=== PATIENT | male | born 1950 | race Caucasian/White ===

== ENCOUNTER → 2020-08-07 08:59 | Outpatient (CLI) | payer OTHER, SELFPAY ==
--- NOTE | ~2020-08-07 | XR_ITS ---
EXAMINATION: XR chest 2V DATE: 08/07/2020 09:18 INDICATION: Shortness of breath. TECHNIQUE: Frontal and lateral views of the chest were obtained. COMPARISON: CT abdomen 02/26/2019 FINDINGS: The chest demonstrates clear lungs without pneumonia, pleural effusion, or pneumothorax. Th e heart size is normal. Median sternotomy wires and mediastinal surgical clips are seen, likely from prior coronary artery bypass grafting. IMPRESSION: 1. No acute cardiopulmonary disease. Reviewed, dictated and finalized at location B. [employer]
== END ==
PROVIDERS: PCP Family Medicine; Visit Provider Family Medicine
DX: R06.02 Shortness of breath (principal)
CPT/HCPCS: 71046

== ENCOUNTER 2020-12-17 09:12 | Outpatient (CLI) | payer OTHER, SELFPAY ==
[2020-12-17 09:57] LABS: Anion Gap 6 mmol/L (8-16); Blood Urea Nitrogen 28 mg/dL (9-20); Carbon Dioxide 30 mmol/L (22-30); Chloride 103 mmol/L (98-107); Estimated Glomerular Filt Rate 33; Glucose 125 mg/dL (75-110); Potassium 3.8 mmol/L (3.4-5.0); Sodium 139 mmol/L (137-145)
== END 2020-12-17 09:13 | disposition home or self-care (01) ==
PROVIDERS: PCP Internal Medicine; Visit Provider Internal Medicine Cardiovascular Disease
DX: N18.32 Chronic kidney disease, stage 3b (principal)
CPT/HCPCS: 36415; 80048

== ENCOUNTER 2024-01-05 07:08 | Outpatient (CLI) | payer OTHER, SELFPAY ==
[2024-01-05 07:49] LABS: Basophils Percent Auto 0.3 % (0.2-1.2); Eosinophils Absolute Auto 0.3 K/mm3 (0-0.3); Eosinophils Percent Auto 2.1 % (0-4.4); Hematocrit 36.7 % (42.0-52.0); Hemoglobin 12.1 g/dL (14.0-18.0); Immature Granulocyte Absolute 0.06 K/mm3 (0.00-0.031); Immature Granulocyte Percent A 0.5 % (0-0.5); Lymphocytes Percent Auto 10.2 % (18.3-44.2); Mean Corpuscular Hemoglobin 27.5 pg (26-34); Mean Corpuscular Volume 83.4 fl (80-100); Mean Platelet Volume 10.2 fl (7.4-10.4); Monocytes Absolute Auto 0.7 K/mm3 (0.1-0.6); Monocytes Percent Auto 6.2 % (2.6-8.5); Neutrophils Absolute Auto 9.5 K/mm3 (1.3-6.7); Neutrophils Percent Auto 80.7 % (45.5-73.1); Platelet Count Result 272 k/mm3 (150-375); Red Cell Distribution Width 14.9 % (11.5-14.5); White Blood Count 11.8 K/mm3 (4.5-10.0)
[2024-01-05 08:02] LABS: Alanine Aminotransferase 21 U/L (6-50); Albumin Level 4.2 g/dL (3.5-5.1); Alkaline Phosphatase 55 U/L (38-126); Anion Gap 7 mmol/L (4-12); Aspartate Amino Transferase 25 U/L (17-59); Bilirubin,Total 0.5 mg/dL (0.2-1.3); Blood Urea Nitrogen 33 mg/dL (9-20); Carbon Dioxide 23 mmol/L (22-30); Chloride 108 mmol/L (98-107); Cholesterol 142 mg/dL (0-200); Estimated Glomerular Filt Rate 23; Glucose 114 mg/dL (65-110); HDL Direct 39 mg/dL; Potassium 3.7 mmol/L (3.4-5.0); Sodium 138 mmol/L (137-145); Triglycerides 145 mg/dL (<150)
[2024-01-05 08:02] LABS: Uric Acid 6.7 mg/dL (3.5-8.5)
[2024-01-05 08:12] LABS: LDL Cholesterol Direct 78 mg/dL
[2024-01-05 09:46] LABS: Hemoglobin A1C 4.9 % (<5.7)
[2024-01-05 13:03] LABS: Creatinine Urine 92.3 mg/dL
[2024-01-05 13:46] LABS: Microalbumin Urine Random > 1140.0 mg/L (0-16.7)
== END 2024-01-05 07:09 | disposition home or self-care (01) ==
PROVIDERS: PCP Nurse Practitioner Family; Referring Provider Internal Medicine Cardiovascular Disease; Visit Provider Nurse Practitioner Family
DX: M10.9 Gout, unspecified (principal); I11.9 Hypertensive heart disease without heart failure; E78.5 Hyperlipidemia, unspecified; R73.01 Impaired fasting glucose; E55.9 Vitamin D deficiency, unspecified
CPT/HCPCS: 36415; 80053; 80061; 82043; 83036; 84550; 85025

== ENCOUNTER 2024-01-24 06:58 | Outpatient (CLI) | payer OTHER, SELFPAY ==
[2024-01-24 07:34] LABS: Basophils Percent Auto 0.3 % (0.2-1.2); Eosinophils Absolute Auto 0.3 K/mm3 (0-0.3); Eosinophils Percent Auto 2.7 % (0-4.4); Hematocrit 34.9 % (42.0-52.0); Hemoglobin 11.3 g/dL (14.0-18.0); Immature Granulocyte Absolute 0.04 K/mm3 (0.00-0.031); Immature Granulocyte Percent A 0.4 % (0-0.5); Lymphocytes Absolute Auto 1.03 K/mm3 (0.9-3.2); Mean Corpuscular HGB Conc 32.4 g/dl (32-36); Mean Corpuscular Volume 83.5 fl (80-100); Mean Platelet Volume 10.3 fl (7.4-10.4); Monocytes Absolute Auto 0.7 K/mm3 (0.1-0.6); Monocytes Percent Auto 7.2 % (2.6-8.5); Neutrophils Absolute Auto 8.2 K/mm3 (1.3-6.7); Neutrophils Percent Auto 79.4 % (45.5-73.1); Platelet Count Result 256 k/mm3 (150-375); Red Blood Count 4.18 M/mm3 (4.6-6.20); Red Cell Distribution Width 14.8 % (11.5-14.5); White Blood Count 10.3 K/mm3 (4.5-10.0)
== END 2024-01-24 06:59 | disposition home or self-care (01) ==
LOC: ANHLAB 06:59
PROVIDERS: PCP Nurse Practitioner Family; Visit Provider Nurse Practitioner Family
DX: D72.829 Elevated white blood cell count, unspecified (principal); I10 Essential (primary) hypertension
CPT/HCPCS: 36415; 85025

== ENCOUNTER 2024-06-07 08:52 | Emergency (ER) | payer OTHER, SELFPAY ==
--- NOTE | ~2024-06-07 | XR_ITS ---
Right Shoulder Technique: AP and scapular Y views were obtained. Clinical History: Pain Findings: There is an acute, oblique, nondisplaced fracture through the surgical neck of the humerus extending probably into the greater tuberosity. There is severe glenohumeral joint degenerative gandhi e. There is diffuse joint space narrowing and sclerosis with large humeral head osteophytes. There is mild AC joint degenerative change.. Soft tissues are unremarkable. Impression: Acute, oblique, nondisplaced fracture through the surgical neck and probably greater tuberosity of th e proximal humerus. Severe glenohumeral joint osteoarthritis, as detailed above. Mild AC joint degenerative change. Reviewed, dictated and finalized at location . Impression: Acute, oblique, nondisplaced fracture through the surgical neck and probably gr eater tuberosity of the proximal humerus. Severe glenohumeral joint osteoarthritis, as detailed above. Mild AC joint degenerative change.
[2024-06-07 08:56] VITALS: BP 229/76; PULSE 84; RESP 16; TEMP 36.2; O2SAT 96
--- NOTE | 2024-06-07 09:31 | ED.FALL ---
HPI - Fall General Chief Complaint: Fall Stated Complaint: fall, right shoulder injury Time Seen by Provider: 06/07/24 09:03 Source: patient Mode of arrival: ambulatory Limitations: no limitations History of Present Illness HPI Narrative: This is a 74 year old male that presents to the ER for right shoulder pain. Reports he was walking to the mailbox last night and turned and lost his balance. Has had right shoulder pain since. Reports decreased ROM due to pain. Denies numbness. Related Data Home Medications Medication Instructions Recorded Confirmed aspirin 81 mg tablet,delayed 81 mg PO DAILY 09/05/20 01/02/24 release (Adult Aspirin Regimen) dorzolamide 2 % eye drops 1 drp EACH EYE ONCE 03/05/21 01/02/24 latanoprost 0.005 % eye drops 1 drp EACH EYE QPM 03/05/21 01/02/24 losartan 50 mg-hydrochlorothiazide 1 tablet PO DAILY 03/05/21 01/02/24 12.5 mg tablet amlodipine 5 mg tablet 10 mg PO DAILY 10/07/22 01/02/24 brimonidine 0.2 % eye drops 1 drp EACH EYE Q8H 10/07/22 01/02/24 calcitriol 0.5 mcg capsule 0.5 mcg PO DAILY 10/07/22 01/02/24 cholecalciferol (vitamin D3) 125 125 mcg PO BID 10/07/22 01/02/24 mcg (5,000 unit) capsule clonidine HCl 0.1 mg tablet 0.1 mg PO DAILY 10/07/22 01/02/24 hydralazine 100 mg tablet 100 mg PO TID 10/07/22 01/02/24 rosuvastatin 10 mg tablet 20 mg PO DAILY 10/07/22 01/02/24 furosemide 40 mg tablet 40 mg PO DAILY 01/02/24 01/02/24 Allergies Allergy/AdvReac Type Severity Reaction Status Date / Time No Known Allergies Allergy Verified 01/02/24 07:15 Review of Systems Review of Systems: CONSTITUTIONAL: Denies fever MUSCULOSKELETAL: Reports joint pain, and myalgia. NEUROLOGIC: Denies numbness, or weakness. All systems reviewed & are unremarkable except as noted in HPI and below PMFSH Past Medical History Medical History Blindness of right eye CAD (coronary artery disease) Essential (primary) hypertension Glaucoma Hyperlipidemia Pancreatic cyst Surgical History Surgical History History of coronary artery bypass surgery History of detached retina repair History of hernia repair Social History Social History Smoking packs per day: 1 Smoking cigarettes per day: 20.0 Years smoked: 15 Smoking pack-years: 15.00 Smoking status: Former smoker Tobacco type: cigarettes Smoking end date: 04/07/19 Alcohol intake: current Alcohol use details: Rare use Substance use: never Substance use type: does not use Lack of Transportation: No Lack of Food: Never True Current Housing: I Have Housing Concerned About Future Housing: No Difficulty Paying Gas/Electric Bills: No Difficulty Paying for Meds: No Currently Unemployed: YES Education: High School Diploma/GED Difficulty w/ Childcare or Family Care: No Living arrangements: with family Occupation/Education: retired 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 HEAD: Normocephalic, atraumatic. EYES: EOMI. NECK: Supple. No midline spinal tenderness CHEST: Clear to auscultation. No respiratory distress. No wheezes rales or rhonchi HEART: Regular rate and rhythm. No murmur heard. Normal peripheral pulses. EXTREMITIES: Normal range of motion, except decreased active ROM in the right shoulder. No edema or obvious deformity. Normal radial pulse. Normal sensation SKIN: Warm, dry, no rash. NEURO: No focal deficits. Alert and oriented x3. Normal gait PSYCH: Normal mood and affect Course Course Emergency Course: Patient updated on workup and agrees with plan of care Consultations Consultation #1:
[2024-06-07] MEDS: ACETAMINOPHEN 500 MG TABLET 1000 MG PO (09:40)
[2024-06-07] MEDS: amLODIPine BESYLATE 10 MG TABLET PO (09:42)
[2024-06-07] MEDS: hydrALAZINE HCL 50 MG TABLET 100 MG PO (09:42)
[2024-06-07 10:02] VITALS: BP 196/72; PULSE 76; RESP 14; O2SAT 100
== END 2024-06-07 10:27 | disposition home or self-care (01) ==
PROVIDERS: Emergency Provider Physician Assistant; PCP Nurse Practitioner Family
DX: S42.214A Unspecified nondisplaced fracture of surgical neck of right humerus, initial encounter for closed fracture (principal); I10 Essential (primary) hypertension; I25.10 Atherosclerotic heart disease of native coronary artery without angina pectoris; E78.5 Hyperlipidemia, unspecified; H40.9 Unspecified glaucoma; H54.61 Unqualified visual loss, right eye, normal vision left eye; Z95.1 Presence of aortocoronary bypass graft; Z87.891 Personal history of nicotine dependence; Z79.82 Long term (current) use of aspirin; Z79.899 Other long term (current) drug therapy; M19.011 Primary osteoarthritis, right shoulder; W18.39XA Other fall on same level, initial encounter
CPT/HCPCS: 73030; 99284; A4565; A9270

== ENCOUNTER 2024-08-15 06:56 | Outpatient (CLI) | payer OTHER, SELFPAY ==
[2024-08-15 07:38] LABS: Alanine Aminotransferase 17 U/L (6-50); Albumin Level 3.8 g/dL (3.5-5.1); Alkaline Phosphatase 50 U/L (38-126); Anion Gap 7 mmol/L (4-12); Aspartate Amino Transferase 21 U/L (17-59); Bilirubin,Total 0.5 mg/dL (0.2-1.3); Blood Urea Nitrogen 34 mg/dL (9-20); Calcium 9.7 mg/dL (8.4-10.2); Carbon Dioxide 25 mmol/L (22-30); Chloride 108 mmol/L (98-107); Cholesterol 123 mg/dL (0-200); Estimated Glomerular Filt Rate 21; Glucose 114 mg/dL (65-110); HDL Direct 42 mg/dL; Sodium 140 mmol/L (137-145); Triglycerides 96 mg/dL (<150)
[2024-08-15 07:49] LABS: LDL Cholesterol Direct 48 mg/dL
[2024-08-15 10:08] LABS: Creatinine Urine 180.6 mg/dL
[2024-08-15 10:20] LABS: Vitamin D 25 Hydroxy 32.6 ng/mL
[2024-08-15 12:36] LABS: MALB Creatinine Ratio > 631.2 mg/g (0-30); Microalbumin Urine Random > 1140.0 mg/L (0-16.7)
== END 2024-08-15 06:57 | disposition home or self-care (01) ==
PROVIDERS: PCP Nurse Practitioner Family; Visit Provider Nurse Practitioner Family
DX: E78.5 Hyperlipidemia, unspecified (principal); I10 Essential (primary) hypertension; I51.9 Heart disease, unspecified; R73.01 Impaired fasting glucose; E55.9 Vitamin D deficiency, unspecified
CPT/HCPCS: 36415; 80053; 80061; 82043; 82306

== ENCOUNTER 2024-11-09 12:49 | Outpatient (CLI) | payer OTHER, SELFPAY ==
--- OUTSIDE RECORDS SUMMARY | 2024-11-09 12:53 | XMS_ITS | Clinical Summary ---
Author Organization [facility] Address [address] [place] [address] Care Team Providers Care Public Health Staff Nurse Name Role Phone Lea Gaspar RN Unavailable Unavailable Sen Ruiz MD Unavailable [phone] Jorge Alberto Perez MD Primary Care Provider [phone] Allergies Active Allergy Reactions Criticality Noted Date Comments Zolpidem Unknown 05/24/2019 Medications aspirin 81 mg enteric coated tablet Take 1 tablet (81 mg total) by mouth daily Active dorzolamide (TRUSOPT) 2 % ophthalmic solution 2 (two) times a day 0 Active latanoprost (XALATAN) 0.005 % ophthalmic solution INSTILL 1 DROP INTO BOTH EYES AT BEDTIME 1 Active brimonidine (ALPHAGAN) 0.2 % ophthalmic solution 1 drop 2 (two) times a day 1 Active cholecalciferol (VITAMIN D-3) 2000 unit capsule Take 1 capsule (2,000 Units total) by mouth daily 30 capsule 11 1 Active calcitRIOL (ROCALTROL) 0.5 mcg capsule TAKE 1 CAPSULE BY MOUTH EVERY DAY 90 capsule 4 Active losartan (COZAAR) 50 mg tablet Take 1 tablet (50 mg total) by mouth daily 90 tablet 3 4 08/20/20 25 Active furosemide (LASIX) 40 mg tabletIndication s:Essential hypertension Take 1 tablet (40 mg total) by mouth daily 90 tablet 3 4 Active Additional Information Patient taking differently:40 mg oral2 times daily, Reported on 11/09/2024 hydrALAZINE (APRESOLINE) 100 mg tabletIndication s:Uncontrolled hypertension Take 1 tablet (100 mg total) by mouth 2 (two) times a day 180 tablet 3 4 Active Additional Information Patient taking differently:100 mg oral3 times daily, Reported on 11/09/2024 amLODIPine (NORVASC) 10 mg tabletIndication s:Uncontrolled hypertension Take 1 tablet (10 mg total) by mouth daily 90 tablet 3 4 Active rosuvastatin (CRESTOR) 20 mg tablet Take 1 tablet (20 mg total) by mouth daily 90 tablet 3 4 Active cloNIDine (CATAPRES) 0.1 mg tabletIndication s:Essential hypertension Take 1 tablet (0.1 mg total) by mouth 2 (two) times a day 180 tablet 3 4 Active cholecalciferol, vitamin D3, 1,000 unit tablet,chewable Take 2 tablet/chew tab by mouth Active multivitamin tabletIndication s:Vitamin Deficiency Prevention Take 1 tablet by mouth Active Active Problems Problem Noted Date Diagnosed Date Morbid (severe) obesity due to excess calories 0 03/26/2024 Body mass index (BMI) 45.0-49.9, adult 4 CKD stage 4 secondary to hypertension 07/04/2023 Mixed hyperlipidemia 03/17/2021 DRAPER (dyspnea on exertion) 12/02/2020 Bradycardia 12/02/2020 Former tobacco use 12/02/2020 Stage 3b chronic kidney disease 12/02/2020 Prediabetes 12/02/2020 Coronary artery disease invo lving [place] coronary artery of [place] heart without angina pectoris 11/12/2019 Body mass index (BMI) of 45.0-49.9 in adult 07/29 Fasting hyperglycemia 08/07/2019 Class 3 obesity 08/07/2019 Hx of CABG 08/07/2019 Abnormal plasma protein test 08/07/2019 Essential hypertension 08/07/2019 CHF (congestive heart failure) 05/07/2019 Atrial fibrillation with RVR 05/01/2019 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 Overview (03/28/2019): Added automatically from request for surgery [id number] MEI (obstructive sleep apnea) 01/13/2018 Resolved Problems Problem Noted Date Diagnosed Date Resolved Date Abdominal pain of multiple sites 08/07/2019 12/02/2020 Acute non-ST segment elevati on myocardial infarction 08/07/2019 12/02/2020 Acute respiratory failure with hypoxia 08/07/2019 12/02/2020 Constipation in pediatric patient 08/07/2019 12/02/2020 Hyperleukocytosis 08/07/2019 12/02/2020 Pulmonary infiltrate 08/07/2019 021 HCAP (healthcare-associated pneumonia) 08/07/2019 12/02/2020 Acute kidney injury 08/07/2019 12/03/19 21 Acute renal failure superimp osed on chronic kidney disease 08/07/2019 12/02/2020 Chronic kidney disease with active medical management without dialysis 08/07/2019 12/02/2020 Chronic renal impairment 08/07/201901/2021 Well child examination 08/07/201912/02 NSTEMI, initial episode of care 08/07/2019 12/02/2020 Pancreatitis due to biliary obstruction 08/07/2019 12/02/2020 Need for prophylactic measure 05/07/2019 12/02/2020 CRF (chronic renal failure) 05/07/2019 12/02/2020 Dyslipidemia 05/01/2019 12/02/2020 Elevated troponin 05/01/2019 12/02/2020 Non-ST elevation myocardial infarction (NSTEMI) 05/01/2019 12/02/2020 Hypercholesteremia 07/27/2016 Assessment & Plan (01/23/2019 4:12 PM CDT): Following diet HTN (hypertension) 03/23/2016 Assessment & Plan (01/23/2019 4:12 PM CDT): Hypertension under not best control readings are 150/80 standing. Patient has been consuming more salt lately Coronary artery disease 03/23/2016 0401/2021 Assessment & Plan (01/23/2019 4:13 PM CDT): Stable coronary disease denies any chest pain. Encounters Date Type Department Care Team Description 11/09/2024 9:15 AM CDT Office Visit [facility] Nephrology at [address] [place] [id number] Connor Wilkes MD Stage 3b chronic kidney disease (HCC) (Primary Dx); Benign hypertensive kidney disease with chronic kidney disease stage I through stage IV, or unspecified(403.10); Persistent proteinuria; Secondary hyperparathyroidism; Morbid (severe) obesity due to excess calories (HCC) 10/23/2024 Results Follow-Up [facility] Cardiology [address] [place] [address] [address] [place] [address] Darrius Martin MD 10/22/2024 8:15 AM WIRE COATER Ancillary Procedure [address] [place] [phone] DRAPER (dyspnea on exertion) 10/01/2024 Telephone [place] [address] [place] [phone] Darrius Martin MD 08/20/2024 12:00 PM WIRE COATER Office Visit [facility] Cardiology [address] [place] [address] [address] [place] [phone] Darrius Martin MD Hx of CABG (Primary Dx); Essential hypertension; Coronary artery disease involving [place] coronary artery of [place] heart without angina pectoris; Mixed hyperlipidemia; Uncontrolled hypertension; Atherosclerosis of [place] coronary artery without angina pectoris, unspecified whether [place] or transplanted heart from Last 3 Months Surgical History Surgery Date Site/Laterality Comments HERNIA REPAIR 08/29/1969 - 08/28/1970 EYE SURGERY 08/29/2013 - 08/28/2014 UPPER GASTROINTESTINAL ENDOSCOPY CORONARY ARTERY BYPASS GRAFT 04/29/2020 - 05/28/[address] 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 Heart attack (HCC) Cardiac rhythm disturbance Obesity Wears dentures Pre-diabetes Right arm fracture 05/2024 Family History Medical History Relation Name Comments Covid-19 Brother 1 Cause of Heart attack Father Heart disease Father Old age Mother Relation Name Status Comments Brother 1 (Age 73) Brother 2 Alive Brother 3 Alive Father (Age 60) Mother (Age 86) Social History Tobacco Use Types Packs/Day Years Used Date Smoking Tobacco: Former Cigarettes Q uit: 03/03/2019 Smokeless Tobacco: Never Tobacco Cessation:Counseling Given: Not Answered Alcohol Use Standard Drinks/Week Comments Yes 0 (1 standard drink = 0.6 oz pur e alcohol) rarely AUDIT-C Answer Date Recorded Q1: How often do you have a drink containing alc ohol? Monthly or less 03/26/2024 Average Number of Drinks Not on file 024 Frequency of Binge Drinking Not on file 02/27 Sex and Gender Information Value Date Recorded Sex Assigned at Not on file Legal Sex Male 6:22 PM WIRE COATER Gender Identity Not on file Sexual Orientation Not on file Obstetrics History Last Filed Vital Signs Vital Sign Reading Time Taken Comments Blood Pressure 166/68 11/09/2024 9:26 AM CDT Pulse 64 11/09/2024 9:26 AM CDT Temperature 36.7 C (98 F) 11/09/2024 9:26 AM CDT Respiratory Rate 20 06/13/2019 10:3 7 AM CDT Oxygen Saturation 95% 08/20/2024 12: 03 PM WIRE COATER Inhaled Oxygen Concentration - - Weight 125.7 kg (277 lb 3.2 oz) 11/09/2024 9:26 AM CDT Height 165.1 cm (5' 5 ) 11/09/2024 9:26 AM CDT Body Mass Index 46.13 11/09/2024 9:26 AM CDT Plan of Treatment Health Maintenance Due Date Last Done Comments Colon Cancer Screening-Colonoscopy 1950 Depression Screening 1950 Fall Risk Assessment 1950 Hepatitis C Screening 1950 DTaP/Tdap/Td Vaccine (1 - Tdap) 1961 Hepatitis B Screening 01/07/1968 Pneumococcal vaccine 65+ (1 of 1 - PCV) 01/07/2000 Zoster Vaccine (1 of 2) 01/07/2000 Well Visit 65+ 2015 Influenza Vaccine (#1) 2024 09/08/2012 Colon Cancer Screening-FIT Discontinued 04/15/2019 Abdominal Aortic Aneurysm (AAA) Screen Completed , 04/07/2019 Procedures Procedure Name Priority Date/Time Associated Diagnosis Comments TRANSTHORACIC ECHO (TTE) COMPLETE W DOPPLER/CF WO CONTRAST Routine 10/22/2024 8:29 AM WIRE COATER DRAPER (dyspnea on exertion) POCT LIPID PANEL Routine 08/20/2024 2:24 PM WIRE COATER Coronary artery disease involving [place] coronary artery of [place] heart without angina pectoris Mixed hyperlipidemia CT ABDOMEN W WO CONTRAST 05/04/2019 12:00 AM CDT OCCULT BLOOD, FECAL (FIT) Routine 04/15/2019 6:00 AM CDT from Last 3 Months or Most Recently Relevant to Health Maintenance Results * TRANSTHORACIC ECHO (TTE) COMPLETE W DOPPLER/CF WO CONTRAST (10/22/2024 8:29 AM WIRE COATER) Anatomical Region Laterality Modality Ultrasound 10/22/2024 7:58 AM WIRE COATER Narrative 10/22/2024 11:58 AM WIRE COATER [facility] Cardiology [address] [facility] [address], [place] [address] [address] [facility] [address], [place] [address] P:[phone] P:[phone] Echocardiographic Report Patient Name: NIKOLAY SILVER Z : 1950 Study Date: 10/22/2024 7:58:55 AM Gender: M Tech: Location: [facility] Provider: DARRIUS MARTIN Height(Cm): 165 BSA: 2.37 Weight(Kg): 122.5 Heart Rate: 71 BP: 138 / 84 Quality: Good Order Provider: DARRIUS MARTIN PROCEDURES: Echocardiographic Report: Transthoracic echocardiogram with complete 2D, M-Mode, and color Doppler examination. INDICATIONS: Dyspnea on Exertion. MEASUREMENTS: 2D/MM Value Range Doppler Value Range EF Mod BP 60 % [ 52 - 72 ] ANUJ Vmax 1.38 cm2 [ 2.00 - 4.00 ] EF Teich MM 60 % [ 52 - 72 ] AV Mean PG 16 mmHg LVIDd 2D 5.74 cm [ 4.20 - 5.80 ] AV Peak Rodger 2.66 m/s [ 1.00 - 1.70 ] LVIDd MM 5.79 cm [ 4.20 - 5.80 ] AV Peak PG 28 mmHg LVIDs 2D 3.88 cm [ 2.50 - 4.00 ] AV VTI 60.78 cm LVIDs MM 3.92 cm [ 2.50 - 4.00 ] LVOT Diam 1.97 cm [ 1.70 - 2.10 ] LVPWd 2D 1.28 cm [ 0.60 - 1.00 ] LVOT Peak Rodger 1.21 m/s [ 0.70 - 1.10 ] LVPWd MM 1.43 cm [ 0.60 - 1.00 ] LVOT VTI 28.23 cm IVSd 2D 1.25 cm [ 0.60 - 1.00 ] MV E Peak Rodger 0.84 m/s [ 0.60 - 1.30 ] IVSd MM 1.43 cm [ 0.60 - 1.00 ] MV A Peak Rodger 0.84 m/s [ 1.00 - 1.20 ] LA Dimension MM 5.35 cm [ 3.00 - 4.00 ] MV Decel Time 198 msec [ 104 - 258 ] AoR Diam MM 3.69 cm [ 3.10 - 3.70 ] PV Peak Rodger 1.32 m/s [ 0.40 - 0.80 ] LA Volume Index 45 cc/m2 [ 16 - 34 ] TR Peak Rodger 2.84 m/s [ 1.00 - 2.80 ] TR Peak PG 32 mmHg Lateral E` 0.09 m/s [ 0.10 - 0.15 ] E` 0.06 m/s E/E` 10 2D/MM Value Range Doppler Value Range - FINDINGS: Interpretation Site: Exam was interpreted at [facility]. Left Ventricle: Normal left ventricular systolic function. No focal wall motion abnormalities. Normal left ventricular size. Mild concentric left ventricular hypertrophy. There is pseudonormal diastolic dysfunction Grade II. Ejection fraction is measured at 60 %. Right Ventricle: Normal right ventricular size. Normal right ventricular systolic function. Left Atrium: There is mild enlargement of left atrium. Right Atrium: The right atrium is normal in size. Atrial Septum: Normal atrial septum. Mitral Valve: Normal appearance of the mitral valve. Mild mitral valve regurgitation. There is no hemodynamically significant mitral stenosis by Doppler. Aortic Valve: Mild to moderate aortic stenosis. Peak Velocity of 2.66 m/s. Peak gradient of 28.0 mmHg. Mean gradient of 16.0 mmHg. Valve area of 1.38 cm2. Aortic cusps appear mildly calcified. Probable trileaflet aortic valve, although not all leaflets are visualized. Mild aortic valve regurgitation. Tricuspid Valve: Normal appearance of the tricuspid valve. Estimated peak RVSP is 40 mmHg. Mild tricuspid regurgitation. Pulmonic Valve: Normal appearance of the pulmonic valve. Mild pulmonic regurgitation. Pericardium: Normal pericardium with no significant pericardial effusion. Aorta: Sinus of Valsalva is normal. IVC: Normal size and normal respiratory collapse consistent with normal right atrial pressure (<5 mmHg). Pulmonary Artery: Normal pulmonary artery size. CONCLUSIONS: Normal left ventricular systolic function. No focal wall motion abnormalities. Normal left ventricular size. Mild concentric left ventricular hypertrophy. There is pseudonormal diastolic dysfunction Grade II. Ejection fraction is measured at 60 %. There is mild enlargement of left atrium. Mild mitral valve regurgitation. Mild to moderate aortic stenosis. Peak Velocity of 2.66 m/s. Peak gradient of 28.0 mmHg. Mean gradient of 16.0 mmHg. Valve area of 1.38 cm2. Aortic cusps appear mildly calcified. Probable trileaflet aortic valve, although not all leaflets are visualized. Mild aortic valve regurgitation. Estimated peak RVSP is 40 mmHg. Mild tricuspid regurgitation. Mild pulmonic regurgitation. Electronically Signed By: Dr. Darrius Martin [facility] 10/22/2024 11:58:14 AM WIRE COATER Procedure Note Darrius Martin MD - 10/22/2024 [facility] Cardiology [address] [facility] [address], [place] [address] [address] [facility] [address], [place] [address] P:[phone] P:[phone] Echocardiographic Report Patient Name: NIKOLAY SILVER Z : 1950 Study Date: 10/22/2024 7:58:55 AM Gender: M Tech: Location: [facility] Provider: DARRIUS MARTIN Height(Cm): 165 BSA: 2.37 Weight(Kg): 122.5 Heart Rate: 71 BP: 138 / 84 Quality: Good Order Provider: DARRIUS MARTIN PROCEDURES: Echocardiographic Report: Transthoracic echocardiogram with complete 2D, M-Mode, and color Dopplerexamination. INDICATIONS: Dyspnea on Exertion. MEASUREMENTS: 2D/MM Value Range Doppler ValueRange EF Mod BP 60 % [ 52 - 72 ] ANUJ Vmax 1.38cm2 [ 2.00 - 4.00 ] EF Teich MM 60 % [ 52 - 72 ] AV Mean PG 16mmHg LVIDd 2D 5.74 cm [ 4.20 - 5.80 ] AV Peak Rodger 2.66m/s [ 1.00 - 1.70 ] LVIDd MM 5.79 cm [ 4.20 - 5.80 ] AV Peak PG 28mmHg LVIDs 2D 3.88 cm [ 2.50 - 4.00 ] AV VTI 60.78cm LVIDs MM 3.92 cm [ 2.50 - 4.00 ] LVOT Diam 1.97 cm[ 1.70 - 2.10 ] LVPWd 2D 1.28 cm [ 0.60 - 1.00 ] LVOT Peak Rodger 1.21m/s [ 0.70 - 1.10 ] LVPWd MM 1.43 cm [ 0.60 - 1.00 ] LVOT VTI 28.23cm IVSd 2D 1.25 cm [ 0.60 - 1.00 ] MV E Peak Rodger 0.84m/s [ 0.60 - 1.30 ] IVSd MM 1.43 cm [ 0.60 - 1.00 ] MV A Peak Rodger 0.84m/s [ 1.00 - 1.20 ] LA Dimension MM 5.35 cm [ 3.00 - 4.00 ] MV Decel Time 198msec [ 104 - 258 ] AoR Diam MM 3.69 cm [ 3.10 - 3.70 ] PV Peak Rodger 1.32m/s [ 0.40 - 0.80 ] LA Volume Index 45 cc/m2 [ 16 - 34 ] TR Peak Rodger 2.84m/s [ 1.00 - 2.80 ] TR Peak PG 32 mmHg Lateral E` 0.09 m/s [ 0.10 - 0.15 ] E` 0.06 m/s E/E` 10 2D/MM Value Range Doppler ValueRange - FINDINGS: Interpretation Site: Exam was interpreted at [facility]. Left Ventricle: Normal left ventricular systolic function. No focal wall motionabnormalities. Normal left ventricular size. Mild concentric left ventricular hypertrophy. Thereis pseudonormal diastolic dysfunction Grade II. Ejection fraction is measuredat 60 %. Right Ventricle: Normal right ventricular size. Normal right ventricular systolicfunction. Left Atrium: There is mild enlargement of left atrium. Right Atrium: The right atrium is normal in size. Atrial Septum: Normal atrial septum. Mitral Valve: Normal appearance of the mitral valve. Mild mitral valve regurgitation.There is no hemodynamically significant mitral stenosis by Doppler. Aortic Valve: Mild to moderate aortic stenosis. Peak Velocity of 2.66 m/s. Peak gradientof 28.0 mmHg. Mean gradient of 16.0 mmHg. Valve area of 1.38 cm2. Aortic cusps appearmildly calcified. Probable trileaflet aortic valve, although not all leaflets arevisualized. Mild aortic valve regurgitation. Tricuspid Valve: Normal appearance of the tricuspid valve. Estimated peak RVSP is 40 mmHg.Mild tricuspid regurgitation. Pulmonic Valve: Normal appearance of the pulmonic valve. Mild pulmonic regurgitation. Pericardium: Normal pericardium with no significant pericardial effusion. Aorta: Sinus of Valsalva is normal. IVC: Normal size and normal respiratory collapse consistent with normal rightatrial pressure (<5 mmHg). Pulmonary Artery: Normal pulmonary artery size. CONCLUSIONS: Normal left ventricular systolic function. No focal wall motionabnormalities. Normal left ventricular size. Mild concentric left ventricular hypertrophy. Thereis pseudonormal diastolic dysfunction Grade II. Ejection fraction is measuredat 60 %. There is mild enlargement of left atrium. Mild mitral valve regurgitation. Mild to moderate aortic stenosis. Peak Velocity of 2.66 m/s. Peak gradientof 28.0 mmHg. Mean gradient of 16.0 mmHg. Valve area of 1.38 cm2. Aortic cusps appearmildly calcified. Probable trileaflet aortic valve, although not all leaflets arevisualized. Mild aortic valve regurgitation. Estimated peak RVSP is 40 mmHg. Mild tricuspid regurgitation. Mild pulmonic regurgitation. Electronically Signed By: Dr. Darrius Martin [facility] 10/22/2024 11:58:14 AM WIRE COATER Darrius Martin MD CV ECHO PROCEDURES F inal Result * POCT lipid panel (08/20/2024 2:24 PM WIRE COATER) [facility] Cholesterol, POC 127 mg/dL Comment:GLU = 140 HDL, POC 44 mg/dL Triglycerides, POC 105 mg/dL LDL Cholesterol POC 62 mg/dL Chol/HDL Ratio, POC 1.4 Non-HDL Cholesterol, POC 83 mg/dL Cholesterol Total, POC 127 mg/dL Capillary blood 08/20/2024 2 :24 PM WIRE COATER Darrius Martin MD POINT OF CARE TEST O RDERABLES Final Result * CT Abdomen W WO Contrast (05/04/2019 12:00 AM CDT) Anatomical Region Laterality Modality Body N/A Computed Tomogra phy 05/04/2019 4:48 PM CDT Narrative 05/04/2019 5:25 PM CDT Patient Name: NIKOLAY SILVER Ehsan Ordering Dr: Angel Luis Epstein MD D.O.B: 1950 Exam Date: 05/04/19 0000 Age: 69 Sex: Male MR#: [id number] Loc: RADIOLOGY REPORT Order #[id number] CT Scan CT Abd W WO IV Contrast Signed EXAM DESCRIPTION: CT Abd W WO IV Contrast REASON FOR STUDY: Follow-up of acute pancreatitis 1 month ago TECHNIQUE: CT scan of the abdomen performed without and with intravenous and without oral contrast using helical scanning technique with dynamic intravenous contrast injection. Reconstructed coronal and sagittal MPR images reviewed. All images stored on PACS. Automated exposure control was used as a dose optimization technique for this examination. CONTRAST TYPE/DOSE: 80 cc Optiray 350 injected via right antecubital COMPARISON: 04/07/2019 FINDINGS: LOWER CHEST: Trace left pleural effusion. LIVER: Diffuse steatosis and hepatomegaly. GALLBLADDER: Unremarkable BILE DUCTS: No intrahepatic or extrahepatic ductal dilatation. SPLEEN: Normal size. No focal lesions. PANCREAS: Pancreatic body and tail are diffusely atrophic. The proximal pancreatic body contains a cluster of stones measuring 1.6 cm x 0.9 cm that is unchanged from 04/07/2019. The main pancreatic duct distal to the stones is diffusely dilated up to 8 mm, similar to the prior examination. There is a complex intra pancreatic and peripancreatic fluid collection. The intrapancreatic portion of the collection measures 3.9 cm x 2.6 cm and appears to have a few thin septations with lobulated margins (previously 3.9 cm by 2.6 cm). The largest peripancreatic component is superior to the pancreas and measures 6.1 cm x 5.0 cm, new from the prior examination. In addition, there is a component that extends into the left pleural space measuring 4.9 cm by 3.9 cm that is new. No focal pancreatic hypoattenuation to suggest necrosis. ADRENALS: Right adrenal is unremarkable. Left adrenal adenomatous hypertrophy. KIDNEYS/URINARY TRACT: Right kidney is unremarkable. Left renal interpolar 9 mm lesion is too small to characterize but likely represents a benign cyst. GI: Bowel caliber is normal. Appendix is normal. PERITONEUM: No ascites or free air. RETROPERITONEUM: No adenopathy. VASCULATURE:No venous thrombosis or arterial aneurysm. MUSCULOSKELETAL: No aggressive lesions. OTHER: No other significant abnormality. IMPRESSION: 1. Intrapancreatic/peripancreatic pseudocyst with a component extending into the left pleural space is increased in size. No evidence of underlying solid mass. 2. A large main pancreatic duct cluster of stones with dilation of the distal pancreatic duct is unchanged. Peripancreatic inflammatory changes are decreased. THIS IS AN ELECTRONICALLY VERIFIED FINAL REPORT 05/04/2019 5:25 PM - Electronically signed by Tobias Ramos M.D. RS T: Report ID: [id number] Reading Location: [id number] REPORT ELECTRONICALLY SIGNED IN OTHER VENDOR SYSTEM Resulting Agency Comment O Procedure Note Tobias Ramos MD - 05/04/2019 Patient Name: NIKOLAY SILVER Dr: Angel Luis Epstein MD D.O.B: 1950 Exam Date: 05/04/19 0000 Age: 69 Sex: Male MR#: [id number] Loc: RADIOLOGY REPORT Order #[id number] CT Scan CT Abd W WO IV Contrast Signed EXAM DESCRIPTION: CT Abd W WO IV Contrast REASON FOR STUDY: Follow-up of acute pancreatitis 1 month ago TECHNIQUE: CT scan of the abdomen performed without and with intravenousand without oral contrast using helical scanning technique with dynamic intravenous contrast injection. Reconstructed coronal and sagittal MPRimages reviewed. All images stored on PACS. Automated exposure control was usedas a dose optimization technique for this examination. CONTRAST TYPE/DOSE: 80 cc Optiray 350 injected via right antecubital COMPARISON: 04/07/2019 FINDINGS: LOWER CHEST: Trace left pleural effusion. LIVER: Diffuse steatosis and hepatomegaly. GALLBLADDER: Unremarkable BILE DUCTS: No intrahepatic or extrahepatic ductal dilatation. SPLEEN: Normal size. No focal lesions. PANCREAS: Pancreatic body and tail are diffusely atrophic. The proximal pancreatic body contains a cluster of stones measuring 1.6 cm x 0.9 cmthat is unchanged from 04/07/2019. The main pancreatic duct distal to the stonesis diffusely dilated up to 8 mm, similar to the prior examination. There gretta complex intra pancreatic and peripancreatic fluid collection. The intrapancreatic portion of the collection measures 3.9 cm x 2.6 cm andappears to have a few thin septations with lobulated margins (previously 3.9 cmby 2.6 cm). The largest peripancreatic component is superior to the pancreasand measures 6.1 cm x 5.0 cm, new from the prior examination. In addition,there is a component that extends into the left pleural space measuring 4.9 cmby 3.9 cm that is new. No focal pancreatic hypoattenuation to suggestnecrosis. ADRENALS: Right adrenal is unremarkable. Left adrenal adenomatoushypertrophy. KIDNEYS/URINARY TRACT: Right kidney is unremarkable. Left renalinterpolar 9 mm lesion is too small to characterize but likely represents a benigncyst. GI: Bowel caliber is normal. Appendix is normal. PERITONEUM: No ascites or free air. RETROPERITONEUM: No adenopathy. VASCULATURE:No venous thrombosis or arterial aneurysm. MUSCULOSKELETAL: No aggressive lesions. OTHER: No other significant abnormality. IMPRESSION: 1. Intrapancreatic/peripancreatic pseudocyst with a component extendinginto the left pleural space is increased in size. No evidence of underlyingsolid mass. 2. A large main pancreatic duct cluster of stones with dilation of thedistal pancreatic duct is unchanged. Peripancreatic inflammatory changes are decreased. THIS IS AN ELECTRONICALLY VERIFIED FINAL REPORT 05/04/2019 5:25 PM - Electronically signed by Tobias Ramos M.D. RS T: Report ID: [id number] Reading Location: [place] [id number] REPORT ELECTRONICALLY SIGNED IN OTHER VENDOR SYSTEM Angel Luis Epstein MD IMG CT PROCEDURES Final Re sult * Occult Blood, Fecal (04/15/2019 6:00 AM CDT) Stool Occult Blood NEGATIVE NEGATIVE [facility] 04/15/2019 6:00 AM CDT 04/15/2019 6:27 AM CDT Narrative [facility] - 04/15/2019 6:44 AM CDT Collected By [place] Resulting Agency Comment IN Tomi Michele MD LAB BODY FLUIDS AND STOOLS O RDERABLES Final Result [facility] [address] [place] [address], [facility] [phone] from Last 3 Months or Most Recently Relevant to Health Maintenance Insurance HEALTHCARE HEALTHCARE [facility] Advance Directives For more information, please contact: [phone] * Full Code (Latest Code Status on File) Date Activated Date Inactivated Comments 04/04/2019 8:10 AM 04/04/2019 2:59 PM Care Teams Public Health Staff Nurse Relationship Specialty Start Date End Date Jorge Alberto Perez MD [address] [place] [address] PCP - General Family Practice 08/16/24 Lea Gaspar, RN Registered Nurse Gastroenterology 03/28/19 Sen Ruiz MD [address] [facility] [place] [address] Open Hearth Door Liner Cardiology 04/25/19
--- OUTSIDE RECORDS SUMMARY | 2024-11-09 12:53 | XMS_ITS | Encounter Summary ---
Author Organization [facility] Facility Care Team Providers Care Privacy Director Name Role Phone Robe Kinney MD Primary Care Provider [phone] Lea Gaspar RN Unavailable Unavailable Sen Ruiz MD Unavailable [phone] Connor Wilkes MD Primary Care Provider [phone] Robe Kinney MD Primary Care Provider [phone] No, Physician Primary Care Provider [phone] Rory Martinez DO Primary Care Provider [phone] Jorge Alberto Perez MD Primary Care Provider [phone] Jorge Alberto Perez MD Primary Care Provider [phone] Encounter Details Date Type Department Care Team (Latest Contact Info) Description 01/05/2011 Orders Only [facility] CLINCONV Provider, MD Obinna [address] [place] [address] Social History Tobacco Use Types Packs/Day Years Used Date Smoking Tobacco: Never Assessed Sex and Gender Information Value Date Recorded Sex Assigned at Not on file Legal 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 us Historical Provider [facility] Final Result documented in this encounter Visit Diagnoses Not on filedocumented in this encounter Care Teams Privacy Director Relationship Specialty Start Date End Date Robe Kinney MD [address] [place] [address] PCP - General Family Medicine 01/16/19 05/29/19 Connor Wilkes MD [address] [facility] [address] [address] PCP - General 05/30/19 07/30/19 Robe Kinney MD [address] [place] [address] PCP - General 07/31/19 08/31/20 No, Physician PCP - General 09/01/20 10/23/20 Rory Martinez DO PCP - General 10/24/20 10/05/22 Jorge Alberto Perez MD PCP - General Family Practice 07/01/23 08/15/24 Jorge Alberto Perez MD [address] [place] [address] PCP - General Family Practice 08/16/24 Lea Gaspar, RN Registered Nurse Gastroenterology 03/28/19 Sen Ruiz MD [address] [facility] [address] Mathematical Engineering Technician Cardiology 04/25/19 documented as of this encounter
--- OUTSIDE RECORDS SUMMARY | 2024-11-09 12:53 | XMS_ITS | Encounter Summary ---
Author Organization [facility] Facility Care Team Providers Care Briquetter Operator Name Role Phone Robe Kinney MD Primary Care Provider [phone] Lea Gaspar RN Unavailable Unavailable Sen Ruiz MD Unavailable [phone] Connor Wilkes MD Primary Care Provider [phone] Robe Kinney MD Primary Care Provider [phone] No, Physician Primary Care Provider Rory Martinez DO Primary Care Provider [phone] Jorge Alberto Perez MD Primary Care Provider [phone] Jorge Alberto Perez MD Primary Care Provider [phone] Encounter Details Date Type Department Care Team (Latest Contact Info) Description 11/19/2015 Orders Only [facility] CLINCONV Provider, MD Obinna [address] [place] [address] Social History Tobacco Use Types Packs/Day Years Used Date Smoking Tobacco: Never Assessed Sex and Gender Information Value Date Recorded Sex Assigned at Not on file 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 us Historical Provider Final Res ult documented in this encounter Visit Diagnoses Not on filedocumented in this encounter Care Teams Briquetter Operator Relationship Specialty Start Date End Date Robe Kinney MD [address] [place] [address] PCP - General Family Medicine 01/16/19 05/29/19 Connor Wilkes MD [address] [facility] [place] [address] PCP - General 05/30/19 07/30/19 Robe Kinney MD [address] [place] [address] PCP - General 07/31/19 08/31/20 No, Physician PCP - General 09/01/20 10/23/20 Rory Martinez DO PCP - General 10/24/20 10/05/22 Jorge Alberto Perez MD PCP - General Family Practice 07/01/23 08/15/24 Jorge Alberto Perez MD [address] [place] [address] PCP - General Family Practice 08/16/24 Lea Gaspar, RN Registered Nurse Gastroenterology 03/28/19 Sen Ruiz MD [address] [facility] [place] [place] [address] Checkerer Hand Cardiology 04/25/19 documented as of this encounter
--- OUTSIDE RECORDS SUMMARY | 2024-11-09 12:53 | XMS_ITS | Encounter Summary ---
Author Organization [facility] Facility Care Team Providers Care Technical Support Director Name Role Phone Robe Kinney MD Primary Care Provider [phone] Lea Gaspar RN Unavailable Unavailable Sen Ruiz MD Unavailable [phone] Connor Wilkes MD Primary Care Provider [phone] Robe Kinney MD Primary Care Provider [phone] No, Physician Primary Care Provider [phone] Rory Martinez DO Primary Care Provider [phone] Jorge Alberto Perez MD Primary Care Provider [phone] Jorge Alberto Perez MD Primary Care Provider [phone] Encounter Details Date Type Department Care Team (Latest Contact Info) Description 12/03/2016 Orders Only [facility] CLINCONV Provider, MD Obinan [address] [place] [address] Social History Tobacco Use Types Packs/Day Years Used Date Smoking Tobacco: Never Assessed Sex and Gender Information Value Date Recorded Sex Assigned at Not on file 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 Gender Identity Not on file Sexual Orientation [...] on filedocumented in this encounter Care Teams Technical Support Director Relationship Specialty Start Date End Date Robe Kinney MD [address] [place] [address] PCP - General Family Medicine 01/16/19 05/29/19 Connor Wilkes MD [address] [facility] [address] [address] PCP - General 05/30/19 07/30/19 Robe Kinney MD [address] [place] [address] PCP - General 07/31/19 08/31/20 No, Physician PCP - General 09/01/20 10/23/20 Rory Martinez DO PCP - General 10/24/20 10/05/22 Jorge Alberto Perez MD PCP - General Family Practice 07/01/23 08/15/24 Jorge Alberto Perez MD [address] [place] [address] PCP - General Family Practice 08/16/24 Lea Gaspar, RN Registered Nurse Gastroenterology 03/28/19 Sen Ruiz MD [address] [facility] [place] [address] Digital Marketing Executive Cardiology 04/25/19 documented as of this encounter
--- OUTSIDE RECORDS SUMMARY | 2024-11-09 12:53 | XMS_ITS | Referral Summary ---
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 IV, or unspecified(403.10); Persistent proteinuria; Secondary hyperparathyroidism; Morbid (severe) obesity due to excess calories (HCC) 10/23/2024 Results Follow-Up [facility] Cardiology [address] [place] [address] [place] [phone] Darrius Martin MD 10/22/2024 8:15 AM EVENTS DIRECTOR Ancillary Procedure [facility] Cardiology [address] [place] [address] [place] [phone] DRAPER (dyspnea on exertion) 10/01/2024 Telephone [facility] Cardiology [address] [place] [address] [place] [phone] Darrius Martin MD 08/20/2024 12:00 PM EVENTS DIRECTOR Office Visit [facility] Cardiology [address] [place] [address] [place] [phone] Darrius Martin MD Hx of CABG (Primary Dx); Essential hypertension; Coronary artery disease involving [place] coronary artery of [place] heart without angina pectoris; Mixed hyperlipidemia; Uncontrolled hypertension; Atherosclerosis of [place] coronary artery without angina pectoris, unspecified whether [place] or transplanted heart from Last 3 Months Allergies Active Allergy Reactions Criticality Noted Date [...] Prediabetes 12/02/2020 Coronary artery disease invo lving [place] coronary artery of [place] heart without angina pectoris 11/12/2019 Body mass index (BMI) of 45.0-49.9 in adult 07/29 Fasting hyperglycemia 08/07/2019 Class 3 obesity 08/07/2019 Hx of CABG 08/07/2019 Abnormal plasma protein test 08/07/2019 Essential hypertension 08/07/2019 CHF (congestive heart failure) 05/07/2019 Atrial fibrillation with RVR 05/01/2019 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 Overview (03/28/2019): Added automatically from request for surgery [id number] MEI (obstructive sleep apnea) 01/13/2018 Resolved Problems [...] consuming more salt lately Coronary artery disease 03/23/201601/2021 Assessment & Plan (01/23/2019 4:13 PM CDT): Stable coronary disease denies any chest pain. Social History Tobacco Use Types Packs/Day Years [...] on file Legal Sex Male 6:22 PM EVENTS DIRECTOR Gender Identity Not on file Sexual Orientation Not on file Last Filed Vital Signs Vital Sign Reading Time Taken Comments Blood Pressure 166/68 11/09/2024 9:26 AM CDT Pulse 64 11/09/2024 9:26 AM CDT Temperature 36.7 C (98 F) 11/09/2024 9:26 AM CDT Respiratory Rate 20 06/13/2019 10:3 7 AM CDT Oxygen Saturation 95% 08/20/2024 12: 03 PM EVENTS DIRECTOR Inhaled Oxygen Concentration - - Weight 125.7 kg (277 lb 3.2 oz) 11/09/2024 9:26 AM CDT Height 165.1 cm (5' 5 ) 11/09/2024 9:26 AM CDT Body Mass Index 46.13 11/09/2024 9:26 AM CDT Plan of Treatment Not on file Procedures Procedure Name Priority Date/Time Associated Diagnosis Comments TRANSTHORACIC ECHO (TTE) COMPLETE W DOPPLER/CF WO CONTRAST Routine 10/22/2024 8:29 AM EVENTS DIRECTOR DRAPER (dyspnea on exertion) POCT LIPID PANEL Routine 08/20/2024 2:24 PM EVENTS DIRECTOR Coronary artery disease involving [place] coronary artery of [place] heart without angina pectoris Mixed hyperlipidemia CT ABDOMEN W WO CONTRAST 05/04/2019 12:00 AM CDT OCCULT BLOOD, FECAL (FIT) Routine 04/15/2019 6:00 AM CDT from Last 3 Months or Most Recently Relevant to Health Maintenance Results * TRANSTHORACIC ECHO (TTE) COMPLETE W DOPPLER/CF WO CONTRAST (10/22/2024 8:29 AM EVENTS DIRECTOR) Anatomical Region Laterality Modality Ultrasound 10/22/2024 7:58 AM EVENTS DIRECTOR Narrative 10/22/2024 11:58 AM EVENTS DIRECTOR [facility] Cardiology [address], [place] [address] [address], [place] [address] [phone] P:[phone] Echocardiographic Report Patient Name: NIKOLAY SILVER Ehsan : 1950 Study Date: 10/22/2024 7:58:55 AM Gender: M Tech: Location: [facility] Provider: DARRIUS MARTIN Height(Cm): 165 BSA: 2.37 [...] FINDINGS: Interpretation Site: Exam was interpreted at [facility]. Left Ventricle: Normal left ventricular systolic function. [...] regurgitation. Electronically Signed By: Dr. Darrius Martin [facility] 10/22/2024 11:58:14 AM EVENTS DIRECTOR Procedure Note Darrius Martin MD - 10/22/2024 [facility] Cardiology [address] [facility] [address], [place] [address] [address] [facility] [address] [address] P:[phone] P:[phone] Echocardiographic Report Patient Name: NIKOLAY SILVER Z : 1950 Study Date: 10/22/2024 7:58:55 AM Gender: M Tech: Location: [facility] Provider: DARRIUS MARTIN Height(Cm): 165 BSA: 2.37 [...] FINDINGS: Interpretation Site: Exam was interpreted at [facility]. Left Ventricle: Normal left ventricular systolic function. [...] regurgitation. Electronically Signed By: Dr. Darrius Martin [facility] 10/22/2024 11:58:14 AM EVENTS DIRECTOR Darrius Martin MD CV ECHO PROCEDURES F inal Result * POCT lipid panel (08/20/2024 2:24 PM EVENTS DIRECTOR) Cholesterol, POC 127 mg/dL Comment:GLU = 140 HDL, POC 44 mg/dL Triglycerides, POC 105 mg/dL LDL Cholesterol POC 62 mg/dL Chol/HDL Ratio, POC 1.4 Non-HDL Cholesterol, POC 83 mg/dL Cholesterol Total, POC 127 mg/dL Capillary blood 08/20/2024 2 :24 PM EVENTS DIRECTOR us Darrius Martin MD POINT OF CARE TEST O RDERABLES Final Result * CT Abdomen W WO Contrast (05/04/2019 12:00 AM CDT) Anatomical Region Laterality Modality Body N/A Computed Tomogra phy 05/04/2019 4:48 PM CDT Narrative 05/04/2019 5:25 PM CDT Patient Name: NIKOLAY SILVER JR Ordering Dr: Angel Luis Epstein MD D.O.B: 1950 Exam Date: 05/04/19 0000 Age: 69 Sex: Male MR#: [id number] Loc: Acc#: [id number] RADIOLOGY REPORT Order #[id number] CT Scan CT Abd W WO IV [...] 5:25 PM - Electronically signed by Tobias JOSEPH T: Report ID: [id number] Reading Location: [place] [address] REPORT ELECTRONICALLY SIGNED IN OTHER VENDOR SYSTEM Resulting Agency Comment O Procedure Note Tobias Ramos MD - 05/04/2019 Patient Name: NIKOLAY SILVER Ehsan JROrdering Dr: Angel Luis Epstein MD D.O.B: 1950 Exam Date: 05/04/19 0000 Age: 69 Sex: Male MR#: [id number] Loc: [facility] [id number] RADIOLOGY REPORT Order #[id number] CT Scan CT Abd W WO IV [...] 5:25 PM - Electronically signed by Tobias JOSEPH T: Report ID: [id number] Reading Location: [place] [address] REPORT ELECTRONICALLY SIGNED IN OTHER VENDOR SYSTEM Angel Luis Epstein MD IM CT PROCEDURES Final Re sult * Occult Blood, Fecal (04/15/2019 6:00 AM CDT) Stool Occult Blood NEGATIVE NEGATIVE [facility] 04/15/2019 6:00 AM CDT 04/15/2019 6:27 AM CDT Narrative [facility] - 04/15/2019 6:44 AM CDT Collected By [place] Resulting Agency Comment IN Tomi Michele MD LAB BODY FLUIDS AND STOOLS O RDERABLES Final Result [facility] [address] [place], [place] [phone] [place] [address] from Last 3 Months or Most Recently Relevant to Health Maintenance Insurance [facility]ALTHCARE HEALTHCARE [facility] HEALTHCARE [facility] Advance Directives For more information, please contact: [phone] * Full Code (Latest Code Status on File) Date Activated Date Inactivated Comments 04/04/2019 8:10 AM 04/04/2019 2:59 PM Care Teams Garment Presser Relationship Specialty Start Date End Date Jorge Alberto Perez MD [address] [address] PCP - General Family Practice 08/16/24 Lea Gaspar, RN Registered Nurse Gastroenterology 03/28/19 Sen Ruiz MD [address] [facility] [place] [address] Community Relations Representative Cardiology 04/25/19
--- OUTSIDE RECORDS SUMMARY | 2024-11-09 12:53 | XMS_ITS | Encounter Summary ---
Author Organization [facility] Care Team Providers Care Under Presser Name Role Phone Robe Kinney MD Primary Care Provider [phone] Lea Gaspar RN Unavailable Unavailable Sen Ruiz MD Unavailable [phone] Connor Wilkes MD Primary Care Provider [phone] Robe Kinney MD Primary Care Provider [phone] No, Physician Primary Care Provider [phone] Rory Martinez DO Primary Care Provider [phone] Jorge Alberto Perez MD Primary Care Provider [phone] Jorge Alberto Perez MD Primary Care Provider [phone] Encounter Details Date Type Department Care Team (Latest Contact Info) Description 01/30/2013 Orders Only [facility] CLINCONV Provider, MD Ob[place]na [address] [place] [address] Social History Tobacco Use Types Packs/Day Years Used Date Smoking Tobacco: Never Assessed Sex and Gender Information Value Date Recorded Sex Assigned at Not on file Legal 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 Gender Identity Not on file Sexual Orientation [...] on filedocumented in this encounter Care Teams Under Presser Relationship Specialty Start Date End Date Robe Kinney MD [address] [place] [address] PCP - General Family Medicine 01/16/19 05/29/19 Connor Wilkes MD [address] [facility] [address] [address] PCP - General 05/30/19 07/30/19 Robe Kinney MD [address] [place] [address] PCP - General 07/31/19 08/31/20 No, Physician PCP - General 09/01/20 10/23/20 Rory Martinez DO PCP - General 10/24/20 10/05/22 Jorge Alberto Perez MD PCP - General Family Practice 07/01/23 08/15/24 Jorge Alberto Perez MD [address] [place] [address] PCP - General Family Practice 08/16/24 Lea Gaspar, RN Registered Nurse Gastroenterology 03/28/19 Sen Ruiz MD [address] [facility] [place] [address] Typing Element Machine Operator Cardiology 04/25/19 documented as of this encounter
--- OUTSIDE RECORDS SUMMARY | 2024-11-09 12:54 | XMS_ITS | Encounter Summary ---
Author Organization [facility] Healthcare Address [address] [place] [address] Care Team Providers Care Ice Cream Van Vendor Name Role Phone Lea Gaspar RN Unavailable Unavailable Sen Ruiz MD Unavailable [phone] Jorge Alberto Perez MD Primary Care Provider [phone] Encounter Details Date Type Department Care Team (Late st Contact Info) Description 10/23/2024 Results Follow-Up [facility] Medical Group Cardiology [address] [place] [address] Lydia Martin MD [facility] [address] Social History Tobacco Use Types Packs/Day Years Used Date Smoking Tobacco: Former Cigarettes Q uit: 03/03/2019 Smokeless Tobacco: Never Alcohol Use Standard Drinks/Week Comments Yes 0 [...] on file Legal Sex Male 6:22 PM SHOE STITCHER Gender Identity Not on file Sexual Orientation Not on file documented as of this encounter Plan of Treatment Not on file documented as of this encounter Visit Diagnoses Not on filedocumented in this encounter Care Teams Ice Cream Van Vendor Relationship Specialty Start Date End Date Jorge Alberto Perez MD [address] [place] [address] PCP - General Family Practice 08/16/24 Lea Gaspar, RN Registered Nurse Gastroenterology 03/28/19 Sen Ruiz MD [address] [facility] [place] [address] Field Sales Specialist Cardiology 04/25/19 documented as of this encounter
--- OUTSIDE RECORDS SUMMARY | 2024-11-09 12:54 | XMS_ITS | Continuity of Care Document ---
Author Organization [facility] Address [address] [place] [address] Phone Care Team Providers Care Sea Kayaking Guide Name Role Phone Brennen Pascal Unavailable Unavailable Procedures Procedure Date Eye Exam & Treatment Refraction Office/outpatient Visit, Est Refraction Eye Exam Established Pt Advance Directives Directive Yes / No Effective Date File Name No Information Encounters Encounter Description Practice Location Reason(s) For Visit Diagnoses Date Provider Providers Copied on Encounter [facility], [address] [place] [address] [address], [place], [place], [id number], [place] tel:[phone] [facility] No Information 3-200 9 Krishnasamy Brennen. [address], [address], [place]. tel:[phone] Office/outpat ient Visit, Est [facility], [address], [place], [place], [id number], [place] tel:[phone] [facility] No Information 6-200 8 Krishnasamy Brennen. [address] [facility] [address], [place], [address], [place]. tel:[phone] [facility], [address] [place] [address] [address], [place], [place], [id number], [place] tel:[phone] [facility] No Information [address]. [address], [place], [address], [place]. tel:[phone] Family History Family Member Type Diagnosis Age [...]
--- OUTSIDE RECORDS SUMMARY | 2024-11-09 12:54 | XMS_ITS | Encounter Summary ---
Author Organization [facility] Healthcare Address [address] [place] [address] Care Team Providers Care Agriculture Department Chair Name Role Phone Lea Gaspar RN Unavailable Unavailable Sen Ruiz MD Unavailable [phone] Jorge Alberto Perez MD Primary Care Provider [phone] Reason for Visit * Reason Comments Chronic Kidney Disease - Follow Up Visit Stage 3B * Consultation (Routine) - Authorized Specialty Diagnoses / Procedures Referred By Contkita t Referred To Contact Nephrology Diagnoses Chronic kidney disease, unspecified CKD stage Jorge Alberto Perez MD Phone: tel: fax: [facility] Nephrology at [address] [address] Phone: tel: fax: Referral ID Status Reason Start Date Expiration Date Visits Requested Visits Authorized [id number] Authorized Specialty Services Required 12/28/2023 12/27/2024 30 30 Encounter Details Date Type Department Care Team (Late st Contact Info) Description 11/09/2024 9:15 AM CDT Office Visit [facility] Nephrology at [address] [address] Connor Wilkes MD [address] [place] [id number] Stage 3b chronic kidney disease (HCC) (Primary Dx); Benign hypertensive kidney disease with chronic kidney disease stage I through stage IV, or unspecified(403.10); Persistent proteinuria; Secondary hyperparathyroidism; Morbid (severe) obesity due to excess calories (HCC) Social History Tobacco Use Types Packs/Day Years [...] on file 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 Gender Identity Not on file Sexual Orientation Not on file documented as of this encounter Last Filed Vital Signs Vital Sign Reading Time Taken Comments Blood Pressure 166/68 11/09/2024 9:26 AM CDT Pulse 64 11/09/2024 9:26 AM CDT Temperature 36.7 C (98 F) 11/09/2024 9:26 AM CDT Respiratory Rate - - Oxygen Saturation - - Inhaled Oxygen Concentration - - Weight 125.7 kg (277 lb 3.2 oz) 11/09/2024 9:26 AM CDT Height 165.1 cm (5' 5 ) 11/09/2024 9:26 AM CDT Body Mass Index 46.13 11/09/2024 9:26 AM CDT documented in this encounter Progress Notes * Connor Wilkes MD - 11/09/2024 9:15 AM CDT Images from the original note were not included. Subjective/Objective Patient ID: Sampson Silver Jr. is a 74 y.o. male. Chief Complaint Chronic Kidney Disease - Follow Up Visit (Stage 3B) HPI This is a patient with multifactorial CKD. He has an underlying history of hypertension with a prior significant smoking history. He underwent a five vessel bypass in April of 2019. He previouslyhad presented with abdominal pain and pancreatitis following endoscopic ultrasound-guided pancreatic biopsy to further evaluate pancreatic mass which was benign. He was noted to have an elevated troponin at that time and multivessel disease on cardiac catheterization but procedure delayed until he recovered from his pancreatitis. He did have acute on chronic kidney failure following his CABG and creatinine had trended down to 1.9 at the time of discharge. Has not been good about follow up but has come to the office unfortunately apparently did not obtain requested labs again Last known serum creatinine was 2.7 with an estimated 1235 mg of albuminuria per day by spot ratio He has not been monitoring his blood pressure at home reports dyspnea on exertion primarily Review of Systems Constitutional: Negative for appetite change and positive for fatigue. HENT: Negative. Eyes: Negative. Respiratory: Positive for dyspnea on exertion Cardiovascular: Negative for chest pain, palpitations and positive for leg swelling. Gastrointestinal: Negative for abdominal pain and nausea. Endocrine: Negative for polydipsia and polyuria. Genitourinary: Negative for decreased urine volume, difficulty urinating, dysuria, flank pain, frequency, hematuria and urgency. Musculoskeletal: Positive for arthralgias Skin: Negative for color change and rash. Allergic/Immunologic: Negative. Neurological: Negative for dizziness, weakness and light-headedness. Hematological: Negative. Psychiatric/Behavioral: Negative. Current Outpatient Medications Medication Sig Dispense Refill amLODIPine (NORVASC) 10 mg tablet Take 1 tablet (10 mg total) by mouth daily 90 tablet 3 aspirin 81 mg enteric coated tablet Take 1 tablet (81 mg total) by mouth daily brimonidine (ALPHAGAN) 0.2 % ophthalmic solution 1 drop 2 (two) times a day calcitRIOL (ROCALTROL) 0.5 mcg capsule TAKE 1 CAPSULE BY MOUTH EVERY DAY 90 capsule PRN cholecalciferol, vitamin D3, 1,000 unit tablet,chewable Take 2 tablet/chew tab by mouth cloNIDine (CATAPRES) 0.1 mg tablet Take 1 tablet (0.1 mg total) by mouth 2 (two) times a day 180 tablet 3 dorzolamide (TRUSOPT) 2 % ophthalmic solution 2 (two) times a day furosemide (LASIX) 40 mg tablet Take 1 tablet (40 mg total) by mouth daily (Patient taking differently: Take 1 tablet (40 mg total) by mouth 2 (two) times a day) 90 tablet 3 hydrALAZINE (APRESOLINE) 100 mg tablet Take 1 tablet (100 mg total) by mouth 2 (two) times a day (Patient taking differently: Take 1 tablet (100 mg total) by mouth 3 (three) times a day) 180 tablet 3 latanoprost (XALATAN) 0.005 % ophthalmic solution INSTILL 1 DROP INTO BOTH EYES AT BEDTIME losartan (COZAAR) 50 mg tablet Take 1 tablet (50 mg total) by mouth daily 90 tablet 3 multivitamin tablet Take 1 tablet by mouth rosuvastatin (CRESTOR) 20 mg tablet Take 1 tablet (20 mg total) by mouth daily 90 tablet 3 cholecalciferol (VITAMIN D-3) 2000 unit capsule Take 1 capsule (2,000 Units total) by mouth daily 30 capsule 11 No current facility-administered medications for this visit. Allergies Allergen Reactions Zolpidem Unknown Vitals BP 166/68 (BP Location: Left arm, Patient Position: Sitting) Pulse 64 Temp 36.7 ??C (98 ??F) (Temporal) Ht 165.1 cm (5' 5 ) Wt 125.7 kg (277 lb 3.2 oz) BMI 46.13 kg/m?? Physical Exam Constitutional: Appears well-developed and well-nourished. Head: Normocephalic and atraumatic. Eyes: EOM are normal. Neck: Normal range of motion. Cardiovascular: Normal rate and regular rhythm. Pulmonary/Chest: diminished breath sounds bilaterally but clear to auscultation Abdominal: Soft. Bowel sounds are normal. Musculoskeletal: limited range of motion with 2+ bilateral lower extremity edema Neurological: Alert and oriented to person, place, and time. Skin: Skin is warm and dry. Psychiatric: Normal mood and affect. Assessment/Plan Diagnoses and all orders for this visit: Stage 3b chronic kidney disease (HCC) (N18.32) (Primary) - CBC with auto differential; Standing - Comprehensive metabolic panel; Future - PTH; Future - Albumin Creatinine Ratio, Urine; Future Benign hypertensive kidney disease with chronic kidney disease stage I through stage IV, or unspecified(403.10) (I12.9) Persistent proteinuria (R80.1) Secondary hyperparathyroidism (N25.81) Morbid (severe) obesity due to excess calories (HCC) (E66.01) CKD most likely secondary to hypertension and atherosclerotic vascular disease with a prior significant smoking history. Also potentially a component of secondary FSGS given his morbid obesity. Unfortunately did not obtain requested labs again. I am reordering today. Blood pressure elevated. He has not been monitoring at home I asked him to begin to do so and notify the office if remains elevated in that setting. I will not make any adjustments until I see his repeat labs. On calcitriol repeating an intact PTH. Will repeat a spot urine albumin creatinine ratio. He had declined starting an SGLT2 inhibitor previously. Also previously had discussed starting a GLP 1 agent given his morbidobesity. He had been resistant to doing so but now is somewhat more open to the possibility given that his son is using 1 of these and has lost weight. Continued dyspnea on exertion which is likely primarily secondary to his morbid obesity but with his CKD may have anemia and checking a CBC as well. Will await results which he hopefully will do and follow up accordingly documented in this encounter Plan of Treatment Scheduled Orders Name Type Priority Associated Diagnoses Orde r Schedule CBC with auto differential Lab Routine Stage 3b chronic kidney disease (HCC) 2 Occurrences starting 11/09/2024 until 11/09/2025 Comprehensive metabolic panel Lab Routine Stage 3b chronic kidney disease (HCC) Expected: 11/09/2024, Expires: 11/09/2025 PTH Lab Routine Stage 3b chronic kidney disease (HCC) Expected: 11/09/2024, Expires: 11/09/2025 Albumin Creatinine Ratio, Urine Lab Routine Stage 3b chronic kidney disease (HCC) Expected: 11/09/2024, Expires: 11/09/2025 documented as of this encounter Visit Diagnoses Diagnosis Stage 3b chronic kidney disease (HCC)- Primary 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 multivitamin tabletIndications :Vitamin Deficiency Prevention Take 1 tablet by mouth cholecalciferol, vitamin D3, 1,000 unit tablet,chewable Take 2 tablet/chew tab by mouth added in this encounter Care Teams Agriculture Department Chair Relationship Specialty Start Date End Date Jorge Alberto Perez MD [address] [place], [place] [id number] PCP - General Family Practice 08/16/24 Lea Gaspar, RN Registered Nurse Gastroenterology 03/28/19 Sen Ruiz MD [address] [place] [address] Mail Carrier Cardiology 04/25/19 documented as of this encounter
[2024-11-09 13:37] LABS: Basophils Percent Auto 0.3 % (0.2-1.2); Eosinophils Absolute Auto 0.3 K/mm3 (0-0.3); Eosinophils Percent Auto 2.3 % (0-4.4); Hematocrit 31.4 % (42.0-52.0); Hemoglobin 10.2 g/dL (14.0-18.0); Immature Granulocyte Absolute 0.06 K/mm3 (0.00-0.031); Immature Granulocyte Percent A 0.5 % (0-0.5); Lymphocytes Absolute Auto 1.19 K/mm3 (0.9-3.2); Lymphocytes Percent Auto 10.3 % (18.3-44.2); Mean Corpuscular HGB Conc 32.5 g/dl (32-36); Mean Corpuscular Hemoglobin 27.2 pg (26-34); Mean Corpuscular Volume 83.7 fl (80-100); Mean Platelet Volume 10.5 fl (7.4-10.4); Monocytes Absolute Auto 0.8 K/mm3 (0.1-0.6); Monocytes Percent Auto 6.9 % (2.6-8.5); Neutrophils Absolute Auto 9.2 K/mm3 (1.3-6.7); Neutrophils Percent Auto 79.7 % (45.5-73.1); Platelet Count Result 254 k/mm3 (150-375); Red Blood Count 3.75 M/mm3 (4.6-6.20); Red Cell Distribution Width 15.3 % (11.5-14.5); White Blood Count 11.5 K/mm3 (4.5-10.0)
[2024-11-09 13:50] LABS: Alanine Aminotransferase 16 U/L (6-50); Alkaline Phosphatase 45 U/L (38-126); Anion Gap 13 mmol/L (4-12); Aspartate Amino Transferase 24 U/L (17-59); Bilirubin,Total 0.3 mg/dL (0.2-1.3); Blood Urea Nitrogen 41 mg/dL (9-20); Calcium 9.7 mg/dL (8.4-10.2); Carbon Dioxide 21 mmol/L (22-30); Chloride 107 mmol/L (98-107); Estimated Glomerular Filt Rate 17; Glucose 117 mg/dL (65-110); Potassium 3.5 mmol/L (3.4-5.0); Sodium 141 mmol/L (137-145)
[2024-11-09 13:53] LABS: Creatinine Urine 60.1 mg/dL
[2024-11-09 14:00] LABS: Parathyroid Intact 43.8 pg/mL (14.5-75.2)
[2024-11-09 17:09] LABS: MALB Creatinine Ratio > 1896.8 mg/g (0-30); Microalbumin Urine Random > 1140.0 mg/L (0-16.7)
== END 2024-11-09 12:50 | disposition home or self-care (01) ==
PROVIDERS: PCP Nurse Practitioner Family; Visit Provider Internal Medicine Nephrology
DX: N18.32 Chronic kidney disease, stage 3b (principal)
CPT/HCPCS: 36415; 80053; 82043; 83970; 85025

== ENCOUNTER 2024-12-10 06:56 | Outpatient (CLI) | payer OTHER, SELFPAY ==
--- OUTSIDE RECORDS SUMMARY | 2024-12-10 07:01 | XMS_ITS | Encounter Summary ---
Author Organization [facility] Facility Care Team Providers Care Decorating Instructor Name Role Phone Robe Kinney MD Primary Care Provider [phone] Lea Gaspar RN Unavailable Unavailable Sen Ruiz MD Unavailable [phone] Connor Wilkes MD Primary Care Provider [phone] Robe Kinney MD Primary Care Provider [phone] No, Physician Primary Care Provider [phone] Rory Martinez DO Primary Care Provider [phone] Jorge Alberto Perez MD Primary Care Provider [phone] Jorge Alberto Perez MD Primary Care Provider [phone] Encounter Details Date Type Department Care Team (Latest Contact Info) Description 12/03/2016 Orders Only [facility] CLINCONV Provider, MD [place] [address] [place] [address] Social History Tobacco Use Types Packs/Day Years Used Date Smoking Tobacco: Never Assessed Sex and Gender Information Value Date Recorded Sex Assigned at Not on file 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 Gender Identity Not on file Sexual Orientation [...] on filedocumented in this encounter Care Teams Decorating Instructor Relationship Specialty Start Date End Date Robe Kinney MD [address] [place] [address] PCP - General Family Medicine 01/16/19 05/29/19 Connor Wilkes MD [address] [facility] [address] [place] [address] [address] PCP - General 05/30/19 07/30/19 Robe Kinney MD [address] [place] [address] PCP - General 07/31/19 08/31/20 No, Physician PCP - General 09/01/20 10/23/20 Rory Martinez DO PCP - General 10/24/20 10/05/22 Jorge Alberto Perez MD PCP - General Family Practice 07/01/23 08/15/24 Jorge Alberto Perez MD [address] [place] [address] PCP - General Family Practice 08/16/24 Lea Gaspar, RN Registered Nurse Gastroenterology 03/28/19 Sen Ruiz MD [address] [facility] [place] [address] Project Manager Retail Cardiology 04/25/19 documented as of this encounter
--- OUTSIDE RECORDS SUMMARY | 2024-12-10 07:01 | XMS_ITS | Encounter Summary ---
Author Organization [facility] Facility Care Team Providers Care Merchandising Lead Name Role Phone Robe Kinney MD Primary Care Provider [phone] Lea Gaspar RN Unavailable Unavailable Sen Ruiz MD Unavailable [phone] Connor Wilkes MD Primary Care Provider [phone] Robe Kinney MD Primary Care Provider [phone] No, Physician Primary Care Provider [phone] Rory Martinez DO Primary Care Provider [phone] Jorge Alberto Perez MD Primary Care Provider [phone] Jorge Alberto Perez MD Primary Care Provider [phone] Encounter Details Date Type Department Care Team (Latest Contact Info) Description 01/30/2013 Orders Only [facility] CLINCONV Provider, MD [place] [address] [place] [address] Social History Tobacco Use Types Packs/Day Years Used Date Smoking Tobacco: Never Assessed Sex and Gender Information Value Date Recorded Sex Assigned at Not on file 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 Gender Identity Not on file Sexual Orientation [...] on filedocumented in this encounter Care Teams Merchandising Lead Relationship Specialty Start Date End Date Robe Kinney MD [address] [place] [address] PCP - General Family Medicine 01/16/19 05/29/19 Connor Wilkes MD [address] [facility] [address] [place] [address] [address] PCP - General 05/30/19 07/30/19 Robe Kinney MD [address] [place] [address] PCP - General 07/31/19 08/31/20 No, Physician PCP - General 09/01/20 10/23/20 Rory Martinez DO PCP - General 10/24/20 10/05/22 Jorge Alberto Perez MD PCP - General Family Practice 07/01/23 08/15/24 Jorge Alberto Perez MD [address] [place] [address] PCP - General Family Practice 08/16/24 Lea Gaspar, RN Registered Nurse Gastroenterology 03/28/19 Sen Ruiz MD [address] [facility] [place] [address] Automotive Lot Attendant Cardiology 04/25/19 documented as of this encounter
--- OUTSIDE RECORDS SUMMARY | 2024-12-10 07:01 | XMS_ITS | Encounter Summary ---
Author Organization [facility] Healthcare Address [address] [place] [address] Care Team Providers Care Billing And Insurance Coordinator Name Role Phone Lea Gaspar RN Unavailable Unavailable Sen Ruiz MD Unavailable [phone] Jorge Alberto Perez MD Primary Care Provider [phone] Encounter Details Date Type Department Care Team (Late st Contact Info) Description 11/12/2024 Results Follow-Up [facility] Nephrology at [address] [address] Connor Wilkes MD [address] [place] [address] [address] [place] [address] Stage 3b chronic kidney disease (HCC) (Primary Dx); Anemia in stage 3b chronic kidney disease (HCC) Social History Tobacco Use Types Packs/Day [...] on file 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 Gender Identity Not on file Sexual Orientation Not on file documented as of this encounter Ordered Prescriptions Prescription Sig Dispense Quantity Refills Last Filled Start Date End Date losartan (COZAAR) 25 mg tabletIndications: Stage 3b chronic kidney disease (HCC),Anemia in stage 3b chronic kidney disease (HCC) Take 1 tablet (25 mg total) by mouth daily 11/13/2024 calcitRIOL (ROCALTROL) 0.5 mcg capsuleIndications :Stage 3b chronic kidney disease (HCC),Anemia in stage 3b chronic kidney disease (HCC) Take 1 capsule (0.5 mcg total) by mouth daily Take one capsule by mouth every Tuesday, Tuesday and Tuesday. 11/13/2024 documented in this encounter Plan of Treatment Scheduled Orders Name Type Priority Associated Diagnoses Orde r Schedule Basic metabolic panel Lab Routine Stage 3b chronic kidney disease (HCC) Anemia in stage 3b chronic kidney disease (HCC) Expected: 12/10/2024, Expires: 11/13/2025 Iron profile w/ IBC Lab Routine Stage 3b chronic kidney disease (HCC) Anemia in stage 3b chronic kidney disease (HCC) Expected: 12/10/2024, Expires: 11/13/2025 Vitamin B12 Lab Routine Stage 3b chronic kidney disease (HCC) Anemia in stage 3b chronic kidney disease (HCC) Expected: 12/10/2024, Expires: 11/13/2025 Hemoglobin and hematocrit Lab Routine Stage 3b chronic kidney disease (HCC) Anemia in stage 3b chronic kidney disease (HCC) Expected: 12/10/2024, Expires: 11/13/2025 documented as of this encounter Visit Diagnoses Diagnosis Stage 3b chronic kidney disease (HCC)- Primary Anemia in stage 3b chronic kidney disease (HCC) documented in this encounter Discontinued Medications Medication Sig Discontinue Reason Start Date End Da te calcitRIOL (ROCALTROL) 0.5 mcg capsule TAKE 1 CAPSULE BY MOUTH EVERY DAY 07/30/2024 11/13/2024 losartan (COZAAR) 50 mg tablet Take 1 tablet (50 mg total) by mouth daily 08/20/2024 11/13/2024 documented as of this encounter Care Teams Billing And Insurance Coordinator Relationship Specialty Start Date End Date Jorge Alberto Perez MD [address] [place] [address] PCP - General Family Practice 08/16/24 Lea Gaspar RN Registered Nurse Gastroenterology 03/28/19 Sen Ruiz MD [address] [facility] [place] [address] Edger Liner Cardiology 04/25/19 documented as of this encounter
--- OUTSIDE RECORDS SUMMARY | 2024-12-10 07:01 | XMS_ITS | Encounter Summary ---
Author Organization [facility] Facility Care Team Providers Care Sales Order Administrator Name Role Phone Robe Kinney MD Primary Care Provider [phone] Lea Gaspar RN Unavailable Unavailable Sen Ruiz MD Unavailable [phone] Connor Wilkes MD Primary Care Provider [phone] Robe Kinney MD Primary Care Provider [phone] No, Physician Primary Care Provider [phone] Rory Martinez DO Primary Care Provider [phone] Jorge Alberto Perez MD Primary Care Provider [phone] Jorge Alberto Perez MD Primary Care Provider [phone] Encounter Details Date Type Department Care Team (Latest Contact Info) Description 11/19/2015 Orders Only [facility] CLINCONV Provider, MD [place] [address] [place] [address] Social History Tobacco Use Types Packs/Day Years Used Date Smoking Tobacco: Never Assessed Sex and Gender Information Value Date Recorded Sex Assigned at Not on file 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 Gender Identity Not on file Sexual Orientation [...] on filedocumented in this encounter Care Teams Sales Order Administrator Relationship Specialty Start Date End Date Robe Kinney MD [address] [place] [address] PCP - General Family Medicine 01/16/19 05/29/19 Connor Wilkes MD [address] [facility] [place] [address] PCP - General 05/30/19 07/30/19 Robe Kinney MD [address] [place] [address] PCP - General 07/31/19 08/31/20 No, Physician PCP - General 09/01/20 10/23/20 Rory Martinez DO PCP - General 10/24/20 10/05/22 Jorge Alberto Perez MD PCP - General Family Practice 07/01/23 08/15/24 Jorge Alberto Perez MD [address] [place] [address] PCP - General Family Practice 08/16/24 Lea Gaspar, RN Registered Nurse Gastroenterology 03/28/19 Sen Ruiz MD [address] [facility] [place] [address] Financial Services Manager Cardiology 04/25/19 documented as of this encounter
--- OUTSIDE RECORDS SUMMARY | 2024-12-10 07:02 | XMS_ITS | Referral Summary ---
Author Organization [facility] Address [address] [place] [address] Care Team Providers Care Staff Development Coordinator Rn Name Role Phone Lea Gaspar RN Unavailable Unavailable Sen Ruiz MD Unavailable [phone] Jorge Alberto Perez MD Primary Care Provider [phone] Encounters Date Type Department Care Team Description 12/07/2024 Telephone [facility] Nephrology at [address] [address] Connor Wilkes MD 11/12/2024 Results Follow-Up [facility] Nephrology at [address] [address] Connor Wilkes MD Stage 3b chronic kidney disease (HCC) (Primary Dx); Anemia in stage 3b chronic kidney disease (HCC) 11/12/2024 Orders Only [facility] Nephrology at [address] [address] Obinna Moya MD 11/09/2024 Orders Only [facility] Nephrology at [address] [address] Obinna Moya MD 11/09/2024 9:15 AM CDT Office Visit [facility] Nephrology at [address] [address] Connor Wilkes MD Stage 3b chronic kidney disease (HCC) (Primary Dx); Benign hypertensive kidney disease with chronic kidney disease stage I through stage IV, or unspecified(403.10); Persistent proteinuria; Secondary hyperparathyroidism; Morbid (severe) obesity due to excess calories (HCC) 10/23/2024 Results Follow-Up [facility] Cardiology [address] [facility] [address] [place] [address] Darrius Martin MD 10/22/2024 8:15 AM RISK CONTROL SPECIALIST Ancillary Procedure [facility] Cardiology [address] [place] [address] [address] [place] [address] DRAPER (dyspnea on exertion) 10/01/2024 Telephone [facility] Cardiology [address] [place] [address] [address] [place] [address] Darrius Martin MD from Last 3 Months Allergies Active Allergy Reactions Criticality Noted Date Comments Zolpidem Unknown 05/24/2019 Medications aspirin 81 mg enteric coated tablet Take 1 tablet (81 mg total) by mouth daily Active dorzolamide (TRUSOPT) 2 % ophthalmic solution 2 (two) times a day 06/06/20 20 Active latanoprost (XALATAN) 0.005 % ophthalmic solution INSTILL 1 DROP INTO BOTH EYES AT BEDTIME 09/19/19 21 Active brimonidine (ALPHAGAN) 0.2 % ophthalmic solution 1 drop 2 (two) times a day 01/13/20 21 Active cholecalciferol (VITAMIN D-3) 2000 unit capsule Take 1 capsule (2,000 Units total) by mouth daily 30 capsule 11 02/13/20 21 Active furosemide (LASIX) 40 mg tabletIndicatio ns:Essential hypertension Take 1 tablet (40 mg total) by mouth daily 90 tablet 3 08/20/20 24 Active Additional Information Patient taking differently:40 mg oral2 times daily, Reported on 11/09/2024 hydrALAZINE (APRESOLINE) 100 mg tabletIndicatio ns:Uncontrolled hypertension Take 1 tablet (100 mg total) by mouth 2 (two) times a day 180 tablet 3 08/20/20 24 Active Additional Information Patient taking differently:100 mg oral3 times daily, Reported on 11/09/2024 amLODIPine (NORVASC) 10 mg tabletIndicatio ns:Uncontrolled hypertension Take 1 tablet (10 mg total) by mouth daily 90 tablet 3 08/20/20 24 Active rosuvastatin (CRESTOR) 20 mg tablet Take 1 tablet (20 mg total) by mouth daily 90 tablet 3 08/20/20 24 Active cloNIDine (CATAPRES) 0.1 mg tabletIndicatio ns:Essential hypertension Take 1 tablet (0.1 mg total) by mouth 2 (two) times a day 180 tablet 3 08/20/20 24 Active cholecalciferol , vitamin D3, 1,000 unit tablet,chewable Take 2 tablet/chew tab by mouth Active multivitamin tabletIndicatio ns:Vitamin Deficiency Prevention Take 1 tablet by mouth Active calcitRIOL (ROCALTROL) 0.5 mcg capsuleIndicati ons:Stage 3b chronic kidney disease (HCC),Anemia in stage 3b chronic kidney disease (HCC) Take 1 capsule (0.5 mcg total) by mouth daily Take one capsule by mouth every Tuesday, Tuesday and Tuesday. 11/14/19 25 Active losartan (COZAAR) 25 mg tabletIndicatio ns:Stage 3b chronic kidney disease (HCC),Anemia in stage 3b chronic kidney disease (HCC) Take 1 tablet (25 mg total) by mouth daily 11/14/19 25 026 Active calcitRIOL (ROCALTROL) 0.5 mcg capsule TAKE 1 CAPSULE BY MOUTH EVERY DAY 90 capsule 07/30/20 24 025 Discontinued losartan (COZAAR) 50 mg tablet Take 1 tablet (50 mg total) by mouth daily 90 tablet 3 08/20/20 24 025 Discontinued Active Problems Problem Noted Date Diagnosed Date Morbid (severe) obesity due to excess calories 0 03/26/2024 Body mass index (BMI) 45.0-49.9, adult CKD stage 4 secondary to hypertension 07/04/2023 Mixed hyperlipidemia 03/17/2021 DRAPER (dyspnea on exertion) 12/02/2020 Bradycardia 12/02/2020 Former tobacco use 12/02/2020 Stage 3b chronic kidney disease 12/02/2020 Prediabetes 12/02/2020 Coronary artery disease invo lving [place] coronary artery of [place] heart without angina pectoris 11/12/2019 Body mass index (BMI) of 45.0-49.9 in adult 07/29 Fasting hyperglycemia 08/07/2019 Class 3 obesity 08/07/2019 Hx of CABG 08/07/2019 Abnormal plasma protein test 08/07/2019 Essential hypertension 08/07/2019 CHF (congestive heart failure) 05/07/2019 Atrial fibrillation with RVR 05/01/2019 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 Overview (03/28/2019): Added automatically from request for surgery [id number] MEI (obstructive sleep apnea) 01/13/2018 Resolved Problems [...] more salt lately Coronary artery disease 03/23/2016 04/0 01/2021 Assessment & Plan (01/23/2019 4:13 PM CDT): [...] on file Legal Sex Male 6:22 PM RISK CONTROL SPECIALIST Gender Identity Not on file Sexual Orientation Not on file Last Filed Vital Signs Vital Sign Reading Time Taken Comments Blood Pressure 166/68 11/09/2024 9:26 AM CDT Pulse 64 11/09/2024 9:26 AM CDT Temperature 36.7 C (98 F) 11/09/2024 9:26 AM CDT Respiratory Rate 20 06/13/2019 10:3 7 AM CDT Oxygen Saturation 95% 08/20/2024 12: 03 PM RISK CONTROL SPECIALIST Inhaled Oxygen Concentration - - Weight 125.7 kg (277 lb 3.2 oz) 11/09/2024 9:26 AM CDT Height 165.1 cm (5' 5 ) 11/09/2024 9:26 AM CDT Body Mass Index 46.13 11/09/2024 9:26 AM CDT Plan of Treatment Not on file Procedures Procedure Name Priority Date/Time Associated Diagnosis Comments ALBUMIN CREATININE RATIO, URINE Routine 11/12/2024 11:38 AM CDT Stage 3b chronic kidney disease (HCC) PTH Routine 11/12/2024 11:38 AM CDT Stage 3b chronic kidney disease (HCC) COMPREHENSIVE METABOLIC PANEL Routine 11/12/2024 11:38 AM CDT Stage 3b chronic kidney disease (HCC) CBC WITH AUTO DIFFERENTIAL Routine 11/12/2024 11:38 AM CDT Stage 3b chronic kidney disease (HCC) ALBUMIN CREATININE RATIO, URINE Routine 11/12/2024 8:49 AM CDT COMPREHENSIVE METABOLIC PANEL Routine 11/09/2024 4:15 PM CDT TRANSTHORACIC ECHO (TTE) COMPLETE W DOPPLER/CF WO CONTRAST Routine 10/22/2024 8:29 AM RISK CONTROL SPECIALIST DRAPER (dyspnea on exertion) CT ABDOMEN W WO CONTRAST 05/04/2019 12:00 AM CDT OCCULT BLOOD, FECAL (FIT) Routine 04/15/2019 6:00 AM CDT from Last 3 Months or Most Recently Relevant to Health Maintenance Results * (ABNORMAL) Albumin Creatinine Ratio, Urine (11/12/2024 11:38 AM CDT) Urine Connor Wilkes MD LAB URINE ORDERABLES Final Re sult Performing Organization Address [facility] Co de Phone Number EXTERNAL LAB * PTH (11/12/2024 11:38 AM CDT) Blood Connor Wilkes MD LAB BLOOD ORDERABLES Final Re sult Performing Organization Address [facility]/ZIP Co de Phone Number EXTERNAL LAB * (ABNORMAL) Comprehensive metabolic panel (11/12/2024 11:38 AM CDT) Blood Connor Wilkes MD LAB BLOOD ORDERABLES Final Re sult Performing Organization Address [facility] Co de Phone Number EXTERNAL LAB * (ABNORMAL) CBC with auto differential (11/12/2024 11:38 AM CDT) Blood Connor Wilkes MD LAB BLOOD ORDERABLES Final Re sult Performing Organization Address [facility] Co de Phone Number EXTERNAL LAB * Albumin Creatinine Ratio, Urine (11/12/2024 8:49 AM CDT) Urine Historical Provider MD LAB URINE ORDERABLES Humera l Result Performing Organization Address [facility] Co de Phone Number EXTERNAL LAB * Comprehensive metabolic panel (11/09/2024 4:15 PM CDT) Blood [facility] Provider LAB BLOOD ORDERABLES Humera l Result Performing Organization Address [facility] de Phone Number EXTERNAL LAB * TRANSTHORACIC ECHO (TTE) COMPLETE W DOPPLER/CF WO CONTRAST (10/22/2024 8:29 AM RISK CONTROL SPECIALIST) Anatomical Region Laterality Modality Ultrasound 10/22/2024 7:58 AM RISK CONTROL SPECIALIST Narrative 10/22/2024 11:58 AM RISK CONTROL SPECIALIST [facility] Cardiology [address] [facility] [address], [place] [address] [address] [facility] [address], [place] [address] P:[phone] P:[phone] Echocardiographic Report Patient Name: NIKOLAY SILVER Z : 1950 Study Date: 10/22/2024 7:58:55 AM Gender: M Tech: Location: [facility] Provider: DARRIUS MARTIN Height(Cm): 165 BSA: 2.37 [...] FINDINGS: Interpretation Site: Exam was interpreted at [facility]. Left Ventricle: Normal left ventricular systolic function. [...] regurgitation. Electronically Signed By: Dr. Darrius Martin [facility] 10/22/2024 11:58:14 AM RISK CONTROL SPECIALIST Procedure Note Darrius Martin MD - 10/22/2024 [facility] Cardiology [address] [facility] [address], [place] [id number] [address] [facility] [address], [place] [address] P:[phone] P:[phone] Echocardiographic Report Patient Name: NIKOLAY SILVER Z : 1950 Study Date: 10/22/2024 7:58:55 AM Gender: M Tech: Location: [facility] Provider: DARRIUS MARTIN Height(Cm): 165 BSA: 2.37 [...] FINDINGS: Interpretation Site: Exam was interpreted at [facility]. Left Ventricle: Normal left ventricular systolic function. [...] regurgitation. Electronically Signed By: Dr. Darrius Martin [facility] 10/22/2024 11:58:14 AM RISK CONTROL SPECIALIST us Darrius Martin MD CV ECHO PROCEDURES F inal Result * CT Abdomen W WO Contrast (05/04/2019 12:00 AM CDT) Anatomical Region Laterality Modality Body N/A Computed Tomogra phy 05/04/2019 4:48 PM CDT Narrative 05/04/2019 5:25 PM CDT Patient Name: NIKOLAY SILVER [facility] Dr: Angel Luis Epstein MD D.O.B: 1950 Exam Date: 05/04/19 0000 Age: 69 Sex: Male MR#: [id number] Loc: RADIOLOGY REPORT Order #[id number] CT Scan CT Abd W WO IV [...] signed by Tobias JOSEPH T: Report ID: [id number] Reading Location: [place] [address] REPORT ELECTRONICALLY SIGNED IN OTHER VENDOR SYSTEM Resulting Agency Comment O Procedure Note Tobias Ramos MD - 05/04/2019 Patient Name: NIKOLAY SILVER Ehsan JROrdering Dr: Angel Luis Epstein MD D.O.B: 1950 Exam Date: 05/04/19 0000 Age: 69 Sex: Male MR#: [id number] Loc: RADIOLOGY REPORT Order #[id number] CT Scan CT Abd W WO IV [...] Tobias Ramos M.D. RS T: Report ID: [id number] Reading Location: [place] [address] REPORT ELECTRONICALLY SIGNED IN OTHER VENDOR SYSTEM Angel Luis Epstein MD IMG CT PROCEDURES Final Re sult * Occult Blood, Fecal (04/15/2019 6:00 AM CDT) Stool Occult Blood NEGATIVE NEGATIVE [facility] 04/15/2019 6:00 AM CDT 04/15/2019 6:27 AM CDT Narrative [facility] - 04/15/2019 6:44 AM CDT Collected By [place] Resulting Agency Comment IN Tomi Michele MD LAB BODY FLUIDS AND STOOLS O RDERABLES Final Result [facility] [address] [phone] from Last 3 Months or Most Recently Relevant to Health Maintenance Insurance [facility] [place] [address] Advance Directives For more information, please contact: [phone] * Full Code (Latest Code Status on File) Date Activated Date Inactivated Comments 04/04/2019 8:10 AM 04/04/2019 2:59 PM Care Teams Staff Development Coordinator Rn Relationship Specialty Start Date End Date Jorge Alberto Perez MD [address] [place] [address] PCP - General Family Practice 08/16/24 Lea Gaspar, RN Registered Nurse Gastroenterology 03/28/19 Sen Ruiz MD [address] [place] [address] Waterproof Bag Cutting Machine Operator Cardiology 04/25/19
--- OUTSIDE RECORDS SUMMARY | 2024-12-10 07:02 | XMS_ITS | Clinical Summary ---
Author Organization [facility] Address [address] [place] [address] Care Team Providers Care Train Control Technician Name Role Phone Lea Gaspar RN Unavailable Unavailable Sen Ruiz MD Unavailable [phone] Jorge Alberto Perez MD Primary Care Provider [phone] Allergies Active Allergy Reactions Criticality Noted Date [...] Prediabetes 12/02/2020 Coronary artery disease invo lving [place] coronary artery of [place] heart without angina pectoris 11/12/2019 Body mass index (BMI) of 45.0-49.9 in adult 07/29 Fasting hyperglycemia 08/07/2019 Class 3 obesity 08/07/2019 Hx of CABG 08/07/2019 Abnormal plasma protein test 08/07/2019 Essential hypertension 08/07/2019 CHF (congestive heart failure) 05/07/2019 Atrial fibrillation with RVR 05/01/2019 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 Overview (03/28/2019): Added automatically from request for surgery [id number] MEI (obstructive sleep apnea) 01/13/2018 Resolved Problems [...] Type Department Care Team Description 12/07/2024 Telephone [facility] Nephrology at [address] [place] [address] Connor Wilkes MD 11/12/2024 Results Follow-Up [facility] Nephrology at [address] [address] Connor Wilkes MD Stage 3b chronic kidney disease (HCC) (Primary Dx); Anemia in stage 3b chronic kidney disease (HCC) 11/12/2024 Orders Only [facility] Medical [facility] Nephrology at [address] [place] [address] Obinna Moya MD 11/09/2024 9:15 AM CDT Office Visit [facility] Nephrology at [address] [address] Connor Wilkes MD Stage 3b chronic kidney disease (HCC) (Primary Dx); Benign hypertensive kidney disease with chronic kidney disease stage I through stage IV, or unspecified(403.10); Persistent proteinuria; Secondary hyperparathyroidism; Morbid (severe) obesity due to excess calories (HCC) 11/09/2024 Orders Only [facility] Nephrology at [address] [place] [address] Obinna Moya MD 10/23/2024 Results Follow-Up [facility] Cardiology [address] [facility] [address] [place] [address] Darrius Martin MD 10/22/2024 8:15 AM MEAL PACKER Ancillary Procedure [facility] Cardiology [address] [place] [address] DRAPER (dyspnea on exertion) 10/01/2024 Telephone [facility] Cardiology [address] [place] [address] Darrius Martin MD from Last 3 Months Surgical History Surgery [...] on file Legal Sex Male 6:22 PM MEAL PACKER Gender Identity Not on file Sexual Orientation Not on file Obstetrics History Last Filed Vital Signs Vital Sign Reading Time Taken Comments Blood Pressure 166/68 11/09/2024 9:26 AM CDT Pulse 64 11/09/2024 9:26 AM CDT Temperature 36.7 C (98 F) 11/09/2024 9:26 AM CDT Respiratory Rate 20 06/13/2019 10:3 7 AM CDT Oxygen Saturation 95% 08/20/2024 12: 03 PM MEAL PACKER Inhaled Oxygen Concentration - - Weight 125.7 kg (277 lb 3.2 oz) 025 9:26 AM CDT Height 165.1 cm (5' [...] 01/07/2000 Well Visit 65+ 2015 Influenza Vaccine (Season Ended) 2025 09/08/19 13 Colon Cancer Screening-FIT Discontinued 04/15/2019 Abdominal Aortic [...] DOPPLER/CF WO CONTRAST Routine 10/22/2024 8:29 AM MEAL PACKER DRAPER (dyspnea on exertion) CT ABDOMEN W WO CONTRAST 05/04/2019 12:00 AM CDT OCCULT BLOOD, FECAL (FIT) Routine 04/15/2019 6:00 AM CDT from Last 3 Months or Most Recently Relevant to Health Maintenance Results * (ABNORMAL) Albumin Creatinine Ratio, Urine (11/12/2024 11:38 AM CDT) Urine Connor Wilkes MD LAB URINE ORDERABLES Final Re sult Performing Organization Address [facility] de Phone Number EXTERNAL LAB * PTH (11/12/2024 11:38 AM CDT) Blood Connor Wilkes MD LAB BLOOD ORDERABLES Final Re sult Performing Organization Address [facility] de Phone Number EXTERNAL LAB * (ABNORMAL) Comprehensive metabolic panel (11/12/2024 11:38 AM CDT) Blood Connor Wilkes MD LAB BLOOD ORDERABLES Final Re sult Performing Organization Address [facility] de Phone Number EXTERNAL LAB * (ABNORMAL) CBC with auto differential (11/12/2024 11:38 AM CDT) Blood Connor Wilkes MD LAB BLOOD ORDERABLES Final Re sult Performing Organization Address [facility] de Phone Number EXTERNAL LAB * Albumin Creatinine Ratio, Urine (11/12/2024 8:49 AM CDT) Urine Obinna Moya MD LAB URINE ORDERABLES Humera l Result Performing Organization Address [facility] Co de Phone Number EXTERNAL LAB * Comprehensive metabolic panel (11/09/2024 4:15 PM CDT) Blood us Historical Provider LAB BLOOD ORDERABLES Humera ellison Result EXTERNAL LAB * TRANSTHORACIC ECHO (TTE) COMPLETE W DOPPLER/CF WO CONTRAST (10/22/2024 8:29 AM MEAL PACKER) Anatomical Region Laterality Modality Ultrasound 10/22/2024 7:58 AM MEAL PACKER Narrative 10/22/2024 11:58 AM MEAL PACKER [facility] Cardiology [address] [facility] [address], [place] [address] [address] [facility] [address], [place] [address] P:[phone] P:[phone] Echocardiographic Report Patient Name: NIKOLAY SILVER Z : 1950 Study Date: 10/22/2024 7:58:55 AM Gender: M Tech: Location: [facility] Provider: DARRIUS MARTIN Height(Cm): 165 BSA: [...] FINDINGS: Interpretation Site: Exam was interpreted at [facility]. Left Ventricle: Normal left ventricular systolic function. [...] By: Dr. Darrius Martin [facility] 10/22/2024 11:58:14 AM MEAL PACKER Procedure Note Darrius Martin MD - 10/22/2024 [facility] Cardiology [address] [facility] [address], [place] [address] [address] [facility] [address], [place] [address] P:[phone] P:[phone] Echocardiographic Report Patient Name: NIKOLAY SILVER Z : 1950 Study Date: 10/22/2024 7:58:55 AM Gender: M Tech: Location: [place] Ref Provider: DARRIUS MARTIN Height(Cm): 165 BSA: 2.37 [...] FINDINGS: Interpretation Site: Exam was interpreted at [facility]. Left Ventricle: Normal left ventricular systolic function. [...] By: Dr. Darrius Martin [facility] 10/22/2024 11:58:14 AM MEAL PACKER Darrius Martin MD CV ECHO PROCEDURES F inal Result * CT Abdomen W WO Contrast (05/04/2019 12:00 AM CDT) Anatomical Region Laterality Modality Body N/A Computed Tomogra phy 05/04/2019 4:48 PM CDT Narrative 05/04/2019 5:25 PM CDT Patient Name: NIKOLAY SILVER Ordering Dr: Angel Luis Epstein MD D.O.B: 1950 Exam Date: 05/04/19 0000 Age: 69 Sex: Male MR#: [id number] Loc: RADIOLOGY REPORT Order #[id number] CT Scan CT Abd W WO IV [...] signed by Tobias JOSEPH T: Report ID: [id number] Reading Location: [id number] REPORT ELECTRONICALLY SIGNED IN OTHER VENDOR SYSTEM Resulting Agency Comment O Procedure Note Tobias Ramos MD - 05/04/2019 [facility]: [facility] Angel Luis Epstein MD D.O.B: 1950 Exam Date: 05/04/19 0000 Age: 69 Sex: Male MR#: [id number] Loc: RADIOLOGY REPORT Order #[id number] CT Scan CT Abd W WO IV [...] signed by Tobias JOSEPH T: Report ID: [id number] Reading Location: [place] [address] REPORT ELECTRONICALLY SIGNED IN OTHER VENDOR SYSTEM Angel Luis Epstein MD IMG CT PROCEDURES Final Re sult * Occult Blood, Fecal (04/15/2019 6:00 AM CDT) Stool Occult Blood NEGATIVE NEGATIVE [facility] 04/15/2019 6:00 AM CDT 04/15/2019 6:27 AM CDT Narrative [facility] - 04/15/2019 6:44 AM CDT Collected By [facility] Agency Comment IN Tomi Michele MD LAB BODY FLUIDS AND STOOLS O RDERABLES Final Result [facility] [address] [place] [address], [facility] [phone] from Last 3 Months or Most Recently Relevant to Health Maintenance Insurance [facility] HEALTHCARE HEALTHCARE Advance Directives For more information, please contact: [phone] * Full Code (Latest Code Status on File) Date Activated Date Inactivated Comments 04/04/2019 8:10 AM 04/04/2019 2:59 PM Care Teams Train Control Technician Relationship Specialty Start Date End Date Jorge Alberto Perez MD [address] [place] [address] PCP - General Family Practice 08/16/24 Lea Gaspar, RN Registered Nurse Gastroenterology 03/28/19 Sen Ruiz MD [address] [facility] [place] [address] Revenue Cycle Manager Cardiology 04/25/19
--- OUTSIDE RECORDS SUMMARY | 2024-12-10 07:02 | XMS_ITS | Encounter Summary ---
Author Organization [facility] Care Team Providers Care Crack Off Person Name Role Phone Robe Kinney MD Primary Care Provider [phone] Lea Gaspar RN Unavailable Unavailable Sen Ruiz MD Unavailable [phone] Connor Wilkes MD Primary Care Provider [phone] Robe Kinney MD Primary Care Provider [phone] No, Physician Primary Care Provider [phone] Rory Martinez DO Primary Care Provider [phone] Jorge Alberto Perez MD Primary Care Provider [phone] Jorge Alberto Perez MD Primary Care Provider [phone] Encounter Details Date Type Department Care Team (Latest Contact Info) Description 01/05/2011 Orders Only [facility] Provider, MD [place] [address] [place] [address] Social History Tobacco Use Types Packs/Day Years Used Date Smoking Tobacco: Never Assessed Sex and Gender Information Value Date Recorded Sex Assigned at Not on file Legal Sex Male 6:22 PM WORKSHOP MANAGER Gender Identity Not on file Sexual [...] on filedocumented in this encounter Care Teams Crack Off Person Relationship Specialty Start Date End Date Robe Kinney MD [address] [place] [address] PCP - General Family Medicine 01/16/19 05/29/19 Connor Wilkes MD [address] [facility] [address] [place] [address] [address] PCP - General 05/30/19 07/30/19 Robe Kinney MD [address] [place] [address] PCP - General 07/31/19 08/31/20 No, Physician PCP - General 09/01/20 10/23/20 Rory Martinez DO PCP - General 10/24/20 10/05/22 Jorge Alberto Perez MD PCP - General Family Practice 07/01/23 08/15/24 Jorge Alberto Perez MD [address] [place] [address] PCP - General Family Practice 08/16/24 Lea Gaspar, RN Registered Nurse Gastroenterology 03/28/19 Sen Ruiz MD [address] [facility] [place] [address] Instructor Product Inspection Cardiology 04/25/19 documented as of this encounter
--- OUTSIDE RECORDS SUMMARY | 2024-12-10 07:02 | XMS_ITS | Encounter Summary ---
Author Organization [facility] Healthcare Address [address] [place] [address] Care Team Providers Care Mobile Pet Groomer Name Role Phone Lea Gaspar RN Unavailable Unavailable Sen Ruiz MD Unavailable [phone] Jorge Alberto Perez MD Primary Care Provider [phone] Encounter Details Date Type Department Care Team (Late st Contact Info) Description 10/23/2024 Results Follow-Up [facility] Cardiology [address] [place] [address] Lydia Martin MD [facility] [address] Social History Tobacco Use Types [...] on file Legal Sex Male 6:22 PM CARRIER BLOWER Gender Identity Not on file Sexual Orientation Not on file documented as of this encounter Plan of Treatment Not on file documented as of this encounter Visit Diagnoses Not on filedocumented in this encounter Care Teams Mobile Pet Groomer Relationship Specialty Start Date End Date Jorge Alberto Perez MD [address] [place] [address] PCP - General Family Practice 08/16/24 Lea Gaspar, RN Registered Nurse Gastroenterology 03/28/19 Sen Ruiz MD [address] [place] [address] Supervisor Contact Lens Cardiology 04/25/19 documented as of this encounter
--- OUTSIDE RECORDS SUMMARY | 2024-12-10 07:02 | XMS_ITS | Continuity of Care Document ---
Author Organization [facility] Address [address] [place] [address] Phone Care Team Providers Care Segment Block Layer Name Role Phone Brennen Pascal Unavailable Unavailable Procedures Procedure Date Eye Exam & Treatment Refraction Office/outpatient Visit, Est Refraction Eye Exam Established Pt Advance Directives Directive Yes / No Effective Date File Name No Information Encounters Encounter Description Practice Location Reason(s) For Visit Diagnoses Date Provider Providers Copied on Encounter [facility], [address] [place] [address] [address], [place], [place], [id number], [place] tel:[phone] [facility] No Information 3-200 9 Krishnasamy Brennen. [address], [address], [place]. tel:[phone] Office/outpat ient Visit, Est [facility], [address], [place], [place], [id number], [place] tel:[phone] [facility] No Information 6-200 8 Krishnasamy Brennen. [address] [facility] [address], [place], [address], [place]. tel:[phone] [facility], [address] [place] [address] [address], [place], [place], [id number], [place] tel:[phone] [facility] No Information [address] Lebron. [address], [place], [address], [place]. tel:[phone] Family History Family Member Type Diagnosis Age [...]
[2024-12-10 07:33] LABS: Basophils Percent Auto 0.3 % (0.2-1.2); Eosinophils Absolute Auto 0.3 K/mm3 (0-0.3); Eosinophils Percent Auto 2.9 % (0-4.4); Hematocrit 30.8 % (42.0-52.0); Immature Granulocyte Absolute 0.07 K/mm3 (0.00-0.031); Immature Granulocyte Percent A 0.6 % (0-0.5); Lymphocytes Absolute Auto 1.02 K/mm3 (0.9-3.2); Lymphocytes Percent Auto 8.9 % (18.3-44.2); Mean Corpuscular HGB Conc 32.5 g/dl (32-36); Mean Corpuscular Volume 86.3 fl (80-100); Mean Platelet Volume 10.8 fl (7.4-10.4); Monocytes Absolute Auto 0.7 K/mm3 (0.1-0.6); Monocytes Percent Auto 6.3 % (2.6-8.5); Neutrophils Absolute Auto 9.3 K/mm3 (1.3-6.7); Platelet Count Result 230 k/mm3 (150-375); Red Blood Count 3.57 M/mm3 (4.6-6.20); Red Cell Distribution Width 15.2 % (11.5-14.5); White Blood Count 11.5 K/mm3 (4.5-10.0)
[2024-12-10 07:47] LABS: Alanine Aminotransferase 17 U/L (6-50); Albumin Level 3.7 g/dL (3.5-5.1); Alkaline Phosphatase 49 U/L (38-126); Anion Gap 10 mmol/L (4-12); Aspartate Amino Transferase 21 U/L (17-59); Bilirubin,Total 0.4 mg/dL (0.2-1.3); Blood Urea Nitrogen 36 mg/dL (9-20); Calcium 9.4 mg/dL (8.4-10.2); Carbon Dioxide 22 mmol/L (22-30); Chloride 107 mmol/L (98-107); Estimated Glomerular Filt Rate 16; Glucose 154 mg/dL (65-110); Potassium 3.5 mmol/L (3.4-5.0); Sodium 139 mmol/L (137-145)
[2024-12-10 08:43] LABS: Creatinine Urine 128.8 mg/dL
[2024-12-10 08:50] LABS: Parathyroid Intact 49.5 pg/mL (14.5-75.2)
[2024-12-10 09:49] LABS: MALB Creatinine Ratio > 885.1 mg/g (0-30); Microalbumin Urine Random > 1140.0 mg/L (0-16.7)
== END 2024-12-10 06:57 | disposition home or self-care (01) ==
PROVIDERS: PCP Nurse Practitioner Family; Visit Provider Internal Medicine Nephrology
DX: N18.32 Chronic kidney disease, stage 3b (principal)
CPT/HCPCS: 36415; 80053; 82043; 83970; 85025

== ENCOUNTER 2025-01-15 12:49 | Outpatient (CLI) | payer OTHER, SELFPAY ==
--- NOTE | ~2025-01-15 | XR_ITS ---
XR chest 2V 01/15/2025 13:18 Indication: Shortness of breath. History of bypass surgery. Hypertension. Procedure: 2 view chest Comparison: 08/07/2020 Findings: Status post median sternotomy for CABG. Cardiomegaly. Right basilar infiltrates may represe nt atelectasis or developing pneumonia. Possible small left pleural effusion. No pneumothorax. No mitch ma. Impression: 1: Right basilar infiltrate may represent atelectasis or pneumonia. 2: Possible small left pleural effusion. Reviewed, dictated and finalized at location B. Impression: 1: Right basilar infiltrate may represent atelectasis or pneumonia. 2: Possible small left pleural effusion.
--- OUTSIDE RECORDS SUMMARY | 2025-01-15 12:54 | XMS_ITS | Encounter Summary ---
Author Organization [facility] Care Team Providers Care Electronic Prepress Operator Name Role Phone Robe Kinney MD Primary Care Provider [phone] Lea Gaspar RN Unavailable Unavailable Sen Ruiz MD Unavailable [phone] Connor Wilkes MD Primary Care Provider [phone] Robe Kinney MD Primary Care Provider [phone] No, Physician Primary Care Provider [phone] Rory Martinez DO Primary Care Provider [phone] Jorge Alberto Perez MD Primary Care Provider [phone] Jorge Alberto Perez MD Primary Care Provider [phone] Encounter Details Date Type Department Care Team (Latest Contact Info) Description 12/03/2016 Orders Only [facility] Provider, MD Obinna [address] [place] [address] Social History Tobacco Use Types Packs/Day Years Used Date Smoking Tobacco: Never Assessed Sex and Gender Information Value Date Recorded Sex Assigned at Not on file Legal Sex 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 [address] PCP - General 05/30/19 07/30/19 Robe Kinney MD [address] [place] [address] PCP - General 07/31/19 08/31/20 No, Physician PCP - General 09/01/20 10/23/20 Rory Martinez DO PCP - General 10/24/20 10/05/22 Jorge Alberto Perez MD PCP - General Family Practice 07/01/23 08/15/24 Jorge Alberto Perez MD [address] [place] [address] PCP - General Family Practice 08/16/24 Lea Gaspar, RN Registered Nurse Gastroenterology 03/28/19 Sen Ruiz MD [address] [facility] [address] Liquor Grinding Mill Operator Cardiology 04/25/19 documented as of this encounter
--- OUTSIDE RECORDS SUMMARY | 2025-01-15 12:55 | XMS_ITS | Referral Summary ---
Author Organization [facility] Address [address] [place] [address] Care Team Providers Care Cost Control Supervisor Name Role Phone Lea Gaspar RN Unavailable Unavailable Sen Ruiz MD Unavailable [phone] Jorge Alberto Perez MD Primary Care Provider [phone] Encounters Date Type Department Care Team Description 12/11/2024 Telephone [facility] Nephrology at [address] [address] Connor Wilkes MD 12/11/2024 Orders Only [facility] Nephrology at [address] [address] Obinna Moya MD 12/07/2024 Telephone [facility] Nephrology at [address] [address] Connor Wilkes MD 11/12/2024 Results Follow-Up [facility] Nephrology at [address] [address] Connor Wilkes MD CBC with auto differential, Comprehensive metabolic panel, PTH, Albumin Creatinine Ratio, Urine 11/12/2024 Orders Only [facility] Nephrology at [address] [address] Obinna Moya MD 11/09/2024 Orders Only [facility] Nephrology at [address] [phone] ProviderObinna MD 11/09/2024 9:15 AM CDT Office Visit [facility] Nephrology at [address] [place] [address] Connor Wilkes MD Stage 3b chronic kidney disease (HCC) (Primary Dx); Benign hypertensive kidney disease with chronic kidney disease stage I through stage IV, or unspecified(403.10); Persistent proteinuria; Secondary hyperparathyroidism; Morbid (severe) obesity due to excess calories (HCC) 10/23/2024 Results Follow-Up [facility] Cardiology [address] [place] [phone] Darrius Martin MD Transthoracic Echo (TTE) Complete W Doppler/CF 10/22/2024 8:15 AM FABRIC NORMALIZER Ancillary Procedure [facility] Cardiology [address] [place] [address] DRAPER (dyspnea on exertion) from Last 3 Months Allergies Active Allergy [...] mouth daily 30 capsule 11 1 Active furosemide (LASIX) 40 mg tabletIndication s:Essential [...] by mouth Active calcitRIOL (ROCALTROL) 0.5 mcg capsuleIndicatio ns:Stage 3b chronic kidney disease (HCC),Anemia in stage 3b chronic kidney disease (HCC) Take 1 capsule (0.5 mcg total) by mouth daily Take one capsule by mouth every Tuesday, Tuesday and Tuesday. 5 Active losartan (COZAAR) 25 mg tabletIndication s:Stage 3b chronic kidney disease (HCC),Anemia in stage 3b chronic kidney disease (HCC) Take 1 tablet (25 mg total) by mouth daily 5 11/14/19 26 Active Active Problems Problem Noted Date Diagnosed Date Morbid (severe) obesity due to excess calories 0 03/26/2024 Body mass index (BMI) 45.0-49.9, adult 4 CKD stage 4 secondary to hypertension 07/04/2023 Mixed hyperlipidemia 03/17/2021 DRAPER (dyspnea on exertion) 12/02/2020 Bradycardia 12/02/2020 Former tobacco use 12/02/2020 Stage 3b chronic kidney disease 12/02/2020 Prediabetes 12/02/2020 Coronary artery disease invo lving [place] coronary artery of [place] heart without angina pectoris 11/12/2019 Body mass index (BMI) of 45.0-49.9 in adult 07/29 Fasting hyperglycemia 08/07/2019 Class 3 obesity 08/07/2019 Hx of CABG 08/07/2019 Abnormal plasma protein test 08/07/2019 Essential hypertension 08/07/2019 CHF (congestive heart failure) 05/07/2019 Atrial fibrillation with RVR 05/01/2019 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 Overview (03/28/2019): Added automatically from request for surgery [id number] MEI (obstructive sleep apnea) 01/13/2018 Resolved Problems [...] PM CDT): Following diet HTN (hypertension) 03/23/2016 1 Assessment & Plan (01/23/2019 4:12 PM CDT): [...] on file Legal Sex Male 6:22 PM FABRIC NORMALIZER Gender Identity Not on file Sexual Orientation Not on file Last Filed Vital Signs Vital Sign Reading Time Taken Comments Blood Pressure 166/68 11/09/2024 9:26 AM CDT Pulse 64 11/09/2024 9:26 AM CDT Temperature 36.7 C (98 F) 11/09/2024 9:26 AM CDT Respiratory Rate 20 06/13/2019 10:3 7 AM CDT Oxygen Saturation 95% 08/20/2024 12: 03 PM FABRIC NORMALIZER Inhaled Oxygen Concentration - - Weight 125.7 kg (277 lb 3.2 oz) 11/09/2024 9:26 AM CDT Height 165.1 cm (5' 5 ) 11/09/2024 9:26 AM CDT Body Mass Index 46.13 11/09/2024 9:26 AM CDT Plan of Treatment Not on file Procedures Procedure Name Priority Date/Time Associated Diagnosis Comments MICROALBUMIN / CREATININE RATIO, RANDOM URINE Routine 12/10/2024 12:52 PM CDT ALBUMIN CREATININE RATIO, URINE Routine 11/12/2024 11:38 [...] DOPPLER/CF WO CONTRAST Routine 10/22/2024 8:29 AM FABRIC NORMALIZER DRAPER (dyspnea on exertion) CT ABDOMEN W WO CONTRAST 05/04/2019 12:00 AM CDT OCCULT BLOOD, FECAL (FIT) Routine 04/15/2019 6:00 AM CDT from Last 3 Months or Most Recently Relevant to Health Maintenance Results * Microalbumin / Creatinine Ratio, Random Urine (12/10/2024 12:52 PM CDT) [facility] Provider LAB BLOOD ORDERABLES Humera l Result Performing Organization Address [facility] Co de Phone Number EXTERNAL LAB * (ABNORMAL) Albumin Creatinine Ratio, Urine (11/12/2024 11:38 AM CDT) Urine Connor Wilkes MD LAB URINE ORDERABLES Final Re sult Performing Organization Address [facility]/ZIP Co de Phone Number EXTERNAL LAB * PTH (11/12/2024 11:38 AM CDT) Blood us Connor Wilkes MD LAB BLOOD ORDERABLES Final Re sult Performing Organization Address [facility] Co de Phone Number EXTERNAL LAB * (ABNORMAL) Comprehensive metabolic panel (11/12/2024 11:38 AM CDT) Blood us Connor Wilkes MD LAB BLOOD ORDERABLES Final Re sult Performing Organization Address [facility] de Phone Number EXTERNAL LAB * (ABNORMAL) CBC with auto differential (11/12/2024 11:38 AM CDT) Blood Connor Wilkes MD LAB BLOOD ORDERABLES Final Re sult Performing Organization Address [facility] de Phone Number EXTERNAL LAB * Albumin Creatinine Ratio, Urine (11/12/2024 8:49 AM CDT) Urine Historical Provider LAB URINE ORDERABLES Humera l Result Performing Organization Address [facility] de Phone Number EXTERNAL LAB * Comprehensive metabolic panel (11/09/2024 4:15 PM CDT) Blood Historical Provider LAB BLOOD ORDERABLES Humera l Result Performing Organization Address [facility] de Phone Number EXTERNAL LAB * TRANSTHORACIC ECHO (TTE) COMPLETE W DOPPLER/CF WO CONTRAST (10/22/2024 8:29 AM FABRIC NORMALIZER) Anatomical Region Laterality Modality Ultrasound 10/22/2024 7:58 AM FABRIC NORMALIZER Narrative 10/22/2024 11:58 AM FABRIC NORMALIZER [facility] Cardiology [address] [facility] [address], [place] [address] [address] [facility] [address], [place] [address] P:[phone] P:[phone] Echocardiographic Report Patient Name: NIKOLAY SILVER Z : 1950 Study Date: 10/22/2024 7:58:55 AM Gender: M Tech: Location: [facility] Provider: DARRIUS MARTIN Height(Cm): 165 BSA: [...] FINDINGS: Interpretation Site: Exam was interpreted at [facility]. Left Ventricle: Normal left ventricular systolic function. [...] regurgitation. Electronically Signed By: Dr. Darrius Martin [facility] 10/22/2024 11:58:14 AM FABRIC NORMALIZER Procedure Note Darrius Martin MD - 10/22/2024 [facility] Cardiology [address] [facility] [address], [place] [address] [address] [facility] [address], [place] [address] P:[phone] P:[phone] Echocardiographic Report Patient Name: NIKOLAY SILVER Z : 1950 Study Date: 10/22/2024 7:58:55 AM Gender: M Tech: Location: [facility] Provider: DARRIUS MARTIN Height(Cm): 165 BSA: [...] FINDINGS: Interpretation Site: Exam was interpreted at [facility]. Left Ventricle: Normal left ventricular systolic function. [...] regurgitation. Electronically Signed By: Dr. Darrius Martin [facility] 10/22/2024 11:58:14 AM FABRIC NORMALIZER us Darrius Martin MD CV ECHO PROCEDURES F inal Result * CT Abdomen W WO Contrast (05/04/2019 12:00 AM CDT) Anatomical Region Laterality Modality Body N/A Computed Tomogra phy 05/04/2019 4:48 PM CDT Narrative 05/04/2019 5:25 PM CDT Patient Name: NIKOLAY SILVER [facility]: Angel Luis Epstein MD D.O.B: 1950 Exam Date: 05/04/19 0000 Age: 69 Sex: Male MR#: [id number] Loc: RADIOLOGY REPORT Order #[id number] CT Scan CT Abd W WO IV [...] signed by Tobias JOSEPH T: Report ID: [id number] Reading Location: [id number] REPORT ELECTRONICALLY SIGNED IN OTHER VENDOR SYSTEM Resulting Agency Comment O Procedure Note Tobias Ramos MD - 05/04/2019 Patient Name: NIKOLAY SILVER Rene Dr: Angel Luis Epstein MD D.O.B: 1950 Exam Date: 05/04/19 0000 Age: 69 Sex: Male MR#: [id number] Loc: RADIOLOGY REPORT Order #[id number] CT Scan CT Abd W WO IV [...] Tobias Ramos M.D. RS T: Report ID: [id number] Reading Location: [place] [address] REPORT ELECTRONICALLY SIGNED IN OTHER VENDOR SYSTEM Angel Luis Epstein MD IMG CT PROCEDURES Final Re sult * Occult Blood, Fecal (04/15/2019 6:00 AM CDT) Stool Occult Blood NEGATIVE NEGATIVE [facility] 04/15/2019 6:00 AM CDT 04/15/2019 6:27 AM CDT Narrative [facility] - 04/15/2019 6:44 AM CDT Collected By MA Resulting Agency Comment IN Tomi Michele MD LAB BODY FLUIDS AND STOOLS O RDERABLES Final Result [facility] [address] [place] [address], [facility] [phone] from Last 3 Months or Most Recently Relevant to Health Maintenance Insurance [facility] HE[facility]CARE HEALTHCARE Advance Directives For more information, please contact: [phone] * Full Code (Latest Code Status on File) Date Activated Date Inactivated Comments 04/04/2019 8:10 AM 04/04/2019 2:59 PM Care Teams Cost Control Supervisor Relationship Specialty Start Date End Date Jorge Alberto Perez MD [address] [place] [address] PCP - General Family Practice 08/16/24 Lea Gasapr, RN Registered Nurse Gastroenterology 03/28/19 Sen Ruiz MD [address] [facility] [place] [address] Scientist Engineer Cardiology 04/25/19
--- OUTSIDE RECORDS SUMMARY | 2025-01-15 12:55 | XMS_ITS | Encounter Summary ---
Author Organization [facility] Care Team Providers Care Tie Tape Machine Operator Name Role Phone Robe Kinney MD Primary Care Provider [phone] Lea Gaspar RN Unavailable Unavailable Sen Ruiz MD Unavailable [phone] Connor Wilkes MD Primary Care Provider [phone] Robe Kinney MD Primary Care Provider [phone] No, Physician Primary Care Provider [phone] Rory Martinez DO Primary Care Provider [phone] Jorge Alberto Perez MD Primary Care Provider [phone] Jorge Alberto Perez MD Primary Care Provider [phone] Encounter Details Date Type Department Care Team (Latest Contact Info) Description 01/30/2013 Orders Only [facility] Provider, MD Obinna [address] [place] [address] Social History Tobacco Use Types Packs/Day Years Used Date Smoking Tobacco: Never Assessed Sex and Gender Information Value Date Recorded Sex Assigned at Not on file 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 Gender Identity Not on file Sexual Orientation [...] on filedocumented in this encounter Care Teams Tie Tape Machine Operator Relationship Specialty Start Date End Date Robe Kinney MD [address] [place] [address] PCP - General Family Medicine 01/16/19 05/29/19 Connor Wilkes MD [address] [facility] [address] [address] PCP - General 05/30/19 07/30/19 Robe Kinney MD [address] [place] [address] PCP - General 07/31/19 08/31/20 No, Physician PCP - General 09/01/20 10/23/20 Rory Martinez DO PCP - General 10/24/20 10/05/22 Jorge Alberto Perez MD PCP - General Family Practice 07/01/23 08/15/24 Jorge Alberto Perez MD [address] [place] [address] PCP - General Family Practice 08/16/24 Lea Gaspar, RN Registered Nurse Gastroenterology 03/28/19 Sen Ruiz MD [address] [facility] [place] [address] Rack Cleaner Cardiology 04/25/19 documented as of this encounter
--- OUTSIDE RECORDS SUMMARY | 2025-01-15 12:55 | XMS_ITS | Continuity of Care Document ---
Author Organization [facility] Address [address] [place] [address] Phone Care Team Providers Care Housekeeping Coordinator Name Role Phone Brennen Pascal Unavailable Unavailable Procedures Procedure Date Eye Exam & Treatment Refraction Office/outpatient Visit, Est Refraction Eye Exam Established Pt Advance Directives Directive Yes / No Effective Date File Name No Information Encounters Encounter Description Practice Location Reason(s) For Visit Diagnoses Date Provider Providers Copied on Encounter [facility], [address] [place] [address] [address], [place], [place], [id number], [place] tel:[phone] [facility] No Information 3-200 9 Krishnasamy Brennen. [address], [address], [place]. tel:[phone] Office/outpat ient Visit, Est [facility], [address], [place], [place], [address], [place] tel:[phone] [facility] No Information 6-200 8 Krishnasamy Brennen. [address] [facility] [address], [place], [address], [place]. tel:[phone] [facility], [address] [place] [address] [address], [place], [place], [id number], [place] tel:[phone] [facility] No Information [address] Le[address]. [address], [place], [address], [place]. tel:[phone] Family History Family Member Type Diagnosis Age [...]
--- OUTSIDE RECORDS SUMMARY | 2025-01-15 12:55 | XMS_ITS | Clinical Summary ---
Author Organization [facility] (formerly [facility] Address [address] [place] [address] Care Team Providers Care Machine Guide Base Winder Name Role Phone Lea Gaspar RN Unavailable Unavailable Sen Ruiz MD Unavailable [phone] Jorge Alberto Perez MD Primary Care Provider [phone] Allergies Active Allergy Reactions Criticality Noted Date [...] Prediabetes 12/02/2020 Coronary artery disease invo lving citizen [place] coronary artery of citizen [place] heart without angina pectoris 11/12/2019 Body mass index (BMI) of 45.0-49.9 in adult 07/29 Fasting hyperglycemia 08/07/2019 Class 3 obesity 08/07/2019 Hx of CABG 08/07/2019 Abnormal plasma protein test 08/07/2019 Essential hypertension 08/07/2019 CHF (congestive heart failure) 05/07/2019 Atrial fibrillation with RVR 05/01/2019 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 Overview (03/28/2019): Added automatically from request for surgery [id number] MEI (obstructive sleep apnea) 01/13/2018 Resolved Problems [...] myocardial infarction (NSTEMI) 05/01/2019 12/02/2020 Hypercholesteremia 07/27/2016 1 Assessment & Plan (01/23/2019 4:12 PM CDT): Following diet HTN (hypertension) 03/23/2016 1 Assessment & Plan (01/23/2019 4:12 PM CDT): Hypertension under not best control readings are 150/80 standing. Patient has been consuming more salt lately Coronary artery disease 03/23/2016 04/01/2021 Assessment & Plan (01/23/2019 4:13 PM CDT): Stable coronary disease denies any chest pain. Encounters Date Type Department Care Team Description 12/11/2024 Telephone [facility] Nephrology at [address] [place] [address] Connor Wilkes MD 12/11/2024 Orders Only [facility] Nephrology at [address] [place] [address] Obinna Moya MD 12/07/2024 Telephone [facility] Nephrology at [address] [place] [phone] Connor Wilkes MD 11/12/2024 Results Follow-Up [facility] Nephrology at [address] [place] [phone] Connor Wilkes MD CBC with auto differential, Comprehensive metabolic panel, PTH, Albumin Creatinine Ratio, Urine 11/12/2024 Orders Only [facility] Nephrology at [address] [place] [phone] Obinna Moya MD 11/09/2024 9:15 AM CDT Office Visit [facility] Nephrology at [address] [address] Connor Wilkes MD Stage 3b chronic kidney disease (HCC) (Primary Dx); Benign hypertensive kidney disease with chronic kidney disease stage I through stage IV, or unspecified(403.10); Persistent proteinuria; Secondary hyperparathyroidism; Morbid (severe) obesity due to excess calories (HCC) 11/09/2024 Orders Only [facility] Nephrology at [address] [place] [phone] Obinna Moya MD 10/23/2024 Results Follow-Up [facility] Cardiology [address] [place] [phone] Darrius Martin MD Transthoracic Echo (TTE) Complete W Doppler/CF 10/22/2024 8:15 AM SAUSAGE MACHINE OPERATOR Ancillary Procedure [facility] Cardiology [address] [place] [address] DRAPER (dyspnea on exertion) from Last 3 Months Surgical History Surgery [...] on file Legal Sex Male 6:22 PM SAUSAGE MACHINE OPERATOR Gender Identity Not on file Sexual Orientation Not on file Obstetrics History Last Filed Vital Signs Vital Sign Reading Time Taken Comments Blood Pressure 166/68 11/09/2024 9:26 AM CDT Pulse 64 11/09/2024 9:26 AM CDT Temperature 36.7 C (98 F) 11/09/2024 9:26 AM CDT Respiratory Rate 20 06/13/2019 10:3 7 AM CDT Oxygen Saturation 95% 08/20/2024 12: 03 PM SAUSAGE MACHINE OPERATOR Inhaled Oxygen Concentration - - Weight 125.7 [...] DOPPLER/CF WO CONTRAST Routine 10/22/2024 8:29 AM SAUSAGE MACHINE OPERATOR DRAPER (dyspnea on exertion) CT ABDOMEN W WO CONTRAST 05/04/2019 12:00 AM CDT OCCULT BLOOD, FECAL (FIT) Routine 04/15/2019 6:00 AM CDT from Last 3 Months or Most Recently Relevant to Health Maintenance Results * Microalbumin / Creatinine Ratio, Random Urine (12/10/2024 12:52 PM CDT) Obinna Provider LAB BLOOD ORDERABLES Humera l Result Performing Organization Address [facility] de Phone Number EXTERNAL LAB * (ABNORMAL) Albumin Creatinine Ratio, Urine (11/12/2024 11:38 AM CDT) Urine Connor Wilkes MD LAB URINE ORDERABLES Final Re sult Performing Organization Address [facility] de Phone Number EXTERNAL LAB * PTH (11/12/2024 11:38 AM CDT) Blood Connor Wilkes MD LAB BLOOD ORDERABLES Final Re sult Performing Organization Address [facility] de Phone Number EXTERNAL LAB * (ABNORMAL) Comprehensive metabolic panel (11/12/2024 11:38 AM CDT) Blood Connor Wilkes MD LAB BLOOD ORDERABLES Final Re sult Performing Organization Address [facility] de Phone Number EXTERNAL LAB * (ABNORMAL) CBC with auto differential (11/12/2024 11:38 AM CDT) Blood Connor Wilkes MD LAB BLOOD ORDERABLES Final Re sult Performing Organization Address [facility] de Phone Number EXTERNAL LAB * Albumin Creatinine Ratio, Urine (11/12/2024 8:49 AM CDT) Urine Historical Provider MD LAB URINE ORDERABLES Humera l Result Performing Organization Address City/[facility]/ZIP Co de Phone Number EXTERNAL LAB * Comprehensive metabolic panel (11/09/2024 4:15 PM CDT) Blood Historical Provider MD LAB BLOOD ORDERABLES Humera l Result Performing Organization Address [facility] Co de Phone Number EXTERNAL LAB * TRANSTHORACIC ECHO (TTE) COMPLETE W DOPPLER/CF WO CONTRAST (10/22/2024 8:29 AM SAUSAGE MACHINE OPERATOR) Anatomical Region Laterality Modality Ultrasound 10/22/2024 7:58 AM SAUSAGE MACHINE OPERATOR Narrative 10/22/2024 11:58 AM SAUSAGE MACHINE OPERATOR [facility] Cardiology [address] [facility] [address] [address] [address] [facility] [address], [place] [address] P:[phone] P:[phone] Echocardiographic Report Patient Name: NIKOLAY SILVER Z : 1950 Study Date: 10/22/2024 7:58:55 AM Gender: M Tech: Location: [facility] Provider: DARRIUS MARTIN Height(Cm): 165 BSA: [...] Site: Exam was interpreted at [facility]. Left Ventricle: Normal left ventricular systolic [...] regurgitation. Electronically Signed By: Dr. Darrius Martin [facility] 10/22/2024 11:58:14 AM SAUSAGE MACHINE OPERATOR Procedure Note Darrius Martin MD - 10/22/2024 [facility] Cardiology [address], [place] [address] [address] [facility] [address], [place] [address] P:[phone] P:[phone] Echocardiographic Report Patient Name: NIKOLAY SILVER Z : 1950 Study Date: 10/22/2024 7:58:55 AM Gender: M Tech: Location: [facility] Provider: DARRIUS MARTIN Height(Cm): 165 BSA: [...] Site: Exam was interpreted at [facility]. Left Ventricle: Normal left ventricular systolic [...] regurgitation. Electronically Signed By: Dr. Darrius Martin [facility] 10/22/2024 11:58:14 AM SAUSAGE MACHINE OPERATOR us Darrius Martin MD CV ECHO PROCEDURES F inal Result * CT Abdomen W WO Contrast (05/04/2019 12:00 AM CDT) Anatomical Region Laterality Modality Body N/A Computed Tomogra phy 05/04/2019 4:48 PM CDT Narrative 05/04/2019 5:25 PM CDT Patient Name: NIKOLAY SILVER JR Ordering Dr: Angel Luis Epstein MD D.O.B: 1950 Exam Date: 05/04/19 0000 Age: 69 Sex: Male MR#: [id number] Loc: RADIOLOGY REPORT Order #[id number] CT Scan CT Abd W WO IV [...] signed by Tobias JOSEPH T: Report ID: [id number] Reading Location: [id number] REPORT ELECTRONICALLY SIGNED IN OTHER VENDOR SYSTEM Resulting Agency Comment O Procedure Note Tobias Ramos MD - 05/04/2019 Patient Name: NIKOLAY SILVER Dr: Angel Luis Epstein MD D.O.B: 1950 Exam Date: 05/04/19 0000 Age: 69 Sex: Male MR#: [id number] Loc: RADIOLOGY REPORT Order #[id number] CT Scan CT Abd W WO IV [...] Tobias Ramos M.D. RS T: Report ID: [id number] Reading Location: [id number] REPORT ELECTRONICALLY SIGNED IN OTHER VENDOR SYSTEM us Angel Luis Epstein MD IMG CT PROCEDURES Final Re sult * Occult Blood, Fecal (04/15/2019 6:00 AM CDT) Stool Occult Blood NEGATIVE NEGATIVE [facility] 04/15/2019 6:00 AM CDT 04/15/2019 6:27 AM CDT Narrative [facility] - 04/15/2019 6:44 AM CDT Collected By [facility] Agency Comment IN us Tomi Michele MD LAB BODY FLUIDS AND STOOLS O RDERABLES Final Result [facility] [address] [phone] from Last 3 Months or Most Recently Relevant to Health Maintenance Insurance [facility] HEALTHCARE HEALTHCARE HEALTHCARE Advance Directives For more information, please contact: [phone] * Full Code (Latest Code Status on File) Date Activated Date Inactivated Comments 04/04/2019 8:10 AM 04/04/2019 2:59 PM Care Teams Machine Guide Base Winder Relationship Specialty Start Date End Date Jorge Alberto Perez MD [address] [place] [address] PCP - General Family Practice 08/16/24 Lea Gaspar, RN Registered Nurse Gastroenterology 03/28/19 Sen Ruiz MD [address] [facility] [place] [address] Lens Mounter Cardiology 04/25/19
--- OUTSIDE RECORDS SUMMARY | 2025-01-15 12:55 | XMS_ITS | Encounter Summary ---
Author Organization [facility] Facility Care Team Providers Care Press Offbearer Name Role Phone Robe Kinney MD Primary Care Provider [phone] Lea Gaspar RN Unavailable Unavailable Sen Ruiz MD Unavailable [phone] Connor Wilkes MD Primary Care Provider [phone] Robe Kinney MD Primary Care Provider [phone] No, Physician Primary Care Provider [phone] Rory Martinez DO Primary Care Provider [phone] Jorge Alberto Perez MD Primary Care Provider [phone] Jorge Alberto Perez MD Primary Care Provider [phone] Encounter Details Date Type Department Care Team (Latest Contact Info) Description 01/05/2011 Orders Only [facility] Provider, MD Obinna [address] [place] [address] Social History Tobacco Use Types Packs/Day Years Used Date Smoking Tobacco: Never Assessed Sex and Gender Information Value Date Recorded Sex Assigned at Not on file 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 Gender Identity Not on file Sexual Orientation [...] on filedocumented in this encounter Care Teams Press Offbearer Relationship Specialty Start Date End Date Robe Kinney MD [address] [place] [address] PCP - General Family Medicine 01/16/19 05/29/19 Connor Wilkes MD [address] [facility] [address] [address] PCP - General 05/30/19 07/30/19 Robe Kinney MD [address] [place] [address] PCP - General 07/31/19 08/31/20 No, Physician PCP - General 09/01/20 10/23/20 Rory Martinez DO PCP - General 10/24/20 10/05/22 Jorge Alberto Perez MD PCP - General Family Practice 07/01/23 08/15/24 Jorge Alberto Perez MD [address] [place] [address] PCP - General Family Practice 08/16/24 Lea Gaspar, RN Registered Nurse Gastroenterology 03/28/19 Sen Ruiz MD [address] [facility] [place] [address] Portfolio Management Marketing Cardiology 04/25/19 documented as of this encounter
--- OUTSIDE RECORDS SUMMARY | 2025-01-15 12:55 | XMS_ITS | Encounter Summary ---
Author Organization [facility] Facility Care Team Providers Care Bookkeeping Clerk Name Role Phone Robe Kinney MD Primary Care Provider [phone] Lea Gaspar RN Unavailable Unavailable Sen Ruiz MD Unavailable [phone] Connor Wilkes MD Primary Care Provider [phone] Robe Kinney MD Primary Care Provider [phone] No, Physician Primary Care Provider [phone] Rory Martinez DO Primary Care Provider [phone] Jorge Alberto Perez MD Primary Care Provider [phone] Jorge Alberto Perez MD Primary Care Provider [phone] Encounter Details Date Type Department Care Team (Latest Contact Info) Description 11/19/2015 Orders Only [facility] Provider, MD Obinna [address] [place] [address] Social History Tobacco Use Types Packs/Day Years Used Date Smoking Tobacco: Never Assessed Sex and Gender Information Value Date Recorded Sex Assigned at Not on file 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 Gender Identity Not on file Sexual Orientation [...] on filedocumented in this encounter Care Teams Bookkeeping Clerk Relationship Specialty Start Date End Date Robe Kinney MD [address] [place] [address] PCP - General Family Medicine 01/16/19 05/29/19 Connor Wilkes MD [address] [facility] [place] [address] PCP - General 05/30/19 07/30/19 Robe Kinney MD [address] [place] [address] PCP - General 07/31/19 08/31/20 No, Physician PCP - General 09/01/20 10/23/20 Rory Martinez DO PCP - General 10/24/20 10/05/22 Jorge Alberto Perez MD PCP - General Family Practice 07/01/23 08/15/24 Jorge Alberto Perez MD [address] [place] [address] PCP - General Family Practice 08/16/24 Lea Gaspar, RN Registered Nurse Gastroenterology 03/28/19 Sen Ruiz MD [address] [facility] [place] [address] Turkey Farmer Cardiology 04/25/19 documented as of this encounter
[2025-01-15 13:28] LABS: Alanine Aminotransferase 23 U/L (6-50); Albumin Level 4.1 g/dL (3.5-5.1); Alkaline Phosphatase 52 U/L (38-126); Anion Gap 10 mmol/L (4-12); Aspartate Amino Transferase 26 U/L (17-59); Bilirubin,Total 0.3 mg/dL (0.2-1.3); Blood Urea Nitrogen 43 mg/dL (9-20); Calcium 9.3 mg/dL (8.4-10.2); Carbon Dioxide 22 mmol/L (22-30); Chloride 108 mmol/L (98-107); Estimated Glomerular Filt Rate 16; Glucose 97 mg/dL (65-110); Potassium 4.2 mmol/L (3.4-5.0); Sodium 140 mmol/L (137-145)
[2025-01-15 13:34] LABS: NT Pro B Type Natriuretic Pept 7490 pg/mL (19.9-100)
[2025-01-15 14:33] LABS: Hemoglobin A1C 4.8 % (<5.7)
== END 2025-01-15 12:50 | disposition home or self-care (01) ==
PROVIDERS: PCP Family Medicine; Visit Provider Nurse Practitioner Family
DX: I12.9 Hypertensive chronic kidney disease with stage 1 through stage 4 chronic kidney disease, or unspecified chronic kidney disease (principal); N18.4 Chronic kidney disease, stage 4 (severe); R06.02 Shortness of breath; R73.01 Impaired fasting glucose
CPT/HCPCS: 36415; 71046; 80053; 83036; 83880

== ENCOUNTER 2025-04-03 07:03 | Outpatient (CLI) | payer OTHER, SELFPAY ==
--- OUTSIDE RECORDS SUMMARY | 2025-04-03 07:10 | XMS_ITS | Encounter Summary ---
Author Organization [facility] Facility Care Team Providers Care Bladder Trimmer Name Role Phone Robe Kinney MD Primary Care Provider [phone] Lea Gaspar RN Unavailable Unavailable Sen Ruiz MD Unavailable [phone] Connor Wilkes MD Primary Care Provider [phone] Robe Kinney MD Primary Care Provider [phone] No, Physician Primary Care Provider [phone] Rory Martinez DO Primary Care Provider [phone] Jorge Alberto Perez MD Primary Care Provider [phone] Jorge Alberto Perez MD Primary Care Provider [phone] Encounter Details Date Type Department Care Team (Latest Contact Info) Description 12/03/2016 Orders Only [facility] Provider, MD Obinna [address] [place] [address] Social History Tobacco Use Types Packs/Day Years Used Date Smoking Tobacco: Never Assessed Sex and Gender Information Value Date Recorded Sex Assigned at Not on file 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 Gender Identity Not on file Sexual Orientation [...] on filedocumented in this encounter Care Teams Bladder Trimmer Relationship Specialty Start Date End Date Robe Kinney MD [address] [place] [address] PCP - General Family Medicine 01/16/19 05/29/19 Connor Wilkes MD [address] [facility] [address] [address] PCP - General 05/30/19 07/30/19 Robe Kinney MD [address] [place] [address] PCP - General 07/31/19 08/31/20 No, Physician PCP - General 09/01/20 10/23/20 Rory Martinez DO PCP - General 10/24/20 10/05/22 Jorge Alberto Perez MD PCP - General Family Practice 07/01/23 08/15/24 Jorge Alberto Perez MD [address] [place] [address] PCP - General Family Practice 08/16/24 Lea Gaspar, RN Registered Nurse Gastroenterology 03/28/19 Sen Ruiz MD [address] [facility] [place] [address] Office Mover Cardiology 04/25/19 documented as of this encounter
--- OUTSIDE RECORDS SUMMARY | 2025-04-03 07:10 | XMS_ITS | Encounter Summary ---
Author Organization [facility] Facility Care Team Providers Care Charting Clerk Name Role Phone Robe Kinney MD Primary Care Provider [phone] Lea Gaspar RN Unavailable Unavailable Sen Ruiz MD Unavailable [phone] Connor Wilkes MD Primary Care Provider [phone] Robe Kinney MD Primary Care Provider [phone] No, Physician Primary Care Provider [phone] Rory Martinez DO Primary Care Provider [phone] Jorge Alberto Perez MD Primary Care Provider [phone] Jorge Alberto Perez MD Primary Care Provider [phone] Encounter Details Date Type Department Care Team (Latest Contact Info) Description 11/19/2015 Orders Only [facility]INCONV Provider, MD Obinna [address] [place] [address] Social History Tobacco Use Types Packs/Day Years Used Date Smoking Tobacco: Never Assessed Sex and Gender Information Value Date Recorded Sex Assigned at Not on file Legal Sex Male 6:22 PM [facility] Gender Identity Not on file Sexual Orientation [...] on filedocumented in this encounter Care Teams Charting Clerk Relationship Specialty Start Date End Date Robe Kinney MD [address] [place] [address] PCP - General Family Medicine 01/16/19 05/29/19 Connor Wilkes MD [address] [facility] [place] [address] PCP - General 05/30/19 07/30/19 Robe Kinney MD [address] [place] [address] PCP - General 07/31/19 08/31/20 No, Physician PCP - General 09/01/20 10/23/20 Rory Martinez DO PCP - General 10/24/20 10/05/22 Jorge Alberto Perez MD PCP - General Family Practice 07/01/23 08/15/24 Jorge Alberto Perez MD [address] [place] [address] PCP - General Family Practice 08/16/24 Lea Gaspar, RN Registered Nurse Gastroenterology 03/28/19 Sen Ruiz MD [address] [facility] [place] [address] Aquatic Scientist Cardiology 04/25/19 documented as of this encounter
--- OUTSIDE RECORDS SUMMARY | 2025-04-03 07:11 | XMS_ITS | Clinical Summary ---
Author Organization [facility] Address [address] [place] [address] Care Team Providers Care Car Repairer Name Role Phone Lea Gaspar RN Unavailable Unavailable Sen Ruiz MD Unavailable [phone] Jorge Alberto Perez MD Primary Care Provider [phone] Allergies Active Allergy Reactions Criticality Noted Date [...] 02/13/20 21 Active furosemide (LASIX) 40 mg tabletIndication s:Essential hypertension Take 1 tablet (40 mg total) by mouth daily 90 tablet 3 08/20/20 24 Active hydrALAZINE (APRESOLINE) 100 mg tabletIndication s:Uncontrolled hypertension Take 1 tablet (100 mg total) by mouth 2 (two) times a day 180 tablet 3 08/20/20 24 Active amLODIPine (NORVASC) 10 mg tabletIndication s:Uncontrolled hypertension Take 1 tablet (10 mg total) by mouth daily 90 tablet 3 08/20/20 24 Active rosuvastatin (CRESTOR) 20 mg tablet Take 1 tablet (20 mg total) by mouth daily 90 tablet 3 08/20/20 24 Active cholecalciferol, vitamin D3, 1,000 unit tablet,chewable [...] 11/14/19 25 Active losartan (COZAAR) 25 mg tabletIndication s:Stage 3b chronic kidney disease (HCC),Anemia in stage 3b chronic kidney disease (HCC) Take 1 tablet (25 mg total) by mouth daily 11/14/19 25 026 Active Additional Information Patient taking differently: 50 mgoral Daily, Reported on 03/26/2025 empagliflozin (JARDIANCE) 10 mg tablet Take 1 tablet (10 mg total) by mouth daily 30 tablet 11 02/26/20 25 Active Additional Information Patient not taking.Reported on 03/26/2025 turmeric root extract 500 mg capsule Take by mouth daily Active cloNIDine (CATAPRES) 0.2 mg tabletIndication s:Essential hypertension Take 1 tablet (0.2 mg total) by mouth 2 (two) times a day 03/26/20 25 Active cloNIDine (CATAPRES) 0.1 mg tabletIndication s:Essential hypertension Take 1 tablet (0.1 mg total) by mouth 2 (two) times a day 180 tablet 3 08/20/20 24 025 Discontin ued(Reord er) Active Problems Problem Noted Date Diagnosed Date Nonrheumatic aortic valve stenosis 02/25/2025 Morbid (severe) obesity due to excess calories 0 03/26/2024 Body mass index (BMI) 45.0-49.9, adult 4 CKD stage 4 secondary to hypertension 07/04/2023 Mixed hyperlipidemia 03/17/2021 DRAPER (dyspnea on exertion) 12/02/2020 Bradycardia 12/02/2020 Former tobacco use 12/02/2020 Stage 3b chronic kidney disease 12/02/2020 Prediabetes 12/02/2020 Coronary artery disease invo lving [place] coronary artery of [place] heart without angina pectoris 11/12/2019 Body mass index (BMI) of 45.0-49.9 in adult 07/29 Fasting hyperglycemia 08/07/2019 Class 3 obesity 08/07/2019 Hx of CABG 08/07/2019 Abnormal plasma protein test 08/07/2019 Essential hypertension 08/07/2019 CHF (congestive heart failure) 05/07/2019 Atrial fibrillation with RVR 05/01/2019 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 Overview (03/28/2019): Added automatically from request for surgery [id number] MEI (obstructive sleep apnea) 01/13/2018 Resolved Problems [...] Encounters Date Type Department Care Team Description 03/26/2025 1:15 PM CDT Office Visit [facility] Nephrology at [address] [place] [address] Connor Wilkes MD Stage 4 chronic kidney disease (HCC) (Primary Dx); 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); Benign hypertensive kidney disease with chronic kidney disease stage I through stage IV, or unspecified(403.10); Persistent proteinuria; Body mass index (BMI) 45.0-49.9, adult (HCC) 03/26/2025 Telephone [facility] Medical [facility] Cardiology [address] [facility] [address] [place] [address] Nancy Dover NP Hypertension 02/25/2025 8:15 AM CDT Office Visit [facility] Cardiology [address] [place] [address] [address] [place] [address] Lydia Martin MD Hx of CABG (Primary Dx); Coronary artery disease involving [place] coronary artery of [place] heart without angina pectoris; Mixed hyperlipidemia; Essential hypertension; Nonrheumatic aortic valve stenosis 01/16/2025 Telephone [facility] Nephrology at [address] [place] [address] Connor Wilkes MD 01/16/2025 Orders Only [facility] Nephrology at [address] [place] [address] Obinna Moya MD from Last 3 Months Surgical History [...] you have a drink containing alc ohol? 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 Gender Identity Not on file Sexual Orientation Not on file Obstetrics History Last Filed Vital Signs Vital Sign Reading Time Taken Comments Blood Pressure 155/68 03/26/2025 1:07 PM CDT Pulse 61 03/26/2025 1:07 PM CDT Temperature 36.5 C (97.7 F) 03/26/2025 1:07 PM CDT Respiratory Rate 20 06/13/2019 10:37 AM CDT Oxygen Saturation 97% 02/25/2025 8:07 AM CDT Inhaled Oxygen Concentration - - Weight 124.3 kg (274 lb) 03/26/2025 1:07 PM CDT Height 165.1 cm (5' 5) 03/26/2025 1:07 PM CDT Body Mass Index 45.6 03/26/2025 1:07 PM CDT Plan of Treatment Health Maintenance Due Date Last Done Comments Colon Cancer Screening-Colonoscopy 1950 Depression Screening 1950 Fall Risk Assessment 1950 Hepatitis C Screening 1950 DTaP/Tdap/Td Vaccine (1 - Tdap) 1961 Hepatitis B Screening 01/07/1968 Pneumococcal vaccine 65+ (1 of 1 - PCV) 01/07/2000 Zoster Vaccine (1 of 2) 01/07/2000 Well Visit 65+ 2015 Influenza Vaccine (#1) 2025 09/08/2012 Colon Cancer Screening-FIT Discontinued 04/15/2019 Abdominal Aortic Aneurysm (AAA) Screen Completed , 04/07/2019 Procedures Procedure Name Priority Date/Time Associated Diagnosis Comments POCT LIPID PANEL Routine 02/25/2025 10:4 0 AM CDT Mixed hyperlipidemia CHG HEMOGLOBIN GLYCOSYLATED A1C Routine 01/16/2025 2:[address] ABDOMEN W WO CONTRAST 05/04/2019 12:00 AM CDT OCCULT BLOOD, FECAL (FIT) Routine 04/15/2019 6:00 AM CDT from Last 3 Months or Most Recently Relevant to Health Maintenance Results * POCT lipid panel (02/25/2025 10:40 AM CDT) Cholesterol, POC 124 <200 MG/DL HDL, POC 43 >=40 mg/dL Triglycerides, POC 109 <=149 mg/dL LDL Cholesterol POC 60 <=129 mg/dL Chol/HDL Ratio, POC 1.4 NONE Non-HDL Cholesterol, POC 81 NONE mg/dL Cholesterol Total, POC 124 30 - 199 mg/dL Capillary blood 02/25/2025 1 0:40 AM CDT Lydia Martin MD POINT OF CARE TEST O RDERABLES Final Result * CHG HEMOGLOBIN GLYCOSYLATED A1C (01/16/2025 2:26 PM CDT) Historical Provider MD [facility] Final Res ult EXTERNAL LAB * CT Abdomen W WO Contrast (05/04/2019 12:00 AM CDT) Anatomical Region Laterality Modality Body N/A Computed Tomogra phy 05/04/2019 4:48 PM CDT Narrative 05/04/2019 5:25 PM CDT Patient Name: NIKOLAY SILVER JR Ordering Dr: Angel Luis Epstein MD D.O.B: 1950 Exam Date: 05/04/19 0000 Age: 69 Sex: Male MR#: [id number] Loc: Acc#: [id number] RADIOLOGY REPORT Order #[id number] CT Scan CT Abd W WO IV [...] signed by Tobias JOSEPH T: Report ID: [id number] Reading Location: [place] [address] REPORT ELECTRONICALLY SIGNED IN OTHER VENDOR SYSTEM Resulting Agency Comment O Procedure Note Tobias Ramos MD - 05/04/2019 Patient Name: NIKOLAY SILVER Ehsan JROrdering Dr: Angel Luis Epstein MD D.O.B: 1950 Exam Date: 05/04/19 0000 Age: 69 Sex: Male MR#: [id number] Loc: [facility]#: [id number] RADIOLOGY REPORT Order #[id number] CT Scan CT Abd W WO IV [...] signed by Tobias JOSEPH T: Report ID: [id number] Reading Location: [place] [address] REPORT ELECTRONICALLY SIGNED IN OTHER VENDOR SYSTEM Angel Luis Epstein MD IM CT PROCEDURES Final Re sult * Occult Blood, Fecal (04/15/2019 6:00 AM CDT) Stool Occult Blood NEGATIVE NEGATIVE [facility] 04/15/2019 6:00 AM CDT 04/15/2019 6:27 AM CDT Narrative [facility] - 04/15/2019 6:44 AM CDT Collected By [place] Resulting Agency Comment IN Tomi Michele MD LAB BODY FLUIDS AND STOOLS O RDERABLES Final Result [facility] [address] [place], [place] [address] [place] [address] from Last 3 Months or Most Recently Relevant to Health Maintenance Insurance [employer] [facility] Advance Directives For more information, please contact: [phone] * Full Code (Latest Code Status on File) Date Activated Date Inactivated Comments 04/04/2019 8:10 AM 04/04/2019 2:59 PM Care Teams Car Repairer Relationship Specialty Start Date End Date Jorge Alberto Perez MD [address] [place] [address] PCP - General Family Practice 08/16/24 Lea Gaspar, RN Registered Nurse Gastroenterology 03/28/19 Sen Ruiz MD [address] [facility] [address] [place] [address] Supervisor Advertising Dispatch Clerks Cardiology 04/25/19
--- OUTSIDE RECORDS SUMMARY | 2025-04-03 07:11 | XMS_ITS | Encounter Summary ---
Author Organization [facility] Facility Care Team Providers Care Occupational Health Nursing Director Name Role Phone Robe Kinney MD Primary Care Provider [phone] Lea Gaspar RN Unavailable Unavailable Sen Ruiz MD Unavailable [phone] Connor Wilkes MD Primary Care Provider [phone] Robe Kinney MD Primary Care Provider [phone] No, Physician Primary Care Provider [phone] Rory Martinez DO Primary Care Provider [phone] Jorge Alberto Perez MD Primary Care Provider [phone] Jorge Alberto Perez MD Primary Care Provider [phone] Encounter Details Date Type Department Care Team (Latest Contact Info) Description 01/30/2013 Orders Only [facility] Provider, MD Obinna [address] [place] [address] Social History Tobacco Use Types Packs/Day Years Used Date Smoking Tobacco: Never Assessed Sex and Gender Information Value Date Recorded Sex Assigned at Not on file 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 Gender Identity Not on file Sexual Orientation [...] on filedocumented in this encounter Care Teams Occupational Health Nursing Director Relationship Specialty Start Date End Date Robe Kinney MD [address] [place] [address] PCP - General Family Medicine 01/16/19 05/29/19 Connor Wilkes MD [address] [address] PCP - General 05/30/19 07/30/19 Robe Kinney MD [address] [place] [address] PCP - General 07/31/19 08/31/20 No, Physician PCP - General 09/01/20 10/23/20 Rory Martinez DO PCP - General 10/24/20 10/05/22 Jorge Alberto Perez MD PCP - General Family Practice 07/01/23 08/15/24 Jorge Alberto Perez MD [address] [place] [address] PCP - General Family Practice 08/16/24 Lea Gaspar, RN Registered Nurse Gastroenterology 03/28/19 Sen Ruiz MD [address] [place] [address] Anode Worker Cardiology 04/25/19 documented as of this encounter
--- OUTSIDE RECORDS SUMMARY | 2025-04-03 07:11 | XMS_ITS | Referral Summary ---
Author Organization [facility] Address [address] [place] [address] Care Team Providers Care Devil Tender Name Role Phone Lea Gaspar RN Unavailable Unavailable Sen Ruiz MD Unavailable [phone] Jorge Alberto Perez MD Primary Care Provider [phone] Encounters Date Type Department Care Team Description 03/26/2025 Telephone [facility] Medical [facility] Cardiology [address] [facility] [address] [place] [address] Nancy Dover NP Hypertension 03/26/2025 1:15 PM CDT Office Visit [facility] Nephrology at [address] [place] [address] Connor Wilkes MD Stage 4 chronic kidney disease (HCC) (Primary Dx); 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); Benign hypertensive kidney disease with chronic kidney disease stage I through stage IV, or unspecified(403.10); Persistent proteinuria; Body mass index (BMI) 45.0-49.9, adult (HCC) 02/25/2025 8:15 AM CDT Office Visit [facility] Cardiology [address] [facility] [address] [place] [address] Lydia Martin MD Hx of CABG (Primary Dx); Coronary artery disease involving [place] coronary artery of [place] heart without angina pectoris; Mixed hyperlipidemia; Essential hypertension; Nonrheumatic aortic valve stenosis 01/16/2025 Telephone [facility] Nephrology at [address] [place] [address] Connor Wilkes MD 01/16/2025 Orders Only [facility] Nephrology at [address] [place] [address] Provider, MD Obinna from Last 3 Months Allergies Active Allergy [...] Prediabetes 12/02/2020 Coronary artery disease invo lving [place] coronary artery of [place] heart without angina pectoris 11/12/2019 Body mass index (BMI) of 45.0-49.9 in adult 07/29 Fasting hyperglycemia 08/07/2019 Class 3 obesity 08/07/2019 Hx of CABG 08/07/2019 Abnormal plasma protein test 08/07/2019 Essential hypertension 08/07/2019 CHF (congestive heart failure) 05/07/2019 Atrial fibrillation with RVR 05/01/2019 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 Overview (03/28/2019): Added automatically from request for surgery [id number] MEI (obstructive sleep apnea) 01/13/2018 Resolved Problems [...] on file 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 Gender Identity Not on file Sexual Orientation [...] 03/26/2025 1:07 PM CDT Plan of Treatment Not on file [...] Capillary blood 02/25/2025 1 0:40 AM CDT us Lydia Martin MD POINT OF CARE TEST O RDERABLES Final Result * CHG HEMOGLOBIN GLYCOSYLATED A1C (01/16/2025 2:26 PM CDT) us Historical Provider MD [facility] Final Res ult EXTERNAL LAB * CT Abdomen W WO Contrast (05/04/2019 12:00 AM CDT) Anatomical Region Laterality Modality Body N/A Computed Tomogra phy 05/04/2019 4:48 PM CDT Narrative 05/04/2019 5:25 PM CDT Patient Name: NIKOLAY SILVER Ordering Dr: Angel Luis Epstein MD D.O.B: 1950 Exam Date: 05/04/19 0000 Age: 69 Sex: Male MR#: [id number] Loc: RADIOLOGY REPORT Order #[id number] CT Scan CT Abd W WO IV [...] signed by Tobias JOSEPH T: Report ID: [id number] Reading Location: [id number] REPORT ELECTRONICALLY SIGNED IN OTHER VENDOR SYSTEM Resulting Agency Comment O Procedure Note Tobias Ramos MD - 05/04/2019 Patient Name: NIKOLAY SILVER Ehsan [facility] Dr: Angel Luis Epstein MD D.O.B: 1950 Exam Date: 05/04/19 0000 Age: 69 Sex: Male MR#: [id number] Loc: RADIOLOGY REPORT Order #[id number] CT Scan CT Abd W WO IV [...] Tobias Ramos M.D. RS T: Report ID: [id number] Reading Location: [id number] REPORT ELECTRONICALLY SIGNED IN OTHER VENDOR SYSTEM us Angel Luis Epstein MD IMG CT PROCEDURES Final Re sult * Occult Blood, Fecal (04/15/2019 6:00 AM CDT) Stool Occult Blood NEGATIVE NEGATIVE [facility] 04/15/2019 6:00 AM CDT 04/15/2019 6:27 AM CDT Narrative [facility] - 04/15/2019 6:44 AM CDT Collected By [place] Resulting Agency Comment IN us Tomi Michele MD LAB BODY FLUIDS AND STOOLS O RDERABLES Final Result [facility] [address] [phone] from Last 3 Months or Most Recently Relevant to Health Maintenance Insurance [facility] [facility] [facility] Advance Directives For more information, please contact: [phone] * Full Code (Latest Code Status on File) Date Activated Date Inactivated Comments 04/04/2019 8:10 AM 04/04/2019 2:59 PM Care Teams Devil Tender Relationship Specialty Start Date End Date Jorge Alberto Perez MD [address] [place] [address] PCP - General Family Practice 08/16/24 Lea Gaspar, RN Registered Nurse Gastroenterology 03/28/19 Sen Ruiz MD [address] [facility] [place] [address] Orchard Worker Cardiology 04/25/19
--- OUTSIDE RECORDS SUMMARY | 2025-04-03 07:12 | XMS_ITS | Continuity of Care Document ---
Author Organization [facility] Address [address] [place] [address] Phone Care Team Providers Care Doormaker Name Role Phone Brennen Pascal Unavailable Unavailable Procedures Procedure Date Eye Exam & Treatment Refraction Office/outpatient Visit, Est Refraction Eye Exam Established Pt Advance Directives Directive Yes / No Effective Date File Name No Information Encounters Encounter Description Practice Location Reason(s) For Visit Diagnoses Date Provider Providers Copied on Encounter [facility], [address] [place] [address] [address], [place], [place], [id number], [place] tel:[phone] [facility] No Information 3-200 9 Krishnasamy Brennen. [address], [address], [place]. tel:[phone] Office/outpat ient Visit, Est [facility], [address], [place], [place], [id number], [place] tel:[phone] [facility] No Information 6-200 8 Krishnasamy Brennen. [address] [facility] [address], [place], [address], [place]. tel:[phone] [facility], [address] [place] [address] [address], [place], [place], [id number], [place] tel:[phone] [facility] No Information [address]. [address], [place], [address], [place]. tel:[phone] Family History Family Member Type Diagnosis Age [...]
--- OUTSIDE RECORDS SUMMARY | 2025-04-03 07:12 | XMS_ITS | Encounter Summary ---
Author Organization [facility] Facility Care Team Providers Care Automobile Service Station Manager Name Role Phone Robe Kinney MD Primary Care Provider [phone] Lea Gaspar RN Unavailable Unavailable Sen Ruiz MD Unavailable [phone] Connor Wilkes MD Primary Care Provider [phone] Robe Kinney MD Primary Care Provider [phone] No, Physician Primary Care Provider [phone] Rory Martinez DO Primary Care Provider [phone] Jorge Alberto Perez MD Primary Care Provider [phone] Jorge Alberto Perez MD Primary Care Provider [phone] Encounter Details Date Type Department Care Team (Latest Contact Info) Description 01/05/2011 Orders Only [facility] Provider, MD Obinna [address] [place] [address] Social History Tobacco Use Types Packs/Day Years Used Date Smoking Tobacco: Never Assessed Sex and Gender Information Value Date Recorded Sex Assigned at Not on file 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 Gender Identity Not on file Sexual Orientation [...] on filedocumented in this encounter Care Teams Automobile Service Station Manager Relationship Specialty Start Date End Date Robe Kinney MD [address] [place] [address] PCP - General Family Medicine 01/16/19 05/29/19 Connor Wilkes MD [address] [facility] [address] [address] PCP - General 05/30/19 07/30/19 Robe Kinney MD [address] [place] [address] PCP - General 07/31/19 08/31/20 No, Physician PCP - General 09/01/20 10/23/20 Rory Martinez DO PCP - General 10/24/20 10/05/22 Jorge Alberto Perez MD PCP - General Family Practice 07/01/23 08/15/24 Jorge Alberto Perez MD [address] [place] [address] PCP - General Family Practice 08/16/24 Lea Gaspar, RN Registered Nurse Gastroenterology 03/28/19 Sen Ruiz MD [address] [facility] [place] [address] Financial Data Analyst Cardiology 04/25/19 documented as of this encounter
[2025-04-03 07:49] LABS: Hematocrit 28.2 % (42.0-52.0); Hemoglobin 9.0 g/dL (14.0-18.0); Immature Granulocyte Percent A 0.5 % (0-0.5); Lymphocytes Absolute Auto 0.93 K/mm3 (0.9-3.2); Mean Corpuscular HGB Conc 31.9 g/dl (32-36); Mean Corpuscular Hemoglobin 27.2 pg (26-34); Mean Corpuscular Volume 85.2 fl (80-100); Nucleated Red Blood Cells Absolute Auto 0.000 K/mm3 (0.0-0.012); Nucleated Red Blood Cells Perc 0.0 % (0.0-0.2); Platelet Count Result 231 k/mm3 (150-375); Red Blood Count 3.31 M/mm3 (4.6-6.20); White Blood Count 12.0 K/mm3 (4.5-10.0)
[2025-04-03 08:21] LABS: Alanine Aminotransferase 18 U/L (6-50); Albumin Level 3.8 g/dL (3.5-5.1); Alkaline Phosphatase 50 U/L (38-126); Anion Gap 10 mmol/L (4-12); Aspartate Amino Transferase 21 U/L (17-59); Bilirubin,Total 0.3 mg/dL (0.2-1.3); Blood Urea Nitrogen 59 mg/dL (9-20); Calcium 10.5 mg/dL (8.4-10.2); Carbon Dioxide 21 mmol/L (22-30); Chloride 108 mmol/L (98-107); Estimated Glomerular Filt Rate 12; Glucose 124 mg/dL (65-110); Potassium 4.2 mmol/L (3.4-5.0); Sodium 139 mmol/L (137-145); Total Protein 7.1 g/dL (6.3-8.2)
[2025-04-03 08:48] LABS: Iron 54 ug/dL (49-181)
[2025-04-03 08:57] LABS: Percent Iron Saturation 18 % (20-50)
== END 2025-04-03 07:04 | disposition home or self-care (01) ==
LOC: ANHLAB 07:08
PROVIDERS: PCP Family Medicine; Visit Provider Internal Medicine Nephrology
DX: N18.4 Chronic kidney disease, stage 4 (severe) (principal); D63.1 Anemia in chronic kidney disease
CPT/HCPCS: 36415; 80053; 83540; 83550; 85025

== ENCOUNTER 2025-04-25 12:31 | Outpatient (CLI) | payer OTHER, SELFPAY ==
--- OUTSIDE RECORDS SUMMARY | 2009-05-21 10:30 | XMS_ITS | Continuity of Care Document ---
Author Organization [facility] Address [address] [place] [address] Phone Care Team Providers Care Right Of Way Supervisor Name Role Phone Brennen Pascal Unavailable Unavailable Procedures Procedure Date Eye Exam & Treatment Refraction Office/outpatient Visit, Est Refraction Eye Exam Established Pt Advance Directives Directive Yes / No Effective Date File Name No Information Encounters Encounter Description Practice Location Reason(s) For Visit Diagnoses Date Provider Providers Copied on Encounter [facility], [address] [place] [address] [address], [place], [place], [id number], [place] tel:[phone] [facility] No Information 3-200 9 Krishnasamy Brennen. [address], [address], [place]. tel:[phone] Office/outpat ient Visit, Est [facility], [address], [place], [place], [address], [place] tel:[phone] [facility] No Information 6-200 8 Krishnasamy Brennen. [address] [facility] [address], [place], [address], [place]. tel:[phone] [facility], [address] [place] [address] [address], [place], [place], [address], [place] tel:[phone] [facility] No Information 0200 7 Alcides Lebron. [address], [place], [address], [place]. tel:[phone] Family History Family Member Type Diagnosis Age [...]
--- NOTE | ~2025-04-25 | XR_ITS ---
EXAMINATION: XR chest 2V, 04/25/2025 13:00 CDT HISTORY: R06.02 - Shortness of breath COMPARISON: No comparisons available. Technique: 2 views obtained. Findings: Mild pulmonary venous congestion. Small bibasilar infiltrates with trace effusions. COPD changes are noted. No pneumothorax. Mild cardiomegaly. Mediastinal and hilar contours are within normal limits. Post sternotomy. Impression: Mild CHF Reviewed, dictated and finalized at location A. Impression: Mild CHF
--- OUTSIDE RECORDS SUMMARY | 2025-04-25 12:34 | XMS_ITS | Encounter Summary ---
Author Organization [facility] Facility Care Team Providers Care Electrical Inspector Name Role Phone Robe Kinney MD Primary Care Provider [phone] Lea Gaspar RN Unavailable Unavailable Sen Ruiz MD Unavailable [phone] Connor Wilkes MD Primary Care Provider [phone] Robe Kinney MD Primary Care Provider [phone] No, Physician Primary Care Provider [phone] Rory Martinez DO Primary Care Provider [phone] Jorge Alberto Perez MD Primary Care Provider [phone] Jorge Alberto Perez MD Primary Care Provider [phone] Encounter Details Date Type Department Care Team (Latest Contact Info) Description 11/19/2015 Orders Only [facility] Provider, MD Obinna [address] [place] [address] Social History Tobacco Use Types Packs/Day Years Used Date Smoking Tobacco: Never Assessed Sex and Gender Information Value Date Recorded Sex Assigned at Not on file 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 Gender Identity Not on file Sexual Orientation [...] on filedocumented in this encounter Care Teams Electrical Inspector Relationship Specialty Start Date End Date Robe Kinney MD [address] [place] [address] PCP - General Family Medicine 01/16/19 05/29/19 Connor Wilkes MD [address] [facility] [place] [address] PCP - General 05/30/19 07/30/19 Robe Kinney MD [address] [place] [address] PCP - General 07/31/19 08/31/20 No, Physician PCP - General 09/01/20 10/23/20 Rory Martinez DO PCP - General 10/24/20 10/05/22 Jorge Alberto Perez MD PCP - General Family Practice 07/01/23 08/15/24 Jorge Alberto Perez MD [address] [place] [address] PCP - General Family Practice 08/16/24 Lea Gaspar, RN Registered Nurse Gastroenterology 03/28/19 Sen Ruiz MD [address] [facility] [place] [address] Development Director Cardiology 04/25/19 documented as of this encounter
--- OUTSIDE RECORDS SUMMARY | 2025-04-25 12:34 | XMS_ITS | Encounter Summary ---
Author Organization [facility] Facility Care Team Providers Care Sweatband Perforator Name Role Phone Robe Kinney MD Primary Care Provider [phone] Lea Gaspar RN Unavailable Unavailable Sen Ruiz MD Unavailable [phone] Connor Wilkes MD Primary Care Provider [phone] Robe Kinney MD Primary Care Provider [phone] No, Physician Primary Care Provider [phone] Rory Martinez DO Primary Care Provider Jorge Alberto Perez MD Primary Care Provider [phone] Jorge Alberto Perez MD Primary Care Provider [phone] Encounter Details Date Type Department Care Team (Latest Contact Info) Description 01/05/2011 Orders Only [facility]V Provider, MD Obinna [address] [place] [address] Social History Tobacco Use Types Packs/Day Years Used Date Smoking Tobacco: Never Assessed Sex and Gender Information Value Date Recorded Sex Assigned at Not on file 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 Gender Identity Not on file Sexual Orientation [...] on filedocumented in this encounter Care Teams Sweatband Perforator Relationship Specialty Start Date End Date Robe Kinney MD [address] [place] [address] PCP - General Family Medicine 01/16/19 05/29/19 Connor Wilkes MD [address] [facility] [address] [address] PCP - General 05/30/19 07/30/19 Robe Kinney MD [address] [place] [address] PCP - General 07/31/19 08/31/20 No, Physician PCP - General 09/01/20 10/23/20 Rory Martinez DO PCP - General 10/24/20 10/05/22 Jorge Alberto Perez MD PCP - General Family Practice 07/01/23 08/15/24 Jorge Alberto Perez MD [address] [place] [address] PCP - General Family Practice 08/16/24 Lea Gaspar, RN Registered Nurse Gastroenterology 03/28/19 Sen Ruiz MD [address] [facility] [place] [address] Cut Out Worker Cardiology 04/25/19 documented as of this encounter
--- OUTSIDE RECORDS SUMMARY | 2025-04-25 12:34 | XMS_ITS | Encounter Summary ---
Author Organization [facility] Facility Care Team Providers Care Weight Loss Physician Name Role Phone Robe Kinney MD Primary Care Provider [phone] Lea Gaspar RN Unavailable Unavailable Sen Ruiz MD Unavailable [phone] Connor Wilkes MD Primary Care Provider [phone] Robe Kinney MD Primary Care Provider [phone] No, Physician Primary Care Provider [phone] Rory Martinez DO Primary Care Provider [phone] Jorge Alberto Perez MD Primary Care Provider [phone] Jorge Alberto Perez MD Primary Care Provider [phone] Encounter Details Date Type Department Care Team (Latest Contact Info) Description 01/30/2013 Orders Only [facility] CLINCONV Provider, MD Obinna [address] [place] [address] Social History Tobacco Use Types Packs/Day Years Used Date Smoking Tobacco: Never Assessed Sex and Gender Information Value Date Recorded Sex Assigned at Not on file 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 Gender Identity Not on file Sexual Orientation [...] on filedocumented in this encounter Care Teams Weight Loss Physician Relationship Specialty Start Date End Date Robe Kinney MD [address] [place] [address] PCP - General Family Medicine 01/16/19 05/29/19 Connor Wilkes MD [address] [place] [address] [address] PCP - General 05/30/19 07/30/19 Robe Kinney MD [address] [place] [address] PCP - General 07/31/19 08/31/20 No, Physician PCP - General 09/01/20 10/23/20 Rory Martinez DO PCP - General 10/24/20 10/05/22 Jorge Alberto Perez MD PCP - General Family Practice 07/01/23 08/15/24 Jorge Alberto Perez MD [address] [place] [address] PCP - General Family Practice 08/16/24 Lea Gaspar, RN Registered Nurse Gastroenterology 03/28/19 Sen Ruiz MD [address] [place] [address] Administrative Support Clerk Cardiology 04/25/19 documented as of this encounter
--- OUTSIDE RECORDS SUMMARY | 2025-04-25 12:34 | XMS_ITS | Clinical Summary ---
Author Organization [facility] Address [address] [place] [address] Care Team Providers Care Trolley Car Overhauler Name Role Phone Lea Gaspar RN Unavailable Unavailable Sen Ruiz MD Unavailable [phone] Jorge Alberto Perez MD Primary Care Provider [phone] Allergies Active Allergy Reactions Criticality Noted Date [...] mg capsule Take by mouth daily Active ferrous sulfate 325 mg (65 mg of elemental iron) tabletIndication s:Iron Deficiency Anemia Take 1 tablet (325 mg total) by mouth daily with breakfast 30 tablet 11 04/08/20 25 026 Active cloNIDine (CATAPRES) 0.2 mg tabletIndication s:Essential hypertension Take 1 tablet (0.2 mg total) by mouth 2 (two) times a day 180 tablet 2 04/16/20 25 Active cloNIDine (CATAPRES) 0.2 mg tabletIndication s:Essential hypertension Take 1 tablet (0.2 mg total) by mouth 2 (two) times a day 03/26/20 25 025 Discontin ued(Reord er) Active Problems Problem [...] Prediabetes 12/02/2020 Coronary artery disease invo lving king salmon coronary artery of king salmon heart without angina pectoris 11/12/2019 Body mass index (BMI) of 45.0-49.9 in adult 07/29 Fasting hyperglycemia 08/07/2019 Class 3 obesity 08/07/2019 Hx of CABG 08/07/2019 Abnormal plasma protein test 08/07/2019 Essential hypertension 08/07/2019 CHF (congestive heart failure) 05/07/2019 Atrial fibrillation with RVR 05/01/2019 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 Overview (03/28/2019): Added automatically from request for surgery [id number] MEI (obstructive sleep apnea) 01/13/2018 Resolved Problems [...] Encounters Date Type Department Care Team Description 04/16/2025 Telephone [facility] Medical [facility] Cardiology [address] [place] [phone] Nancy Dover NP 04/03/2025 Telephone [facility] Nephrology at [address] [place] [address] Connor Wilkes MD 04/03/2025 Orders Only [facility] Nephrology at [address] [place] [phone] ProviderObinna MD 03/26/2025 1:15 PM CDT Office Visit [facility] Nephrology at [address] [place] [address] Connor Wilkes MD Stage 4 chronic kidney disease (HCC) (Primary Dx); 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); Benign hypertensive kidney disease with chronic kidney disease stage I through stage IV, or unspecified(403.10); Persistent proteinuria; Body mass index (BMI) 45.0-49.9, adult (HCC) 03/26/2025 Telephone [facility] Cardiology [address] [place] [phone] Nancy Dover NP Hypertension 02/25/2025 8:15 AM CDT Office Visit [facility] Cardiology [address] [place] [address] Lydia Martin MD Hx of CABG (Primary Dx); Coronary artery disease involving king salmon coronary artery of king salmon heart without angina pectoris; Mixed hyperlipidemia; Essential hypertension; Nonrheumatic aortic valve stenosis from Last 3 Months Surgical History Surgery [...] on file Legal 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 Gender Identity Not on file Sexual Orientation [...] Procedure Name Priority Date/Time Associated Diagnosis Comments IRON PROFILE W/ IBC Routine 04/03/2025 4:09 PM CDT CMP Routine 04/03/2025 3:29 PM CDT POCT LIPID PANEL Routine 02/25/2025 10:4 0 AM CDT Mixed hyperlipidemia CT ABDOMEN W WO CONTRAST 05/04/2019 12:00 AM CDT OCCULT BLOOD, FECAL (FIT) Routine 04/15/2019 6:00 AM CDT from Last 3 Months or Most Recently Relevant to Health Maintenance Results * Iron profile w/ IBC (04/03/2025 4:09 PM CDT) Blood us Historical Provider LAB BLOOD ORDERABLES [facility] Result EXTERNAL LAB * CMP (04/03/2025 3:29 PM CDT) us Historical Provider LAB BLOOD ORDERABLES [facility]ison Result EXTERNAL LAB * POCT lipid panel (02/25/2025 10:40 AM [...] 05/04/19 0000 Age: 69 Sex: Male MR#: [id number] Loc: RADIOLOGY REPORT Order #[id number] CT Scan CT Abd W WO IV [...] signed by Tobias JOSEPH T: Report ID: [id number] Reading Location: [id number] REPORT ELECTRONICALLY SIGNED IN OTHER VENDOR SYSTEM Resulting Agency Comment O Procedure Note Tobias Ramos MD - 05/04/2019 Patient Name: NIKOLAY SILVER [facility] [address]: Angel Luis Epstein MD D.O.B: 1950 Exam Date: 05/04/19 0000 Age: 69 Sex: Male MR#: [id number] Loc: RADIOLOGY REPORT Order #[id number] CT Scan CT Abd W WO IV [...] Tobias Ramos M.D. RS T: Report ID: [id number] Reading Location: [place] [address] REPORT ELECTRONICALLY SIGNED IN OTHER VENDOR SYSTEM us Angel Luis Epstein MD IMG CT PROCEDURES Final Re sult * Occult Blood, Fecal (04/15/2019 6:00 AM CDT) Stool Occult Blood NEGATIVE NEGATIVE [facility] 04/15/2019 6:00 AM CDT 04/15/2019 6:27 AM CDT Narrative [facility] - 04/15/2019 6:44 AM CDT Collected By MT Resulting Agency Comment IN Tomi Michele MD LAB BODY FLUIDS AND STOOLS O RDERABLES Final Result [facility] [address] [place] [address], [facility] [phone] from Last 3 Months or Most Recently Relevant to Health Maintenance Insurance [facility] Advance Directives For more information, please contact: [phone] * Full Code (Latest Code Status on File) Date Activated Date Inactivated Comments 04/04/2019 8:10 AM 04/04/2019 2:59 PM Care Teams Trolley Car Overhauler Relationship Specialty Start Date End Date Jorge Alberto Perez MD [address] [place] [address] PCP - General Family Practice 08/16/24 Lea Gaspar, RN Registered Nurse Gastroenterology 03/28/19 Sen Ruiz MD [address] [place] [address] Limo Driver Cardiology 04/25/19
--- OUTSIDE RECORDS SUMMARY | 2025-04-25 12:34 | XMS_ITS | Encounter Summary ---
Author Organization [facility] Facility Care Team Providers Care Pasting Inspector Name Role Phone Robe Kinney MD Primary Care Provider [phone] Lea Gaspar RN Unavailable Unavailable Sen Ruiz MD Unavailable [phone] Connro Wilkes MD Primary Care Provider [phone] Robe Kinney MD Primary Care Provider [phone] No, Physician Primary Care Provider [phone] Rory Martinez DO Primary Care Provider [phone] Jorge Alberto Perez MD Primary Care Provider [phone] Jorge Alberto Perez MD Primary Care Provider [phone] Encounter Details Date Type Department Care Team (Latest Contact Info) Description 12/03/2016 Orders Only [facility] CLINCONV Provider, MD Obin[place] [address] [place] [address] Social History Tobacco Use Types Packs/Day Years Used Date Smoking Tobacco: Never Assessed Sex and Gender Information Value Date Recorded Sex Assigned at Not on file 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 Gender Identity Not on file Sexual Orientation [...] on filedocumented in this encounter Care Teams Pasting Inspector Relationship Specialty Start Date End Date Robe Kinney MD [address] [place] [address] PCP - General Family Medicine 01/16/19 05/29/19 Connor Wilkes MD [address] [place] [address] [address] PCP - General 05/30/19 07/30/19 Robe Kinney MD [address] [place] [address] PCP - General 07/31/19 08/31/20 No, Physician PCP - General 09/01/20 10/23/20 Rory Martinez DO PCP - General 10/24/20 10/05/22 Jorge Alberto Perez MD PCP - General Family Practice 07/01/23 08/15/24 Jorge Alberto Perez MD [address] [place] [address] PCP - General Family Practice 08/16/24 Lea Gaspar, RN Registered Nurse Gastroenterology 03/28/19 Sen Ruiz MD [address] [place] [address] Cardiology 04/25/19 documented as of this encounter
[2025-04-25 13:10] LABS: Hematocrit 26.8 % (42.0-52.0); Hemoglobin 8.4 g/dL (14.0-18.0); Immature Granulocyte Percent A 1.1 % (0-0.5); Lymphocytes Absolute Auto 0.90 K/mm3 (0.9-3.2); Mean Corpuscular HGB Conc 31.3 g/dl (32-36); Mean Corpuscular Hemoglobin 27.2 pg (26-34); Mean Corpuscular Volume 86.7 fl (80-100); Nucleated Red Blood Cells Absolute Auto 0.000 K/mm3 (0.0-0.012); Nucleated Red Blood Cells Perc 0.0 % (0.0-0.2); Platelet Count Result 238 k/mm3 (150-375); Red Blood Count 3.09 M/mm3 (4.6-6.20); White Blood Count 12.8 K/mm3 (4.5-10.0)
[2025-04-25 13:53] LABS: Alanine Aminotransferase 17 U/L (6-50); Albumin Level 3.9 g/dL (3.5-5.1); Alkaline Phosphatase 62 U/L (38-126); Anion Gap 11 mmol/L (4-12); Aspartate Amino Transferase 20 U/L (17-59); Bilirubin,Total 0.5 mg/dL (0.2-1.3); Blood Urea Nitrogen 63 mg/dL (9-20); Calcium 9.1 mg/dL (8.4-10.2); Carbon Dioxide 19 mmol/L (22-30); Chloride 109 mmol/L (98-107); Estimated Glomerular Filt Rate 12; Glucose 104 mg/dL (65-110); Potassium 4.4 mmol/L (3.4-5.0); Sodium 139 mmol/L (137-145); Total Protein 7.2 g/dL (6.3-8.2)
[2025-04-25 14:00] LABS: NT Pro B Type Natriuretic Pept 12500 pg/mL (19.9-100)
== END 2025-04-25 12:32 | disposition home or self-care (01) ==
PROVIDERS: PCP Family Medicine; Visit Provider Nurse Practitioner Family
DX: I50.9 Heart failure, unspecified (principal)
CPT/HCPCS: 36415; 71046; 80053; 83880; 85025

== ENCOUNTER 2025-05-02 13:58 | Outpatient (CLI) | payer OTHER, SELFPAY ==
--- OUTSIDE RECORDS SUMMARY | 2009-05-21 10:30 | XMS_ITS | Continuity of Care Document ---
Author Organization [facility] [place] [address] [place] [address] Phone Care Team Providers Care Emergency Department Name Role Phone Brennen Pascal Unavailable Unavailable Procedures Procedure Date Eye Exam & Treatment Refraction Office/outpatient Visit, Est Refraction Eye Exam Established Pt Advance Directives Directive Yes / No Effective Date File Name No Information Encounters Encounter Description Practice Location Reason(s) For Visit Diagnoses Date Provider Providers Copied on Encounter [facility], [address] [place] [address] [address], [place], [place], [id number], [place] tel:[phone] [facility] No Information 3-200 9 Krishnasamy Brennen. [address], [address], [place]. tel:[phone] Office/outpat ient Visit, Est [facility], [address], [place], [place], [address], [place] tel:[phone] [facility] No Information 6-200 8 Krishnasamy Brennen. [address] [facility] [address], [place], [address], [place]. tel:[phone] [facility], [address] [place] [address] [address], [place], [place], [id number], [place] tel:[phone] [facility] No Information 0200 7 Alcides Lebron. [address], [place], [address], [place]. tel:[phone] Family History Family Member Type Diagnosis Age At Onset No Information Payers Payer name Insurance type Covered constitution party ID Authoriza tion(s) No Information Social History [...]
--- NOTE | ~2025-05-02 | US_ITS ---
US retroperitoneal comp 05/02/2025 14:49 Procedure: Realtime transabdominal ultrasound of the kidneys and bladder. Indication: Urinary retention Comparison: No prior studies for comparison. Findings: Renal echotexture is normal bilaterally without hydronephrosis, contour deforming mass or renal calculus. There is a 2.1 cm right renal cysts. The right kidney measures 10.6 cm and left kidney measures 11.2 cm. Bladder wall is unremarkable. Prevoid volume for 99 cc. Postvoid volume 172 cc. Impression: 1: Large post void residual measuring 172 cc. Reviewed, dictated and finalized at location O. Impression: 1: Large post void residual measuring 172 cc.
--- OUTSIDE RECORDS SUMMARY | 2025-05-02 11:45 | XMS_ITS | Encounter Summary ---
Author Organization [facility] Healthcare Address [facility] [place] [address] Care Team Providers Care Photo Printer Name Role Phone Lea Gaspar RN Unavailable Unavailable Sen Ruiz MD Unavailable [phone] Jorge Alberto Perez MD Primary Care Provider [phone] Reason for Referral * Procedure (Routine) - Pending Review Specialty Diagnoses / Procedures Referred By Contac t Referred To Contact Diagnoses CKD stage 4 secondary to hypertension (HCC) Urine retention Procedures Retroperitenial Ultrasound, Abdomen Ltd Retroperitenial Ultrasound, Abdomen Ltd Darrius Martin MD [address] [address] Phone: tel: fax: [facility] Referral ID Status Reason Start Date Expiration Date V isits Requested Visits Authorized [id number] Pending Review 05/02/2025 06/01/2026 1 1 Reason for Visit * Reason Comments Shortness of Breath * Consultation (Routine) - Authorized Specialty Diagnoses / Procedures Referred By Contac t Referred To Contact Cardiology Diagnoses Atherosclerosis of hughes coronary artery without angina pectoris, unspecified whether hughes or transplanted heart Darrius Martin MD [address] [address] Phone: tel: fax: [facility] Medical [facility] Cardiology [address] [place] [address] Phone: tel: fax: Referral ID Status Reason Start Date Expiration Date Visits Requested Visits Authorized [id number] Authorized Specialty Services Required 08/21/2025 24 Encounter Details Date Type Department Care Team (Late st Contact Info) Description 05/02/2025 11:45 AM CDT Office Visit [facility] Medical [facility] Cardiology [address] [facility] [address] [place], [place] [address] [place] [address] Darrius Martin MD [address] [place] [address] [address] [address] Coronary artery disease involving hughes coronary artery of hughes heart without angina pectoris (Primary Dx); Hx of CABG; Nonrheumatic aortic valve stenosis; Mixed hyperlipidemia; Essential hypertension; DRAPER (dyspnea on exertion); CKD stage 4 secondary to hypertension (HCC); Urine retention Social History Tobacco Use Types Packs/Day Years [...] on file 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 Gender Identity Not on file Sexual Orientation Not on file documented as of this encounter Last Filed Vital Signs Vital Sign Reading Time Taken Comments Blood Pressure 138/70 05/02/2025 11:15 AM CDT Pulse 69 05/02/2025 11:15 AM CDT Temperature - - Respiratory Rate 18 05/02/2025 11:15 AM CDT Oxygen Saturation 91% 05/02/2025 11:15 AM CDT Inhaled Oxygen Concentration - - Weight 128.8 kg (284 lb) 05/02/2025 11:15 AM CDT Height 165.1 cm (5' 5) 05/02/2025 11:15 AM CDT Body Mass Index 47.26 05/02/2025 11:15 AM CDT documented in this encounter Ordered Prescriptions Prescription Sig Dispense Quantity Refills Last Filled Start Date End Date torsemide (DEMADEX) 20 mg tablet Take 1 tablet (20 mg total) by mouth daily 30 tablet 11 05/02/2025 05/02/2026 documented in this encounter Progress Notes * Darrius Martin MD - 05/02/2025 11:45 AM CDT [facility] DATE OF VISIT: 05/02/2025 DATE: 1950 CHIEF COMPLAINT Chief Complaint Patient presents with Shortness of Breath DRAPER, history of CAD HPI Sampson Silver Jr. is a 75 y.o. male with a history of NC, CABG x5 April 2019 (TELLES to mid LAD, SVG to PDA, SVG to distal CX, SVG to ramus, SVG to D1, and amputation of both atrial appendages by Dr. Frazier at [facility]), transient Afib associated with acute illness 2018, hypertension,and mixed hyperlipidemia. Some bradycardia and chronotropic incompetence improved by discontinuing metoprolol in 2021. Abnormal stress test 2020, treated medically. CKD stage 3b followed by Dr. Nestor Wilkes ([facility]). Prob COPD. Untreated MEI; intolerant of CPAP. The patient was previously followed by Dr. Reece Ruiz. In 2018 pt had endoscopy? And bx for pancreatic cyst, developed pancreatits and had a NSTEMI. Cath as below. Had a fib around that time which was transient. Once he stabilized he had CABG X 5 05/24/[address] Evans. Has had trouble since then w/ SOB. Pt wonders if something happened 2nd to lack ofstatin for first several months after CABG. Weight has been steadily climbing since CABG; was 235 post-op per pt and *increased to 275. Dr. Montano met the patient in November 2020 for follow-up of his CAD. 07/22/[address] Montano: Saw Dr. Nestor Wilkes (renal MD) who encouraged pt to quit eating carbs to loose weight. Stopped carbs for a week and lost 15 #, Feels better, less fluid in his body, breathing a little better. [id number] of kidney failure recently, so pt adverse to pursuingcardiac cath. BP better, more energy, went deer hunting and shot a 150# deer. Gasped for air dragging the deer out and had to stop frequently, but no chest pain. Found that he does fine if he paces himself. Getting labs done soon by Dr. Martinez and Katrin. 03/30/2022 OV w/ Dr. Montano: I can't complain too much. Some DRAPER, gets winded, no anginal CP. Can't loose any more weight, drinks 1 soda every other day. Started on calcitriol by Dr. Wilkes, kidneys are 33%. Avoids NSAIA. Works in his garden but no dedicated exercise or walking, sedentary. Reduce metoprolol due to bradycardia; EKG and check VS for FU. 10/06/2022 OV w/ Dr. Montano: EKG 05/18/2023 showed SB rate 54, RBBB. Metoprolol discontinued completely, and clonidine 0.1 mg b.i.d. started. Follow-up phone call: BP ranges from 132, 158, 170. Patient was to bring in his home blood pressure cuff and check with ours but I do not believe that occurred. I had a bad 3 months. Sciatica bothering him, sick in Jul, foot problems. Says Balance of Nature supplement helps. Says he's lost some weight (our readings show gain of 6#). Trying to do more walking and yard work, working on weight loss. Cutting back on portion size and cut out chips. Still DRAPER but not as bad. Compliant w/ meds but mises the noon hydralazine sometimes. SBP 135, 138 at home. No edema, angina. says he stops breathing at night; was intolerant to CPAP. 07/04/[address] Montano: I feel OK. My biggest problem is my breathing. Gets winded easily. BP doing well. Has been doing yard work, takes breaks due to SOB. No anginal pain. No swelling. Weight down 10#. Misses afternoon pills 2-3 X/ week. No dizziness. Diet not great, fried foods, mohawk fries, eats out twice weekly, but likes vegetables. Doesn't have any FU w/ Dr. Wilkes (renal); encouraged him to make FU appt. POC lipids reviewed. Labs reviewed, GFR was 21 in April 2023. 08/20/2024-former patient of Dr. Montano. Past medical history of history of NC, CABG x5 April2019 (TELLES to mid LAD, SVG to PDA, SVG to distal CX, SVG to ramus, SVG to D1, and amputation of both atrial appendages by Dr. Frazier at [facility]), transient Afib associated with acute illness 2018, hypertension, and mixed hyperlipidemia. Some bradycardia and chronotropic incompetence improved by discontinuing metoprolol in 2021. Abnormal stress test 2020, treated medically. CKD stage 3b followed by Dr. Nestor Wilkes ([facility]). Prob COPD. Untreated MEI; intolerant of CPAP. The patient was previously followed by Dr. Reece Ruiz. returns for follow-up appointment. Apparently he broke in his right arm. Has not been walking much since his arm broke in May 2024. Apparently he tripped and fell. He now feels short-winded for long walks like walking to our office but denies chest pain, lower extremity edema dizziness or syncope. 02/25/2025-returns for follow-up appointment. Denies chest pain, dizziness, syncope, palpitations. He did develop lower extremity edema and took Lasix twice a day for 6 days and now the swelling is down. But still swollen.. 05/02/2025-returns for follow-up appointment. He is very swollen. Gained 10 lb. Complains of increasing shortness of breath. He can not lay back in the bed as he developed severe shortness of breath. Denies chest pain. He feels incomplete emptying of the urinary bladder. /Social: Likes to park and fish. a retired [employer]. Two children. 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 Heart attack (HCC) HLD (hyperlipidemia) HTN (hypertension) Obesity Pre-diabetes Right arm fracture 05/2024 Sleep apnea has not had a sleep study Wears dentures Social History Tobacco Use Smoking status: Former Current packs/day: 0.00 Types: Cigarettes Quit date: 03/03/2019 Years since quittin.1 Smokeless tobacco: Never Substance and Sexual Activity Drug use: Not Currently Types: Alcohol Comment: rarely Sexual activity: None Alcohol Use: Not At Risk (03/26/2025) AUDIT-C Frequency of Alcohol Consumption: Never Average Number of Drinks: Not on file Frequency of Binge Drinking: Not on file Family History Problem Relation Age of Onset Heart disease Father Heart attack Father Other (Old age) Mother Other (Covid-19) Brother Cause of MEDICATIONS Current Outpatient Medications: amLODIPine (NORVASC) 10 mg tablet, Take 1 tablet (10 mg total) by mouth daily, Disp: 90 tablet, Rfl: 3 aspirin 81 mg enteric coated tablet, Take 1 tablet (81 mg total) by mouth daily, Disp: , Rfl: azithromycin (ZITHROMAX) 250 mg tablet, TAKE 2 TABLETS BY MOUTH TODAY, THEN TAKE 1 TABLET DAILY FOR4 DAYS DIRECTED, Disp: , Rfl: brimonidine (ALPHAGAN) 0.2 % ophthalmic solution, 1 drop 2 (two) times a day, Disp: , Rfl: calcitRIOL (ROCALTROL) 0.5 mcg capsule, Take 1 capsule (0.5 mcg total) by mouth daily Take one capsule by mouth every Tuesday, Tuesday and Tuesday., Disp: , Rfl: cholecalciferol (VITAMIN D-3) 2000 unit capsule, Take 1 capsule (2,000 Units total) by mouth daily,Disp: 30 capsule, Rfl: 11 cholecalciferol, vitamin D3, 1,000 unit tablet,chewable, Take 2 tablet/chew tab by mouth, Disp: , Rfl: cloNIDine (CATAPRES) 0.2 mg tablet, Take 1 tablet (0.2 mg total) by mouth 2 (two) times a day, Disp: 180 tablet, Rfl: 2 ferrous sulfate 325 mg (65 mg of elemental iron) tablet, Take 1 tablet (325 mg total) by mouth daily with breakfast, Disp: 30 tablet, Rfl: 11 hydrALAZINE (APRESOLINE) 100 mg tablet, Take 1 tablet (100 mg total) by mouth 2 (two) times a day, Disp: 180 tablet, Rfl: 3 latanoprost (XALATAN) 0.005 % ophthalmic solution, INSTILL 1 DROP INTO BOTH EYES AT BEDTIME, Disp: , Rfl: losartan (COZAAR) 25 mg tablet, Take 1 tablet (25 mg total) by mouth daily, Disp: , Rfl: rosuvastatin (CRESTOR) 20 mg tablet, Take 1 tablet (20 mg total) by mouth daily, Disp: 90 tablet, Rfl: 3 dorzolamide (TRUSOPT) 2 % ophthalmic solution, 2 (two) times a day, Disp: , Rfl: torsemide (DEMADEX) 20 mg tablet, Take 1 tablet (20 mg total) by mouth daily, Disp: 30 tablet, Rfl:11 ALLERGIES Allergies Allergen Reactions Zolpidem Unknown REVIEW OF SYSTEMS Review of Systems Constitutional: Negative for malaise/fatigue, weight gain and weight loss. HENT: Negative for congestion. Eyes: Positive for blurred vision (macular degeneration). Negative for visual disturbance. Cardiovascular: Positive for dyspnea on exertion and leg swelling. Negative for chest pain and syncope. Respiratory: Positive for sleep disturbances due to breathing (mei intolerant of CPAP). Negative for cough, shortness of breath and wheezing. Hematologic/Lymphatic: Negative for bleeding problem. Musculoskeletal: Positive for arthritis, gout (thinks he had gout recently left big toe and ankle) and joint pain. Gastrointestinal: Negative for abdominal pain. Genitourinary: Negative for hematuria. Neurological: Negative for dizziness. Psychiatric/Behavioral: Negative for depression. PHYSICAL EXAM Blood pressure 138/70, pulse 69, resp. rate 18, height 165.1 cm (5' 5), weight 128.8 kg (284 lb), SpO2 91%. Body mass index is 47.26 kg/m??. Physical Exam Constitutional: General: He is not in acute distress. Appearance: He is well-developed. He is obese. Comments: Pleasant , friendly, chatty obese male in no distress. BP Readings from Last 3 Encounters: 07/04/23 : 140/54 11/16/22 : 152/62 10/06/22 : 136/54 Later BP 160/54 mmhg. HENT: Head: Normocephalic and atraumatic. Eyes: General: Right eye: No discharge. Left eye: No discharge. Neck: Thyroid: No thyromegaly. Vascular: No carotid bruit. Cardiovascular: Rate and Rhythm: Normal rate and regular rhythm. Heart sounds: No murmur heard. No gallop. Pulmonary: Effort: Pulmonary effort is normal. No respiratory distress. Breath sounds: Normal breath sounds. No wheezing or rales. Abdominal: General: There is no distension. Palpations: Abdomen is soft. Musculoskeletal: General: Swelling (manuel to mild lower tibial edema) present. Cervical back: Neck supple. Right lower leg: Edema present. Left lower leg: Edema present. Skin: General: Skin is warm and dry. Neurological: Mental Status: He is alert and oriented to person, place, and time. Psychiatric: Behavior: Behavior normal. LABS AND OTHER DIAGNOSTIC TESTS Lab Results Component Value Date WBC 9.0 05/17/2023 HGB 11.5 (L) 05/17/2023 HCT 35.1 (L) 05/17/2023 MCV 83.6 05/17/2023 Chemistry Component Value Date/Time SODIUM 139 05/17/2023 0804 POTASSIUM 3.8 05/17/2023 0804 CHLORIDE 103 05/17/2023 0804 CO2 26 05/17/2023 0804 BUNSER 50 (H) 05/17/2023 0804 CREATININE 2.98 (H) 05/17/2023 0804 GLUCOSE 120 (H) 05/17/2023 0804 Component Value Date/Time CALCIUM 9.8 05/17/2023 0804 ALKPHOS 41 05/17/2023 0804 AST 13 05/17/2023 0804 ALT 16 05/17/2023 0804 BILITOT 0.4 05/17/2023 0804 Lab Results Component Value Date CHOL 124 04/20/2022 CHOL 205 (H) 02/06/2020 CHOL 161 01/02/2019 Lab Results Component Value Date GLUCOSE 120 (H) 05/17/2023 CALCIUM 9.8 05/17/2023 SODIUM 139 05/17/2023 POTASSIUM 3.8 05/17/2023 CO2 26 05/17/2023 CHLORIDE 103 05/17/2023 BUNSER 50 (H) 05/17/2023 CREATININE 2.98 (H) 05/17/2023 Lab Results Component Value Date HDL 38 (L) 04/20/2022 HDL 36 02/06/2020 HDL 33 (L) 01/02/2019 LDL Date Value Ref Range Status 04/20/2022 68 mg/dL (calc) Final Comment: Reference range: <100 Desirable range <100 mg/dL for primary prevention; <70 mg/dL for patients with CHD or diabetic patients with > or = 2 CHD risk factors. LDL-C is now calculated using the Tulio calculation, which is a validated novel method providing better accuracy than the Friedewald equation in the estimation of LDL-C. Aureliano DYER et al. JULES. 2013;310(73): 5940-0430 (http://[employer].HackHands/faq/TFE385) ] Lab Results Component Value Date LDLCALC 145 (H) 02/06/2020 Lab Results Component Value Date TRIG 92 04/20/2022 TRIG 119 02/06/2020 TRIG 95 01/02/2019 Lab Results Component Value Date CHOLHDL 3.3 04/20/2022 CHOLHDL 5.7 02/06/2020 Lab Results Component Value Date INR 1.00 05/18/2019 INR 1.12 04/11/2019 INR 1.15 04/07/2019 Labs: BNP is running 150-200 in 201901/13/2021 total cholesterol 150, HDL 36, TG 130, LDL 89, taking rosuvastatin 10 mg daily 04/20/2022 cholesterol 124, HDL 38, TG 92, LDL 68 08/17/2022 GFR 26 mils per minute 07/04/2023 POC lipids: Total cholesterol 130, HDL cholesterol 32, triglycerides 128, LDL cholesterol 73, glucose 94 Cardiac catheterizations: 2010 cardiac catheterization: CAD, medical management 03/2019 cardiac catheterization: Multivessel CAD including left main stenosis, CABG recommended. Cardiac testin03/2019 echo: Moderate LVH, normal systolic function, no significant valve 11/2020 echo: EF 65-70%, diastolic dysfunction grade 3-4, LVH, aortic valve calcification without significant stenosis. BP was 216/77 mmHg. 11/2020 [place]: Medium sized area of moderate defect, anteroseptal and anteroapical segments with partial reversibility, EF 50%. ASSESSMENT Diagnoses and all orders for this visit: Coronary artery disease involving hughes coronary artery of hughes heart without angina pectoris (Primary) Hx of CABG Nonrheumatic aortic valve stenosis Mixed hyperlipidemia Essential hypertension DRAPER (dyspnea on exertion) CKD stage 4 secondary to hypertension (HCC) - Retroperitenial Ultrasound, Abdomen Ltd Urine retention - Retroperitenial Ultrasound, Abdomen Ltd Other orders - torsemide (DEMADEX) 20 mg tablet; Take 1 tablet (20 mg total) by mouth daily PLAN/RECOMMENDATIONS CAD: History of CAD, non-STEMI, CABG April 2019 with low normal LV fxn EF 50% by [place], nml LV fxn EF 65-70% by Echo 2020. --Continue aspirin, rosuvastatin. DRAPER: Likely multifactorial. Lexiscan showed a medium-sized area of mixed fixed and reversible anteroseptal/apical defect--ischemia vs artifact??? Though he had a NSTEMI in 2019 his troponin only wentup to 0.4 and he had no occluded coronary arteries at the time of his cath/CABG, so no large infarction. Thus coronary ischemia (possibly from premature graft occlusion) is likely playing a role even though he is not experiencing angina. Don't want to pursue cath due to CKD. Other causes of DRAPER arepresent: The patient is morbidly obese and gained 40 lb over the last 1.5 years, since his CABG. Heis a former heavy smoker, 2 packs a day, and likely has some underlying lung disease. He has diastolic dysfunction on his echo which can lead to DRAPER it may have a degree of diastolic heart failure; BNP's run 150-200. He was bradycardic and had some chronotropic incompetence due to his beta-sean which has improved off metoprolol. Hi Last visit we added Jardiance and could not afford it it is very expensive. Patient did gain 10 lb compared to last visit and increasing shortness of breath and edema. Discontinue Lasix 40 mg daily and start torsemide 20 mg b.i.d.. Hypertension: Blood pressure improved. Blood pressure today 138/70. Continue losartan 50 mg daily, hydralazine 100 mg b.i.d., amlodipine 10 mg daily, clonidine 0.2mg b.i.d.. Hyperlipidemia: Lipid panel February 25, 2025 LDL 60, HDL 43 and triglycerides 109. Continue rosuvastatin. Bradycardia: Improved off metoprolol. Heart rate today 78 beats per minute Former smoker: 2 packs per day, likely has COPD CKD stage 3: Followed by Dr. Wilkes. Looks like a decline over the last few years, last creatinine 2.03 Jan 2024. Complains of incomplete emptying of bladder. Order urine in bladder ultrasound. MEI: Intolerant to CPAP, takes naps. Morbid obesity: Reviewed the benefits of weight loss. --encouraged activity, which will aid in overall health, although walking alone will not result in significant weight loss. --counseled patient about caloric restriction, food choices. Follow-up in one-week. Darrius Martin MD Portions of the record may have been created with voice recognition [employer] Software.Electric Sealing Machine Operator variances may occur. Despite proofreading, typographical errors may occur. Occasionalwrong-word or '[id number]-[id number]' substitutions may have occurred due to the inherent limitations of voice recognition software. Read the chart carefully and recognize, using context, where substitutions have occurred. documented in this encounter Miscellaneous Notes * Addendum Note - Darrius Martin MD - 05/02/2025 11:45 AM CDT Addended by: DARRIUS MARTIN on: 05/02/2025 11:48 AM Modules accepted: Orders * Addendum Note - Darrius Martin MD - 05/02/2025 11:45 AM CDT Addended by: DARRIUS MARTIN on: 05/02/2025 12:15 PM Modules accepted: Orders documented in this encounter Plan of Treatment Scheduled Orders Name Type Priority Associated Diagnoses Orde r Schedule Retroperitenial Ultrasound, Abdomen Ltd Procedures Routine CKD stage 4 secondary to hypertension (HCC) Urine retention Ordered: 05/02/2025 documented as of this encounter Visit Diagnoses Diagnosis Coronary artery disease involving hughes coronary artery of hughes heart without angina pectoris- Primary Hx of CABG Postsurgical aortocoronary bypass status Nonrheumatic aortic valve stenosis Mixed hyperlipidemia Essential hypertension Unspecified essential hypertension DRAPER (dyspnea on exertion) Other dyspnea and respiratory abnormality CKD stage 4 secondary to hypertension (HCC) Urine retention Unspecified retention of urine documented in this encounter Discontinued Medications Medication Sig Discontinue Reason Start Date End Da turmeric root extract 500 mg capsule Take by mouth daily 05/02/2025 multivitamin tabletIndications:Vitamin Deficiency Prevention Take 1 tablet by mouth 05/02/2025 empagliflozin (JARDIANCE) 10 mg tablet Take 1 tablet (10 mg total) by mouth daily 02/25/2025 05/02/2025 furosemide (LASIX) 40 mg tabletIndications:Essenti al hypertension Take 1 tablet (40 mg total) by mouth daily 08/20/2024 05/02/2025 documented as of this encounter Historical Medications * This list may reflect changes made after this encounter. azithromycin (ZITHROMAX) 250 mg tablet TAKE 2 TABLETS BY MOUTH TODAY, THEN TAKE 1 TABLET DAILY FOR 4 DAYS DIRECTED 04/25/2025 added in this encounter Care Teams Photo Printer Relationship Specialty Start Date End Date Jorge Alberto Perez MD [address] [place] [address] PCP - General Family Practice 08/16/24 Lea Gaspar, RN Registered Nurse Gastroenterology 03/28/19 Sen Ruiz MD [address] [address] [place] [address] Roof Promenade Tile Setter Cardiology 04/25/19 documented as of this encounter
--- OUTSIDE RECORDS SUMMARY | 2025-05-02 14:13 | XMS_ITS | Encounter Summary ---
Author Organization [facility] Care Team Providers Care Data Support Analyst Name Role Phone Robe Kinney MD Primary Care Provider [phone] Lea Gapsar RN Unavailable Unavailable Sen Ruiz MD Unavailable [phone] Connor Wilkes MD Primary Care Provider [phone] Robe Kinney MD Primary Care Provider [phone] No, Physician Primary Care Provider [phone] Rory Martinez DO Primary Care Provider [phone] Jorge Alberto Perez MD Primary Care Provider [phone] Jorge Alberto Perez MD Primary Care Provider [phone] Encounter Details Date Type Department Care Team (Latest Contact Info) Description 12/03/2016 Orders Only [facility] CLINCONV Provider, MD [place] [address] [place] [address] Social History Tobacco Use Types Packs/Day Years Used Date Smoking Tobacco: Never Assessed Sex and Gender Information Value Date Recorded Sex Assigned at Not on file 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 Gender Identity Not on file Sexual Orientation [...] on filedocumented in this encounter Care Teams Data Support Analyst Relationship Specialty Start Date End Date Robe Kinney MD [address] [place] [address] PCP - General Family Medicine 01/16/19 05/29/19 Connor Wilkes MD [address] [place] [address] [address] PCP - General 05/30/19 07/30/19 Robe Kinney MD [address] [place] [address] PCP - General 07/31/19 08/31/20 No, Physician PCP - General 09/01/20 10/23/20 Rory Martinez DO PCP - General 10/24/20 10/05/22 Jorge Alberto Perez MD PCP - General Family Practice 07/01/23 08/15/24 Jorge Alberto Perez MD [address] [place] [address] PCP - General Family Practice 08/16/24 Lea Gaspar, RN Registered Nurse Gastroenterology 03/28/19 Sen Ruiz MD [address] [place] [address] Knot Saw Operator Cardiology 04/25/19 documented as of this encounter
--- OUTSIDE RECORDS SUMMARY | 2025-05-02 14:13 | XMS_ITS | Encounter Summary ---
Author Organization [facility] Facility Care Team Providers Care Tap And Die Maker Technician Name Role Phone Robe Kinney MD Primary Care Provider [phone] Lea Gaspar RN Unavailable Unavailable Sen Ruiz MD Unavailable [phone] Connor Wilkes MD Primary Care Provider [phone] Robe Kinney MD Primary Care Provider [phone] No, Physician Primary Care Provider [phone] Rory Martinez DO Primary Care Provider [phone] Jorge Alberto Perez MD Primary Care Provider [phone] Jorge Alberto Perez MD Primary Care Provider [phone] Encounter Details Date Type Department Care Team (Latest Contact Info) Description 11/19/2015 Orders Only [facility] Provider, MD Obinna [address] [place] [address] Social History Tobacco Use Types Packs/Day Years Used Date Smoking Tobacco: Never Assessed Sex and Gender Information Value Date Recorded Sex Assigned at Not on file 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 Gender Identity Not on file Sexual Orientation [...] on filedocumented in this encounter Care Teams Tap And Die Maker Technician Relationship Specialty Start Date End Date Robe Kinney MD [address] [place] [address] PCP - General Family Medicine 01/16/19 05/29/19 Connor Wilkes MD [address] [facility] [place] [address] PCP - General 05/30/19 07/30/19 Robe Kinney MD [address] [place] [address] PCP - General 07/31/19 08/31/20 No, Physician PCP - General 09/01/20 10/23/20 Rory Martinez DO PCP - General 10/24/20 10/05/22 Jorge Alberto Perez MD PCP - General Family Practice 07/01/23 08/15/24 Jorge Alberto Perez MD [address] [place] [address] PCP - General Family Practice 08/16/24 Lea Gaspar, RN Registered Nurse Gastroenterology 03/28/19 Sen Ruiz MD [address] [facility] [place] [address] Rougher For Cement Cardiology 04/25/19 documented as of this encounter
--- OUTSIDE RECORDS SUMMARY | 2025-05-02 14:13 | XMS_ITS | Clinical Summary ---
Author Organization [facility] Address [address] [place] [address] Care Team Providers Care Corporate Buyer Name Role Phone Lea Gaspar RN Unavailable Unavailable Sen Ruiz MD Unavailable [phone] Jorge Alberto Perez MD Primary Care Provider [phone] Allergies Active Allergy Reactions Criticality Noted Date [...] daily 30 capsule 11 02/13/20 21 Active hydrALAZINE (APRESOLINE) 100 mg tabletIndicatio ns:Uncontrolled hypertension Take 1 tablet (100 mg total) by mouth 2 (two) times a day 180 tablet 3 08/20/20 24 Active amLODIPine (NORVASC) 10 mg tabletIndicatio ns:Uncontrolled hypertension Take 1 tablet (10 mg total) by mouth daily 90 tablet 3 08/20/20 24 Active rosuvastatin (CRESTOR) 20 mg tablet Take 1 tablet (20 mg total) by mouth daily 90 tablet 3 08/20/20 24 Active cholecalciferol , vitamin D3, 1,000 unit tablet,chewable Take 2 tablet/chew tab by mouth Active calcitRIOL (ROCALTROL) 0.5 mcg [...] by mouth daily 11/14/19 25 026 Active ferrous sulfate 325 mg (65 mg of elemental iron) tabletIndicatio ns:Iron Deficiency Anemia Take 1 tablet (325 mg total) by mouth daily with breakfast 30 tablet 11 04/08/20 25 026 Active cloNIDine (CATAPRES) 0.2 mg tabletIndicatio ns:Essential hypertension Take 1 tablet (0.2 mg total) by mouth 2 (two) times a day 180 tablet 2 04/16/20 25 Active azithromycin (ZITHROMAX) 250 mg tablet TAKE 2 TABLETS BY MOUTH TODAY, THEN TAKE 1 TABLET DAILY FOR 4 DAYS DIRECTED 04/25/20 25 Active torsemide (DEMADEX) 20 mg tablet Take 1 tablet (20 mg total) by mouth daily 30 tablet 11 05/02/20 25 026 Active furosemide (LASIX) 40 mg tabletIndicatio ns:Essential hypertension Take 1 tablet (40 mg total) by mouth daily 90 tablet 3 08/20/20 24 025 Discontinued multivitamin tabletIndicatio ns:Vitamin Deficiency Prevention Take 1 tablet by mouth 025 Discontinued empagliflozin (JARDIANCE) 10 mg tablet Take 1 tablet (10 mg total) by mouth daily 30 tablet 02/26/20 25 025 Discontinued turmeric root extract 500 mg capsule Take by mouth daily 025 Discontinued cloNIDine (CATAPRES) 0.2 mg tabletIndicatio ns:Essential hypertension Take 1 tablet (0.2 mg total) by mouth 2 (two) times a day 03/26/20 25 025 Discontinued(Re order) Active Problems Problem Noted Date Diagnosed Date Urine retention 05/02/2025 Nonrheumatic aortic valve stenosis 02/25/2025 Morbid (severe) obesity due to excess calories 0 03/26/2024 Body mass index (BMI) 45.0-49.9, adult 4 CKD stage 4 secondary to hypertension 07/04/2023 Mixed hyperlipidemia 03/17/2021 DRAPER (dyspnea on exertion) 12/02/2020 Bradycardia 12/02/2020 Former tobacco use 12/02/2020 Stage 3b chronic kidney disease 12/02/2020 Prediabetes 12/02/2020 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 11/12/2019 Body mass index (BMI) of 45.0-49.9 in adult 07/29 Fasting hyperglycemia 08/07/2019 Class 3 obesity 08/07/2019 Hx of CABG 08/07/2019 Abnormal plasma protein test 08/07/2019 Essential hypertension 08/07/2019 CHF (congestive heart failure) 05/07/2019 Atrial fibrillation with RVR 05/01/2019 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 Overview (03/28/2019): Added automatically from request for surgery [id number] MEI (obstructive sleep apnea) 01/13/2018 Resolved Problems [...] Encounters Date Type Department Care Team Description 05/02/2025 11:45 AM CDT Office Visit [facility] Cardiology [address] [place] [address] [place] [phone] Lydia Martin MD Coronary artery disease involving ione coronary artery of ione heart without angina pectoris (Primary Dx); Hx of CABG; Nonrheumatic aortic valve stenosis; Mixed hyperlipidemia; Essential hypertension; DRAPER (dyspnea on exertion); CKD stage 4 secondary to hypertension (HCC); Urine retention 05/02/2025 Telephone [facility] Cardiology [address] [place] [phone] Lydia Martin MD 04/30/2025 Telephone [facility] Nephrology at [address] [place] [address] Connor Wilkes MD 04/30/[address] [facility] Nephrology at [address] [place] [address] Provider, MD Obinna 04/25/2025 Telephone [facility] Cardiology [address] [place] [address] [place] [address] Lydia Martin MD 04/16/2025 Telephone [facility] Cardiology [address] [place] [address] [place] [phone] Nancy Dover NP 04/03/[address] [facility] Nephrology at [address] [place] [address] Connor Wilkes MD 04/03/2025 Orders Only [facility] Nephrology at [address] Suite [facility] [place] [phone] ProviderObinna MD 03/26/2025 1:15 PM CDT Office Visit 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); Benign hypertensive kidney disease with chronic kidney disease stage I through stage IV, or unspecified(403.10); Persistent proteinuria; Body mass index (BMI) 45.0-49.9, adult (HCC) 03/26/2025 Telephone [facility] Cardiology [address] [place] [address] [place] [phone] Nacny Dover NP Hypertension 02/25/2025 8:15 AM CDT Office Visit [facility] Cardiology [address] [place] [address] [place] [phone] Lydia Martin MD Hx of CABG (Primary Dx); Coronary artery disease involving ione coronary artery of ione heart without angina pectoris; Mixed hyperlipidemia; Essential [...] on file 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 Gender Identity Not on file Sexual Orientation Not on file Obstetrics History Last Filed Vital Signs Vital Sign Reading Time Taken Comments Blood Pressure 138/70 05/02/2025 11:15 AM CDT Pulse 69 05/02/2025 11:15 AM CDT Temperature 36.5 C (97.7 F) 03/26/2025 1:07 PM CDT Respiratory Rate 18 05/02/2025 11:15 AM CDT Oxygen Saturation 91% 05/02/2025 11:15 AM CDT Inhaled Oxygen Concentration - - Weight 128.8 kg (284 lb) 05/02/2025 11:15 AM CDT Height 165.1 cm (5' 5) 05/02/2025 11:15 AM CDT Body Mass Index 47.26 05/02/2025 11:15 AM CDT Plan of Treatment Health Maintenance Due Date Last Done Comments Colon Cancer Screening-Colonoscopy 1950 Depression Screening 1950 Fall Risk Assessment 1950 Hepatitis C Screening 1950 DTaP/Tdap/Td Vaccine (1 - Tdap) 1961 Hepatitis B Screening 01/07/1968 Pneumococcal vaccine 65+ (1 of 1 - PCV) 01/07/2000 Zoster Vaccine (1 of 2) 01/07/2000 Well Visit 65+ 2015 Influenza Vaccine (#1) 2025 06/24/2020, 2012 Colon Cancer Screening-FIT Discontinued 04/15/2019 Abdominal Aortic Aneurysm (AAA) Screen Completed , 04/07/2019 Procedures Procedure Name Priority Date/Time Associated Diagnosis Comments XR CHEST PA LATERAL 2 VIEWS Schedule Routine, Read Routine (OP Routine) 04/25/2025 4:54 PM CDT CBC - COMPLETE BLOOD COUNT, NO DIFFERENTIAL - [facility] Routine 04/25/2025 4:50 PM CDT IRON PROFILE W/ IBC Routine 04/03/2025 4 :09 PM CDT CMP Routine 04/03/2025 3:29 PM CDT POCT LIPID PANEL Routine 02/25/2025 10:40 AM CDT Mixed hyperlipidemia CT ABDOMEN W WO CONTRAST 05/04/2019 12:00 AM CDT OCCULT BLOOD, FECAL (FIT) Routine 04/15/2019 6:00 AM CDT from Last 3 Months or Most Recently Relevant to Health Maintenance Results * XR Chest Pa Lateral 2 Views (04/25/2025 4:54 PM CDT) Anatomical Region Laterality Modality Body, Chest N/A Radiographic Felisa ging us Historical Provider IMG XR PROCEDURES Final R esult * CBC - Complete Blood Count, No Differential - [facility] (04/25/2025 4:50 PM CDT) us Historical Provider LAB BLOOD ORDERABLES [facility] Result EXTERNAL LAB * Iron profile w/ IBC (04/03/2025 4:09 PM CDT) Blood us Historical Provider MD LAB BLOOD ORDERABLES [facility] Result EXTERNAL LAB * CMP (04/03/2025 3:29 PM CDT) us Historical Provider MD LAB BLOOD ORDERABLES [facility] Result EXTERNAL LAB * POCT lipid panel [...] 05/04/19 0000 Age: 69 Sex: Male MR#: [id number] Loc: RADIOLOGY REPORT Order #[id number] CT Scan CT Abd W WO IV [...] signed by Tobias JOSEPH T: Report ID: [id number] Reading Location: [place] [address] REPORT ELECTRONICALLY SIGNED IN OTHER VENDOR SYSTEM Resulting Agency Comment O Procedure Note Tobias Ramos MD - 05/04/2019 Patient Name: NIKOLAY SILVER Dr: Angel Luis Epstein MD D.O.B: 1950 Exam Date: 05/04/19 0000 Age: 69 Sex: Male MR#: [id number] Loc: RADIOLOGY REPORT Order #[id number] CT Scan CT Abd W WO IV [...] Tobias Ramos M.D. RS T: Report ID: [id number] Reading Location: [place] [address] REPORT ELECTRONICALLY SIGNED IN OTHER VENDOR SYSTEM Angel Luis Epstein MD IMG CT PROCEDURES Final Re sult * Occult Blood, Fecal (04/15/2019 6:00 AM CDT) Stool Occult Blood NEGATIVE NEGATIVE [facility] 04/15/2019 6:00 AM CDT 04/15/2019 6:27 AM CDT Narrative [facility] - 04/15/2019 6:44 AM CDT Collected By NE Resulting Agency Comment IN Tomi Michele MD LAB BODY FLUIDS AND STOOLS O RDERABLES Final Result [facility] [address] [place], [place] [id number] [place] [address] from Last 3 Months or Most Recently Relevant to Health Maintenance Insurance [facility], [facility] Advance Directives For more information, please contact: [phone] * Full Code (Latest Code Status on File) Date Activated Date Inactivated Comments 04/04/2019 8:10 AM 04/04/2019 2:59 PM Care Teams Corporate Buyer Relationship Specialty Start Date End Date Jorge Alberto Perez MD [address] [place] [address] PCP - General Family Practice 08/16/24 Lea Gaspar, RN Registered Nurse Gastroenterology 03/28/19 Sen Ruiz MD [address] [facility] [place] [address] Parts Cataloguer Cardiology 04/25/19
--- OUTSIDE RECORDS SUMMARY | 2025-05-02 14:13 | XMS_ITS | Encounter Summary ---
Author Organization [facility] Healthcare Address [address] [place] [address] Care Team Providers Care Shop Clerk Name Role Phone Lea Gaspar RN Unavailable Unavailable Sen Ruiz MD Unavailable [phone] Jorge Alberto Perez MD Primary Care Provider [phone] Encounter Details Date Type Department Care Team (Late st Contact Info) Description 04/30/2025 Orders Only [facility] Nephrology at [address] [place] [address] Provider, MD Obinna [address] [place] [address] Social History Tobacco Use Types Packs/Day [...] on file 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 Gender Identity Not on file Sexual Orientation Not on file documented as of this encounter Plan of Treatment Not on file documented as of this encounter Procedures Procedure Name Priority Date/Time Associated Diagnosis Comments XR CHEST PA LATERAL 2 VIEWS Schedule Routine, Read Routine (OP Routine) 04/25/2025 4:54 PM CDT CBC - COMPLETE BLOOD COUNT, NO DIFFERENTIAL - [facility] Routine 04/25/2025 4:50 PM CDT documented in this encounter Results * XR Chest Pa Lateral 2 Views (04/25/2025 4:54 PM CDT) Anatomical Region Laterality Modality Body, Chest N/A Radiographic Felisa ging Historical Provider MD ANTONY XR PROCEDURES Final R esult * CBC - Complete Blood Count, No Differential - [facility] (04/25/2025 4:50 PM CDT) Historical Provider LAB BLOOD ORDERABLES [facility] Result EXTERNAL LAB documented in this encounter Visit Diagnoses Not on filedocumented in this encounter Care Teams Shop Clerk Relationship Specialty Start Date End Date Jorge Alberto Perez MD [address] [facility] [place] [address] PCP - General Family Practice 08/16/24 Lea Gaspar, RN Registered Nurse Gastroenterology 03/28/19 Sen Ruiz MD [address] [place] [address] Admitting Supervisor Cardiology 04/25/19 documented as of this encounter
--- OUTSIDE RECORDS SUMMARY | 2025-05-02 14:13 | XMS_ITS | Encounter Summary ---
Author Organization [facility] Healthcare Address [address] [place] [address] Care Team Providers Care Managing Attorney Name Role Phone Lea Gaspar RN Unavailable Unavailable Sen Ruiz MD Unavailable [phone] Jorge Alberto Perez MD Primary Care Provider [phone] Reason for Referral * Diagnostic Imaging (Routine) - Pending Review Specialty Diagnoses / Procedures Referred By Contac t Referred To Contact Diagnoses Retention of urine, unspecified CKD stage 4 secondary to hypertension (HCC) Urinary retention Procedures US Retroperitoneal Complete Lydia Martin MD [address] [place] [address] Phone: tel: fax: [facility] Referral ID Status Reason Start Date Expiration Date V isits Requested Visits Authorized [id number] Pending Review 05/02/2025 06/01/2026 1 1 Encounter Details Date Type Department Care Team (Late st Contact Info) Description 05/02/[address] 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 Perform LOTTIE per Dr. Martin. Assess for urine retention. Pt prefers test to be performed at [facility]. documented in this encounter Plan of Treatment Scheduled Orders Name Type Priority Associated Diagnoses Orde r Schedule US Retroperitoneal Complete Imaging Schedule Routine, Read Routine (OP Routine) Retention of urine, unspecified CKD stage 4 secondary to hypertension (HCC) Urinary retention Expected: 05/02/2025, Expires: 05/02/2026 documented as of this encounter Visit Diagnoses Diagnosis Retention of urine, unspecified- Primary CKD stage 4 secondary to hypertension (HCC) Urinary retention Unspecified retention of urine documented in this encounter Care Teams Managing Attorney Relationship Specialty Start Date End Date Jorge Alberto Perez MD [address] [address] PCP - General Family Practice 08/16/24 Lea Gaspar, RN Registered Nurse Gastroenterology 03/28/19 Sen Ruiz MD [address] [facility] [place] [address] Die Try Out Worker Stamping Cardiology 04/25/19 documented as of this encounter
--- OUTSIDE RECORDS SUMMARY | 2025-05-02 14:13 | XMS_ITS | Encounter Summary ---
Author Organization [facility] Facility Care Team Providers Care Healthcare Economics Consultant Name Role Phone Robe Kinney MD Primary Care Provider [phone] Lea Gaspar RN Unavailable Unavailable Sen Ruiz MD Unavailable [phone] Connor Wilkes MD Primary Care Provider [phone] Robe Kinney MD Primary Care Provider [phone] No, Physician Primary Care Provider [phone] Rory Martinez DO Primary Care Provider [phone] Jorge Alberto Perez MD Primary Care Provider [phone] Jorge Alberto Perez MD Primary Care Provider [phone] Encounter Details Date Type Department Care Team (Latest Contact Info) Description 01/30/2013 Orders Only [facility] Provider, MD Obinna [address] [place] [address] Social History Tobacco Use Types Packs/Day Years Used Date Smoking Tobacco: Never Assessed Sex and Gender Information Value Date Recorded Sex Assigned at Not on file 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 Gender Identity Not on file Sexual Orientation [...] on filedocumented in this encounter Care Teams Healthcare Economics Consultant Relationship Specialty Start Date End Date Robe Kinney MD [address] [place] [address] PCP - General Family Medicine 01/16/19 05/29/19 Connor Wilkes MD [address] [facility] [address] [place] [address] [address] PCP - General 05/30/19 07/30/19 Robe Kinney MD [address] [place] [address] PCP - General 07/31/19 08/31/20 No, Physician PCP - General 09/01/20 10/23/20 Rory Martinez DO PCP - General 10/24/20 10/05/22 Jorge Alberto Perez MD PCP - General Family Practice 07/01/23 08/15/24 Jorge Alberto Perez MD [address] [place] [address] PCP - General Family Practice 08/16/24 Lea Gaspar, RN Registered Nurse Gastroenterology 03/28/19 Sen Ruiz MD [address] [facility] [address] Surface Room Shop Optician Cardiology 04/25/19 documented as of this encounter
--- OUTSIDE RECORDS SUMMARY | 2025-05-02 14:13 | XMS_ITS | Encounter Summary ---
Author Organization [facility] Healthcare Address [address] [place] [address] Care Team Providers Care Electric Motor Mechanic Name Role Phone Lea Gaspar RN Unavailable Unavailable Sen Ruiz MD Unavailable [phone] Jorge Alberto Perez MD Primary Care Provider [phone] Encounter Details Date Type Department Care Team (Late st Contact Info) Description 04/25/2025 Telephone [facility] Cardiology [address] [place] [address] Lydia Martin MD [address] [place] [address] Social History Tobacco Use Types Packs/Day [...] on file 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 Pt saw PCP today and had o/p labs and xrays done at that PCP is going to send over. Pt was advised perPCP to increase furosemide 40 mg to twice a day and to get in to be seen by our office. Pt scheduled to see JF on 05/02 at office. Pt given address to office and verbalizes understanding. Advised ptto call with any questions or concerns and to go to the ER for any worsening symptoms. Will forwardto JF as FYI. * Telephone Encounter - Carla Kebede - 04/25/2025 2:37 PM CDT Pt states he has been experiencing SOB on exertion. He went to yesterday and had an x ray and blood work done. States he does have COPD but his SOB has got worse the past 3-4 weeks. Contact: documented in this encounter Plan of Treatment Not on file documented as of this encounter Visit Diagnoses Not on filedocumented in this encounter Care Teams Electric Motor Mechanic Relationship Specialty Start Date End Date Jorge Alberto Perez MD [address] [place] [address] PCP - General Family Practice 08/16/24 Lea Gaspar RN Registered Nurse Gastroenterology 03/28/19 Sen Ruiz MD [address] [facility] [place] [address] Acid Extractor Cardiology 04/25/19 documented as of this encounter
--- OUTSIDE RECORDS SUMMARY | 2025-05-02 14:13 | XMS_ITS | Encounter Summary ---
Author Organization [facility] Facility Care Team Providers Care Design Verification Engineer Name Role Phone Robe Kinney MD Primary Care Provider [phone] Lea Gaspar RN Unavailable Unavailable Sen Ruiz MD Unavailable [phone] Connor Wilkes MD Primary Care Provider [phone] Robe Kinney MD Primary Care Provider [phone] No, Physician Primary Care Provider [phone] Rory Martinez DO Primary Care Provider [phone] Jorge Alberto Perez MD Primary Care Provider [phone] Jorge Alberto Perez MD Primary Care Provider [phone] Encounter Details Date Type Department Care Team (Latest Contact Info) Description 01/05/2011 Orders Only [facility] Provider, MD Obinna [address] [place] [address] Social History Tobacco Use Types Packs/Day Years Used Date Smoking Tobacco: Never Assessed Sex and Gender Information Value Date Recorded Sex Assigned at Not on file 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 Gender Identity Not on file Sexual [...] on filedocumented in this encounter Care Teams Design Verification Engineer Relationship Specialty Start Date End Date Robe Kinney MD [address] [place] [address] PCP - General Family Medicine 01/16/19 05/29/19 Connor Wilkes MD [address] [facility] [address] [place] [address] [address] PCP - General 05/30/19 07/30/19 Robe Kinney MD [address] [place] [address] PCP - General 07/31/19 08/31/20 No, Physician PCP - General 09/01/20 10/23/20 Rory Martinez DO PCP - General 10/24/20 10/05/22 Jorge Alberto Perez MD PCP - General Family Practice 07/01/23 08/15/24 Jorge Alberto Perez MD [address] [place] [address] PCP - General Family Practice 08/16/24 Lea Gaspar, RN Registered Nurse Gastroenterology 03/28/19 Sen Ruiz MD [address] [facility] [place] [address] Back Tender Pulp Drier Cardiology 04/25/19 documented as of this encounter
== END 2025-05-02 13:59 | disposition home or self-care (01) ==
PROVIDERS: PCP Family Medicine; Visit Provider Internal Medicine Cardiovascular Disease
DX: R33.9 Retention of urine, unspecified (principal); I12.9 Hypertensive chronic kidney disease with stage 1 through stage 4 chronic kidney disease, or unspecified chronic kidney disease; N18.4 Chronic kidney disease, stage 4 (severe)
CPT/HCPCS: 76770

== ENCOUNTER 2025-05-20 06:46 | Outpatient (CLI) | payer OTHER, SELFPAY ==
--- OUTSIDE RECORDS SUMMARY | 2009-05-21 10:30 | XMS_ITS | Continuity of Care Document ---
Author Organization [facility] [place] [address] [place] [address] Phone Care Team Providers Care Gang Boss Name Role Phone Brennen Pascal Unavailable Unavailable Procedures Procedure Date Eye Exam & Treatment Refraction Office/outpatient Visit, Est Refraction Eye Exam Established Pt Advance Directives Directive Yes / No Effective Date File Name No Information Encounters Encounter Description Practice Location Reason(s) For Visit Diagnoses Date Provider Providers Copied on Encounter [facility], [address] [place] [address] [address], [place], [place], [id number], [place] tel:[phone] [facility] No Information 3-200 9 Krishnasamy Brennen. [address], [address], [place]. tel:[phone] Office/outpat ient Visit, Est [facility], [address], [place], [place], [address], [place] tel:[phone] [facility] No Information 6-200 8 Krishnasamy Brennen. 24[address] [facility] [address], [place], [address], [place]. tel:[phone] [facility], [address] [place] [address] [address], [place], [place], [address], [place] tel:[phone] [facility] No Information 0200 7 Alcides Lebron. [address], [place], [address], [place]. tel:[phone] Family History Family Member Type Diagnosis Age At Onset No Information Payers Payer name Insurance type Covered republican ID Authoriza tion(s) No Information Social History [...]
--- OUTSIDE RECORDS SUMMARY | 2025-05-20 06:49 | XMS_ITS | Encounter Summary ---
Author Organization [facility] Facility Care Team Providers Care Interior Decorator Paperhanging Name Role Phone Robe Kinney MD Primary Care Provider [phone] Lea Gaspar RN Unavailable Unavailable Sen Ruiz MD Unavailable [phone] Connor Wilkes MD Primary Care Provider Robe Kinney MD Primary Care Provider [phone] No, Physician Primary Care Provider [phone] Rory Martinez DO Primary Care Provider Jorge Alberto Perez MD Primary Care Provider [phone] Jorge Alberto Perez MD Primary Care Provider [phone] Encounter Details Date Type Department Care Team (Latest Contact Info) Description 01/05/2011 Orders Only [facility] CLINCONV Provider, MD [place] [address] [place] [address] Social History Tobacco Use Types Packs/Day Years Used Date Smoking Tobacco: Never Assessed Sex and Gender Information Value Date Recorded Sex Assigned at Not on file 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 Gender Identity Not on file Sexual Orientation [...] on filedocumented in this encounter Care Teams Interior Decorator Paperhanging Relationship Specialty Start Date End Date Robe Kinney MD [address] [place] [address] PCP - General Family Medicine 01/16/19 05/29/19 Connor Wilkes MD [address] [facility] [address] [place] [address] [address] PCP - General 05/30/19 07/30/19 Robe Kinney MD [address] [place] [address] PCP - General 07/31/19 08/31/20 No, Physician PCP - General 09/01/20 10/23/20 Rory Martinez DO PCP - General 10/24/20 10/05/22 Jorge Alberto Perez MD PCP - General Family Practice 07/01/23 08/15/24 Jorge Alberto Perez MD [address] [place] [address] PCP - General Family Practice 08/16/24 Lea Gaspar, RN Registered Nurse Gastroenterology 03/28/19 Sen Ruiz MD [address] [facility] [place] [address] Ferryboat Deckhand Cardiology 04/25/19 documented as of this encounter
--- OUTSIDE RECORDS SUMMARY | 2025-05-20 06:49 | XMS_ITS | Encounter Summary ---
Author Organization [facility] Facility Care Team Providers Care Automatic Screwmaker Name Role Phone Robe Kinney MD Primary Care Provider [phone] Lea Gaspar RN Unavailable Unavailable Sen Ruiz MD Unavailable [phone] Connor Wilkes MD Primary Care Provider [phone] Robe Kinney MD Primary Care Provider [phone] No, Physician Primary Care Provider [phone] Rory Martinez DO Primary Care Provider [phone] Jorge Alberto Perez MD Primary Care Provider [phone] Jorge Alberto Perze MD Primary Care Provider [phone] Encounter Details Date Type Department Care Team (Latest Contact Info) Description 01/30/2013 Orders Only [facility] CLINCONV Provider, MD Obinna [address] [place] [address] Social History Tobacco Use Types Packs/Day Years Used Date Smoking Tobacco: Never Assessed Sex and Gender Information Value Date Recorded Sex Assigned at Not on file 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 Gender Identity Not on file Sexual Orientation [...] on filedocumented in this encounter Care Teams Automatic Screwmaker Relationship Specialty Start Date End Date Robe Kinney MD [address] [place] [address] PCP - General Family Medicine 01/16/19 05/29/19 Connor Wilkes MD [address] [facility] [address] [place] [address] [address] PCP - General 05/30/19 07/30/19 Robe Kinney MD [address] [place] [address] PCP - General 07/31/19 08/31/20 No, Physician PCP - General 09/01/20 10/23/20 Rory Martinez DO PCP - General 10/24/20 10/05/22 Jorge Alberto Perez MD PCP - General Family Practice 07/01/23 08/15/24 Jorge Alberto Perez MD [address] [place] [address] PCP - General Family Practice 08/16/24 Lea Gaspar, RN Registered Nurse Gastroenterology 03/28/19 Sen Ruiz MD [address] [facility] [place] [address] Dog Catcher Cardiology 04/25/19 documented as of this encounter
--- OUTSIDE RECORDS SUMMARY | 2025-05-20 06:49 | XMS_ITS | Encounter Summary ---
Author Organization [facility] Facility Care Team Providers Care Reconcilement Clerk Name Role Phone Robe Kinney MD Primary Care Provider [phone] Lea Gaspar RN Unavailable Unavailable Sen Ruiz MD Unavailable [phone] Connor Wilkes MD Primary Care Provider [phone] Robe Kinney MD Primary Care Provider [phone] No, Physician Primary Care Provider [phone] Rory Martinez DO Primary Care Provider [phone] Jorge Alberto Perez MD Primary Care Provider [phone] Jorge Alberto Perez MD Primary Care Provider [phone] Encounter Details Date Type Department Care Team (Latest Contact Info) Description 11/19/2015 Orders Only [facility] CLINCONV Provider, MD Obinna [address] [place] [address] Social History Tobacco Use Types Packs/Day Years Used Date Smoking Tobacco: Never Assessed Sex and Gender Information Value Date Recorded Sex Assigned at Not on file 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 Gender Identity Not on file Sexual Orientation [...] on filedocumented in this encounter Care Teams Reconcilement Clerk Relationship Specialty Start Date End Date Robe Kinney MD [address] [place] [address] PCP - General Family Medicine 01/16/19 05/29/19 Connor Wilkes MD [address] [facility] [place] [address] PCP - General 05/30/19 07/30/19 Robe Kinney MD [address] [place] [address] PCP - General 07/31/19 08/31/20 No, Physician PCP - General 09/01/20 10/23/20 Rory Martinez DO PCP - General 10/24/20 10/05/22 Jorge Alberto Perez MD PCP - General Family Practice 07/01/23 08/15/24 Jorge Alberto Perez MD [address] [place] [address] PCP - General Family Practice 08/16/24 Lea Gaspar, RN Registered Nurse Gastroenterology 03/28/19 Sen Ruiz MD [address] [facility] [place] [address] Orderlies Teacher Cardiology 04/25/19 documented as of this encounter
--- OUTSIDE RECORDS SUMMARY | 2025-05-20 06:49 | XMS_ITS | Clinical Summary ---
Author Organization [facility] [place] [facility] Address [address] [place] [address] Care Team Providers Care Data Entry Technician Name Role Phone Lea Gaspar RN Unavailable Unavailable Sen Ruiz MD Unavailable [phone] Jorge Alberto Perez MD Primary Care Provider [phone] Allergies Active Allergy Reactions Criticality Noted Date [...] mg total) by mouth daily 11/14/19 25 2025 Active ferrous sulfate 325 mg (65 mg of elemental iron) tabletIndicatio ns:Iron Deficiency Anemia Take 1 tablet (325 mg total) by mouth daily with breakfast 30 tablet 11 04/08/20 25 2025 Active Additional Information Patient not taking.Reported on 05/09/2025 cloNIDine (CATAPRES) 0.2 mg tabletIndicatio ns:Essential hypertension Take 1 tablet (0.2 mg total) by mouth 2 (two) times a day 180 tablet 2 04/16/20 25 Active azithromycin (ZITHROMAX) 250 mg tablet TAKE 2 TABLETS BY MOUTH TODAY, THEN TAKE 1 TABLET DAILY FOR 4 DAYS DIRECTED 04/25/20 25 Active torsemide (DEMADEX) 20 mg tablet Take 1 tablet (20 mg total) by mouth 2 (two) times a day 05/03/20 25 Active furosemide (LASIX) 40 mg tabletIndicatio ns:Essential hypertension Take 1 tablet (40 mg total) by mouth daily 90 tablet 3 08/20/20 24 2024 Discontinued multivitamin tabletIndicatio ns:Vitamin Deficiency Prevention Take 1 tablet by mouth 2024 Discontinued empagliflozin (JARDIANCE) 10 mg tablet Take 1 tablet (10 mg total) by mouth daily 30 tablet 11 02/26/20 25 2024 Discontinued turmeric root extract 500 mg capsule Take by mouth daily 2024 Discontinued torsemide (DEMADEX) 20 mg tablet Take 1 tablet (20 mg total) by mouth daily 30 tablet 11 05/02/20 25 2024 Discontinued(R eorder) Active Problems Problem Noted Date Diagnosed Date Iron deficiency anemia, unspecified 05/03/2025 Iron deficiency anemia, unspecified 05/03/2025 Anemia in stage 4 chronic kidney disease 025 Urine retention 05/02/2025 Nonrheumatic aortic valve stenosis 02/25/2025 Morbid (severe) obesity due to excess calories 0 03/26/2024 Body mass index (BMI) 45.0-49.9, adult CKD stage 4 secondary to hypertension 07/04/2023 Mixed hyperlipidemia 03/17/2021 DRAPER (dyspnea on exertion) 12/02/2020 Bradycardia 12/02/2020 Former tobacco use 12/02/2020 Stage 3b chronic kidney disease 12/02/2020 Prediabetes 12/02/2020 Coronary artery disease invo lving sa[place] coronary artery of sa[place] heart without angina pectoris 11/12/2019 Body mass index (BMI) of 45.0-49.9 in adult 07/29 Fasting hyperglycemia 08/07/2019 Class 3 obesity 08/07/2019 Hx of CABG 08/07/2019 Abnormal plasma protein test 08/07/2019 Essential hypertension 08/07/2019 CHF (congestive heart failure) 05/07/2019 Atrial fibrillation with RVR 05/01/2019 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 Overview (03/28/2019): Added automatically from request for surgery [id number] MEI (obstructive sleep apnea) 01/13/2018 Resolved Problems [...] Encounters Date Type Department Care Team Description 05/09/2025 9:00 AM CDT Office Visit [facility] Cardiology [address] [place] [phone] Lydia Martin MD Hx of CABG (Primary Dx); Nonrheumatic aortic valve stenosis; Mixed hyperlipidemia; Essential hypertension; Coronary artery disease involving sa[place] coronary artery of [place] heart without angina pectoris; Acute on chronic diastolic congestive heart failure (HCC) 05/07/2025 Telephone [facility] Nephrology at [place] [id number] [facility] [address] [place] [phone] Connor Wilkes MD 05/03/2025 Orders Only [facility] [address] [place] [address] Alia Álvarez RN 05/03/2025 Telephone [facility] Cardiology [address] [facility] [address] [place] [phone] Lydia Martin MD 05/02/2025 11:45 AM CDT Office Visit [facility] Cardiology [address] [place] [address] [place] [phone] Lydia Martin MD Coronary artery disease involving sa[place] coronary artery of [place] heart without angina pectoris (Primary Dx); Hx of CABG; Nonrheumatic aortic valve stenosis; Mixed hyperlipidemia; Essential hypertension; DRAPER (dyspnea on exertion); CKD stage 4 secondary to hypertension (HCC); Urine retention 05/02/2025 Orders Only [facility] Health Information Management [address] [place] [address] Lydia Martin MD 05/02/2025 Telephone [facility] Cardiology [address] [place] [address] [place] [phone] Lydia Martin MD 04/30/2025 Telephone [facility] Nephrology at [address] [place] [phone] Connor Wilkes MD 04/30/2025 Orders Only [facility] Nephrology at [address] [place] [phone] ProviderObinna MD 04/25/2025 Orders Only [facility] Health Information Management [address] [place] [address] Griffin mR 04/25/2025 Telephone [facility] Cardiology [address] [facility] [address] [place] [phone] Lydia Martin MD 04/16/2025 Telephone [facility] Cardiology [address] [facility] [address] [place] [phone] Nancy Dover NP 04/03/2025 Telephone [facility] Nephrology at [address] [place] [address] [place] [phone] Connor Wilkes MD 04/03/2025 Orders Only [facility] Nephrology at [address] [place] [phone] ProviderObinna MD 03/26/2025 1:15 PM CDT Office Visit [facility] Nephrology at [address] [place] [phone] Connor Wilkes MD Stage 4 chronic kidney disease (HCC) (Primary Dx); 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); Benign hypertensive kidney disease with chronic kidney disease stage I through stage IV, or unspecified(403.10); Persistent proteinuria; Body mass index (BMI) 45.0-49.9, adult (HCC) 03/26/2025 Telephone [facility] Cardiology [address] [facility] [address] [place] [phone] Nancy Dover NP Hypertension 02/25/2025 8:15 AM CDT Office Visit [facility] Cardiology [address] 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 Gender Identity Not on file Sexual Orientation Not on file Obstetrics History Last Filed Vital Signs Vital Sign Reading Time Taken Comments Blood Pressure 146/40 05/09/2025 8:51 AM CDT Pulse 55 05/09/2025 8:51 AM CDT Temperature 36.5 C (97.7 F) 03/26/2025 1:07 PM CDT Respiratory Rate 18 05/09/2025 8:51 AM CDT Oxygen Saturation 95% 05/09/2025 8:51 AM CDT Inhaled Oxygen Concentration - - Weight 127.9 kg (282 lb) 05/09/2025 8:51 AM CDT Height 165.1 cm (5' 5) 05/09/2025 8:51 AM CDT Body Mass Index 46.93 05/09/2025 8:51 AM CDT Plan of Treatment Health Maintenance Due Date Last Done Comments Colon Cancer Screening-Colonoscopy 1950 Depression Screening 1950 Fall Risk Assessment 1950 Hepatitis C Screening 1950 DTaP/Tdap/Td Vaccine (1 - Tdap) 1961 Hepatitis B Screening 01/07/1968 Pneumococcal vaccine 65+ (1 of 2 - PCV) 1969 Zoster Vaccine (1 of 2) 01/07/2000 Well Visit 65+ 2015 Influenza Vaccine (#1) 2025 06/24/2020, 2012 Colon Cancer Screening-FIT Discontinued 04/15/2019 Abdominal Aortic Aneurysm (AAA) Screen Completed , 04/07/2019 Procedures Procedure Name Priority Date/Time Associated Diagnosis Comments SCAN - RADIOLOGY/IMAGING 05/02/2025 XR CHEST PA LATERAL 2 VIEWS Schedule Routine, Read Routine (OP Routine) 04/25/2025 4:54 PM CDT CBC - COMPLETE BLOOD COUNT, NO DIFFERENTIAL - [facility] Routine 04/25/2025 4:50 PM CDT SCAN - RADIOLOGY/IMAGING 04/25/2025 IRON PROFILE W/ IBC Routine 04/03/2025 4 :09 PM CDT CMP Routine 04/03/2025 3:29 PM CDT POCT LIPID PANEL Routine 02/25/2025 10:40 AM CDT Mixed hyperlipidemia CT ABDOMEN W WO CONTRAST 05/04/2019 12:00 AM CDT OCCULT BLOOD, FECAL (FIT) Routine 04/15/2019 6:00 AM CDT from Last 3 Months or Most Recently Relevant to Health Maintenance Results * SCAN - RADIOLOGY/IMAGING (05/02/2025) Anatomical Region Laterality Modality Other Lydia ellison Result * XR Chest Pa Lateral 2 Views (04/25/2025 4:54 PM CDT) Anatomical Region Laterality Modality Body, Chest N/A Radiographic Felisa ging Historical Provider IMG XR PROCEDURES Final R esult * CBC - Complete Blood Count, No Differential - [facility] (04/25/2025 4:50 PM CDT) Historical Provider LAB BLOOD ORDERABLES Humera ellison Result EXTERNAL LAB * SCAN - RADIOLOGY/IMAGING (04/25/2025) Anatomical Region Laterality Modality Other us Provider Scanning Final Result * Iron profile w/ IBC (04/03/2025 4:09 PM CDT) Blood Historical Provider MD LAB BLOOD ORDERABLES Humera l Result EXTERNAL LAB * CMP (04/03/2025 3:29 PM CDT) Historical Provider MD LAB BLOOD ORDERABLES Humera [...] 05/04/19 0000 Age: 69 Sex: Male MR#: [id number] Loc: RADIOLOGY REPORT Order #[id number] CT Scan CT Abd W WO IV [...] signed by Tobias JOSEPH T: Report ID: [id number] Reading Location: [place] [address] REPORT ELECTRONICALLY SIGNED IN OTHER VENDOR SYSTEM Resulting Agency Comment O Procedure Note Tobias Ramos MD - 05/04/2019 Patient Name: NIKOLAY SILVER JROrdering Dr: Angel Luis Epstein MD D.O.B: 1950 Exam Date: 05/04/19 0000 Age: 69 Sex: Male MR#: [id number] Loc: RADIOLOGY REPORT Order #[id number] CT Scan CT Abd W WO IV [...] Tobias Ramos M.D. RS T: Report ID: [id number] Reading Location: [place] [address] REPORT ELECTRONICALLY SIGNED IN OTHER VENDOR SYSTEM Angel Luis Epstein MD IMG CT PROCEDURES Final Re sult * Occult Blood, Fecal (04/15/2019 6:00 AM CDT) Stool Occult Blood NEGATIVE NEGATIVE [facility] 04/15/2019 6:00 AM CDT 04/15/2019 6:27 AM CDT Narrative [facility] - 04/15/2019 6:44 AM CDT Collected By CT Resulting Agency Comment IN Tomi Michele MD LAB BODY FLUIDS AND STOOLS O RDERABLES Final Result [facility] [address] [place] [address], [facility] [phone] from Last 3 Months or Most Recently Relevant to Health Maintenance Insurance [facility] HEALTHCARE HEALTHCARE Advance Directives For more information, please contact: [phone] * Full Code (Latest Code Status on File) Date Activated Date Inactivated Comments 04/04/2019 8:10 AM 04/04/2019 2:59 PM Care Teams Data Entry Technician Relationship Specialty Start Date End Date Jorge Alberto Perez MD [address] [place] [address] PCP - General Family Practice 08/16/24 Lea Gaspar, RN Registered Nurse Gastroenterology 03/28/19 Sen Ruiz MD [address] [facility] [address] Finish Remover Cardiology 04/25/19
--- OUTSIDE RECORDS SUMMARY | 2025-05-20 06:49 | XMS_ITS | Encounter Summary ---
Author Organization [facility] Healthcare Address [address] [place] [address] Care Team Providers Care Senior Staff Consultant Name Role Phone Lea Gaspar RN Unavailable Unavailable Sen Ruiz MD Unavailable [phone] Jorge Alberto Perez MD Primary Care Provider [phone] Encounter Details Date Type Department Care Team (Late st Contact Info) Description 04/25/2025 Telephone [facility] Cardiology [address] [place] [address] Lydia Martin MD [address] [place] [address] Social History Tobacco Use Types Packs/Day [...] on file 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 [place] [address] Banking Consultant Cardiology 04/25/19 documented as of this encounter
--- OUTSIDE RECORDS SUMMARY | 2025-05-20 06:49 | XMS_ITS | Encounter Summary ---
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 Gender Identity Not on file Sexual Orientation Not on file documented as of this encounter Plan of Treatment Not on file documented as of this encounter Procedures Procedure Name Priority Date/Time Associated Diagnosis Comments SCAN - RADIOLOGY/IMAGING 04/25/2025 documented in this encounter Results * SCAN - RADIOLOGY/IMAGING (04/25/2025) Anatomical Region Laterality Modality Other us Provider Scanning Final Result documented in this encounter Visit Diagnoses Not on filedocumented in this encounter Care Teams Learning Officer Relationship Specialty Start Date End Date Jorge Alberto Perez MD [address] [place] [address] PCP - General Family Practice 08/16/24 Lea Gaspar, RN Registered Nurse Gastroenterology 03/28/19 Sen Ruiz MD [address] [facility] [place] [address] Hypercil Core Transformer Assembler Cardiology 04/25/19 documented as of this encounter
[2025-05-20 07:30] LABS: Anion Gap 10 mmol/L (4-12); Blood Urea Nitrogen 41 mg/dL (9-20); Calcium 9.3 mg/dL (8.4-10.2); Carbon Dioxide 23 mmol/L (22-30); Chloride 106 mmol/L (98-107); Estimated Glomerular Filt Rate 14; Glucose 104 mg/dL (65-110); Potassium 4.1 mmol/L (3.4-5.0); Sodium 139 mmol/L (137-145)
== END 2025-05-20 06:47 | disposition home or self-care (01) ==
PROVIDERS: PCP Nurse Practitioner Family; Visit Provider Internal Medicine Cardiovascular Disease
DX: I11.0 Hypertensive heart disease with heart failure (principal); I50.33 Acute on chronic diastolic (congestive) heart failure
CPT/HCPCS: 36415; 80048

== ENCOUNTER 2025-06-18 06:52 | Outpatient (CLI) | payer OTHER, SELFPAY ==
--- OUTSIDE RECORDS SUMMARY | 2009-05-21 10:30 | XMS_ITS | Continuity of Care Document ---
Author Organization [facility] Address [address] [place] [address] Phone Care Team Providers Care Carnival Worker Name Role Phone Brennen Pascal Unavailable Unavailable Procedures Procedure Date Eye Exam & Treatment Refraction Office/outpatient Visit, Est Refraction Eye Exam Established Pt Advance Directives Directive Yes / No Effective Date File Name No Information Encounters Encounter Description Practice Location Reason(s) For Visit Diagnoses Date Provider Providers Copied on Encounter [facility], [address] [place] [address] [address], [place], [place], [id number], [place] tel:[phone] [facility] No Information 3-200 9 Krishnasamy Brennen. [address], [address], [place]. tel:[phone] Office/outpat ient Visit, Est [facility], [address], [place], [place], [address], [place] tel:[phone] [facility] No Information 6-200 8 Krishnasamy Brennen. 2421 [facility] [address], [place], [address], [place]. tel:[phone] [facility], [address] [place] [address] [address], [place], [place], [id number], [place] tel:[phone] [facility] No Information 0200 7 Alcides Lebron. [address], [place], [address], [place]. tel:[phone] Family History Family Member Type Diagnosis Age [...]
--- OUTSIDE RECORDS SUMMARY | 2025-06-17 10:45 | XMS_ITS | Encounter Summary ---
Author Organization [facility] Healthcare Address [address] [place] [address] Care Team Providers Care Review Trainer Name Role Phone Lea Gaspar RN Unavailable Unavailable Sen Ruiz MD Unavailable [phone] Jorge Alberto Perez MD Primary Care Provider [phone] Reason for Referral * Diagnostic Imaging (Routine) - Pending Review Specialty Diagnoses / Procedures Referred By Yousuf t Referred To Contact Diagnoses Pre-operative exam CKD stage 4 secondary to hypertension (HCC) Procedures US Vein Mapping Upper Extremity Right [facility] [address] [place] [address] Phone: tel: fax: [facility] [address] [place] [phone] Referral ID Status Reason Start Date Expiration Date V isits Requested Visits Authorized [id number] Pending Review 06/11/2025 07/11/2026 1 1 Reason for Visit * Diagnostic Imaging (Routine) - Pending Review Specialty Diagnoses / Procedures Referred By Yousuf wagner Referred To Contact Diagnoses Pre-operative exam CKD stage 4 secondary to hypertension (HCC) Procedures US Vein Mapping Upper Extremity Right Noe Coronel MD [address] [facility] [address] [place] [address] Phone: tel: fax: [facility] [address] [place] [phone] Referral ID Status Reason Start Date Expiration Date V isits Requested Visits Authorized [id number] Pending Review 06/11/2025 07/11/2026 1 1 Encounter Details Date Type Department Care Team (Latest Contact Info) Description 06/17/2025 10:45 AM CDT - 06/17/2025 11:59 PM CDT Hospital Encounter [facility] [address] [place] [id number] Pre-operative exam; CKD stage 4 secondary to hypertension (HCC) Discharge Disposition: Discharge to home or self care Social History Tobacco Use Types Packs/Day Years Used Date Smoking Tobacco: Former Cigarettes Q uit: 03/03/2019 Smokeless Tobacco: Never Alcohol Use Standard Drinks/Week Comments Not Currently 0 (1 standard drink = 0.6 oz pur e alcohol) rarely AUDIT-C Answer Date Recorded Q1: How often do you have a drink containing alcohol? Never 06/17/2025 Q2: How many drinks containi ng alcohol do you have on a typical day when you are drinking? Patient does not drink Q3: How often do you have si x or more drinks on one occasion? Never 06/17/2025 Personal Safety Answer Date Recorded Have you ever been in or are you currently in a harmful physical or emotional relationship or is someone making you feel afraid or unsafe? 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 Never 06/17/2025 1:29 PM Manasa Jeronimo RN Q2: How many drinks containing alcohol do you have on a typical day when you are drinking? Patient does not drink 06/17/2025 1:29 PM Manasa Jeronimo RN Q3: How often do you have six or more drinks on one occasion? Never 06/17/2025 1:29 PM Manasa Jeronimo RN documented as of this encounter Medications at Time of Discharge amLODIPine (NORVASC) 10 mg tabletIndications: Uncontrolled hypertension Take 1 tablet (10 mg total) by mouth daily 90 tablet 3 08/20/2024 aspirin 81 mg enteric coated tablet Take 1 tablet (81 mg total) by mouth nightly azithromycin (ZITHROMAX) 250 mg tablet TAKE 2 TABLETS BY MOUTH TODAY, THEN TAKE 1 TABLET DAILY FOR 4 DAYS DIRECTED 04/25/2025 brimonidine (ALPHAGAN) 0.2 % ophthalmic solution 1 drop 2 (two) times a day 01/12/2021 calcitRIOL (ROCALTROL) 0.5 mcg capsuleIndications :Stage 3b chronic kidney disease (HCC),Anemia in stage 3b chronic kidney disease (HCC) Take 1 capsule (0.5 mcg total) by mouth daily Take one capsule by mouth every Tuesday, Tuesday and Tuesday. 11/13/2024 cholecalciferol (VITAMIN D-3) 2000 unit capsule Take 1 capsule (2,000 Units total) by mouth daily 30 capsule 11 02/12/2021 cloNIDine (CATAPRES) 0.2 mg tabletIndications: Essential hypertension Take 1 tablet (0.2 mg total) by mouth 2 (two) times a day 180 tablet 2 04/16/2025 dorzolamide (TRUSOPT) 2 % ophthalmic solution 2 (two) times a day 06/06/2020 ferrous sulfate 325 mg (65 mg of elemental iron) tabletIndications: Iron Deficiency Anemia Take 1 tablet (325 mg total) by mouth daily with breakfast 30 tablet 11 04/08/2025 fluticasone-umecli din-vilanter (Trelegy Ellipta) 100-62.5-25 mcg inhaler Inhale 1 puff daily hydrALAZINE (APRESOLINE) 100 mg tabletIndications: Uncontrolled hypertension Take 1 tablet (100 mg total) by mouth 2 (two) times a day 180 tablet 3 08/20/2024 latanoprost (XALATAN) 0.005 % ophthalmic solution INSTILL 1 DROP INTO BOTH EYES AT BEDTIME 09/19/2020 losartan (COZAAR) 25 mg tabletIndications: Stage 3b chronic kidney disease (HCC),Anemia in stage 3b chronic kidney disease (HCC) Take 1 tablet (25 mg total) by mouth daily 11/13/2024 6 losartan (COZAAR) 50 mg tablet Take 1 tablet (50 mg total) by mouth daily 06/04/2025 polyethylene glycol (MIRALAX) 17 gram/dose bulk powder Take 17 g by mouth daily 116 g 2 05/23/2025 rosuvastatin (CRESTOR) 20 mg tablet Take 1 tablet (20 mg total) by mouth daily 90 tablet 3 08/20/2024 torsemide (DEMADEX) 20 mg tablet Take 40 mg in the am and 20 mg in the afternoon. 270 tablet 3 05/24/2025 documented as of this encounter Discharge Disposition Disposition Code Departure Means Destination Discharge to home or self care documented in this encounter Plan of Treatment Upcoming Encounters Date Type Department Care Team (Latest Contact Info) Description 06/24/2025 11:30 AM CDT Hospital Encounter [facility] [place] [address] [place] [phone] Michel Coronel MD [address] [place] [address] [address] [place] [phone] 06/24/2025 11:30 AM CDT - 06/24/2025 1:22 PM CDT Surgery [facility] [place] [address] [place] [address] Michel Coronel MD [address] [place] [address] [place] [address] CREATION ARTERIOVENOUS FISTULA VERSUS GRAFT RIGHT UPPER EXTREMITY Scheduled Procedures Name Priority Associated Diagnoses Date/Ti me CREATION ARTERIOVENOUS FISTULA - ARM ESRD (end stage renal disease) on dialysis (HCC) 06/24/2025 11:30 AM CDT documented as of this encounter Procedures Procedure Name Priority Date/Time Associated Diagnosis Comments US VEIN MAPPING DUPLEX UPPER EXTREMITY RIGHT Schedule Routine, Read Routine (OP Routine) 06/17/2025 11:25 AM CDT Pre-operative exam CKD stage 4 secondary to hypertension (HCC) documented in this encounter Results * US Vein Mapping Upper Extremity Right (06/17/2025 11:25 AM CDT) Anatomical Region Laterality Modality Vascular Right Ultrasound 06/17/2025 10:5 2 AM CDT Narrative 06/17/2025 4:14 PM CDT Upper Extremity Vein Mapping Report Patient Name: NIKOLAY SILVER Z : 1950 (75y 5m) Sex: M Study Date: 06/17/2025 10:52:38 AM Office Coordinator: YESSICA RAMIREZ Provider: NOE CORONEL Quality: Adequate Ref Provider: NOE CORONEL PROCEDURES: Vascular Report: A non-invasive vascular imaging study of the right upper extremity was performed to map the superficial veins for use as dialysis access using B-mode ultrasound, color flow, and spectral Doppler. INDICATIONS: Z01.818 Encounter for other preprocedural examination, I12.9 Hypertensive chronic kidney disease with stage 1 through stage 4 chronic kidney disease, or unspecified chronic kidney disease, and N18.4 Chronic kidney disease, stage 4 (severe). COMPARISONS: The previous exam was completed on 05/18/19. Compared to prior no signifigant change. VEINS: Right Value Rt Cephalic Vein Upper Arm Prx Dim 4.05 mm Rt Cephalic Vein Upper Arm Mid Dim 3.98 mm Rt Cephalic Vein Upper Arm Dst Dim 5.55 mm Rt Cephalic Vein Forearm Prx Dim 2.61 mm Rt Cephalic Vein Forearm Mid Dim 1.68 mm Rt Cephalic Vein Forearm Dst Dim 1.68 mm Rt Basilic Vein Upper Arm Prx Dim 5.55 mm Rt Basilic Vein Upper Arm Mid Dim 3.73 mm Rt Basilic Vein Upper Arm Dst Dim 3.75 mm Rt Basilic Vein Forearm Prx Dim 1.74 mm Rt Basilic Vein Forearm Mid Dim 2.12 mm Rt Basilic Vein Forearm Dst Dim 1.43 mm Rt Axil Prx Dim 8.60 mm ARTERIES: Right Value Rt Brach Trans Dim 4.70 mm Rt Radial Trans Dim 3.40 mm FINDINGS: Right: Negative for deep vein thrombosis in the right upper extremity. Deep veins involved include the right internal jugular vein, subclavian vein, axillary vein, proximal brachial veins, mid brachial veins and distal brachial veins. Normal spontaneous flow throughout deep veins. CONCLUSIONS: 1. Right basilic vein is not sizeable for fistula creation. 2. Right cephalic vein is sizeable for fistula creation. ATTESTATION: I have reviewed and interpreted the pertinent images and measurements of this study. I attest to the conclusions in the final report that is provided above. Electronically Signed By: Michel Coronel MD 06/17/2025 4:13:08 PM CDT Procedure Note Michel Coronel MD - 06/17/2025 Upper Extremity Vein Mapping Report Patient Name: NIKOLAY SILVER Z : 1950 (75y 5m) Sex: M Study Date: 06/17/2025 10:52:38 AM Office Coordinator: YESSICA RAMIREZ Provider: NOE CORONEL Quality: Adequate Ref Provider: NOE CORONEL PROCEDURES: Vascular Report: A non-invasive vascular imaging study of the right upperextremity was performed to map the superficial veins for use as dialysis access usingB-mode ultrasound, color flow, and spectral Doppler. INDICATIONS: Z01.818 Encounter for other preprocedural examination, I12.9 Hypertensivechronic kidney disease with stage 1 through stage 4 chronic kidney disease, orunspecified chronic kidney disease, and N18.4 Chronic kidney disease, stage 4 (severe). COMPARISONS: The previous exam was completed on 05/18/19. Compared to prior nosignifigant change. VEINS: Right Value Rt Cephalic Vein Upper Arm Prx Dim 4.05 mm Rt Cephalic Vein Upper Arm Mid Dim 3.98 mm Rt Cephalic Vein Upper Arm Dst Dim 5.55 mm Rt Cephalic Vein Forearm Prx Dim 2.61 mm Rt Cephalic Vein Forearm Mid Dim 1.68 mm Rt Cephalic Vein Forearm Dst Dim 1.68 mm Rt Basilic Vein Upper Arm Prx Dim 5.55 mm Rt Basilic Vein Upper Arm Mid Dim 3.73 mm Rt Basilic Vein Upper Arm Dst Dim 3.75 mm Rt Basilic Vein Forearm Prx Dim 1.74 mm Rt Basilic Vein Forearm Mid Dim 2.12 mm Rt Basilic Vein Forearm Dst Dim 1.43 mm Rt Axil Prx Dim 8.60 mm ARTERIES: Right Value Rt Brach Trans Dim 4.70 mm Rt Radial Trans Dim 3.40 mm FINDINGS: Right: Negative for deep vein thrombosis in the right upper extremity.Deep veins involved include the right internal jugular vein, subclavian vein,axillary vein, proximal brachial veins, mid brachial veins and distal brachial veins.Normal spontaneous flow throughout deep veins. CONCLUSIONS: 1. Right basilic vein is not sizeable for fistula creation. 2. Right cephalic vein is sizeable for fistula creation. ATTESTATION: I have reviewed and interpreted the pertinent images and measurements ofthis study. I attest to the conclusions in the final report that is provided above. Electronically Signed By: Michel Coronel MD 06/17/2025 4:13:08 PM CDT Noe Coronel MD [facility] PROCEDURES Final Result documented in this encounter Visit Diagnoses Diagnosis ESRD (end stage renal disease) on dialysis (HCC)- Primary End stage renal disease Pre-operative exam Unspecified pre-operative examination CKD stage 4 secondary to hypertension (HCC) ESRD (end stage renal disease) on dialysis (HCC) End stage renal disease documented in this encounter Care Teams Review Trainer Relationship Specialty Start Date End Date Jorge Alberto Preez MD [address] [facility] [place] [address] PCP - General Family Practice 08/16/24 Lea Gaspar, RN Registered Nurse Gastroenterology 03/28/19 Sen Ruiz MD [address] [facility] [place] [address] Tactical Response Group Officer Cardiology 04/25/19 documented as of this encounter
--- OUTSIDE RECORDS SUMMARY | 2025-06-18 06:56 | XMS_ITS | Clinical Summary ---
Author Organization [facility] Address [address] [place] [address] Care Team Providers Care Radiation Oncologist Name Role Phone Lea Gaspar RN Unavailable Unavailable Sen Ruiz MD Unavailable [phone] Jorge Alberto Perez MD Primary Care Provider [phone] Allergies Active Allergy Reactions Criticality Noted Date Comments Zolpidem Unknown 05/24/2019 Not sure Medications aspirin 81 mg enteric coated tablet Take 1 tablet (81 mg total) by mouth nightly Active dorzolamide (TRUSOPT) 2 % ophthalmic solution [...] 02/13/20 21 Active hydrALAZINE (APRESOLINE) 100 mg tabletIndication s:Uncontrolled [...] 08/20/20 24 Active Additional Information Patient taking differently:20 mg oralNightly, Reported on 06/17/2025 calcitRIOL (ROCALTROL) 0.5 mcg capsuleIndicatio ns:Stage 3b [...] taking differently: 50 mgoral Daily, Reported on 06/17/2025 ferrous sulfate 325 mg (65 mg of [...] FOR 4 DAYS DIRECTED 04/25/20 25 Active fluticasone-umec lidin-vilanter (Trelegy Ellipta) 100-62.5-25 mcg inhaler Inhale 1 puff daily Active polyethylene glycol (MIRALAX) 17 gram/dose bulk powder Take 17 g by mouth daily 116 g 2 05/23/20 25 Active torsemide (DEMADEX) 20 mg tablet Take 40 mg in the am and 20 mg in the afternoon. 270 tablet 3 05/24/20 25 Active losartan (COZAAR) 50 mg tablet Take 1 tablet (50 mg total) by mouth daily 06/04/20 25 Active cholecalciferol, vitamin D3, 1,000 unit tablet,chewable Take 2 tablet/chew tab by mouth 025 Discontin ued(Dupli pranay order) torsemide (DEMADEX) 20 mg tablet Take 1 tablet (20 mg total) by mouth 2 (two) times a day 05/03/20 25 025 Discontin ued(Reord er) Active Problems Problem Noted Date Diagnosed Date ESRD (end stage renal disease) on dialysis 06/11 Iron deficiency anemia, unspecified 05/03/2025 Iron deficiency anemia, unspecified 05/03/2025 Anemia in stage 4 chronic kidney disease 025 Urine retention 05/02/2025 Nonrheumatic aortic valve stenosis 02/25/2025 Morbid (severe) obesity due to excess calories 0 03/26/2024 Body mass index (BMI) 45.0-49.9, adult CKD stage 4 secondary to hypertension 07/04/2023 Assessment & Plan (06/11/2025 11:03 AM CDT): Impression: Patient has worsening kidney function and we will require hemodialysis in the future. Patient is right-handed he denies any history of DVT/PEs. Patient has history of undergoing a five-vessel CABG with central line and ports to the chest during his recovery from his CABG. Plan: Although patient is right-handed, will consider creation to the right upper extremity as he reports having limited mobility to the right shoulder due to a fracture humerus head that he now depends on his left arm. - Recommend right upper extremity AV fistula/graft creation for dialysis access. Risks of the procedure communicate with the patient to include risk of bleeding, risk of infection, risk of nerve damage, risk of additional surgery, and risk of limb and life. Educated the patient regarding routine surveillance to ensure his access is functioning properly and to ensure no stenosis has occurred. Educated patient of the possibility of further surgery if his fistula/graft becomes stenosis. Educated the patient of arterial steal syndrome and the possibility of occurrence post fistula/graft creation. Patient voices understanding to all these risks explained to him. 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 Mixed hyperlipidemia 03/17/2021 Assessment & Plan (06/03/2025 3:23 PM CDT): Chronic and stable. Continue rosuvastatin DRAPER (dyspnea on exertion) 12/02/2020 Bradycardia 12/02/2020 Former tobacco use 12/02/2020 Stage 3b chronic kidney disease 12/02/2020 Prediabetes 12/02/2020 Coronary artery disease invo lving [place] coronary artery of [place] heart without angina pectoris 11/12/2019 Body mass index (BMI) of 45.0-49.9 in adult 07/29 Fasting hyperglycemia 08/07/2019 Class 3 obesity 08/07/2019 Hx of CABG 08/07/2019 Abnormal plasma protein test 08/07/2019 Essential hypertension 08/07/2019 Assessment & Plan (06/03/2025 3:24 PM CDT): Chronic and stable. Continue amlodipine, clonidine, hydralazine, losartan CHF (congestive heart failure) 05/07/2019 Atrial fibrillation with RVR 05/01/2019 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 Overview (03/28/2019): Added automatically from request for surgery [id number] MEI (obstructive sleep apnea) 01/13/2018 Resolved Problems [...] Encounters Date Type Department Care Team Description 06/17/2025 10:45 AM CDT - 06/17/2025 11:59 PM CDT Hospital Encounter [facility] [address] [place] [address] Pre-operative exam; CKD stage 4 secondary to hypertension (HCC) Discharge Disposition: Discharge to home or self care 06/11/2025 Telephone [facility] at [address] [address] Caprice Sawyer, RN 06/11/2025 Orders Only [facility] at [address] [address] Caprice Sawyer, RN Pre-operative exam (Primary Dx); CKD stage 4 secondary to hypertension (HCC) 06/10/2025 Telephone [facility] Cardiology [address] [facility] [address] [place] [phone] Lydia Martin MD Pre-op form for [facility] 06/03/2025 1:22 PM CDT - 06/03/2025 11:59 PM CDT Hospital Encounter [facility] at [address] [address] CKD stage 4 secondary to hypertension (HCC) (Primary Dx); Essential hypertension; Mixed hyperlipidemia Discharge Disposition: Discharge to home or self care 05/24/2025 Telephone [facility] Cardiology [address] [place] [address] [place] [phone] Lydia Martin MD 05/23/2025 11:00 AM CDT Office Visit [facility] Cardiology [address] [place] [address] [place] [phone] Lydia Martin MD Hx of CABG (Primary Dx); Essential hypertension; Coronary artery disease involving [place] coronary artery of [place] heart without angina pectoris; Nonrheumatic aortic valve stenosis; Mixed hyperlipidemia; CKD stage 4 secondary to hypertension (HCC) 05/21/2025 Orders Only [facility] Cardiology [address] [place] [address] [place] [phone] Obinna Moya MD 05/20/2025 Orders Only [facility] Cardiology [address] [place] [address] [place] [phone] Lydia Martin MD 05/09/2025 9:00 AM CDT Office Visit [facility] Cardiology [address] [place] [address] [place] [phone] Lydia Martin MD Hx of CABG (Primary Dx); Nonrheumatic aortic valve stenosis; Mixed hyperlipidemia; Essential hypertension; Coronary artery disease involving [place] coronary artery of [place] heart without angina pectoris; Acute on chronic diastolic congestive heart failure (HCC) 05/07/2025 Telephone [facility] Nephrology at [place] [address] [facility] [address] [place] [phone] Connor Wilkes MD 05/03/2025 Orders Only [facility] [address] [place] [address] Alia Andersen RN 05/03/2025 Telephone [facility] Cardiology [address] [place] [address] [place] [phone] Lydia Martin MD 05/02/2025 11:45 AM CDT Office Visit [facility]iology [address] [place] [address] [place] [phone] Lydia Martin MD Coronary artery disease involving [place] coronary artery of [place] heart without angina pectoris (Primary Dx); Hx of CABG; Nonrheumatic aortic valve stenosis; Mixed hyperlipidemia; Essential hypertension; DRAPER (dyspnea on exertion); CKD stage 4 secondary to hypertension (HCC); Urine retention 05/02/2025 Orders Only [facility] Information Management [address] [place] [address] Lydia Martin MD 05/02/2025 Telephone [facility] Cardiology [address] [place] [address] [place] [phone] Lydia Martin MD 04/30/2025 Telephone [facility] Nephrology at [address] [place] [phone] Connor Wilkes MD 04/30/2025 Orders Only [facility] Nephrology at [address] [place] [phone] ProviderObinna MD 04/25/2025 Orders Only [facility] Health Information Management [address] [place] [address] Griffin Rm 04/25/2025 Telephone [facility] Cardiology [address] [place] [phone] Lydia Martin MD 04/16/2025 Telephone [facility] [address] [facility] [address] [place] [phone] Nancy [place] NP 04/03/2025 Telephone [facility] Nephrology at [address] [place] [phone] Connor Wilkes MD 04/03/2025 Orders Only [facility]rology at [address] [place] [phone] Provider, MD Obinna 03/26/2025 1:15 PM CDT Office Visit [facility] at [address] [place] [address] Connor Wilkes MD Stage 4 chronic kidney disease (HCC) (Primary Dx); 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); Benign hypertensive kidney disease with chronic kidney disease stage I through stage IV, or unspecified(403.10); Persistent proteinuria; Body mass index (BMI) 45.0-49.9, adult (HCC) 03/26/2025 Telephone [facility] [address] [place] [address] Nancy [place] NP Hypertension from Last 3 Months Surgical History Surgery Date Site/Laterality Comments HERNIA REPAIR 08/29/1969 - 08/28/1970 EYE SURGERY 08/29/2013 - 08/28/2014 UPPER GASTROINTESTINAL ENDOSCOPY CORONARY ARTERY BYPASS GRAFT 04/29/2020 - 05/28/[address] 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 Heart attack ([facility]) Cardiac rhythm disturbance Obesity Wears dentures Pre-diabetes Right arm fracture 05/2024 Aortic stenosis, mild 09/2024 CKD (chronic kidney disease) stage 5, GFR less than 15 ml/min ([facility]) gfr 14 Anesthesia complication sore thr oat following intubation BRENDA (iron deficiency anemia) hollie l begin iron infusion 05/2025 Family History Medical History Relation Name Comments [...] Not Answered Alcohol Use Standard Drinks/Week Comments Not Currently [...] on file 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 Gender Identity Not on file Sexual Orientation Not on file Obstetrics History Last Filed Vital Signs Vital Sign Reading Time Taken Comments Blood Pressure 166/50 06/03/2025 1:28 PM CDT Pulse 66 06/03/2025 1:28 PM CDT Temperature 36.5 C (97.7 F) 03/26/2025 1:07 PM CDT Respiratory Rate 18 06/03/2025 1:28 PM CDT Oxygen Saturation 96% 06/03/2025 1:28 PM CDT Inhaled Oxygen Concentration - - Weight 121.6 kg (268 lb) 06/17/2025 1:27 PM CDT Height 165.1 cm (5' 5) 06/17/2025 1:27 PM CDT Body Mass Index 44.6 06/17/2025 1:27 PM CDT Plan of Treatment Upcoming Encounters Date Type Department Care Team (Latest Contact Info) Description 06/24/2025 11:30 AM CDT Hospital Encounter [facility] OR [address] [place] [address] Michel Coronel MD [address] [place] [address] 06/24/2025 11:30 AM CDT - 06/24/2025 1:22 PM CDT Surgery [facility] OR [address] [place] [address] Michel Coronel MD [address] [place] [address] CREATION ARTERIOVENOUS FISTULA VERSUS GRAFT RIGHT UPPER EXTREMITY Scheduled Procedures Name Priority Associated Diagnoses Date/Ti me CREATION ARTERIOVENOUS FISTULA - ARM ESRD (end stage renal disease) on dialysis (HCC) 06/24/2025 11:30 AM CDT Health Maintenance Due Date Last Done Comments Colon Cancer Screening-Colonoscopy 1950 Depression Screening 1950 Hepatitis C Screening 1950 DTaP/Tdap/Td Vaccine (1 - Tdap) 1961 Hepatitis B Screening 01/07/1968 Pneumococcal vaccine 65+ (1 of 2 - PCV) 1969 Zoster Vaccine (1 of 2) 01/07/2000 Well Visit 65+ 2015 Influenza Vaccine (#1) 2025 06/24/2020, 2012 Fall Risk Assessment 06/17/2026 06/17/2025 Colon Cancer Screening-FIT Discontinued 04/15/2019 Abdominal Aortic Aneurysm (AAA) Screen Completed , 04/07/2019 Procedures Procedure Name Priority Date/Time Associated Diagnosis Comments US VEIN MAPPING DUPLEX UPPER EXTREMITY RIGHT Schedule Routine, Read Routine (OP Routine) 06/17/2025 11:25 AM CDT Pre-operative exam CKD stage 4 secondary to hypertension (HCC) BASIC METABOLIC PANEL Routine 05/20/2025 2:50 PM CDT SCAN - RADIOLOGY/IMAGING 05/02/2025 XR CHEST PA LATERAL 2 VIEWS Schedule Routine, Read Routine (OP Routine) 04/25/2025 4:54 PM CDT CBC - COMPLETE BLOOD COUNT, NO DIFFERENTIAL - [facility] Routine 04/25/2025 4:50 PM CDT SCAN - RADIOLOGY/IMAGING 04/25/2025 IRON PROFILE W/ IBC Routine 04/03/2025 4 :09 PM CDT CMP Routine 04/03/2025 3:[address] ABDOMEN W WO CONTRAST 05/04/2019 12:00 AM CDT OCCULT BLOOD, FECAL (FIT) Routine 04/15/2019 6:00 AM CDT from Last 3 Months or Most Recently Relevant to Health Maintenance Results * US Vein Mapping Upper Extremity Right (06/17/2025 11:25 AM CDT) Anatomical Region Laterality Modality Vascular Right Ultrasound 06/17/2025 10:5 2 AM CDT Narrative 06/17/2025 4:14 PM CDT Upper Extremity Vein Mapping Report Patient Name: NIKOLAY SILVER Z : 1950 (75y 5m) Sex: M Study Date: 06/17/2025 10:52:38 AM Rag Shredder: YESSICA RAMIREZ Provider: NOE CORONEL Quality: Adequate [...] Sex: M Study Date: 06/17/2025 10:52:38 AM Rag Shredder: YESSICA RAMIREZ Provider: NOE CORONEL Quality: Adequate [...] Michel Coronel MD 06/17/2025 4:13:08 PM CDT Result [facility] Noe Coronel MD IMG US PROCEDURES Final Result * Basic metabolic panel (05/20/2025 2:50 PM CDT) Blood Result [facility] Provider LAB BLOOD ORDERABLES Humera l Result * SCAN - RADIOLOGY/IMAGING (05/02/2025) Anatomical Region Laterality Modality Other Result [facility] Lydia Martin MD Humera l Result * XR Chest Pa Lateral 2 Views (04/25/2025 4:54 PM CDT) Anatomical Region Laterality Modality Body, Chest N/A Radiographic Felisa ging Result [facility] Provider IMG XR PROCEDURES Final R esult * CBC - Complete Blood Count, No Differential - [facility] (04/25/2025 4:50 PM CDT) Result [facility] Provider LAB BLOOD ORDERABLES Humera l Result Performing Organization Address [facility] Co de Phone Number EXTERNAL LAB * SCAN - RADIOLOGY/IMAGING (04/25/2025) Anatomical Region Laterality Modality Other Result [facility] Provider Scanning Final Result * Iron profile w/ IBC (04/03/2025 4:09 PM CDT) Blood Result [facility] Historical Provider LAB BLOOD ORDERABLES Humera l Result EXTERNAL LAB * CMP (04/03/2025 3:29 PM CDT) Result [facility] Provider LAB BLOOD ORDERABLES Humera l Result Performing Organization Address City/[facility]/ZIP Co de Phone Number EXTERNAL LAB * CT Abdomen W WO Contrast (05/04/2019 12:00 AM CDT) Anatomical Region Laterality Modality Body N/A Computed Tomogra phy 05/04/2019 4:48 PM CDT Narrative 05/04/2019 5:25 PM CDT Patient Name: NIKOLAY SILVER Ehsan PRECIADO Ordering Dr: Angel Luis Epstein MDO.B: 1950 Exam Date: 05/04/19 0000 Age: 69 Sex: Male MR#: [id number] Loc: Acc#: [id number] RADIOLOGY REPORT Order #[id number] CT Scan CT Abd W WO IV [...] Tobias Ramos M.D. RS T: Report ID: [id number] Reading Location: [place] [address] REPORT ELECTRONICALLY SIGNED IN OTHER VENDOR SYSTEM Resulting Agency Comment O Procedure Note Tobias Ramos MD - 05/04/2019 Patient Name: NIKOLAY SILVER Dr: Angel Luis Epstein MD, D.O.B: 1950 Exam Date: 05/04/19 0000 Age: 69 Sex: Male MR#: [id number] [id number] RE[facility] Order #[id number] CT Scan CT Abd W WO IV [...] Tobias Ramos M.D. RS T: Report ID: [id number] Reading Location: [id number] REPORT ELECTRONICALLY SIGNED IN OTHER VENDOR SYSTEM us Angel Luis Epstein MD IMG CT PROCEDURES Final Re sult * Occult Blood, Fecal (04/15/2019 6:00 AM CDT) Stool Occult Blood NEGATIVE NEGATIVE [facility] 04/15/2019 6:00 AM CDT 04/15/2019 6:27 AM CDT Narrative [facility] - 04/15/2019 6:44 AM CDT Collected By [place] Resulting Agency Comment IN us Tomi Michele MD LAB BODY FLUIDS AND STOOLS O OTILIO Final Result [facility] [address] [place] [address], [facility] [phone] from Last 3 Months or Most Recently Relevant to Health Maintenance Insurance [employer] Member Subscriber Plan / Payer (Ef fective 2018-Present) Name:Nikolay Silver Jr. Relation to Subscriber:Self Name:Nikolay Silver Jr. Payer ID:[id number] (NAIC) Type:MEDICARE RISK OTHER Address: [address] [place] [id number] [facility] Advance Directives For more information, please contact: [phone] * Full Code (Latest Code Status on File) Date Activated Date Inactivated Comments 04/04/2019 8:10 AM 04/04/2019 2:59 PM Care Teams Radiation Oncologist Relationship Specialty Start Date End Date Jorge Alberto Perez MD [address] [place] [address] PCP - General Family Practice 08/16/24 Lea Gaspar, RN Registered Nurse Gastroenterology 03/28/19 Sen Ruiz MD [address] [place] [address] Property Loss Insurance Claim Adjuster Cardiology 04/25/19
--- OUTSIDE RECORDS SUMMARY | 2025-06-18 06:56 | XMS_ITS | Encounter Summary ---
Author Organization [facility] Facility Care Team Providers Care Vp Clinical Research Name Role Phone Robe Kinney MD Primary Care Provider [phone] Lea Gaspar RN Unavailable Unavailable Sen Ruiz MD Unavailable [phone] Connor Wilkes MD Primary Care Provider [phone] Robe Kinney MD Primary Care Provider [phone] No, Physician Primary Care Provider [phone] Rory Martinez DO Primary Care Provider [phone] Jorge Alberto Perez MD Primary Care Provider [phone] Jorge Alberto Perez MD Primary Care Provider [phone] Encounter Details Date Type Department Care Team (Latest Contact Info) Description 12/03/2016 Orders Only [facility] Provider, MD Obinna [address] [place] [address] Social History Tobacco Use Types Packs/Day Years Used Date Smoking Tobacco: Never Assessed Sex and Gender Information Value Date Recorded Sex Assigned at Not on file 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 Gender Identity Not on file Sexual Orientation Not on file documented as of this encounter Plan of Treatment Upcoming Encounters Date Type Department Care Team (Latest Contact Info) Description 06/24/2025 11:30 AM CDT Hospital Encounter [facility] OR [address] [place] [address] Michel Coronel MD [address] [facility] [address] [place] [address] 06/24/2025 11:30 AM CDT - 06/24/2025 1:22 PM CDT Surgery [facility] [place] [address] [place] [address] Michel Coronel MD [address] [place] [address] CREATION ARTERIOVENOUS FISTULA VERSUS GRAFT RIGHT UPPER [...] on filedocumented in this encounter Care Teams Vp Clinical Research Relationship Specialty Start Date End Date Robe Kinney MD [address] [place] [address] PCP - General Family Medicine 01/16/19 05/29/19 Connor Wilkes MD [address] [place] [address] PCP - General 05/30/19 07/30/19 Robe Kinney MD [address] [place] [address] PCP - General 07/31/19 08/31/20 No, Physician PCP - General 09/01/20 10/23/20 Rory Martinez DO PCP - General 10/24/20 10/05/22 Jorge Alberto Perez MD PCP - General Family Practice 07/01/23 08/15/24 Jorge Alberto Perez MD [address] [place] [address] PCP - General Family Practice 08/16/24 Lea Gaspar, RN Registered Nurse Gastroenterology 03/28/19 Sen Ruiz MD [address] [place] [address] Director Of Managed Care Cardiology 04/25/19 documented as of this encounter
--- OUTSIDE RECORDS SUMMARY | 2025-06-18 06:56 | XMS_ITS | Encounter Summary ---
Author Organization 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 Gender Identity Not on file Sexual Orientation Not on file documented as of this encounter Plan of Treatment Upcoming Encounters Date Type Department Care Team (Latest Contact Info) Description 06/24/2025 11:30 AM CDT Hospital Encounter [facility] [place] [address] [place] [address] Michel Coronel MD [address] [facility] [address] [place] [address] 06/24/2025 11:30 AM CDT - 06/24/2025 1:22 PM CDT Surgery [facility] OR [address] [place] [address] Michel Coronel MD [address] [address] [place] [address] CREATION ARTERIOVENOUS FISTULA VERSUS GRAFT RIGHT UPPER [...] on filedocumented in this encounter Care Teams Business Office Assistant Relationship Specialty Start Date End Date Jorge Alberto Perez MD [address] [place] [address] PCP - General Family Practice 08/16/24 Lea Gaspar, RN Registered Nurse Gastroenterology 03/28/19 Sen Ruiz MD [address] [place] [address] Steam Shovel Engineer Cardiology 04/25/19 documented as of this encounter
--- OUTSIDE RECORDS SUMMARY | 2025-06-18 06:56 | XMS_ITS | Encounter Summary ---
Author Organization [facility] Facility Care Team Providers Care Director Of Training Name Role Phone Robe Kinney MD Primary Care Provider [phone] Lea Gaspar RN Unavailable Unavailable Sen Ruiz MD Unavailable [phone] Connor Wilkes MD Primary Care Provider [phone] Robe Kinney MD Primary Care Provider [phone] No, Physician Primary Care Provider [phone] Rory Martinez DO Primary Care Provider [phone] Jorge Alberto Perez MD Primary Care Provider [phone] Jorge Alberto Perez MD Primary Care Provider [phone] Encounter Details Date Type Department Care Team (Latest Contact Info) Description 01/30/2013 Orders Only [facility] CLINCONV Provider, MD [place] [address] [place] [address] Social History Tobacco Use Types Packs/Day Years Used Date Smoking Tobacco: Never Assessed Sex and Gender Information Value Date Recorded Sex Assigned at Not on file 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 Gender Identity Not on file Sexual Orientation Not on file documented as of this encounter Plan of Treatment Upcoming Encounters Date Type Department Care Team (Latest Contact Info) Description 06/24/2025 11:30 AM CDT Hospital Encounter [facility] [place] [address] [place] [address] Michel Coronel MD [address] [facility] [address] [place] [address] 06/24/2025 11:30 AM CDT - 06/24/2025 1:22 PM CDT Surgery [facility] [place] [address] [place] [address] iMchel Coronel MD [address] [facility] [address] [place] [address] CREATION ARTERIOVENOUS FISTULA VERSUS GRAFT RIGHT UPPER [...] on filedocumented in this encounter Care Teams Director Of Training Relationship Specialty Start Date End Date Robe Kinney MD [address] [place] [address] PCP - General Family Medicine 01/16/19 05/29/19 Connor Wilkes MD [address] [facility] [address] [place] [address] PCP - General 05/30/19 07/30/19 Robe Kinney MD [address] [place] [address] PCP - General 07/31/19 08/31/20 No, Physician PCP - General 09/01/20 10/23/20 Rory Martinez DO PCP - General 10/24/20 10/05/22 Jorge Alberto Perez MD PCP - General Family Practice 07/01/23 08/15/24 Jorge Alberto Perez MD [address] [facility] [place] [address] PCP - General Family Practice 08/16/24 Lea Gaspar, RN Registered Nurse Gastroenterology 03/28/19 Sen Ruiz MD [address] [facility] [place] [address] Director Of Counterintelligence Cardiology 04/25/19 documented as of this encounter
--- OUTSIDE RECORDS SUMMARY | 2025-06-18 06:56 | XMS_ITS | Encounter Summary ---
Author Organization [facility] Facility Care Team Providers Care Kiln Pusher Name Role Phone Robe Kinney MD Primary Care Provider [phone] Lea Gaspar RN Unavailable Unavailable Sen Ruiz MD Unavailable [phone] Connor Wilkes MD Primary Care Provider [phone] Robe Kinney MD Primary Care Provider [phone] No, Physician Primary Care Provider [phone] Rory Martinez DO Primary Care Provider [phone] Jorge Alberto Perez MD Primary Care Provider [phone] Jorge Alberto Perez MD Primary Care Provider [phone] Encounter Details Date Type Department Care Team (Latest Contact Info) Description 01/05/2011 Orders Only [facility] CLINCONV Provider, MD Ob[place]na [address] [place] [address] Social History Tobacco Use Types Packs/Day Years Used Date Smoking Tobacco: Never Assessed Sex and Gender Information Value Date Recorded Sex Assigned at Not on file 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 Gender Identity Not on file Sexual Orientation Not on file documented as of this encounter Plan of Treatment Upcoming Encounters Date Type Department Care Team (Latest Contact Info) Description 06/24/2025 11:30 AM CDT Hospital Encounter [facility] [place] [address] [place] [address] Michel Coronel MD [address] [facility] [address] [place] [address] 06/24/2025 11:30 AM CDT - 06/24/2025 1:22 PM CDT Surgery [facility] [place] [address] [place] [address] Michel Coronel MD [address] [facility] [address] [place] [address] CREATION ARTERIOVENOUS FISTULA VERSUS GRAFT RIGHT UPPER [...] on filedocumented in this encounter Care Teams Kiln Pusher Relationship Specialty Start Date End Date Robe Kinney MD [address] [place] [address] PCP - General Family Medicine 01/16/19 05/29/19 Connor Wilkes MD [address] [facility] [address] [place] [address] PCP - General 05/30/19 07/30/19 Robe Kinney MD [address] [place] [address] PCP - General 07/31/19 08/31/20 No, Physician PCP - General 09/01/20 10/23/20 Rory Martinez DO PCP - General 10/24/20 10/05/22 Jorge Alberto Perez MD PCP - General Family Practice 07/01/23 08/15/24 Jorge Alberto Perez MD [address] [facility] [place] [address] PCP - General Family Practice 08/16/24 Lea Gaspar, RN Registered Nurse Gastroenterology 03/28/19 Sen Ruiz MD [address] [facility] [place] [address] Sider Cardiology 04/25/19 documented as of this encounter
--- OUTSIDE RECORDS SUMMARY | 2025-06-18 06:56 | XMS_ITS | Encounter Summary ---
Author Organization [facility] Facility Care Team Providers Care Funeral Service Manager Name Role Phone Robe Kinney MD Primary Care Provider [phone] Lea Gaspar RN Unavailable Unavailable Sen Ruiz MD Unavailable [phone] Connor Wilkes MD Primary Care Provider [phone] Robe Kinney MD Primary Care Provider [phone] No, Physician Primary Care Provider [phone] Rory Martinez DO Primary Care Provider [phone] Jorge Alberto Perez MD Primary Care Provider [phone] Jorge Alberto Perez MD Primary Care Provider [phone] Encounter Details Date Type Department Care Team (Latest Contact Info) Description 11/19/2015 Orders Only [facility] CLINCONV Provider, MD Obinna [address] [place] [address] Social History Tobacco Use Types Packs/Day Years Used Date Smoking Tobacco: Never Assessed Sex and Gender Information Value Date Recorded Sex Assigned at Not on file 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 Gender Identity Not on file Sexual Orientation Not on file documented as of this encounter Plan of Treatment Upcoming Encounters Date Type Department Care Team (Latest Contact Info) Description 06/24/2025 11:30 AM CDT Hospital Encounter [facility] [place] [address] [place] [address] Michel Coronel MD [address] [facility] [address] [place] [address] 06/24/2025 11:30 AM CDT - 06/24/2025 1:22 PM CDT Surgery [facility] [place] [address] [place] [address] Michel Coronel MD [address] [facility] [address] [facility] [address] [place] [address] CREATION ARTERIOVENOUS FISTULA VERSUS GRAFT RIGHT UPPER [...] on filedocumented in this encounter Care Teams Funeral Service Manager Relationship Specialty Start Date End Date Robe Kinney MD [address] [place] [address] PCP - General Family Medicine 01/16/19 05/29/19 Connor Wilkes MD [address] [facility] [address] [place] [address] PCP - General 05/30/19 07/30/19 Robe Kinney MD [address] [place] [address] PCP - General 07/31/19 08/31/20 No, Physician PCP - General 09/01/20 10/23/20 Rroy Martinez DO PCP - General 10/24/20 10/05/22 Jorge Alberto Perez MD PCP - General Family Practice 07/01/23 08/15/24 Jorge Alberto Perez MD [address] [facility] [address] PCP - General Family Practice 08/16/24 Lea Gaspar, RN Registered Nurse Gastroenterology 03/28/19 Sen Ruiz MD [address] [facility] [place] [address] Coordinator Of Online Programs Cardiology 04/25/19 documented as of this encounter
[2025-06-18 08:21] LABS: Hematocrit 30.5 % (42.0-52.0); Hemoglobin 9.7 g/dL (14.0-18.0)
[2025-06-18 08:41] LABS: Iron 69 ug/dL (49-181)
[2025-06-18 08:44] LABS: Anion Gap 14 mmol/L (4-12); Blood Urea Nitrogen 56 mg/dL (9-20); Calcium 9.5 mg/dL (8.4-10.2); Carbon Dioxide 20 mmol/L (22-30); Chloride 106 mmol/L (98-107); Estimated Glomerular Filt Rate 14; Glucose 113 mg/dL (65-110); Potassium 3.9 mmol/L (3.4-5.0); Sodium 140 mmol/L (137-145)
[2025-06-18 08:51] LABS: Percent Iron Saturation 23 % (20-50)
[2025-06-18 22:48] LABS: Parathyroid Intact 138.2 pg/mL (14.5-75.2)
== END 2025-06-18 06:53 | disposition home or self-care (01) ==
PROVIDERS: PCP Nurse Practitioner Family; Visit Provider Internal Medicine Nephrology
DX: N18.4 Chronic kidney disease, stage 4 (severe) (principal); D63.1 Anemia in chronic kidney disease
CPT/HCPCS: 36415; 80048; 83540; 83550; 83970; 85014; 85018

== ENCOUNTER 2025-07-05 09:12 | Outpatient (CLI) | payer OTHER, SELFPAY ==
--- OUTSIDE RECORDS SUMMARY | 2009-05-21 09:30 | XMS_ITS | Continuity of Care Document ---
Author Organization [facility] Address [address] [place] [address] Phone Care Team Providers Care Assistant Spa Director Name Role Phone Brennen Pascal Unavailable Unavailable Procedures Procedure Date Eye Exam & Treatment Refraction Office/outpatient Visit, Est Refraction Eye Exam Established Pt Advance Directives Directive Yes / No Effective Date File Name No Information Encounters Encounter Description Practice Location Reason(s) For Visit Diagnoses Date Provider Providers Copied on Encounter [facility], [address] [place] [address] [address], [place], [place], [id number], [place] tel:[phone] [facility] No Information 3-200 9 Krishnasamy Brennen. [address], [address], [place]. tel:[phone] Office/outpat ient Visit, Est [facility], [address], [place], [place], [address], [place] tel:[phone] [facility] No Information 6-200 8 Krishnasamy Brennen. [address] [facility] [address], [place], [address], [place]. tel:[phone] [facility], [address] [place] [address] [address], [place], [place], [id number], [place] tel:[phone] [facility] No Information 0200 7 Alcides Lebron. [address], [place], [address], [place]. tel:[phone] Family History Family Member Type Diagnosis Age At Onset No Information Payers Payer name Insurance type Covered democrat ID Authoriza tion(s) No Information Social History Type Description Quantity Date Captured Comments Sex Male Smoking Status No Information Chief Complaint And Reason For Visit No Information Reason For Referral Reason For Referral No Information History Of Present Illness Encounter Date Complaint History Of Prese nt Illness No Information Functional Status Date Functional Assessmen t No Information Instructions Date Instruction Additional Infor mation No Information Assessments Type Assessment Date No Information Patient Care Teams Name Effective Dates (start - stop) Status Members No Information
--- OUTSIDE RECORDS SUMMARY | 2025-07-05 09:54 | XMS_ITS | Encounter Summary ---
Author Organization [facility] Facility Care Team Providers Care Distance Learning Program Coordinator Name Role Phone Robe Kinney MD Primary Care Provider [phone] Lea Gaspar RN Unavailable Unavailable Sen Ruiz MD Unavailable [phone] Connor Wilkes MD Primary Care Provider [phone] Robe Kinney MD Primary Care Provider + [phone] No, Physician Primary Care Provider [phone] Rory Martinez DO Primary Care Provider [phone] Jorge Alberto Perez MD Primary Care Provider + [phone] Jorge Alberto Perez MD Primary Care Provider + [phone] Michel Coronel MD Unavailable [phone] Encounter Details Date Type Department Care Team (Latest Contact Info) Description 11/19/2015 Orders Only [facility] CLINCONV ProviderObinna MD [address] [place] [address] Social History Tobacco Use Types Packs/Day Years Used Date Smoking Tobacco: Never Assessed Sex and Gender Information Value Date Recorded Sex Assigned at Not on file 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 Gender Identity Not on file Sexual Orientation [...] on filedocumented in this encounter Care Teams Distance Learning Program Coordinator Relationship Specialty Start Date End Date Robe Kinney MD [address] [place] [address] PCP - General Family Medicine 01/16/19 05/29/19 Connor Wilkes MD [address] [facility] [place] [address] PCP - General 05/30/19 07/30/19 Robe Kinney MD [address] [place] [address] PCP - General 07/31/19 08/31/20 No, Physician PCP - General 09/01/20 10/23/20 Rory Martinez DO PCP - General 10/24/20 10/05/22 Jorge Alberto Perez MD PCP - General Family Practice 07/01/23 08/15/24 Jorge Alberto Perez MD [address] [place] [address] PCP - General Family Practice 08/16/24 Lea Gaspar, RN Registered Nurse Gastroenterology 03/28/19 Sen Ruiz MD [address] [facility] [place] [address] Foreclosure Field Inspector Cardiology 04/25/19 Michel Coronel MD [address] [facility] [address] [place] [address] Surgeon Vascular Surgery 06/24/25 documented as of this encounter
--- OUTSIDE RECORDS SUMMARY | 2025-07-05 09:54 | XMS_ITS | Encounter Summary ---
Author Organization [facility] Facility Care Team Providers Care Roofing Machine Operator Name Role Phone Robe Kinney MD Primary Care Provider [phone] Lea Gaspar RN Unavailable Unavailable Sen Ruiz MD Unavailable [phone] Connor Wilkes MD Primary Care Provider [phone] Robe Kinney MD Primary Care Provider + [phone] No, Physician Primary Care Provider [phone] Rory Martinez DO Primary Care Provider [phone] Jorge Alberto Perez MD Primary Care Provider + [phone] Jorge Alberto Perez MD Primary Care Provider + [phone] Michel Coronel MD Unavailable [phone] Encounter Details Date Type Department Care Team (Latest Contact Info) Description 01/30/2013 Orders Only [facility] CLINCONV ProviderObinna MD [address] [place] [address] Social History Tobacco Use Types Packs/Day Years Used Date Smoking Tobacco: Never Assessed Sex and Gender Information Value Date Recorded Sex Assigned at Not on file 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 Gender Identity Not on file [...] on filedocumented in this encounter Care Teams Roofing Machine Operator Relationship Specialty Start Date End Date Robe Kinney MD [address] [place] [address] PCP - General Family Medicine 01/16/19 05/29/19 Connor Wilkes MD [address] [facility] [address] [address] PCP - General 05/30/19 07/30/19 Robe Kinney MD [address] [place] [address] PCP - General 07/31/19 08/31/20 No, Physician PCP - General 09/01/20 10/23/20 Rory Martinez DO PCP - General 10/24/20 10/05/22 Jorge Alberto Perez MD PCP - General Family Practice 07/01/23 08/15/24 Jorge Alberto Perez MD [address] [place] [address] PCP - General Family Practice 08/16/24 Lea Gaspar, RN Registered Nurse Gastroenterology 03/28/19 Sen Ruiz MD [address] [facility] [place] [address] Commissions Manager Cardiology 04/25/19 Michel Coronel MD [address] [facility] [address] [place] [address] Surgeon Vascular Surgery 06/24/25 documented as of this encounter
--- OUTSIDE RECORDS SUMMARY | 2025-07-05 09:54 | XMS_ITS | Encounter Summary ---
Author Organization [facility] Facility Care Team Providers Care Prison Guard Supervisor Name Role Phone Robe Kinney MD Primary Care Provider [phone] Lea Gaspar RN Unavailable Unavailable Sen Ruiz MD Unavailable [phone] Connor Wilkes MD Primary Care Provider [phone] Robe Kinney MD Primary Care Provider + [phone] No, Physician Primary Care Provider [phone] Rory Martinez DO Primary Care Provider [phone] Jorge Alberto Perez MD Primary Care Provider + [phone] Jorge Alberto Perez MD Primary Care Provider [phone] Michel Coronel MD Unavailable [phone] Encounter Details Date Type Department Care Team (Latest Contact Info) Description 12/03/2016 Orders Only [facility] CLINCONV ProviderObinna MD [address] [place] [address] Social History Tobacco Use Types Packs/Day Years Used Date Smoking Tobacco: Never Assessed Sex and Gender Information Value Date Recorded Sex Assigned at Not on file 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 Gender Identity Not on file Sexual Orientation [...] on filedocumented in this encounter Care Teams Prison Guard Supervisor Relationship Specialty Start Date End Date Robe Kinney MD [address] [place] [address] PCP - General Family Medicine 01/16/19 05/29/19 Connor Wilkes MD [address] [facility] [address] [address] PCP - General 05/30/19 07/30/19 Robe Kinney MD [address] [place] [address] PCP - General 07/31/19 08/31/20 No, Physician PCP - General 09/01/20 10/23/20 Rory Martinez DO PCP - General 10/24/20 10/05/22 Jorge Alberto Perez MD PCP - General Family Practice 07/01/23 08/15/24 Jorge Alberto Perez MD [address] [place] [address] PCP - General Family Practice 08/16/24 Lea Gaspar, RN Registered Nurse Gastroenterology 03/28/19 Sen Ruiz MD [address] [facility] [place] [address] Internist Medical Doctor Md Cardiology 04/25/19 Michel Coronel MD [address] [facility] [address] [place] [address] Surgeon Vascular Surgery 06/24/25 documented as of this encounter
--- OUTSIDE RECORDS SUMMARY | 2025-07-05 09:55 | XMS_ITS | Encounter Summary ---
Author Organization [facility] Facility Care Team Providers Care Yield Analyst Name Role Phone Robe Kinney MD Primary Care Provider [phone] Lea Gaspar RN Unavailable Unavailable Sen Ruiz MD Unavailable [phone] Connor Wilkes MD Primary Care Provider [phone] Robe Kinney MD Primary Care Provider + [phone] No, Physician Primary Care Provider [phone] Rory Martinez DO Primary Care Provider [phone] Jorge Alberto Perez MD Primary Care Provider + [phone] Jorge Alberto Perez MD Primary Care Provider + [phone] Michel Coronel MD Unavailable [phone] Encounter Details Date Type Department Care Team (Latest Contact Info) Description 01/05/2011 Orders Only [facility] CLINCONV ProviderObinna MD [address] [place] [address] Social History Tobacco Use Types Packs/Day Years Used Date Smoking Tobacco: Never Assessed Sex and Gender Information Value Date Recorded Sex Assigned at Not on file 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 Gender Identity Not on file Sexual Orientation [...] on filedocumented in this encounter Care Teams Yield Analyst Relationship Specialty Start Date End Date Robe Kinney MD [address] [place] [address] PCP - General Family Medicine 01/16/19 05/29/19 Connor Wilkes MD [address] [facility] [address] [address] PCP - General 05/30/19 07/30/19 Robe Kinney MD [address] [place] [address] PCP - General 07/31/19 08/31/20 No, Physician PCP - General 09/01/20 10/23/20 Rory Martinez DO PCP - General 10/24/20 10/05/22 Jorge Alberto Perez MD PCP - General Family Practice 07/01/23 08/15/24 Jorge Alberto Perez MD [address] [place] [address] PCP - General Family Practice 08/16/24 Lea Gaspar, RN Registered Nurse Gastroenterology 03/28/19 Sen Ruiz MD [address] [facility] [place] [address] Leather Seasoner Cardiology 04/25/19 Michel Coronel MD [address] [facility] [address] [place] [address] Surgeon Vascular Surgery 06/24/25 documented as of this encounter
--- OUTSIDE RECORDS SUMMARY | 2025-07-05 09:55 | XMS_ITS | Clinical Summary ---
Author Organization [facility] Address [address] [place] [address] Care Team Providers Care Portable Power Tool Repairer Name Role Phone Lea Gaspar RN Unavailable Unavailable Sen Ruiz MD Unavailable [phone] Jorge Alberto Perez MD Primary Care Provider [phone] Michel Coronel MD Unavailable [phone] Allergies Active Allergy Reactions Criticality Noted Date [...] Patient taking differently:20 mg oralNightly, Reported on 06/24/2025 calcitRIOL (ROCALTROL) 0.5 mcg capsuleIndicatio ns:Stage 3b [...] taking differently: 50 mgoral Daily, Reported on 06/24/2025 ferrous sulfate 325 mg (65 mg of elemental iron) tabletIndication s:Iron Deficiency Anemia Take 1 tablet (325 mg total) by mouth daily with breakfast 30 tablet 11 04/08/20 25 026 Active azithromycin (ZITHROMAX) 250 mg tablet TAKE [...] total) by mouth daily 06/04/20 25 Active cloNIDine (CATAPRES) 0.2 mg tabletIndication s:Essential hypertension Take 1 tablet (0.2 mg total) by mouth 2 (two) times a day 180 tablet 2 06/20/20 25 Active cholecalciferol, vitamin D3, 1,000 unit tablet,chewable Take 2 tablet/chew tab by mouth 025 Discontin ued(Dupli pranay order) cloNIDine (CATAPRES) 0.2 mg tabletIndication s:Essential hypertension Take 1 tablet (0.2 mg total) by mouth 2 (two) times a day 180 tablet 2 04/16/20 25 025 Discontin ued(Reord er) Active Problems [...] - Patient to be evaluated from his service inspector for cardiac clearance prior to surgery -Recommend right upper extremity vein mapping for further evaluation. Mixed hyperlipidemia 03/17/2021 Assessment & Plan (06/03/2025 3:23 PM CDT): Chronic and stable. Continue rosuvastatin DRAPER (dyspnea on exertion) 12/02/2020 Bradycardia 12/02/2020 Former tobacco use 12/02/2020 Stage 3b chronic kidney disease 12/02/2020 Prediabetes 12/02/2020 Coronary artery disease invo lving reno-sparks coronary artery of re[place]sparks heart without angina pectoris 11/12/2019 Body mass [...] (03/28/2019): Added automatically from request for surgery [id number] MEI (obstructive sleep apnea) 01/13/2018 Resolved Problems [...] Encounters Date Type Department Care Team Description 07/05/2025 Telephone [facility] Nephrology at [address] [place] [phone] Connor Wilkes MD 06/28/2025 2:05 PM CDT - 06/28/2025 11:59 PM CDT Hospital Encounter [address] [address] Lea Zarate RN 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) (Primary Dx); Iron deficiency anemia, unspecified iron deficiency anemia type; CKD stage 4 secondary to hypertension (HCC) Discharge Disposition: Discharge to home or self care 06/26/[address] [address] Nadia Jeter MA 06/24/2025 10:17 AM CDT Anesthesia Event [facility] OR [address] [place] [phone] Eleanor Grimaldo MD Taylor-White, Carlotta A., NP 06/24/2025 10:12 AM CDT - 06/24/2025 12:04 PM CDT Surgery [facility] OR [address] [place] [address] Michel Coronel MD CREATION ARTERIOVENOUS FISTULA VERSUS GRAFT RIGHT UPPER EXTREMITY 06/24/2025 7:38 AM CDT - 06/24/2025 1:38 PM CDT Hospital Encounter [facility] OR [address] [place] [phone] Michel Coronel MD ESRD (end stage renal disease) on dialysis (HCC) (Primary Dx) Discharge Disposition: Discharge to home or self care 06/21/2025 2:03 PM CDT - 06/21/2025 11:59 PM CDT Hospital Encounter [address] [address] CKD stage 4 secondary to hypertension (HCC) (Primary Dx); 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); Stage 4 chronic kidney disease (HCC); Iron deficiency anemia, unspecified iron deficiency anemia type Discharge Disposition: Discharge to home or self care 06/19/2025 Documentation [facility] [address] [place] [address] Nadia Jeter MA 06/19/2025 Telephone [facility] Cardiology [address] [place] [phone] Lydia Martin MD Med Refill 06/19/2025 Orders Only [facility] Nephrology at [address] [place] [phone] Obinna Moya MD 06/18/2025 Orders Only [facility] Nephrology at [address] [place] [phone] Obinna Moya MD 06/18/2025 Results Follow-Up [facility] Nephrology at [address] [phone] Connor Wilkes MD Hemoglobin and hematocrit 06/17/2025 10:45 AM CDT - 06/17/2025 11:59 PM CDT Hospital Encounter [facility] [address] [facility] Cristian [address] [place] [address] Pre-operative exam; CKD stage 4 secondary to hypertension (HCC) Discharge Disposition: Discharge to home or self care 06/11/2025 [facility]phone [facility] at [place] [id number] [facility] [address] [place] [address] Caprice Sawyer, RN 06/11/2025 Orders Only [facility] at [address] [place] [address] Caprice Sawyer, DELL Pre-operative exam (Primary Dx); CKD stage 4 secondary to hypertension (HCC) 06/10/2025 Telephone [facility] Cardiology [address] [place] [address] [place] [phone] Lydia Martin MD Pre-op form for [facility] 06/03/2025 1:22 PM CDT - 06/03/2025 11:59 PM CDT Hospital Encounter [facility] D[facility] Access Center at [address] [place] [address] CKD stage 4 secondary to hypertension (HCC) (Primary Dx); Essential hypertension; Mixed hyperlipidemia Discharge Disposition: Discharge to home or self care 05/24/2025 Telephone [facility] Cardiology [address] [facility] [address] [place] [phone] Lydia Martin MD 05/23/2025 11:00 AM CDT Office Visit [facility] Cardiology [address] [place] [address] [place] [phone] Lydia Martin MD Hx of CABG (Primary Dx); Essential hypertension; Coronary artery disease involving reno-sparks coronary artery of re[place]-sparks heart without angina pectoris; Nonrheumatic aortic valve stenosis; Mixed hyperlipidemia; CKD stage 4 secondary to hypertension (HCC) 05/21/2025 Orders Only [facility] Cardiology [address] [facility] [address] [place] [phone] Obinna Moya MD 05/20/2025 Orders Only [facility] Cardiology [address] [place] [address] Lydia Martin MD 05/09/2025 9:00 AM CDT Office Visit [facility] Cardiology [address] [place] [address] [place] [phone] Lydia Martin MD Hx of CABG (Primary Dx); Nonrheumatic aortic valve stenosis; Mixed hyperlipidemia; Essential hypertension; Coronary artery disease involving reno-sparks coronary artery of re[place]-sparks heart without angina pectoris; Acute on chronic diastolic congestive heart failure (HCC) 05/07/2025 Telephone [facility] Nephrology at [place] [phone] [facility] [address] [place] [phone] Connor Wilkes MD 05/03/2025 Orders Only [facility] [address] [place] [address] Alia Andersen RN 05/03/2025 Telephone [facility] Cardiology [address] [facility] [address] [place] [phone] Lydia Martin MD 05/02/2025 11:45 AM CDT Office Visit [facility] Cardiology [address] [place] [address] [place] [phone] Lydia Martin MD Coronary artery disease involving reno-sparks coronary artery of re[place]-sparks heart without angina pectoris (Primary Dx); Hx of CABG; Nonrheumatic aortic valve stenosis; Mixed hyperlipidemia; Essential hypertension; DRAPER (dyspnea on exertion); CKD stage 4 secondary to hypertension (HCC); Urine retention 05/02/2025 Orders Only [facility] Health Information Management [address] [place] [address] Lydia Martin MD 05/02/2025 Telephone [facility] Cardiology [address] [place] [address] [place] [phone] Lydia Martin MD 04/30/2025 Telephone [facility] Nephrology at [address] [place] [phone] Connor Wilkes MD 04/30/2025 Orders Only [facility] Nephrology at [address] [place] [phone] ProviderObinna MD 04/25/2025 Orders Only [facility] Health Information Management [address] [place] [address] Scanning, Provider 04/25/2025 Telephone [facility] Cardiology [address] [place] [phone] Lydia Martin MD 04/16/2025 Telephone [facility] Cardiology [address] [place] [phone] Nancy Dover NP from Last 3 Months Surgical History Surgery [...] stage 5, GFR less than 15 ml/min ([facility]) gfr 14 Anesthesia complication sore thr oat [...] drink containing alc ohol? Monthly or less 06/24/2025 Q2: How many drinks containi ng alcohol do you have on a typical day when you are drinking? 1 or 2 06/24/2025 Q3: How often do you have si x or more drinks on one occasion? Never 06/24/2025 Personal Safety Answer Date Recorded Have you ever been in or are you currently in a harmful physical or emotional relationship or is someone making you feel afraid or unsafe? 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 Gender Identity Not on file Sexual Orientation Not on file Last Filed Vital Signs Vital Sign Reading Time Taken Comments Blood Pressure 156/50 06/28/2025 2:55 PM CDT Pulse 74 06/28/2025 2:55 PM CDT Temperature 36.7 C (98 F) 06/28/2025 2:55 PM CDT Respiratory Rate 16 06/28/2025 2:10 PM CDT Oxygen Saturation 98% 06/28/2025 2:55 PM CDT Inhaled Oxygen Concentration - - Weight 119 kg (262 lb 4.8 oz) 06/24/2025 7:45 AM CDT Height 165.1 cm (5' 5) 06/24/2025 7:45 AM CDT Body Mass Index 43.65 06/24/2025 7:45 AM CDT Plan of Treatment Health Maintenance [...] Aortic Aneurysm (AAA) Screen Completed , 04/07/2019 Medical Devices Implanted Type Area Pick Up Device Identifier Shelf Expiration Date Model / Serial / Lot Wire In Chest N/A: Chest Procedures Procedure Name Priority Date/Time Associated Diagnosis Comments AR AN PROCEDURE PLACEHOLDER Routine 06/24/2025 10:41 AM CDT AR AN ELECTIVE SUPRAGLOTTIC AIRWAY Routine 06/24/2025 10:41 AM CDT CREATION ARTERIOVENOUS FISTULA - ARM 06/24/2025 10:15 AM CDT ESRD (end stage renal disease) on dialysis (HCC) EGFR STAT 06/24/2025 8:46 AM CDT DIFFERENTIAL AUTO STAT 06/24/2025 8:4 6 AM CDT BASIC METABOLIC PANEL STAT 06/24/2025 8:46 AM CDT CBC WITH AUTO DIFFERENTIAL STAT 06/24/2025 8:46 AM CDT ECG 12-LEAD STAT 06/24/2025 8:24 AM CDT DIFFERENTIAL AUTO Routine 06/21/2025 2:1 9 PM CDT 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) Iron deficiency anemia, unspecified iron deficiency anemia type CKD stage 4 secondary to hypertension (HCC) CBC WITH AUTO DIFFERENTIAL Routine 06/21/2025 2:19 PM CDT 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) Iron deficiency anemia, unspecified iron deficiency anemia type CKD stage 4 secondary to hypertension (HCC) BMP - BASIC METABOLIC PANEL (7) Routine 06/18/2025 1:19 PM CDT HEMOGLOBIN AND HEMATOCRIT Routine 06/18/2025 9:16 AM CDT 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) PTH Routine 06/18/2025 8:42 AM CDT US VEIN MAPPING DUPLEX UPPER EXTREMITY RIGHT Schedule Routine, Read Routine (OP Routine) 06/17/2025 11:25 AM CDT Pre-operative exam CKD stage 4 secondary to hypertension (HCC) BASIC METABOLIC PANEL Routine 05/20/2025 2:50 PM CDT SCAN - RADIOLOGY/IMAGING 05/02/2025 XR CHEST PA LATERAL 2 VIEWS Schedule Routine, Read Routine (OP Routine) 04/25/2025 4:54 PM CDT CBC - COMPLETE BLOOD COUNT, NO DIFFERENTIAL - [facility] Routine 04/25/2025 4:50 PM CDT SCAN - RADIOLOGY/IMAGING 04/25/2025 CT ABDOMEN W WO CONTRAST 05/04/2019 12:00 AM CDT OCCULT BLOOD, FECAL (FIT) Routine 04/15/2019 6:00 AM CDT from Last 3 Months or Most Recently Relevant to Health Maintenance Results * AR AN ELECTIVE SUPRAGLOTTIC AIRWAY, AR AN PROCEDURE PLACEHOLDER (06/24/2025 10:41 AM CDT) Narrative Al Carcamo CRNA - 06/24/2025 10:41 AM CDT Al Carcamo CRNA 06/24/2025 10:41 AM Airway Patient location: OR Urgency: elective Date/time: 06/24/2025 10:32 AM Indications for airway management: anesthesia Difficult airway: no Staff: Placed by: INSURANCE UNDERWRITING ASSISTANT: Al Carcamo CRNA Emergent airway documentation: Risks and benefits discussed: yes Consent obtained: yes Consent given by: patient Airway prep: Preoxygenated: yes Patient position: sniffing Mask difficulty assessment: 0 - not attempted Spontaneous ventilation during airway: absent Sedation level during airway: deep Final airway details: Final airway type: supraglottic airway Final supraglottic airway: classic SGA size: 5 Number of attempts: 1 Additional comments: Atraumatic LMA insertion. us Eleanor Grimaldo MD ANESTHESIA ORDERABLES Final Re sult * (ABNORMAL) eGFR (06/24/2025 8:46 AM CDT) eGFR 14(L) >=60 mL/min/1. 73 m2 Comment: Interpretive Data Reference Interval Normal >/= 90 mL/min/1.73m2 Mildly decreased* 60 - 89 mL/min/1.73m2 Mildly to moderately decreased 45 - 59 mL/min/1.73m2 Moderately to severely decreased 30 - 44 mL/min/1.73m2 Severely decreased 15 - 29 mL/min/1.73m2 Kidney Failure < 15 mL/min/1.73m2 *Relative to young adult level Estimated glomerular filtration rate is determined by the 2020 CKD-EPI equation recommended by the National Kidney Foundation (A Unifying Approach to GFR Estimation: Recommendations of the NKF-ASK Task Force on Reassessing the Inclusion of Race in Diagnosing Kidney Disease, JASN 2020). The CKD-EPI equation should not be used for patients with unstable renal function and has not been validated in children and those over 70. Current interpretive data was last reviewed 2021. Blood 06/24/2025 8:46 AM CDT 06/24/2025 8:51 AM CDT us Noe Coronel MD LAB BLOOD ORDERABLES Final Resul t [facility] [address] [facility] [place] [address] * (ABNORMAL) Differential, auto (06/24/2025 8:46 AM CDT) Neutrophil abs 9.29(H) 1.50 - 6.50 K/cumm Imm gran abs 0.07 0.00 - 0.10 K/cumm [facility] Lymphocyte abs 0.88 0.80 - 3.30 K/cumm [facility] Monocyte abs 0.75 0.20 - 0.80 K/cumm [facility] Eosinophil abs 0.43 0.00 - 0.50 K/cumm [facility] Basophil abs 0.05 0.00 - 0.10 K/cumm [facility] Neutrophil pct 81.1 % [facility] Comment: Interpretive Data Percent cell count reference ranges are not reported, since discordance with absolute values may lead to misinterpretation of CBC data. Current Interpretive Data was last revised on 2017. Imm gran pct 0.6 % [facility] Comment: Interpretive Data Percent cell count reference ranges are not reported, since discordance with absolute values may lead to misinterpretation of CBC data. Current Interpretive Data was last revised on 2017. Lymphocyte pct 7.7 % [facility] Comment: Interpretive Data Percent cell count reference ranges are not reported, since discordance with absolute values may lead to misinterpretation of CBC data. Current Interpretive Data was last revised on 2017. Monocyte pct 6.5 % [facility] Comment: Interpretive Data Percent cell count reference ranges are not reported, since discordance with absolute values may lead to misinterpretation of CBC data. Current Interpretive Data was last revised on 2017. Eosinophil pct 3.7 % [facility] Comment: Interpretive Data Percent cell count reference ranges are not reported, since discordance with absolute values may lead to misinterpretation of CBC data. Current Interpretive Data was last revised on 2017. Basophil pct 0.4 % [facility] Comment: Interpretive Data Percent cell count reference ranges are not reported, since discordance with absolute values may lead to misinterpretation of CBC data. Current Interpretive Data was last revised on 2017. Blood 06/24/2025 8:46 AM CDT 06/24/2025 8:50 AM CDT us Noe Coronel MD LAB BLOOD ORDERABLES Final Resul t [facility] [address] [facility] [place] [address] * (ABNORMAL) CBC with auto differential (06/24/2025 8:46 AM CDT) WBC 11.47(H) 3.80 - 9.90 K/cumm Hgb 9.4(L) 13.0 - 17.5 g/dL [facility] Hct 28.9(L) 38.9 - 50.3 % [facility] Plt 247 150 - 400 K/cumm [facility] MPV 10.7 9.1 - 12.3 fL [facility] RBC 3.39(L) 4.30 - 5.80 M/cumm [facility] MCV 85.3 81.3 - 96.4 fL [facility] MCH 27.7 27.1 - 33.3 pg [facility] MCHC 32.5 32.3 - 35.7 g/dL [facility] RDW CV 14.9 11.1 - 14.9 % [facility] RDW SD 46.1 35.7 - 48.1 fL [facility] NRBC abs 0.00 0.00 - 0.01 K/cumm [facility] Blood 06/24/2025 8:46 AM CDT 06/24/2025 8:50 AM CDT Noe Coronel MD LAB BLOOD ORDERABLES Final Resul t [facility] [address] [facility] [place] [address] * (ABNORMAL) Basic metabolic panel (06/24/2025 8:46 AM CDT) Sodium 140 135 - 145 mmol/L Potassium, pl 4.2 3.3 - 4.9 mmol/L [facility] Chloride 106 97 - 110 mmol/L [facility] CO2 21(L) 22 - 32 mmol/L [facility] Anion gap 13 2 - 15 mmol/L [facility] BUN 65(H) 6 - 25 mg/dL [facility] Creatinine 4.21(H) 0.80 - 1.30 mg/dL [facility] Glucose 113 70 - 199 mg/dL [facility] Comment: Interpretive Data Fasting glucose >/= 126 mg/dl is diagnostic for diabetes. Fasting is defined as no caloric intake for at least 8 hours. Fasting glucose between 100 mg/dl to 125 mg/dl is diagnostic of prediabetes. In a patient with classic symptoms of hyperglycemia or hyperglycemic crisis, a random glucose >/= 200 mg/dl is diagnostic for diabetes. In the absence of unequivocal hyperglycemia, results should be confirmed by repeat testing. The classification and Diagnosis of Diabetes Diabetes Care 202; 46: S19-S40. Current interpretive data was last revised 2022. Calcium 9.8 8.5 - 10.3 mg/dL [facility] Blood 06/24/2025 8:46 AM CDT 06/24/2025 8:51 AM CDT Noe Coronel MD LAB BLOOD ORDERABLES Final Resul t [facility] [address] [facility] [place] [address] * ECG 12 lead (06/24/2025 8:24 AM CDT) [facility] Ventricular Rate EKG/Min 55 BPM [facility] Atrial Rate 55 BPM [facility] AR-Interval (MSEC) 268 ms [facility] QRS-Interval (MSEC) 142 ms [facility] QT-Interval (MSEC) 474 ms [facility] QTc 453 ms [facility] P [place] 17 degrees [facility] R [place] 32 degrees [facility] T [place] 147 degrees [facility] Diagnosis Sinus bradycardia with 1st degree A-V block Non-specific intra-ventricu lar conduction block Nonspecific T wave abnormality Abnormal ECG When compared with ECG of 27-MAY-2019 09:33, AR interval has increased T wave inversion no longer evident in Inferior leads Confirmed by SUBHASH MORENO M.D. ([id number]) on 06/24/2025 10:24:58 AM [facility] 06/24/2025 8:24 AM CDT 06/24/2025 10:24 AM CDT us Larissa Ariza MANAGER CARGO ECG ORDERABLES Humera ellison Result [facility] * (ABNORMAL) Differential, auto (06/21/2025 2:19 PM CDT) [facility] Neutrophil abs 9.28(H) 1.50 - 6.50 K/cumm Imm gran abs 0.04 0.00 - 0.10 K/cumm [facility] Lymphocyte abs 0.93 0.80 - 3.30 K/cumm [facility] Monocyte abs 0.79 0.20 - 0.80 K/cumm [facility] Eosinophil abs 0.35 0.00 - 0.50 K/cumm [facility] Basophil abs 0.03 0.00 - 0.10 K/cumm [facility] Neutrophil pct 81.2 % [facility] Comment: Interpretive Data Percent cell count reference ranges are not reported, since discordance with absolute values may lead to misinterpretation of CBC data. Current Interpretive Data was last revised on 2017. Imm gran pct 0.4 % [facility] Comment: Interpretive Data Percent cell count reference ranges are not reported, since discordance with absolute values may lead to misinterpretation of CBC data. Current Interpretive Data was last revised on 2017. Lymphocyte pct 8.1 % [facility] Comment: Interpretive Data Percent cell count reference ranges are not reported, since discordance with absolute values may lead to misinterpretation of CBC data. Current Interpretive Data was last revised on 2017. Monocyte pct 6.9 % [facility] Comment: Interpretive Data Percent cell count reference ranges are not reported, since discordance with absolute values may lead to misinterpretation of CBC data. Current Interpretive Data was last revised on 2017. Eosinophil pct 3.1 % [facility] Comment: Interpretive Data Percent cell count reference ranges are not reported, since discordance with absolute values may lead to misinterpretation of CBC data. Current Interpretive Data was last revised on 2017. Basophil pct 0.3 % [facility] Comment: Interpretive Data Percent cell count reference ranges are not reported, since discordance with absolute values may lead to misinterpretation of CBC data. Current Interpretive Data was last revised on 2017. Blood 06/21/2025 2:19 PM CDT 06/21/2025 2:23 PM CDT us Connor Wilkes MD LAB BLOOD ORDERABLES Final Re sult [facility] [address] [facility] [place] [address] * (ABNORMAL) CBC with auto differential (06/21/2025 2:19 PM CDT) WBC 11.42(H) 3.80 - 9.90 K/cumm Hgb 9.4(L) 13.0 - 17.5 g/dL [facility] Hct 29.1(L) 38.9 - 50.3 % [facility] Plt 261 150 - 400 K/cumm [facility] MPV 10.8 9.1 - 12.3 fL [facility] RBC 3.37(L) 4.30 - 5.80 M/cumm [facility] MCV 86.4 81.3 - 96.4 fL [facility] MCH 27.9 27.1 - 33.3 pg [facility] MCHC 32.3 32.3 - 35.7 g/dL [facility] RDW CV 15.1(H) 11.1 - 14.9 % [facility] RDW SD 47.7 35.7 - 48.1 fL [facility] NRBC abs 0.00 0.00 - 0.01 K/cumm [facility] Blood 06/21/2025 2:19 PM CDT 06/21/2025 2:23 PM CDT Connor Wilkes MD LAB BLOOD ORDERABLES Final Re sult Performing Organization Address [facility] Co de Phone Number [facility] [address] [facility] [place] [address] * BMP - Basic Metabolic Panel (7) (06/18/2025 1:19 PM CDT) Historical Provider LAB BLOOD ORDERABLES Humera l Result Performing Organization Address [facility] Co de Phone Number EXTERNAL LAB * (ABNORMAL) Hemoglobin and hematocrit (06/18/2025 9:16 AM CDT) Blood Connor Wilkes MD LAB BLOOD ORDERABLES Final Re sult Performing Organization Address [facility] Co de Phone Number EXTERNAL LAB * PTH (06/18/2025 8:42 AM CDT) Blood Historical Provider LAB BLOOD ORDERABLES Humera l Result Performing Organization Address [facility] de Phone Number EXTERNAL LAB * US Vein Mapping Upper Extremity Right (06/17/2025 11:25 AM CDT) Anatomical Region Laterality Modality Vascular Right Ultrasound 06/17/2025 10:5 2 AM CDT Narrative 06/17/2025 4:14 PM CDT Upper Extremity Vein Mapping Report Patient Name: NIKOLAY SILVER Z : 1950 (75y 5m) Sex: M Study Date: 06/17/2025 10:52:38 AM Stunt Performer: YESSICA RAMIREZ Provider: NOE CORONEL Quality: Adequate [...] Sex: M Study Date: 06/17/2025 10:52:38 AM Stunt Performer: YESSICA RAMIREZ Provider: NOE CORONEL Quality: Adequate [...] 06/17/2025 4:13:08 PM CDT Noe Coronel MD IMG US PROCEDURES Final Result * Basic metabolic panel (05/20/2025 2:50 PM CDT) Blood Result [facility] Historical Provider LAB BLOOD ORDERABLES Humera l Result * SCAN - RADIOLOGY/IMAGING (05/02/2025) Anatomical Region Laterality Modality Other Lydia Martin MD Humera l Result * XR Chest Pa Lateral 2 Views (04/25/2025 4:54 PM CDT) Anatomical Region Laterality Modality Body, Chest N/A Radiographic Felisa ging Result [facility] Historical Provider IMG XR PROCEDURES Final R esult * CBC - Complete Blood Count, No Differential - [facility] (04/25/2025 4:50 PM CDT) Result [facility] Historical Provider LAB BLOOD ORDERABLES Humera l Result EXTERNAL LAB * SCAN - RADIOLOGY/IMAGING (04/25/2025) Anatomical Region Laterality Modality Other Result [facility] Provider Scanning Final Result * CT Abdomen W WO Contrast (05/04/2019 12:00 AM CDT) Anatomical Region Laterality Modality Body N/A Computed Tomogra phy 05/04/2019 4:48 PM CDT Narrative 05/04/2019 5:25 PM CDT Patient Name: NIKOLAY SILVER JR Ordering Dr: Angel Luis Epstein MD D.O.B: 1950 Exam Date: 05/04/19 0000 Age: 69 Sex: Male MR#: [id number] Loc: RADIOLOGY REPORT Order #[id number] CT Scan CT Abd W WO IV [...] signed by Tobias JOSEPH T: Report ID: [id number] Reading Location: [place] [address] REPORT ELECTRONICALLY SIGNED IN OTHER VENDOR SYSTEM Resulting Agency Comment O Procedure Note Tobias Ramos MD - 05/04/2019 Patient Name: NIKOLAY SILVER Ehsan López Dr: Angel Luis Epstein MD D.O.B: 1950 Exam Date: 05/04/19 0000 Age: 69 Sex: Male MR#: [id number] Loc: RADIOLOGY REPORT Order #[id number] CT Scan CT Abd W WO IV [...] Tobias Ramos M.D. RS T: Report ID: [id number] Reading Location: [place] [address] REPORT ELECTRONICALLY SIGNED IN OTHER VENDOR SYSTEM Angel Luis Epstein MD IMG CT PROCEDURES Final Re sult * Occult Blood, Fecal (04/15/2019 6:00 AM CDT) Stool Occult Blood NEGATIVE NEGATIVE [facility] 04/15/2019 6:00 AM CDT 04/15/2019 6:27 AM CDT Narrative [facility] - 04/15/2019 6:44 AM CDT Collected By [place] Resulting Agency Comment IN Tomi Michele MD LAB BODY FLUIDS AND STOOLS O RDERABLES Final Result [facility] [address] [place] [address], [facility] [phone] from Last 3 Months or Most Recently Relevant to Health Maintenance Insurance [facility] Advance Directives For more information, please contact: [phone] * Full Code (Latest Code Status on File) Date Activated Date Inactivated Comments 04/04/2019 8:10 AM 04/04/2019 2:59 PM Care Teams Portable Power Tool Repairer Relationship Specialty Start Date End Date Jorge Alberto Perez MD [address] [place] [address] PCP - General Family Practice 08/16/24 Lea Gaspar, RN Registered Nurse Gastroenterology 03/28/19 Sen Ruiz MD [address] [place] [address] Communication Clerk Cardiology 04/25/19 Michel Coronel MD [address] [place] [address] Surgeon Vascular Surgery 06/24/25
--- OUTSIDE RECORDS SUMMARY | 2025-07-05 09:55 | XMS_ITS | Encounter Summary ---
Author Organization [facility] Healthcare Address [address] [place] [address] Care Team Providers Care Emr Trainer Name Role Phone Lea Gaspar RN Unavailable Unavailable Sen Ruiz MD Unavailable [phone] Jorge Alberto Perez MD Primary Care Provider [phone] Michel Coronel MD Unavailable [phone] Encounter Details Date Type Department Care Team (Late st Contact Info) Description 04/25/2025 Orders Only [facility] Information Management [address] [place] [id number] Scanning, Provider Social History Tobacco Use Types [...] on file 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 Gender Identity Not on file Sexual Orientation [...] on filedocumented in this encounter Care Teams Emr Trainer Relationship Specialty Start Date End Date Jorge Alberto Perez MD [address] [place] [address] PCP - General Family Practice 08/16/24 Lea Gaspar, RN Registered Nurse Gastroenterology 03/28/19 Sen Ruiz MD [address] [place] [address] Chief Clerk Cardiology 04/25/19 Michel Coronel MD [address] [facility] [place] [id number] [place] [address] Surgeon Vascular Surgery 06/24/25 documented as of this encounter
--- OUTSIDE RECORDS SUMMARY | 2025-07-05 09:55 | XMS_ITS | Encounter Summary ---
Author Organization [facility] Healthcare Address [address] [place] [address] Care Team Providers Care Insurance Case Manager Name Role Phone Lea Gaspar RN Unavailable Unavailable Sen Ruiz MD Unavailable [phone] Jorge Alberto Perez MD Primary Care Provider [phone] Michel Coronel MD Unavailable [phone] Encounter Details Date Type Department Care Team (Late st Contact Info) Description 07/05/2025 Telephone [facility] Nephrology at [address] [place] [address] Connor Wilkes MD [address] [place] [id number] Social History Tobacco Use Types Packs/Day Years [...] on file 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 Lab orders faxed. Called pt to make him awareand he verbalized understanding. M INSTALLATION TECHNICIAN documented in this encounter Plan of Treatment Not on file documented as of this encounter Visit Diagnoses Not on filedocumented in this encounter Care Teams Insurance Case Manager Relationship Specialty Start Date End Date Jorge Alberto Perez MD [address] [place] [address] PCP - General Family Practice 08/16/24 Lea Gaspar, RN Registered Nurse Gastroenterology 03/28/19 Sen Ruiz MD [address] [facility] [address] [place] [address] Jacquard Loom Card Changer Cardiology 04/25/19 Michel Coronel MD [address] [address] [facility] [address] [place] [address] Surgeon Vascular Surgery 06/24/25 documented as of this encounter
[2025-07-05 09:59] LABS: Hematocrit 28.0 % (42.0-52.0); Hemoglobin 9.0 g/dL (14.0-18.0)
[2025-07-05 10:07] LABS: Anion Gap 12 mmol/L (4-12); Blood Urea Nitrogen 67 mg/dL (9-20); Calcium 9.3 mg/dL (8.4-10.2); Carbon Dioxide 21 mmol/L (22-30); Chloride 106 mmol/L (98-107); Estimated Glomerular Filt Rate 13; Glucose 145 mg/dL (65-110); Iron 91 ug/dL (49-181); Potassium 4.3 mmol/L (3.4-5.0); Sodium 139 mmol/L (137-145)
[2025-07-05 10:17] LABS: Percent Iron Saturation 34 % (20-50)
[2025-07-05 10:24] LABS: Parathyroid Intact 170.7 pg/mL (14.5-75.2)
== END 2025-07-05 09:13 | disposition home or self-care (01) ==
PROVIDERS: PCP Nurse Practitioner Family; Visit Provider Internal Medicine Nephrology
DX: N18.4 Chronic kidney disease, stage 4 (severe) (principal); D63.1 Anemia in chronic kidney disease; N25.81 Secondary hyperparathyroidism of renal origin
CPT/HCPCS: 36415; 80048; 83540; 83550; 83970; 85014; 85018

== ENCOUNTER 2025-08-27 10:33 | Outpatient (CLI) | payer OTHER, SELFPAY ==
--- OUTSIDE RECORDS SUMMARY | 2025-08-27 11:12 | XMS_ITS | Clinical Summary ---
Author Organization [facility] Address [address] [place] [address] Care Team Providers Care Research Geneticist Name Role Phone Lea Gaspar RN Unavailable Unavailable Sen Ruiz MD Unavailable [phone] Jorge Alberto Perez MD Primary Care Provider [phone] Michel Coronel MD Unavailable [phone] Alycia Gaytan Unavailable Unavailable Allergies Active Allergy Reactions Criticality Noted Date [...] day 180 tablet 3 08/20/20 24 Active rosuvastatin (CRESTOR) 20 mg tablet Take 1 tablet (20 mg total) by mouth daily 90 tablet 3 08/20/20 24 Active calcitRIOL (ROCALTROL) 0.5 mcg capsuleIndicati ons:Stage 3b chronic kidney disease (HCC),Anemia in stage 3b chronic kidney disease (HCC) Take 1 capsule (0.5 mcg total) by mouth daily Take one capsule by mouth every Tuesday, Tuesday and Tuesday. 11/14/19 Active Additional Information Patient not taking.Reported on 07/29/2025 ferrous sulfate 325 mg (65 mg of elemental iron) tabletIndicatio ns:Iron Deficiency Anemia Take 1 tablet (325 mg total) by mouth daily with breakfast 30 tablet 11 04/08/202025 Active fluticasone-ume clidin-vilanter (Trelegy Ellipta) 100-62.5-25 mcg inhaler Inhale 1 puff daily Active polyethylene glycol (MIRALAX) 17 gram/dose bulk powder Take 17 g by mouth daily 116 g 2 05/23/20 Active metOLazone (ZAROXOLYN) 10 mg tablet Take 1 tablet (10 mg total) by mouth daily 30 tablet 1 08/20/20 Active tamsulosin (FLOMAX) 0.4 mg extended release capsule Take 1 capsule (0.4 mg total) by mouth daily with dinner 30 capsule 1 08/19/20 Active furosemide (LASIX) 80 mg tablet Take 3 tablets (240 mg total) by mouth 2 (two) times a day 180 tablet 1 08/19/20 Active spironolactone (ALDACTONE) 50 mg tablet Take 1 tablet (50 mg total) by mouth daily 30 tablet 1 08/20/20 25 Active amLODIPine (NORVASC) 10 mg tabletIndicatio ns:Uncontrolled hypertension Take 1 tablet (10 mg total) by mouth daily 90 tablet 3 08/20/20 24 2024 Discontinued(S top Taking at Discharge) losartan (COZAAR) 25 mg tabletIndicatio ns:Stage 3b chronic kidney disease (HCC),Anemia in stage 3b chronic kidney disease (HCC) Take 1 tablet (25 mg total) by mouth daily 11/14/19 25 2024 Discontinued azithromycin (ZITHROMAX) 250 mg tablet TAKE 2 TABLETS BY MOUTH TODAY, THEN TAKE 1 TABLET DAILY FOR 4 DAYS DIRECTED 04/25/20 25 2024 Discontinued torsemide (DEMADEX) 20 mg tablet Take 40 mg in the am and 20 mg in the afternoon. 270 tablet 3 05/24/20 25 2024 Discontinued(S top Taking at Discharge) losartan (COZAAR) 50 mg tablet Take 1 tablet (50 mg total) by mouth daily 06/04/20 25 2024 Discontinued(S top Taking at Discharge) cloNIDine (CATAPRES) 0.2 mg tabletIndicatio ns:Essential hypertension Take 1 tablet (0.2 mg total) by mouth 2 (two) times a day 180 tablet 2 06/20/20 25 2024 Discontinued(S top Taking at Discharge) Active Problems Problem Noted Date Diagnosed Date Simple chronic bronchitis 08/18/2025 Hypoxia 08/07/2025 Assessment & Plan (08/18/2025 12:06 PM DIRECTOR OF CATH LAB): Acute hypoxic respiratory failure Bilateral pleural effusions Developing pneumonia Acute on HFpEF-diastolic grade 2 Hx COPD Respiratory acidosis -Last echo 09/2024: EF 60%/grade 2 diastolic failure/[id number] /mild MR/mild TR/mild SD -Change torsemide to IV Lasix -Strict I&O -Fluid restriction-1500 ml/day -consider adding thiazide diuretics- zaroxolyn -Continue Norvasc, hydralazine, losartan, Catapres -Consider adding aldosterone antagonists- spironolactone -Consider adding SGLTZ2 inhibitors- Jardiance/Farxiga -Monitor K, phos, and Mag levels -Continue telemetry -Daily weights -Consider Consult Cardiology -Rocephin -Azithromycin -Trelegy to Spiriva and Symbicort-drug availability -PRN DuoNeb -Continue O2 -Wean O2 for an SpO2 greater than or equal to 92% 08/08 Nephrology consulted, appreciate recommendations. At this time providing t.i.d. diuretics Repeat echocardiogram ordered 08/09 No clear response to lasix, increasing furosemide per Nephrology We will monitor clinically for improvement. No current emergent need for dialysis time, Nephrology following We will continue to monitor. Echocardiogram ordered, results pending 08/10 Patient generally feeling poorly this morning Increased pulmonary effort noted ABG demonstrating pH 7.25 and elevated CO2 Likely secondary to MEI/ohs versus known volume overload Unfortunately, diuresis has not been very effective Net-300 mL over the past 24 hours Nephrology following, appreciate recommendations Given acidosis and elevated CO2, start BiPAP Plan to repeat ABG in 3 hours. 08/12 Patient has symptomatically improved He is tolerating BiPAP PRN. Advised to wear BiPAP while resting. Lasix drip d/c'd, transitioning to TID IV lasix. Net - 3700 mL over past 48 hours Monitor renal function closely Continue BiPAP, okay to have off during meals 08/13 - Cont fluid restriction - cont BiPAP - cont supplemental oxygen as needed, wean as able - Nephro following: IV furosemide changed to PO 08/14 - Cont fluid restriction - cont BiPAP - cont supplemental oxygen as needed, wean as able - nephrology following: increase furosemide; decrease amlodipine 08/15 - Cont fluid restriction - cont BiPAP - cont supplemental oxygen as needed, wean as able - nephrology following: Stop amlodipine; start spironolactone 08/16 - cont fluid restriction - cont BiPAP - cont supplemental oxygen as needed, wean as able - nephrology following 08/17 - cont fluid restriction - cont BiPAP - cont supplemental oxygen as needed, wean as able - nephrology following: ok to DC - overnight desaturation study 08/18 - cont fluid restriction - cont BiPAP - cont supplemental oxygen as needed, wean as able - nephrology following: ok to DC - overnight desaturation study: 2L - home O2 walk study today - pulmonology consult CKD stage 4 Approaching ESRD AV fistula maturing but not ready for use at present Consult nephrology, appreciate recommendations 08/13 - nephrology following Anemia of CKD and iron deficiency -Check iron panel, ferritin, vitamin B12, folate -Nephrology attempted initiate erythropoietin analog injections but he had declined given the travel required HTN HLD CAD S/p CABGx5 Continue anti hypertensives listed above Continue statin 08/13 - Continue amlodipine, clonidine, furosemide, hydralazine 08/14 - Continue amlodipine, clonidine, furosemide, hydralazine 08/15 - Continue clonidine, furosemide, hydralazine - DC amlodipine - start spironolactone, per nephrology 08/16 - Continue clonidine, furosemide, hydralazine, spironolactone Dm 2 5.6 on 01/2021 Hemoglobin A1c ordered 08/13: - A1c 5.1 - Continue carbohydrate diet 08/14 - Continue carbohydrate diet 08/16 - Continue carbohydrate diet 08/18 - Continue carbohydrate diet Hx of Urinary retention Monitor Assessment & Plan (08/17/2025 1:10 PM DIRECTOR OF CATH LAB): Acute hypoxic respiratory failure Bilateral pleural effusions Developing pneumonia Acute on HFpEF-diastolic grade 2 Hx COPD Respiratory acidosis -Last echo 09/2024: EF 60%/grade 2 diastolic failure/[id number]-[id number] /mild MR/mild TR/mild SD -Change torsemide to IV Lasix -Strict I&O -Fluid restriction-1500 ml/day -consider adding thiazide diuretics- zaroxolyn -Continue Norvasc, hydralazine, losartan, Catapres -Consider adding aldosterone antagonists- spironolactone -Consider adding SGLTZ2 inhibitors- Jardiance/Farxiga -Monitor K, phos, and Mag levels -Continue telemetry -Daily weights -Consider Consult Cardiology -Rocephin -Azithromycin -Trelegy to Spiriva and Symbicort-drug availability -PRN DuoNeb -Continue O2 -Wean O2 for an SpO2 greater than or equal to 92% 08/08 Nephrology consulted, appreciate recommendations. At this time providing t.i.d. diuretics Repeat echocardiogram ordered 08/09 No clear response to lasix, increasing furosemide per Nephrology We will monitor clinically for improvement. No current emergent need for dialysis time, Nephrology following We will continue to monitor. Echocardiogram ordered, results pending 08/10 Patient generally feeling poorly this morning Increased pulmonary effort noted ABG demonstrating pH 7.25 and elevated CO2 Likely secondary to MEI/ohs versus known volume overload Unfortunately, diuresis has not been very effective Net-300 mL over the past 24 hours Nephrology following, appreciate recommendations Given acidosis and elevated CO2, start BiPAP Plan to repeat ABG in 3 hours. 08/12 Patient has symptomatically improved He is tolerating BiPAP PRN. Advised to wear BiPAP while resting. Lasix drip d/c'd, transitioning to TID IV lasix. Net - 3700 mL over past 48 hours Monitor renal function closely Continue BiPAP, okay to have off during meals 08/13 - Cont fluid restriction - cont BiPAP - cont supplemental oxygen as needed, wean as able - Nephro following: IV furosemide changed to PO 08/14 - Cont fluid restriction - cont BiPAP - cont supplemental oxygen as needed, wean as able - nephrology following: increase furosemide; decrease amlodipine 08/15 - Cont fluid restriction - cont BiPAP - cont supplemental oxygen as needed, wean as able - nephrology following: Stop amlodipine; start spironolactone 08/16 - cont fluid restriction - cont BiPAP - cont supplemental oxygen as needed, wean as able - nephrology following 08/17 - cont fluid restriction - cont BiPAP - cont supplemental oxygen as needed, wean as able - nephrology following: ok to DC - overnight desaturation study CKD stage 4 Approaching ESRD AV fistula maturing but not ready for use at present Consult nephrology, appreciate recommendations 08/13 - nephrology following Anemia of CKD and iron deficiency -Check iron panel, ferritin, vitamin B12, folate -Nephrology attempted initiate erythropoietin analog injections but he had declined given the travel required HTN HLD CAD S/p CABGx5 Continue anti hypertensives listed above Continue statin 08/13 - Continue amlodipine, clonidine, furosemide, hydralazine 08/14 - Continue amlodipine, clonidine, furosemide, hydralazine 08/15 - Continue clonidine, furosemide, hydralazine - DC amlodipine - start spironolactone, per nephrology 08/16 - Continue clonidine, furosemide, hydralazine, spironolactone Dm 2 5.6 on 01/2021 Hemoglobin A1c ordered 08/13: - A1c 5.1 - Continue carbohydrate diet 08/14 - Continue carbohydrate diet 08/16 - Continue carbohydrate diet Hx of Urinary retention Monitor Assessment & Plan (08/16/2025 1:10 PM DIRECTOR OF CATH LAB): Acute hypoxic respiratory failure Bilateral pleural effusions Developing pneumonia Acute on HFpEF-diastolic grade 2 Hx COPD Respiratory acidosis -Last echo 09/2024: EF 60%/grade 2 diastolic failure/udkw-si-jegxxwfl /mild MR/mild TR/mild SD -Change torsemide to IV Lasix -Strict I&O -Fluid restriction-1500 ml/day -consider adding thiazide diuretics- zaroxolyn -Continue Norvasc, hydralazine, losartan, Catapres -Consider adding aldosterone antagonists- spironolactone -Consider adding SGLTZ2 inhibitors- Jardiance/Farxiga -Monitor K, phos, and Mag levels -Continue telemetry -Daily weights -Consider Consult Cardiology -Rocephin -Azithromycin -Trelegy to Spiriva and Symbicort-drug availability -PRN DuoNeb -Continue O2 -Wean O2 for an SpO2 greater than or equal to 92% 08/08 Nephrology consulted, appreciate recommendations. At this time providing t.i.d. diuretics Repeat echocardiogram ordered 08/09 No clear response to lasix, increasing furosemide per Nephrology We will monitor clinically for improvement. No current emergent need for dialysis time, Nephrology following We will continue to monitor. Echocardiogram ordered, results pending 08/10 Patient generally feeling poorly this morning Increased pulmonary effort noted ABG demonstrating pH 7.25 and elevated CO2 Likely secondary to MEI/ohs versus known volume overload Unfortunately, diuresis has not been very effective Net-300 mL over the past 24 hours Nephrology following, appreciate recommendations Given acidosis and elevated CO2, start BiPAP Plan to repeat ABG in 3 hours. 08/12 Patient has symptomatically improved He is tolerating BiPAP PRN. Advised to wear BiPAP while resting. Lasix drip d/c'd, transitioning to TID IV lasix. Net - 3700 mL over past 48 hours Monitor renal function closely Continue BiPAP, okay to have off during meals 08/13 - Cont fluid restriction - cont BiPAP - cont supplemental oxygen as needed, wean as able - Nephro following: IV furosemide changed to PO 08/14 - Cont fluid restriction - cont BiPAP - cont supplemental oxygen as needed, wean as able - nephrology following: increase furosemide; decrease amlodipine 08/15 - Cont fluid restriction - cont BiPAP - cont supplemental oxygen as needed, wean as able - nephrology following: Stop amlodipine; start spironolactone 08/16 - cont fluid restriction - cont BiPAP - cont supplemental oxygen as needed, wean as able - nephrology following CKD stage 4 Approaching ESRD AV fistula maturing but not ready for use at present Consult nephrology, appreciate recommendations 08/13 - nephrology following Anemia of CKD and iron deficiency -Check iron panel, ferritin, vitamin B12, folate -Nephrology attempted initiate erythropoietin analog injections but he had declined given the travel required HTN HLD CAD S/p CABGx5 Continue anti hypertensives listed above Continue statin 08/13 - Continue amlodipine, clonidine, furosemide, hydralazine 08/14 - Continue amlodipine, clonidine, furosemide, hydralazine 08/15 - Continue clonidine, furosemide, hydralazine - DC amlodipine - start spironolactone, per nephrology 08/16 - Continue clonidine, furosemide, hydralazine, spironolactone Dm 2 5.6 on 01/2021 Hemoglobin A1c ordered 08/13: - A1c 5.1 - Continue carbohydrate diet 08/14 - Continue carbohydrate diet 08/16 - Continue carbohydrate diet Hx of Urinary retention Monitor Assessment & Plan (08/15/2025 2:10 PM DIRECTOR OF CATH LAB): Acute hypoxic respiratory failure Bilateral pleural effusions Developing pneumonia Acute on HFpEF-diastolic grade 2 Hx COPD Respiratory acidosis -Last echo 09/2024: EF 60%/grade 2 diastolic failure/ybay-gd-[id number] /mild MR/mild TR/mild SD -Change torsemide to IV Lasix -Strict I&O -Fluid restriction-1500 ml/day -consider adding thiazide diuretics- zaroxolyn -Continue Norvasc, hydralazine, losartan, Catapres -Consider adding aldosterone antagonists- spironolactone -Consider adding SGLTZ2 inhibitors- Jardiance/Farxiga -Monitor K, phos, and Mag levels -Continue telemetry -Daily weights -Consider Consult Cardiology -Rocephin -Azithromycin -Trelegy to Spiriva and Symbicort-drug availability -PRN DuoNeb -Continue O2 -Wean O2 for an SpO2 greater than or equal to 92% 08/08 Nephrology consulted, appreciate recommendations. At this time providing t.i.d. diuretics Repeat echocardiogram ordered 08/09 No clear response to lasix, increasing furosemide per Nephrology We will monitor clinically for improvement. No current emergent need for dialysis time, Nephrology following We will continue to monitor. Echocardiogram ordered, results pending 08/10 Patient generally feeling poorly this morning Increased pulmonary effort noted ABG demonstrating pH 7.25 and elevated CO2 Likely secondary to MEI/ohs versus known volume overload Unfortunately, diuresis has not been very effective Net-300 mL over the past 24 hours Nephrology following, appreciate recommendations Given acidosis and elevated CO2, start BiPAP Plan to repeat ABG in 3 hours. 08/12 Patient has symptomatically improved He is tolerating BiPAP PRN. Advised to wear BiPAP while resting. Lasix drip d/c'd, transitioning to TID IV lasix. Net - 3700 mL over past 48 hours Monitor renal function closely Continue BiPAP, okay to have off during meals 08/13 - Cont fluid restriction - cont BiPAP - cont supplemental oxygen as needed, wean as able - Nephro following: IV furosemide changed to PO 08/14 - Cont fluid restriction - cont BiPAP - cont supplemental oxygen as needed, wean as able - nephrology following: increase furosemide; decrease amlodipine 08/15 - Cont fluid restriction - cont BiPAP - cont supplemental oxygen as needed, wean as able - nephrology following: Stop amlodipine; start spironolactone CKD stage 4 Approaching ESRD AV fistula maturing but not ready for use at present Consult nephrology, appreciate recommendations 08/13 - nephrology following Anemia of CKD and iron deficiency -Check iron panel, ferritin, vitamin B12, folate -Nephrology attempted initiate erythropoietin analog injections but he had declined given the travel required HTN HLD CAD S/p CABGx5 Continue anti hypertensives listed above Continue statin 08/13 - Continue amlodipine, clonidine, furosemide, hydralazine 08/14 - Continue amlodipine, clonidine, furosemide, hydralazine 08/15 - Continue clonidine, furosemide, hydralazine - DC amlodipine - start spironolactone, per nephrology Dm 2 5.6 on 01/2021 Hemoglobin A1c ordered 08/13: - A1c 5.1 - Continue carbohydrate diet 08/14 - Continue carbohydrate diet Hx of Urinary retention Monitor Assessment & Plan (08/14/2025 6:25 PM DIRECTOR OF CATH LAB): Acute hypoxic respiratory failure Bilateral pleural effusions Developing pneumonia Acute on HFpEF-diastolic grade 2 Hx COPD Respiratory acidosis -Last echo 09/2024: EF 60%/grade 2 diastolic failure/vuub-bz-ckeuhvuh /mild MR/mild TR/mild SD -Change torsemide to IV Lasix -Strict I&O -Fluid restriction-1500 ml/day -consider adding thiazide diuretics- zaroxolyn -Continue Norvasc, hydralazine, losartan, Catapres -Consider adding aldosterone antagonists- spironolactone -Consider adding SGLTZ2 inhibitors- Jardiance/Farxiga -Monitor K, phos, and Mag levels -Continue telemetry -Daily weights -Consider Consult Cardiology -Rocephin -Azithromycin -Trelegy to Spiriva and Symbicort-drug availability -PRN DuoNeb -Continue O2 -Wean O2 for an SpO2 greater than or equal to 92% 08/08 Nephrology consulted, appreciate recommendations. At this time providing t.i.d. diuretics Repeat echocardiogram ordered 08/09 No clear response to lasix, increasing furosemide per Nephrology We will monitor clinically for improvement. No current emergent need for dialysis time, Nephrology following We will continue to monitor. Echocardiogram ordered, results pending 08/10 Patient generally feeling poorly this morning Increased pulmonary effort noted ABG demonstrating pH 7.25 and elevated CO2 Likely secondary to MEI/ohs versus known volume overload Unfortunately, diuresis has not been very effective Net-300 mL over the past 24 hours Nephrology following, appreciate recommendations Given acidosis and elevated CO2, start BiPAP Plan to repeat ABG in 3 hours. 08/12 Patient has symptomatically improved He is tolerating BiPAP PRN. Advised to wear BiPAP while resting. Lasix drip d/c'd, transitioning to TID IV lasix. Net - 3700 mL over past 48 hours Monitor renal function closely Continue BiPAP, okay to have off during meals 08/13 - Cont fluid restriction - cont BiPAP - cont supplemental oxygen as needed, wean as able - Nephro following: IV furosemide changed to PO 08/14 - Cont fluid restriction - cont BiPAP - cont supplemental oxygen as needed, wean as able - nephrology following: increase furosemide; decrease amlodipine CKD stage 4 Approaching ESRD AV fistula maturing but not ready for use at present Consult nephrology, appreciate recommendations 08/13 - nephrology following Anemia of CKD and iron deficiency -Check iron panel, ferritin, vitamin B12, folate -Nephrology attempted initiate erythropoietin analog injections but he had declined given the travel required HTN HLD CAD S/p CABGx5 Continue anti hypertensives listed above Continue statin 08/13 - Continue amlodipine, clonidine, furosemide, hydralazine 08/14 - Continue amlodipine, clonidine, furosemide, hydralazine Dm 2 5.6 on 01/2021 Hemoglobin A1c ordered 08/13: - A1c 5.1 - Continue carbohydrate diet 08/14 - Continue carbohydrate diet Hx of Urinary retention Monitor Assessment & Plan (08/13/2025 10:39 AM DIRECTOR OF CATH LAB): Acute hypoxic respiratory failure Bilateral pleural effusions Developing pneumonia Acute on HFpEF-diastolic grade 2 Hx COPD Respiratory acidosis -Last echo 09/2024: EF 60%/grade 2 diastolic failure/bzfl-kt-qwwinkvf /mild MR/mild TR/mild SD -Change torsemide to IV Lasix -Strict I&O -Fluid restriction-1500 ml/day -consider adding thiazide diuretics- zaroxolyn -Continue Norvasc, hydralazine, losartan, Catapres -Consider adding aldosterone antagonists- spironolactone -Consider adding SGLTZ2 inhibitors- Jardiance/Farxiga -Monitor K, phos, and Mag levels -Continue telemetry -Daily weights -Consider Consult Cardiology -Rocephin -Azithromycin -Trelegy to Spiriva and Symbicort-drug availability -PRN DuoNeb -Continue O2 -Wean O2 for an SpO2 greater than or equal to 92% 08/08 Nephrology consulted, appreciate recommendations. At this time providing t.i.d. diuretics Repeat echocardiogram ordered 08/09 No clear response to lasix, increasing furosemide per Nephrology We will monitor clinically for improvement. No current emergent need for dialysis time, Nephrology following We will continue to monitor. Echocardiogram ordered, results pending 08/10 Patient generally feeling poorly this morning Increased pulmonary effort noted ABG demonstrating pH 7.25 and elevated CO2 Likely secondary to MEI/ohs versus known volume overload Unfortunately, diuresis has not been very effective Net-300 mL over the past 24 hours Nephrology following, appreciate recommendations Given acidosis and elevated CO2, start BiPAP Plan to repeat ABG in 3 hours. 08/12 Patient has symptomatically improved He is tolerating BiPAP PRN. Advised to wear BiPAP while resting. Lasix drip d/c'd, transitioning to TID IV lasix. Net - 3700 mL over past 48 hours Monitor renal function closely Continue BiPAP, okay to have off during meals 08/13 - Cont fluid restriction - cont BiPAP - cont supplemental oxygen as needed, wean as able - Nephro following: IV furosemide changed to PO CKD stage 4 Approaching ESRD AV fistula maturing but not ready for use at present Consult nephrology, appreciate recommendations 08/13 - nephrology following Anemia of CKD and iron deficiency -Check iron panel, ferritin, vitamin B12, folate -Nephrology attempted initiate erythropoietin analog injections but he had declined given the travel required HTN HLD CAD S/p CABGx5 Continue anti hypertensives listed above Continue statin 08/13 - Continue amlodipine, clonidine, furosemide, hydralazine Dm 2 5.6 on 01/2021 Hemoglobin A1c ordered 08/13: - A1c 5.1 - Continue carbohydrate diet Hx of Urinary retention Monitor Assessment & Plan (08/12/2025 12:37 PM DIRECTOR OF CATH LAB): Acute hypoxic respiratory failure Bilateral pleural effusions Developing pneumonia Acute on HFpEF-diastolic grade 2 Hx COPD Respiratory acidosis -Last echo 09/2024: EF 60%/grade 2 diastolic failure/anmr-zx-gnfetcbi /mild MR/mild TR/mild SD -Change torsemide to IV Lasix -Strict I&O -Fluid restriction-1500 ml/day -consider adding thiazide diuretics- zaroxolyn -Continue Norvasc, hydralazine, losartan, Catapres -Consider adding aldosterone antagonists- spironolactone -Consider adding SGLTZ2 inhibitors- Jardiance/Farxiga -Monitor K, phos, and Mag levels -Continue telemetry -Daily weights -Consider Consult Cardiology -Rocephin -Azithromycin -Trelegy to Spiriva and Symbicort-drug availability -PRN DuoNeb -Continue O2 -Wean O2 for an SpO2 greater than or equal to 92% 08/08 Nephrology consulted, appreciate recommendations. At this time providing t.i.d. diuretics Repeat echocardiogram ordered 08/09 No clear response to lasix, increasing furosemide per Nephrology We will monitor clinically for improvement. No current emergent need for dialysis time, Nephrology following We will continue to monitor. Echocardiogram ordered, results pending 08/10 Patient generally feeling poorly this morning Increased pulmonary effort noted ABG demonstrating pH 7.25 and elevated CO2 Likely secondary to MEI/ohs versus known volume overload Unfortunately, diuresis has not been very effective Net-300 mL over the past 24 hours Nephrology following, appreciate recommendations Given acidosis and elevated CO2, start BiPAP Plan to repeat ABG in 3 hours. 08/12 Patient has symptomatically improved He is tolerating BiPAP PRN. Advised to wear BiPAP while resting. Lasix drip d/c'd, transitioning to TID IV lasix. Net - 3700 mL over past 48 hours Monitor renal function closely Continue BiPAP, okay to have off during meals CKD stage 4 Approaching ESRD AV fistula maturing but not ready for use at present Consult nephrology, appreciate recommendations Anemia of CKD and iron deficiency -Check iron panel, ferritin, vitamin B12, folate -Nephrology attempted initiate erythropoietin analog injections but he had declined given the travel required HTN HLD CAD S/p CABGx5 Continue anti hypertensives listed above Continue statin Dm 2 5.6 on 01/2021 Hemoglobin A1c ordered Hx of Urinary retention Monitor Assessment & Plan (08/11/2025 12:54 PM DIRECTOR OF CATH LAB): Acute hypoxic respiratory failure Bilateral pleural effusions Developing pneumonia Acute on HFpEF-diastolic grade 2 Hx COPD Respiratory acidosis -Last echo 09/2024: EF 60%/grade 2 diastolic failure/xrfm-iw-isiluyqe /mild MR/mild TR/mild SD -Change torsemide to IV Lasix -Strict I&O -Fluid restriction-1500 ml/day -consider adding thiazide diuretics- zaroxolyn -Continue Norvasc, hydralazine, losartan, Catapres -Consider adding aldosterone antagonists- spironolactone -Consider adding SGLTZ2 inhibitors- Jardiance/Farxiga -Monitor K, phos, and Mag levels -Continue telemetry -Daily weights -Consider Consult Cardiology -Rocephin -Azithromycin -Trelegy to Spiriva and Symbicort-drug availability -PRN DuoNeb -Continue O2 -Wean O2 for an SpO2 greater than or equal to 92% 08/08 Nephrology consulted, appreciate recommendations. At this time providing t.i.d. diuretics Repeat echocardiogram ordered 08/09 No clear response to lasix, increasing furosemide per Nephrology We will monitor clinically for improvement. No current emergent need for dialysis time, Nephrology following We will continue to monitor. Echocardiogram ordered, results pending 08/10 Patient generally feeling poorly this morning Increased pulmonary effort noted ABG demonstrating pH 7.25 and elevated CO2 Likely secondary to MEI/ohs versus known volume overload Unfortunately, diuresis has not been very effective Net-300 mL over the past 24 hours Nephrology following, appreciate recommendations Given acidosis and elevated CO2, start BiPAP Plan to repeat ABG in 3 hours. 08/11 Patient has symptomatically improved He is tolerating BiPAP Lasix drip ordered per Nephrology Net -2 L Continue drip per Nephrology Monitor renal function closely Continue BiPAP, okay to have off during meals CKD stage 4 Approaching ESRD AV fistula maturing but not ready for use at present Consult nephrology, appreciate recommendations Anemia of CKD and iron deficiency -Check iron panel, ferritin, vitamin B12, folate -Nephrology attempted initiate erythropoietin analog injections but he had declined given the travel required HTN HLD CAD S/p CABGx5 Continue anti hypertensives listed above Continue statin Dm 2 5.6 on 01/2021 Hemoglobin A1c ordered Hx of Urinary retention Monitor Assessment & Plan (08/10/2025 11:16 AM DIRECTOR OF CATH LAB): Acute hypoxic respiratory failure Bilateral pleural effusions Developing pneumonia Acute on HFpEF-diastolic grade 2 Hx COPD Respiratory acidosis -Last echo 09/2024: EF 60%/grade 2 diastolic failure/klac-ue-novddaqo /mild MR/mild TR/mild SD -Change torsemide to IV Lasix -Strict I&O -Fluid restriction-1500 ml/day -consider adding thiazide diuretics- zaroxolyn -Continue Norvasc, hydralazine, losartan, Catapres -Consider adding aldosterone antagonists- spironolactone -Consider adding SGLTZ2 inhibitors- Jardiance/Farxiga -Monitor K, phos, and Mag levels -Continue telemetry -Daily weights -Consider Consult Cardiology -Rocephin -Azithromycin -Trelegy to Spiriva and Symbicort-drug availability -PRN DuoNeb -Continue O2 -Wean O2 for an SpO2 greater than or equal to 92% 08/08 Nephrology consulted, appreciate recommendations. At this time providing t.i.d. diuretics Repeat echocardiogram ordered 08/09 No clear response to lasix, increasing furosemide per Nephrology We will monitor clinically for improvement. No current emergent need for dialysis time, Nephrology following We will continue to monitor. Echocardiogram ordered, results pending 08/10 Patient generally feeling poorly this morning Increased pulmonary effort noted ABG demonstrating pH 7.25 and elevated CO2 Likely secondary to MEI/ohs versus known volume overload Unfortunately, diuresis has not been very effective Net-300 mL over the past 24 hours Nephrology following, appreciate recommendations Given acidosis and elevated CO2, start BiPAP Plan to repeat ABG in 3 hours. CKD stage 4 Approaching ESRD AV fistula maturing but not ready for use at present Consult nephrology, appreciate recommendations Anemia of CKD and iron deficiency -Check iron panel, ferritin, vitamin B12, folate -Nephrology attempted initiate erythropoietin analog injections but he had declined given the travel required HTN HLD CAD S/p CABGx5 Continue anti hypertensives listed above Continue statin Dm 2 5.6 on 01/2021 Hemoglobin A1c ordered Hx of Urinary retention Monitor Assessment & Plan (08/09/2025 1:00 PM DIRECTOR OF CATH LAB): Acute hypoxic respiratory failure Bilateral pleural effusions Developing pneumonia Acute on HFpEF-diastolic grade 2 Hx COPD -Last echo 09/2024: EF 60%/grade 2 diastolic failure/gqdt-vo-tjrercbf /mild MR/mild TR/mild SD -Change torsemide to IV Lasix -Strict I&O -Fluid restriction-1500 ml/day -consider adding thiazide diuretics- zaroxolyn -Continue Norvasc, hydralazine, losartan, Catapres -Consider adding aldosterone antagonists- spironolactone -Consider adding SGLTZ2 inhibitors- Jardiance/Farxiga -Monitor K, phos, and Mag levels -Continue telemetry -Daily weights -Consider Consult Cardiology -Rocephin -Azithromycin -Trelegy to Spiriva and Symbicort-drug availability -PRN DuoNeb -Continue O2 -Wean O2 for an SpO2 greater than or equal to 92% 08/08 Nephrology consulted, appreciate recommendations. At this time providing t.i.d. diuretics Repeat echocardiogram ordered 08/09 No clear response to lasix, increasing furosemide per Nephrology We will monitor clinically for improvement. No current emergent need for dialysis time, Nephrology following We will continue to monitor. Echocardiogram ordered, results pending CKD stage 4 Approaching ESRD AV fistula maturing but not ready for use at present Consult nephrology, appreciate recommendations Anemia of CKD and iron deficiency -Check iron panel, ferritin, vitamin B12, folate -Nephrology attempted initiate erythropoietin analog injections but he had declined given the travel required HTN HLD CAD S/p CABGx5 Continue anti hypertensives listed above Continue statin Dm 2 5.6 on 01/2021 Hemoglobin A1c ordered Hx of Urinary retention Monitor Assessment & Plan (08/08/2025 10:50 AM DIRECTOR OF CATH LAB): Acute hypoxic respiratory failure Bilateral pleural effusions Developing pneumonia Acute on HFpEF-diastolic grade 2 Hx COPD -Last echo 09/2024: EF 60%/grade 2 diastolic failure/jnfl-pg-oeryenrn /mild MR/mild TR/mild SD -Change torsemide to IV Lasix -Strict I&O -Fluid restriction-1500 ml/day -consider adding thiazide diuretics- zaroxolyn -Continue Norvasc, hydralazine, losartan, Catapres -Consider adding aldosterone antagonists- spironolactone -Consider adding SGLTZ2 inhibitors- Jardiance/Farxiga -Monitor K, phos, and Mag levels -Continue telemetry -Daily weights -Consider Consult Cardiology -Rocephin -Azithromycin -Trelegy to Spiriva and Symbicort-drug availability -PRN DuoNeb -Continue O2 -Wean O2 for an SpO2 greater than or equal to 92% 08/08 Nephrology consulted, appreciate recommendations. At this time providing t.i.d. diuretics Repeat echocardiogram ordered CKD stage 4 Approaching ESRD AV fistula maturing but not ready for use at present Consult nephrology Anemia of CKD and iron deficiency -Check iron panel, ferritin, vitamin B12, folate -Nephrology attempted initiate erythropoietin analog injections but he had declined given the travel required HTN HLD CAD S/p CABGx5 Continue anti hypertensives listed above Continue statin Dm 2 5.6 on 01/2021 Hemoglobin A1c ordered Hx of Urinary retention Monitor Assessment & Plan (08/07/2025 5:39 PM DIRECTOR OF CATH LAB): Acute hypoxic respiratory failure Bilateral pleural effusions Developing pneumonia Acute on HFpEF-diastolic grade 2 Hx COPD -Last echo 09/2024: EF 60%/grade 2 diastolic failure/ezwz-cm-kmabhycd /mild MR/mild TR/mild SD -Change torsemide to IV Lasix -Strict I&O -Fluid restriction-1500 ml/day -consider adding thiazide diuretics- zaroxolyn -Continue Norvasc, hydralazine, losartan, Catapres -Consider adding aldosterone antagonists- spironolactone -Consider adding SGLTZ2 inhibitors- Jardiance/Farxiga -Monitor K, phos, and Mag levels -Continue telemetry -Daily weights -Consider Consult Cardiology -Rocephin -Azithromycin -Trelegy to Spiriva and Symbicort-drug availability -PRN DuoNeb -Continue O2 -Wean O2 for an SpO2 greater than or equal to 92% CKD stage 4 Approaching ESRD AV fistula maturing but not ready for use at present Consult nephrology Anemia of CKD and iron deficiency -Check iron panel, ferritin, vitamin B12, folate -Nephrology attempted initiate erythropoietin analog injections but he had declined given the travel required HTN HLD CAD S/p CABGx5 Continue anti hypertensives listed above Continue statin Dm 2 5.6 on 01/2021 Hemoglobin A1c ordered Hx of Urinary retention Monitor ESRD (end stage renal disease) on dialysis 06/11 Assessment & Plan (07/11/2025 11:22 AM DIRECTOR OF CATH LAB): Status post creation of right brachiocephalic fistula 06/24/2025. Patient states he is recovering well sutures are intact in the arm with a good bruit and thrill on exam. Sutures removed in the office today and can follow-up in the next 8-10 weeks for AV duplex and evaluation maturation. Iron deficiency anemia, unspecified 05/03/2025 Iron deficiency [...] - Patient to be evaluated from his sql manager for cardiac clearance prior to surgery -Recommend right upper extremity vein mapping for further evaluation. Mixed hyperlipidemia 03/17/2021 Assessment & Plan (06/03/2025 3:23 PM CDT): Chronic and stable. Continue rosuvastatin DRAPER (dyspnea on exertion) 12/02/2020 Bradycardia 12/02/2020 Former tobacco use 12/02/2020 Stage 3b chronic kidney disease 12/02/2020 Prediabetes 12/02/2020 Coronary artery disease invo lving [place] coronary artery of [place] heart without angina pectoris 11/12/2019 Body mass [...] (03/28/2019): Added automatically from request for surgery [id number] MEI (obstructive sleep apnea) 01/13/2018 Resolved Problems [...] Encounters Date Type Department Care Team Description 08/20/2025 Telephone [facility] Nephrology at [address] [phone] Connor Wilkes MD 08/08/2025 T[facility] Subsequent Outreach [facility] [address] [place] [phone] Alycia Gaytan 08/08/2025 TCC Initial Eligibility Review [facility] [address] [place] [phone] Sabina Ovalle RN 08/07/2025 10:25 AM DIRECTOR OF CATH LAB - 08/19/2025 1:55 PM DIRECTOR OF CATH LAB Hospital Encounter [address] [address] Moon Welch MD Kruse, Brandon Chase, DO Caceres, Christian Guillermo, MD Hypoxia (Primary Dx); Other hypervolemia; Stage 5 chronic kidney disease not on chronic dialysis (HCC); CKD stage 4 secondary to hypertension (HCC) [I12.9, N18.4]; ESRD (end stage renal disease) on dialysis (HCC) [N18.6, Z99.2]; Former tobacco use [Z87.891]; Simple chronic bronchitis (HCC) [J41.0]; MEI (obstructive sleep apnea) Discharge Disposition: Discharge to home or self care 08/06/2025 Orders Only [facility] Nephrology at [address] [phone] Connor Wilkes MD 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) (Primary Dx); Stage 4 chronic kidney disease (HCC) 07/29/2025 2:45 PM DIRECTOR OF CATH LAB Office Visit [facility] Nephrology at [address] [phone] Connor Wilkes MD Stage 4 chronic kidney disease (HCC) (Primary Dx); 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); Secondary hyperparathyroidism; Benign hypertensive kidney disease with chronic kidney disease stage I through stage IV, or unspecified(403.10); Persistent proteinuria 07/29/2025 Telephone [facility] Nephrology at [address] [phone] Connor Wilkes MD 07/11/2025 10:45 AM DIRECTOR OF CATH LAB Office Visit [facility] Vein [facility] [address] [place] [address] Melissa Carcamo NP ESRD (end stage renal disease) on dialysis (HCC) (Primary Dx); ESRD (end stage renal disease); Other complication of arteriovenous dialysis fistula, initial encounter 07/05/2025 Telephone [facility] Nephrology at [address] [phone] Connor Wilkes MD 06/28/2025 2:05 PM CDT - 06/28/2025 11:59 PM CDT Hospital Encounter [facility] [address] [place] [address] Lea Zarate RN 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) (Primary Dx); Iron deficiency anemia, unspecified iron deficiency anemia type; CKD stage 4 secondary to hypertension (HCC) Discharge Disposition: Discharge to home or self care 06/26/[address] [address] Nadia Jeter MA 06/24/2025 10:17 AM CDT Anesthesia Event [facility] OR [address] [place] [phone] Eleanor Grimaldo MD Taylor-White, Carlotta A., NP 06/24/2025 10:12 AM CDT - 06/24/2025 12:04 PM CDT Surgery [facility] OR [address] [place] [phone] Michel Coronel MD CREATION ARTERIOVENOUS FISTULA VERSUS GRAFT RIGHT UPPER EXTREMITY 06/24/2025 7:38 AM CDT - 06/24/2025 1:38 PM CDT Hospital Encounter [facility] OR [address] [place] [phone] Michel Coronel MD ESRD (end stage renal disease) on dialysis (HCC) (Primary Dx) Discharge Disposition: Discharge to home or self care 06/21/2025 2:03 PM CDT - 06/21/2025 11:59 PM CDT Hospital Encounter [address] [address] CKD stage 4 secondary to hypertension (HCC) (Primary Dx); 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); Stage 4 chronic kidney disease (HCC); Iron deficiency anemia, unspecified iron deficiency anemia type Discharge Disposition: Discharge to home or self care 06/19/[address] [address] Nadia Jeter MA 06/19/2025 Telephone [facility] Cardiology [address] [place] [phone] Lydia Martin MD Med Refill 06/19/2025 Orders Only [facility] Nephrology at [place] [phone] [facility] [address] [place] [phone] Obinna Moya MD 06/18/2025 Orders Only [facility] Nephrology at [address] [place] [address] Obinna Moya MD 06/18/2025 Results Follow-Up [facility] Nephrology at [address] [place] [address] Connor Wilkes MD Hemoglobin and hematocrit, PTH, Iron profile w/ IBC, Additional followed-up results: 2 06/17/2025 10:45 AM CDT - 06/17/2025 11:59 PM CDT Hospital Encounter [facility] Medical Office Building [address] [place] [phone] Pre-operative exam; CKD stage 4 secondary to hypertension (HCC) Discharge Disposition: Discharge to home or self care 06/11/2025 Telephone [facility] at [address] [place] [phone] Caprice Sawyer, RN 06/11/2025 Orders Only [facility] at [address] [address] Caprice Sawyer, RN Pre-operative exam (Primary Dx); CKD stage 4 secondary to hypertension (HCC) 06/10/2025 Telephone [facility] Cardiology [address] [place] [phone] Lydia Martin MD Pre-op form for [facility] 06/03/2025 1:22 PM CDT - 06/03/2025 11:59 PM CDT Hospital Encounter [facility] at [address] [address] CKD stage 4 secondary to hypertension (HCC) (Primary Dx); Essential hypertension; Mixed hyperlipidemia Discharge Disposition: Discharge to home or self care from Last 3 Months Surgical History Surgery [...] stage 5, GFR less than 15 ml/min (HCC) gfr 14 Anesthesia complication sore thr oat [...] = 0.6 oz pur e alcohol) rarely Social Connection and Isolation Panel Answer Date Recorded In a typical week, how many times do you talk on the phone with family, friends, or neighbors? More than three times a week 08/08/2025 How often do you get togethe r with friends or relatives? Three times a week 08/08/2025 How often do you attend chur or confucianism services? Never 08/08/2025 Do you belong to any clubs o r organizations such as adventist groups, unions, fraternal or athletic groups, or school groups? No 08/08/2025 How often do you attend meet ings of the clubs or organizations you belong to? Never 08/08/2025 Are you , , di vorced, , never , or living with a partner? 08/08/2025 AUDIT-C Answer Date Recorded Q1: How often do you have a drink containing alc ohol? Never 07/29/2025 Average Number of Drinks Not on file 025 Frequency of Binge Drinking Not on file 08/2024 Overall Financial Resource Strain (CARDIA) Answe r Date Recorded How hard is it for you to pa y for the very basics like food, housing, medical care, and heating? Not hard at all 08/08/2025 Hunger Vital Sign Answer Date Recorded Within the past 12 months, y ou worried that your food would run out before you got the money to buy more. Never true 08/08/20 25 Within the past 12 months, t he food you bought just didn't last and you didn't have money to get more. Never true 08/08/2025 PRAPARE - Transportation Answer Date Re corded In the past 12 months, has l ack of transportation kept you from medical appointments or from getting medications? No 07/29 In the past 12 months, has l ack of transportation kept you from meetings, work, or from getting things needed for daily living? No 08/08/2025 Housing Stability Vital Sign Answer Keenan e Recorded In the last 12 months, was t here a time when you were not able to pay the mortgage or rent on time? No 08/08/2025 In the past 12 months, how m any times have you moved where you were living? 0 08/08/2025 At any time in the past 12 m [facility], were you homeless or living in a chcf (including now)? No 08/08/2025 [facility] Utilities Answer Date Recorded In the past 12 months has th e electric, gas, oil, or water company threatened to shut off services in your home? No 08/08/2025 Personal Safety Answer Date Recorded Have you ever been in or are you currently in a harmful physical or emotional relationship or is someone making you feel afraid or unsafe? Denies 08/07/2025 Sex and Gender Information Value Date Recorded Sex Assigned at Not on file Legal Sex Male 6:22 PM DIRECTOR OF CATH LAB Gender Identity Not on file Sexual Orientation Not on file Last Filed Vital Signs Vital Sign Reading Time Taken Comments Blood Pressure 153/41 08/19/2025 11:49 AM DIRECTOR OF CATH LAB Pulse 63 08/19/2025 11:49 AM DIRECTOR OF CATH LAB Temperature 36.2 C (97.2 F) 08/19/2025 11:49 AM DIRECTOR OF CATH LAB Respiratory Rate 16 08/19/2025 11:4 9 AM DIRECTOR OF CATH LAB Oxygen Saturation 97% 08/19/2025 11: 49 AM DIRECTOR OF CATH LAB Inhaled Oxygen Concentration - - Weight 114.4 kg (252 lb 3.3 oz) 08/19/2025 2:59 AM DIRECTOR OF CATH LAB Height 165.1 cm (5' 5) 08/07/2025 6:42 PM DIRECTOR OF CATH LAB Body Mass Index 41.97 08/07/2025 6:42 PM DIRECTOR OF CATH LAB Plan of Treatment Health Maintenance Due Date Last Done Comments Colon Cancer Screening-Colonoscopy 1950 Depression Screening 1950 Hepatitis C Screening 1950 DTaP/Tdap/Td Vaccine (1 - Tdap) 1961 Hepatitis B Screening 01/07/1968 Pneumococcal vaccine 65+ (1 of 2 - PCV) 1969 Zoster Vaccine (1 of 2) 01/07/2000 Well Visit 65+ 2015 Influenza Vaccine (#1) 2025 06/24/2020, 2012 Fall Risk Assessment 08/19/2026 08/19/2025 Colon Cancer Screening-FIT Discontinued 04/15/2019 Abdominal Aortic Aneurysm (AAA) Screen Completed , 04/07/2019 Medical Devices Implanted Type Area [employer] Device Identifier Shelf Expiration Date Model / Serial / Lot Wire In Chest N/A: Chest Procedures Procedure Name Priority Date/Time Associated Diagnosis Comments PULMONARY FUNCTION TEST (PFT) Routine 08/19/2025 9:37 AM DIRECTOR OF CATH LAB POC BLOOD GAS AND CHEMISTRIES, ARTERIAL Routine 08/19/2025 5:31 AM DIRECTOR OF CATH LAB EGFR Routine 08/19/2025 3:12 AM DIRECTOR OF CATH LAB DIFFERENTIAL AUTO Routine 08/19/2025 3:12 AM DIRECTOR OF CATH LAB CBC WITH AUTO DIFFERENTIAL Routine 08/19/2025 3:12 AM DIRECTOR OF CATH LAB BASIC METABOLIC PANEL Routine 08/19/2025 3:12 AM DIRECTOR OF CATH LAB HOME O2 EVAL (DESATURATION SCREEN) Routine 08/18/2025 8:16 AM DIRECTOR OF CATH LAB EGFR Routine 08/18/2025 3:21 AM DIRECTOR OF CATH LAB DIFFERENTIAL AUTO Routine 08/18/2025 3:21 AM DIRECTOR OF CATH LAB CBC WITH AUTO DIFFERENTIAL Routine 08/18/2025 3:21 AM DIRECTOR OF CATH LAB BASIC METABOLIC PANEL Routine 08/18/2025 3:21 AM DIRECTOR OF CATH LAB PULSE OXIMETRY STUDY Routine 08/17/2025 1:06 PM DIRECTOR OF CATH LAB EGFR Routine 08/17/2025 2:57 AM DIRECTOR OF CATH LAB DIFFERENTIAL AUTO Routine 08/17/2025 2:57 AM DIRECTOR OF CATH LAB CBC WITH AUTO DIFFERENTIAL Routine 08/17/2025 2:57 AM DIRECTOR OF CATH LAB BASIC METABOLIC PANEL Routine 08/17/2025 2:57 AM DIRECTOR OF CATH LAB CT CHEST WO CONTRAST IP Routine 08/16/2025 3:35 PM DIRECTOR OF CATH LAB NM PULMONARY PERFUSION IMAGING IP Routine 08/16/2025 3:17 PM DIRECTOR OF CATH LAB D-DIMER, QUANTITATIVE Routine 08/16/2025 10:44 AM DIRECTOR OF CATH LAB XR CHEST PA LATERAL 2 VIEWS Timed 08/16/2025 7:48 AM DIRECTOR OF CATH LAB EGFR Routine 08/16/2025 6:12 AM DIRECTOR OF CATH LAB DIFFERENTIAL AUTO Routine 08/16/2025 6:12 AM DIRECTOR OF CATH LAB CBC WITH AUTO DIFFERENTIAL Routine 08/16/2025 6:12 AM DIRECTOR OF CATH LAB BASIC METABOLIC PANEL Routine 08/16/2025 6:12 AM DIRECTOR OF CATH LAB EGFR Routine 08/15/2025 2:41 AM DIRECTOR OF CATH LAB DIFFERENTIAL AUTO Routine 08/15/2025 2:41 AM DIRECTOR OF CATH LAB CBC WITH AUTO DIFFERENTIAL Routine 08/15/2025 2:41 AM DIRECTOR OF CATH LAB BASIC METABOLIC PANEL Routine 08/15/2025 2:41 AM DIRECTOR OF CATH LAB XR CHEST PA LATERAL 2 VIEWS IP Routine 08/14/2025 4:48 PM DIRECTOR OF CATH LAB EGFR Routine 08/14/2025 6:48 AM DIRECTOR OF CATH LAB DIFFERENTIAL AUTO Routine 08/14/2025 6:48 AM DIRECTOR OF CATH LAB CBC WITH AUTO DIFFERENTIAL Routine 08/14/2025 6:48 AM DIRECTOR OF CATH LAB BASIC METABOLIC PANEL Routine 08/14/2025 6:48 AM DIRECTOR OF CATH LAB EGFR Routine 08/13/2025 2:56 AM DIRECTOR OF CATH LAB DIFFERENTIAL AUTO Routine 08/13/2025 2:56 AM DIRECTOR OF CATH LAB HEMOGLOBIN A1C Routine 08/13/2025 2:56 AM DIRECTOR OF CATH LAB BASIC METABOLIC PANEL Routine 08/13/2025 2:56 AM DIRECTOR OF CATH LAB CBC WITH AUTO DIFFERENTIAL Routine 08/13/2025 2:56 AM DIRECTOR OF CATH LAB EGFR Routine 08/12/2025 3:12 AM DIRECTOR OF CATH LAB DIFFERENTIAL AUTO Routine 08/12/2025 3:12 AM DIRECTOR OF CATH LAB BASIC METABOLIC PANEL Routine 08/12/2025 3:12 AM DIRECTOR OF CATH LAB CBC WITH AUTO DIFFERENTIAL Routine 08/12/2025 3:12 AM DIRECTOR OF CATH LAB EGFR Routine 08/11/2025 9:11 AM DIRECTOR OF CATH LAB DIFFERENTIAL AUTO Routine 08/11/2025 9:11 AM DIRECTOR OF CATH LAB BASIC METABOLIC PANEL Routine 08/11/2025 9:11 AM DIRECTOR OF CATH LAB CBC WITH AUTO DIFFERENTIAL Routine 08/11/2025 9:11 AM DIRECTOR OF CATH LAB POC BLOOD GAS AND CHEMISTRIES, ARTERIAL Routine 08/11/2025 6:14 AM DIRECTOR OF CATH LAB POC BLOOD GAS AND CHEMISTRIES, ARTERIAL Routine 08/10/2025 1:05 PM DIRECTOR OF CATH LAB POC BLOOD GAS AND CHEMISTRIES, ARTERIAL Routine 08/10/2025 8:53 AM DIRECTOR OF CATH LAB EGFR Routine 08/10/2025 5:48 AM DIRECTOR OF CATH LAB DIFFERENTIAL AUTO Routine 08/10/2025 5:48 AM DIRECTOR OF CATH LAB CBC WITH AUTO DIFFERENTIAL Routine 08/10/2025 5:48 AM DIRECTOR OF CATH LAB COMPREHENSIVE METABOLIC PANEL Routine 08/10/2025 5:48 AM DIRECTOR OF CATH LAB TRANSTHORACIC ECHO (TTE) COMPLETE W DOPPLER/CF WO CONTRAST Routine 08/09/2025 2:43 PM DIRECTOR OF CATH LAB EGFR Routine 08/09/2025 7:14 AM DIRECTOR OF CATH LAB DIFFERENTIAL AUTO Routine 08/09/2025 7:14 AM DIRECTOR OF CATH LAB CBC WITH AUTO DIFFERENTIAL Routine 08/09/2025 7:14 AM DIRECTOR OF CATH LAB COMPREHENSIVE METABOLIC PANEL Routine 08/09/2025 7:14 AM DIRECTOR OF CATH LAB EGFR Routine 08/08/2025 2:57 AM DIRECTOR OF CATH LAB DIFFERENTIAL AUTO Routine 08/08/2025 2:57 AM DIRECTOR OF CATH LAB CBC WITH AUTO DIFFERENTIAL Routine 08/08/2025 2:57 AM DIRECTOR OF CATH LAB PHOSPHORUS Routine 08/08/2025 2:57 AM DIRECTOR OF CATH LAB MAGNESIUM Routine 08/08/2025 2:57 AM DIRECTOR OF CATH LAB COMPREHENSIVE METABOLIC PANEL Routine 08/08/2025 2:57 AM DIRECTOR OF CATH LAB VITAMIN B12 Routine 08/08/2025 2:57 AM DIRECTOR OF CATH LAB FOLATE Routine 08/08/2025 2:57 AM DIRECTOR OF CATH LAB FERRITIN Routine 08/08/2025 2:57 AM DIRECTOR OF CATH LAB TROPONIN T HIGH-SENSITIVITY 4-HR Timed 08/07/2025 3:05 PM DIRECTOR OF CATH LAB TROPONIN T HIGH-SENSITIVITY 2-HOUR Timed 08/07/2025 12:19 PM DIRECTOR OF CATH LAB INFLUENZA A/B, RSV, AND COVID-19 PCR STAT 08/07/2025 12:14 PM DIRECTOR OF CATH LAB BLOOD CULTURE STAT 08/07/2025 12:14 PM DIRECTOR OF CATH LAB SEPSIS LACTATE WITH REFLEX STAT 08/07/2025 12:06 PM DIRECTOR OF CATH LAB PRO B-TYPE NATRIURETIC PEPTIDE STAT 08/07/2025 12:06 PM DIRECTOR OF CATH LAB BLOOD CULTURE STAT 08/07/2025 12:06 PM DIRECTOR OF CATH LAB XR CHEST 1 VIEW ED 08/07/2025 11:23 AM DIRECTOR OF CATH LAB PROTIME-INR Routine 08/07/2025 10:51 AM DIRECTOR OF CATH LAB COMPREHENSIVE METABOLIC PANEL STAT 08/07/2025 10:49 AM DIRECTOR OF CATH LAB EGFR STAT 08/07/2025 10:49 AM DIRECTOR OF CATH LAB DIFFERENTIAL AUTO STAT 08/07/2025 10:49 AM DIRECTOR OF CATH LAB TROPONIN T HIGH-SENSITIVITY SERIES (BASELINE, 2HR, 4HR, 6HR) STAT 08/07/2025 10:49 AM DIRECTOR OF CATH LAB CBC WITH AUTO DIFFERENTIAL STAT 08/07/2025 10:49 AM DIRECTOR OF CATH LAB ECG 12-LEAD STAT 08/07/2025 10:34 AM DIRECTOR OF CATH LAB BASIC METABOLIC PANEL Routine 07/08/2025 9:44 AM DIRECTOR OF CATH LAB Stage 4 chronic kidney disease (HCC) 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) Secondary hyperparathyroidism HEMOGLOBIN AND HEMATOCRIT Routine 07/08/2025 9:44 AM DIRECTOR OF CATH LAB Stage 4 chronic kidney disease (HCC) 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) Secondary hyperparathyroidism IRON PROFILE W/ IBC Routine 07/08/2025 9:44 AM DIRECTOR OF CATH LAB Stage 4 chronic kidney disease (HCC) 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) Secondary hyperparathyroidism PTH Routine 07/08/2025 9:44 AM DIRECTOR OF CATH LAB Stage 4 chronic kidney disease (HCC) 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) Secondary hyperparathyroidism SD AN PROCEDURE PLACEHOLDER Routine 06/24/2025 10:41 AM CDT SD AN ELECTIVE SUPRAGLOTTIC AIRWAY Routine 06/24/2025 10:41 AM CDT CREATION ARTERIOVENOUS FISTULA - ARM 06/24/2025 10:15 AM CDT ESRD (end stage renal disease) on dialysis (HCC) EGFR STAT 06/24/2025 8:46 AM CDT DIFFERENTIAL AUTO STAT 06/24/2025 8:46 AM CDT BASIC METABOLIC PANEL STAT 06/24/2025 8:46 AM CDT CBC WITH AUTO DIFFERENTIAL STAT 06/24/2025 8:46 AM CDT ECG 12-LEAD STAT 06/24/2025 8:24 AM CDT DIFFERENTIAL AUTO Routine 06/21/2025 2:19 PM CDT Anemia in [...] CKD stage 4 secondary to hypertension (HCC) CT ABDOMEN W WO CONTRAST 05/04/2019 12:00 AM CDT OCCULT BLOOD, FECAL (FIT) Routine 04/15/2019 6:00 AM CDT from Last 3 Months or Most Recently Relevant to Health Maintenance Results * Pulmonary Function Test -[facility]; Bedside PFT Pre/Post - Flow Vol Loop (08/19/2025 9:37 AM DIRECTOR OF CATH LAB) Anatomical Region Laterality Modality PFT Narrative 08/20/2025 10:22 PM DIRECTOR OF CATH LAB Spirometry shows proportionate decrease in FEV1 and FVC suggestive of restrictive pattern. No significant response to bronchodilators. If clinically indicated full set of PFTs with lung volumes and gas exchange capacity is suggested. Electronically signed by Geronimo Valdes MD Result [facility] Geronimo Valdes MD PFT ORDERABLES Final Result * (ABNORMAL) POC Blood Gas and Chemistries, Arterial - (08/19/2025 5:31 AM DIRECTOR OF CATH LAB) pH, art POC 7.49(H) 7.35 - 7.45 pCO2, art POC 45 35 - 45 mmHg [facility] pO2, art POC 97 83 - 108 mmHg [facility] HCO3, art (Calc) POC 34(H) 20 - 30 mmol/L [facility] Base excess, art POC 10 mmol/L [facility] Comment: Interpretive Data No reference range established. Current interpretive data was last revised 2020. O2 Sat, art (Calc) POC 98 94 - 98 % [facility] Oxy Hgb, art POC 95.8(H) 90.0 - 95.0 % [facility] Met Hgb, art POC 0.8 0.0 - 1.9 % [facility] Carboxy Hgb, art POC 1.5 0.0 - 2.9 % [facility] Hemoglobin, art POC 10.7(L) 13.0 - 17.5 g/dL [facility] Blood 08/19/2025 5:31 AM DIRECTOR OF CATH LAB 08/19/2025 5:31 AM DIRECTOR OF CATH LAB Bakari Hines MD LAB POCT ORDERABL ES - DEVICE Final Result [facility] [address] [facility] Department [place] [address] * (ABNORMAL) eGFR (08/19/2025 3:12 AM DIRECTOR OF CATH LAB) eGFR 9(L) >=60 mL/min/1. 73 m2 Comment: Interpretive Data [...] interpretive data was last reviewed 2021. Blood 08/19/2025 3:12 AM DIRECTOR OF CATH LAB 08/19/2025 3:26 AM DIRECTOR OF CATH LAB Bakari Hines MD LAB BLOOD ORDERAB LES Final Result [facility] [address] [facility] Department [place] [address] * (ABNORMAL) Differential, auto (08/19/2025 3:12 AM DIRECTOR OF CATH LAB) Pathologist [facility] Neutrophil abs 10.38(H) 1.50 - 6.50 K/cumm Imm gran abs 0.17(H) 0.00 - 0.10 K/cumm [facility] Lymphocyte abs 0.73(L) 0.80 - 3.30 K/cumm [facility] Monocyte abs 1.06(H) 0.20 - 0.80 K/cumm [facility] Eosinophil abs 0.30 0.00 - 0.50 K/cumm [facility] Basophil abs 0.04 0.00 - 0.10 K/cumm [facility] Neutrophil pct 81.8 % [facility] Comment: Interpretive Data Percent cell count reference ranges are not reported, since discordance with absolute values may lead to misinterpretation of CBC data. Current Interpretive Data was last revised on 2017. Imm gran pct 1.3 % [facility] Comment: Interpretive Data Percent cell count reference ranges are not reported, since discordance with absolute values may lead to misinterpretation of CBC data. Current Interpretive Data was last revised on 2017. Lymphocyte pct 5.8 % [facility] Comment: Interpretive Data Percent cell count reference ranges are not reported, since discordance with absolute values may lead to misinterpretation of CBC data. Current Interpretive Data was last revised on 2017. Monocyte pct 8.4 % [facility] Comment: Interpretive Data Percent cell count reference ranges are not reported, since discordance with absolute values may lead to misinterpretation of CBC data. Current Interpretive Data was last revised on 2017. Eosinophil pct 2.4 % [facility] Comment: Interpretive Data Percent cell count reference ranges are not reported, since discordance with absolute values may lead to misinterpretation of CBC data. Current Interpretive Data was last revised on 2017. Basophil pct 0.3 % [facility] Comment: Interpretive Data Percent cell count reference ranges are not reported, since discordance with absolute values may lead to misinterpretation of CBC data. Current Interpretive Data was last revised on 2017. Blood 08/19/2025 3:12 AM DIRECTOR OF CATH LAB 08/19/2025 3:26 AM DIRECTOR OF CATH LAB Bakari Hines MD LAB BLOOD ORDERAB LES Final Result [place] [id number] [facility] Department [place] [address] * (ABNORMAL) CBC with auto differential (08/19/2025 3:12 AM DIRECTOR OF CATH LAB) WBC 12.68(H) 3.80 - 9.90 K/cumm Hgb 10.0(L) 13.0 - 17.5 g/dL [facility] Hct 30.7(L) 38.9 - 50.3 % [facility] Plt 180 150 - 400 K/cumm [facility] MPV 11.9 9.1 - 12.3 fL [facility] RBC 3.48(L) 4.30 - 5.80 M/cumm [facility] MCV 88.2 81.3 - 96.4 fL [facility] MCH 28.7 27.1 - 33.3 pg [facility] MCHC 32.6 32.3 - 35.7 g/dL [facility] RDW CV 16.1(H) 11.1 - 14.9 % [facility] RDW SD 51.4(H) 35.7 - 48.1 fL [facility] NRBC abs 0.00 0.00 - 0.01 K/cumm [facility] Blood 08/19/2025 3:12 AM DIRECTOR OF CATH LAB 08/19/2025 3:26 AM DIRECTOR OF CATH LAB Bakari Hines MD LAB BLOOD ORDERAB LES Final Result Performing Organization Address City/[facility]/ZIP Co de Phone Number [facility] [address] [facility] [place] [employer] [place] [address] * (ABNORMAL) Basic metabolic panel (08/19/2025 3:12 AM DIRECTOR OF CATH LAB) [facility] Sodium 137 135 - 145 mmol/L Potassium, pl 3.6 3.3 - 4.9 mmol/L [facility] Comment:Hemolyzed; Potassium value may be falsely elevated by as much as 1.0 mmol/L. Suggest redraw and reanalysis. Chloride 87(L) 97 - 110 mmol/L [facility] CO2 30 22 - 32 mmol/L [facility] Anion gap 20(H) 2 - 15 mmol/L [facility] BUN 125(H) 6 - 25 mg/dL [facility] Creatinine 6.37(H) 0.80 - 1.30 mg/dL [facility] Glucose 113 70 - 199 mg/dL [facility] Comment: Interpretive Data Fasting glucose >/= 126 [...] 2022. Calcium 9.8 8.5 - 10.3 mg/dL [facility] Blood 08/19/2025 3:12 AM DIRECTOR OF CATH LAB 08/19/2025 3:26 AM DIRECTOR OF CATH LAB Bakari Hines MD LAB BLOOD ORDERAB LES Final Result [place] [address] [facility] Department [place] [employer] [place] [address] * (ABNORMAL) eGFR (08/18/2025 3:21 AM DIRECTOR OF CATH LAB) [facility] eGFR 9(L) >=60 mL/min/1. 73 m2 Comment: Interpretive Data [...] interpretive data was last reviewed 2021. Blood 08/18/2025 3:21 AM DIRECTOR OF CATH LAB 08/18/2025 3:29 AM DIRECTOR OF CATH LAB us Bakari Hines MD LAB BLOOD ORDERAB LES Final Result [place] [id number] [facility] Department [place] [address] * (ABNORMAL) Differential, auto (08/18/2025 3:21 AM DIRECTOR OF CATH LAB) Neutrophil abs 11.03(H) 1.50 - 6.50 K/cumm Imm gran abs 0.27(H) 0.00 - 0.10 K/cumm [facility] Lymphocyte abs 0.71(L) 0.80 - 3.30 K/cumm [facility] Monocyte abs 1.24(H) 0.20 - 0.80 K/cumm [facility] Eosinophil abs 0.36 0.00 - 0.50 K/cumm [facility] Basophil abs 0.04 0.00 - 0.10 K/cumm [facility] Neutrophil pct 80.8 % [facility] Comment: Interpretive Data Percent cell count reference ranges are not reported, since discordance with absolute values may lead to misinterpretation of CBC data. Current Interpretive Data was last revised on 2017. Imm gran pct 2.0 % [facility] Comment: Interpretive Data Percent cell count reference ranges are not reported, since discordance with absolute values may lead to misinterpretation of CBC data. Current Interpretive Data was last revised on 2017. Lymphocyte pct 5.2 % [facility] Comment: Interpretive Data Percent cell count reference ranges are not reported, since discordance with absolute values may lead to misinterpretation of CBC data. Current Interpretive Data was last revised on 2017. Monocyte pct 9.1 % [facility] Comment: Interpretive Data Percent cell count reference ranges are not reported, since discordance with absolute values may lead to misinterpretation of CBC data. Current Interpretive Data was last revised on 2017. Eosinophil pct 2.6 % [facility] Comment: Interpretive Data Percent cell count reference ranges are not reported, since discordance with absolute values may lead to misinterpretation of CBC data. Current Interpretive Data was last revised on 2017. Basophil pct 0.3 % [facility] Comment: Interpretive Data Percent cell count reference ranges are not reported, since discordance with absolute values may lead to misinterpretation of CBC data. Current Interpretive Data was last revised on 2017. Blood 08/18/2025 3:21 AM DIRECTOR OF CATH LAB 08/18/2025 3:29 AM DIRECTOR OF CATH LAB us Bakari Hines MD LAB BLOOD ORDERAB LES Final Result [facility] [address] [facility] Department of Laboratories [place], [place] [id number] * (ABNORMAL) CBC with auto differential (08/18/2025 3:21 AM DIRECTOR OF CATH LAB) WBC 13.65(H) 3.80 - 9.90 K/cumm Hgb 9.1(L) 13.0 - 17.5 g/dL [facility] Hct 27.8(L) 38.9 - 50.3 % [facility] Plt 181 150 - 400 K/cumm [facility] MPV 12.3 9.1 - 12.3 fL [facility] RBC 3.21(L) 4.30 - 5.80 M/cumm [facility] MCV 86.6 81.3 - 96.4 fL [facility] MCH 28.3 27.1 - 33.3 pg [facility] MCHC 32.7 32.3 - 35.7 g/dL [facility] RDW CV 15.7(H) 11.1 - 14.9 % [facility] RDW SD 48.5(H) 35.7 - 48.1 fL [facility] NRBC abs 0.00 0.00 - 0.01 K/cumm [facility] Blood 08/18/2025 3:21 AM DIRECTOR OF CATH LAB 08/18/2025 3:29 AM DIRECTOR OF CATH LAB us Bakari Hines MD LAB BLOOD ORDERAB LES Final Result [facility] [address] [facility] Department [place] [address] * (ABNORMAL) Basic metabolic panel (08/18/2025 3:21 AM DIRECTOR OF CATH LAB) Sodium 137 135 - 145 mmol/L Potassium, pl 3.6 3.3 - 4.9 mmol/L [facility] Chloride 89(L) 97 - 110 mmol/L [facility] CO2 33(H) 22 - 32 mmol/L [facility] Anion gap 15 2 - 15 mmol/L [facility] BUN 123(H) 6 - 25 mg/dL [facility] Creatinine 6.27(H) 0.80 - 1.30 mg/dL [facility] Glucose 112 70 - 199 mg/dL [facility] Comment: Interpretive Data Fasting glucose >/= 126 [...] classification and Diagnosis of Diabetes Diabetes Care 2021; 46: [id number]. Current interpretive data was last revised 2022. Calcium 9.5 8.5 - 10.3 mg/dL [facility] Blood 08/18/2025 3:21 AM DIRECTOR OF CATH LAB 08/18/2025 3:29 AM DIRECTOR OF CATH LAB Bakari Hines MD LAB BLOOD ORDERAB LES Final Result Performing Organization Address [facility] Co de Phone Number KELL[address] [employer] [address] * (ABNORMAL) eGFR (08/17/2025 2:57 AM DIRECTOR OF CATH LAB) eGFR 9(L) >=60 mL/min/1. 73 m2 Comment: Interpretive Data [...] interpretive data was last reviewed 2021. Blood 08/17/2025 2:57 AM DIRECTOR OF CATH LAB 08/17/2025 3:24 AM DIRECTOR OF CATH LAB Bakari Hines MD LAB BLOOD ORDERAB LES Final Result Performing Organization Address City/[facility]/ZIP Co de Phone Number [address] [place] [address] * (ABNORMAL) Differential, auto (08/17/2025 2:57 AM DIRECTOR OF CATH LAB) Neutrophil abs 10.04(H) 1.50 - 6.50 K/cumm Imm gran abs 0.23(H) 0.00 - 0.10 K/cumm [facility] Lymphocyte abs 0.74(L) 0.80 - 3.30 K/cumm [facility] Monocyte abs 1.21(H) 0.20 - 0.80 K/cumm [facility] Eosinophil abs 0.37 0.00 - 0.50 K/cumm [facility] Basophil abs 0.05 0.00 - 0.10 K/cumm [facility] Neutrophil pct 79.4 % [facility] Comment: Interpretive Data Percent cell count reference ranges are not reported, since discordance with absolute values may lead to misinterpretation of CBC data. Current Interpretive Data was last revised on 2017. Imm gran pct 1.8 % [facility] Comment: Interpretive Data Percent cell count reference ranges are not reported, since discordance with absolute values may lead to misinterpretation of CBC data. Current Interpretive Data was last revised on 2017. Lymphocyte pct 5.9 % [facility] Comment: Interpretive Data Percent cell count reference ranges are not reported, since discordance with absolute values may lead to misinterpretation of CBC data. Current Interpretive Data was last revised on 2017. Monocyte pct 9.6 % [facility] Comment: Interpretive Data Percent cell count reference ranges are not reported, since discordance with absolute values may lead to misinterpretation of CBC data. Current Interpretive Data was last revised on 2017. Eosinophil pct 2.9 % [facility] Comment: Interpretive Data Percent cell count reference ranges are not reported, since discordance with absolute values may lead to misinterpretation of CBC data. Current Interpretive Data was last revised on 2017. Basophil pct 0.4 % [facility] Comment: Interpretive Data Percent cell count reference ranges are not reported, since discordance with absolute values may lead to misinterpretation of CBC data. Current Interpretive Data was last revised on 2017. Blood 08/17/2025 2:57 AM DIRECTOR OF CATH LAB 08/17/2025 3:24 AM DIRECTOR OF CATH LAB us Bakari Hines MD LAB BLOOD ORDERAB LES Final Result [place] [address] [facility] Department [place] [address] * (ABNORMAL) CBC with auto differential (08/17/2025 2:57 AM DIRECTOR OF CATH LAB) [facility] WBC 12.64(H) 3.80 - 9.90 K/cumm Hgb 8.6(L) 13.0 - 17.5 g/dL [facility] Hct 26.6(L) 38.9 - 50.3 % [facility] Plt 185 150 - 400 K/cumm [facility] MPV 12.6(H) 9.1 - 12.3 fL [facility] RBC 3.06(L) 4.30 - 5.80 M/cumm [facility] MCV 86.9 81.3 - 96.4 fL [facility] MCH 28.1 27.1 - 33.3 pg [facility] MCHC 32.3 32.3 - 35.7 g/dL [facility] RDW CV 15.8(H) 11.1 - 14.9 % [facility] RDW SD 48.9(H) 35.7 - 48.1 fL [facility] NRBC abs 0.02(H) 0.00 - 0.01 K/cumm [facility] Blood 08/17/2025 2:57 AM DIRECTOR OF CATH LAB 08/17/2025 3:24 AM DIRECTOR OF CATH LAB us Bakari Hines MD LAB BLOOD ORDERAB LES Final Result [facility] [address] [facility] Department [place] [address] * (ABNORMAL) Basic metabolic panel (08/17/2025 2:57 AM DIRECTOR OF CATH LAB) [facility] Sodium 136 135 - 145 mmol/L Potassium, pl 3.3 3.3 - 4.9 mmol/L [facility] Chloride 89(L) 97 - 110 mmol/L [facility] CO2 30 22 - 32 mmol/L [facility] Anion gap 17(H) 2 - 15 mmol/L [facility] BUN 126(H) 6 - 25 mg/dL [facility] Creatinine 5.96(H) 0.80 - 1.30 mg/dL [facility] Glucose 106 70 - 199 mg/dL [facility] Comment: Interpretive Data Fasting glucose >/= 126 [...] classification and Diagnosis of Diabetes Diabetes Care 2021; 46: [id number]. Current interpretive data was last revised 2022. Calcium 9.4 8.5 - 10.3 mg/dL [facility] Blood 08/17/2025 2:57 AM DIRECTOR OF CATH LAB 08/17/2025 3:24 AM DIRECTOR OF CATH LAB us Bakari Hines MD LAB BLOOD ORDERAB LES Final Result [facility] [address] [facility] Department [place] [address] * CT Chest WO Contrast (08/16/2025 3:35 PM DIRECTOR OF CATH LAB) Anatomical Region Laterality Modality Body N/A Computed Tomogra phy 08/16/2025 5:05 PM DIRECTOR OF CATH LAB Impressions 08/16/2025 5:05 PM DIRECTOR OF CATH LAB 1. Trace bilateral pleural effusions with subsegmental atelectasis. 2. Few new solid and part solid pulmonary nodules measuring up to 9 mm. These could represent infectious or inflammatory nodules, however recommend 3 month follow-up CT chest to ensure resolution. 3. Mild emphysema. 4. A 4.3 cm cystic mass in the head of the pancreas appears grossly unchanged but is not well evaluated on this study. Correlate with prior MRIs if available. 5. Additional findings as above. Electronically signed by: Dao Dodson MD Narrative 08/16/2025 5:05 PM DIRECTOR OF CATH LAB EXAMINATION: CT CHEST WO CONTRAST HISTORY: Respiratory illness, nondiagnostic xray TECHNIQUE: Transaxial computed tomographic images of the chest were obtained without intravenous contrast. COMPARISON: CT chest 04/12/2019 FINDINGS: The sensitivity for detection of visceral lesions is diminished without the use of intravenous contrast. LUNGS: There are trace bilateral pleural effusions. There is no pneumothorax. There are mild emphysematous changes to the lungs. The central airways are patent. There is bibasilar subsegmental atelectasis. There are no definite findings of pneumonia. There is a 5 mm solid nodule in the right upper lobe on image 43. There is also a new 5 mm solid nodule in the right lower lobe on image 62. There is a new 9 mm groundglass/part solid nodule in the right upper lobe on image 43. HEART: Heart size is borderline enlarged. No pericardial effusion. Extensive coronary artery calcification is present. There has been a prior CABG. VASCULATURE: There is a large amount of calcified plaque in the thoracic aorta without aneurysm. MEDIASTINUM/AXILLA: No mass or lymphadenopathy. CHEST WALL: No masses. HARDWARE/LINES/TUBES: Median sternotomy wires are present. UPPER ABDOMEN: There are changes of chronic pancreatitis. There is a 4.3 cm low-attenuation mass in the head of the pancreas, unchanged since 2019. MUSCULOSKELETAL: There are no suspicious osseous lesions. There our degenerative changes throughout the thoracic spine. There is dehiscence of the lower portion of the median sternotomy. There is an old healed right humeral neck fracture. Procedure Note Dao Dodson MD - 08/16/2025 EXAMINATION: CT CHEST WO CONTRAST HISTORY: Respiratory illness, nondiagnostic xray TECHNIQUE: Transaxial computed tomographic images of the chest were obtained without intravenous contrast. COMPARISON: CT chest 04/12/2019 FINDINGS: The sensitivity for detection of visceral lesions is diminished without the use of intravenous contrast. LUNGS: There are trace bilateral pleural effusions. There is no pneumothorax. There are mild emphysematous changes to the lungs. The central airways are patent. There is bibasilar subsegmental atelectasis. There are no definite findings of pneumonia. There is a 5 mm solid nodule in the right upper lobe on image 43. There is also a new 5 mm solid nodule in the right lower lobe on image 62. There is a new 9 mm groundglass/part solid nodule in the right upper lobe on image 43. HEART: Heart size is borderline enlarged. No pericardial effusion. Extensive coronary artery calcification is present. There has been a prior CABG. VASCULATURE: There is a large amount of calcified plaque in the thoracic aorta without aneurysm. MEDIASTINUM/AXILLA: No mass or lymphadenopathy. CHEST WALL: No masses. HARDWARE/LINES/TUBES: Median sternotomy wires are present. UPPER ABDOMEN: There are changes of chronic pancreatitis. There is a 4.3 cm low-attenuation mass in the head of the pancreas, unchanged since 2019. MUSCULOSKELETAL: There are no suspicious osseous lesions. There our degenerative changes throughout the thoracic spine. There is dehiscence of the lower portion of the median sternotomy. There is an old healed right humeral neck fracture. IMPRESSION: 1. Trace bilateral pleural effusions with subsegmental atelectasis. 2. Few new solid and part solid pulmonary nodules measuring up to 9 mm. These could represent infectious or inflammatory nodules, however recommend 3 month follow-up CT chest to ensure resolution. 3. Mild emphysema. 4. A 4.3 cm cystic mass in the head of the pancreas appears grossly unchanged but is not well evaluated on this study. Correlate with prior MRIs if available. 5. Additional findings as above. Electronically signed by: Dao Dodson MD Bakari Hines MD IMG CT PROCEDURES Final Result * NM Pulmonary Perfusion Imaging (08/16/2025 3:17 PM DIRECTOR OF CATH LAB) Anatomical Region Laterality Modality Body N/A Nuclear Medicine 08/16/2025 3:34 PM DIRECTOR OF CATH LAB Impressions 08/16/2025 3:34 PM DIRECTOR OF CATH LAB 1. Low probability for pulmonary embolism. Electronically signed by: Miguelito Manning M.D. Narrative 08/16/2025 3:34 PM DIRECTOR OF CATH LAB EXAM DESCRIPTION: NM PULMONARY PERFUSION IMAGING RADIOPHARMACEUTICAL: 3 mCi Tc-99m MAA via a left antecubital IV site REASON FOR STUDY: Shortness of breath. TECHNIQUE: Standard multi-planar perfusion scintigrams were obtained. Ventilation images were not obtained secondary to current protocol. COMPARISON: Chest radiograph 08/16/2025, CT chest 08/16/2025 FINDINGS: Fusion images obtained in multiple projections show enlargement of the cardiomediastinal silhouette. There are no large segmental perfusion defects to suggest pulmonary embolism. Procedure Note Miguelito Manning MD - 08/16/2025 EXAM DESCRIPTION: NM PULMONARY PERFUSION IMAGING RADIOPHARMACEUTICAL: 3 mCi Tc-99m MAA via a left antecubital IV site REASON FOR STUDY: Shortness of breath. TECHNIQUE: Standard multi-planar perfusion scintigrams were obtained. Ventilation images were not obtained secondary to current protocol. COMPARISON: Chest radiograph 08/16/2025, CT chest 08/16/2025 FINDINGS: Fusion images obtained in multiple projections show enlargement of the cardiomediastinal silhouette. There are no large segmental perfusion defects to suggest pulmonary embolism. IMPRESSION: 1. Low probability for pulmonary embolism. Electronically signed by: Miguelito Manning M.D. Bakari Hines MD IM NM PROCEDURES Final Result * (ABNORMAL) D-dimer, quantitative (08/16/2025 10:44 AM DIRECTOR OF CATH LAB) D-Dimer 1,340(H) <=499 ng/mL FEU Comment: Interpretive data FDA approved the D-dimer, in conjunction with a low or moderate pretest probability score, to exclude venous thromboembolic events (VTE) (PE and DVT) in outpatients when the D-dimer result is < 500 ng/ml FEU. Evidence supports using an age-adjusted D-dimer cut-off for outpatients older than 50 (age x 10) to improve specificity without sacrificing sensitivity. Example: age 68, VTE cut-off 680 ng/ml FEU. References; Schouten HT et al. Brit Med J. 2013;346:f2492. Darrell et al. Annals Int Med. 2015;163:701-11. Current interpretive data was last revised on 2019. Blood 08/16/2025 10:4 4 AM DIRECTOR OF CATH LAB 08/16/2025 10:50 AM DIRECTOR OF CATH LAB Bakari Hines MD LAB BLOOD ORDERAB LES Final Result [facility] [address] [facility] Department [place] [address] * XR Chest PA Lateral 2 Views (08/16/2025 7:48 AM DIRECTOR OF CATH LAB) Anatomical Region Laterality Modality Body, Chest N/A Computed Radiogr aphy 08/16/2025 7:53 AM DIRECTOR OF CATH LAB Impressions 08/16/2025 7:53 AM DIRECTOR OF CATH LAB No acute cardiopulmonary abnormality. Unchanged cardiomegaly. Electronically signed by: Yong Segundo M.D. Narrative 08/16/2025 7:53 AM DIRECTOR OF CATH LAB EXAMINATION: XR CHEST PA LATERAL 2 VIEWS HISTORY: dyspnea TECHNIQUE: Frontal and lateral views of the chest. COMPARISON: 08/14/2025 FINDINGS: Cardiac silhouette is enlarged, unchanged. No focal consolidation. No pleural effusion or pneumothorax. Median sternotomy wires. Procedure Note Yong Segundo MD - 08/16/2025 EXAMINATION: XR CHEST PA LATERAL 2 VIEWS HISTORY: dyspnea TECHNIQUE: Frontal and lateral views of the chest. COMPARISON: 08/14/2025 FINDINGS: Cardiac silhouette is enlarged, unchanged. No focal consolidation. No pleural effusion or pneumothorax. Median sternotomy wires. IMPRESSION: No acute cardiopulmonary abnormality. Unchanged cardiomegaly. Electronically signed by: Yong Segundo M.D. Bakari Hines MD IMG XR PROCEDURES Final Result * (ABNORMAL) eGFR (08/16/2025 6:12 AM DIRECTOR OF CATH LAB) eGFR 9(L) >=60 mL/min/1. 73 m2 Comment: Interpretive Data [...] interpretive data was last reviewed 2021. Blood 08/16/2025 6:12 AM DIRECTOR OF CATH LAB 08/16/2025 6:16 AM DIRECTOR OF CATH LAB us Bakari Hines MD LAB BLOOD ORDERAB LES Final Result [facility] [address] [facility] Department [place] [address] * (ABNORMAL) Differential, auto (08/16/2025 6:12 AM DIRECTOR OF CATH LAB) Pathologist [facility] Neutrophil abs 10.66(H) 1.50 - 6.50 K/cumm Imm gran abs 0.20(H) 0.00 - 0.10 K/cumm [facility] Lymphocyte abs 0.55(L) 0.80 - 3.30 K/cumm [facility] Monocyte abs 1.13(H) 0.20 - 0.80 K/cumm [facility] Eosinophil abs 0.41 0.00 - 0.50 K/cumm [facility] Basophil abs 0.04 0.00 - 0.10 K/cumm [facility] Neutrophil pct 82.1 % [facility] Comment: Interpretive Data Percent cell count reference ranges are not reported, since discordance with absolute values may lead to misinterpretation of CBC data. Current Interpretive Data was last revised on 2017. Imm gran pct 1.5 % [facility] Comment: Interpretive Data Percent cell count reference ranges are not reported, since discordance with absolute values may lead to misinterpretation of CBC data. Current Interpretive Data was last revised on 2017. Lymphocyte pct 4.2 % [facility] Comment: Interpretive Data Percent cell count reference ranges are not reported, since discordance with absolute values may lead to misinterpretation of CBC data. Current Interpretive Data was last revised on 2017. Monocyte pct 8.7 % [facility] Comment: Interpretive Data Percent cell count reference ranges are not reported, since discordance with absolute values may lead to misinterpretation of CBC data. Current Interpretive Data was last revised on 2017. Eosinophil pct 3.2 % [facility] Comment: Interpretive Data Percent cell count reference ranges are not reported, since discordance with absolute values may lead to misinterpretation of CBC data. Current Interpretive Data was last revised on 2017. Basophil pct 0.3 % [facility] Comment: Interpretive Data Percent cell count reference ranges are not reported, since discordance with absolute values may lead to misinterpretation of CBC data. Current Interpretive Data was last revised on 2017. Blood 08/16/2025 6:12 AM DIRECTOR OF CATH LAB 08/16/2025 6:16 AM DIRECTOR OF CATH LAB us Bakari Hines MD LAB BLOOD ORDERAB LES Final Result [place] [id number] [facility] Department [place] [address] * (ABNORMAL) CBC with auto differential (08/16/2025 6:12 AM DIRECTOR OF CATH LAB) WBC 12.99(H) 3.80 - 9.90 K/cumm Hgb 8.9(L) 13.0 - 17.5 g/dL [facility] Hct 27.3(L) 38.9 - 50.3 % [facility] Plt 171 150 - 400 K/cumm [facility] MPV 12.0 9.1 - 12.3 fL [facility] RBC 3.13(L) 4.30 - 5.80 M/cumm [facility] MCV 87.2 81.3 - 96.4 fL [facility] MCH 28.4 27.1 - 33.3 pg [facility] MCHC 32.6 32.3 - 35.7 g/dL [facility] RDW CV 15.5(H) 11.1 - 14.9 % [facility] RDW SD 48.0 35.7 - 48.1 fL [facility] NRBC abs 0.00 0.00 - 0.01 K/cumm [facility] Blood 08/16/2025 6:12 AM DIRECTOR OF CATH LAB 08/16/2025 6:16 AM DIRECTOR OF CATH LAB us Bakari Hines MD LAB BLOOD ORDERAB LES Final Result [place] [address] [address] * (ABNORMAL) Basic metabolic panel (08/16/2025 6:12 AM DIRECTOR OF CATH LAB) [facility] Sodium 138 135 - 145 mmol/L Potassium, pl 3.6 3.3 - 4.9 mmol/L [facility] Chloride 91(L) 97 - 110 mmol/L [facility] CO2 30 22 - 32 mmol/L [facility] Anion gap 17(H) 2 - 15 mmol/L [facility] BUN 133(H) 6 - 25 mg/dL [facility] Creatinine 6.11(H) 0.80 - 1.30 mg/dL [facility] Glucose 119 70 - 199 mg/dL [facility] Comment: Interpretive Data Fasting glucose >/= 126 [...] classification and Diagnosis of Diabetes Diabetes Care 2021; 46: S19-S40. Current interpretive data was last revised 2022. Calcium 9.4 8.5 - 10.3 mg/dL [facility] Blood 08/16/2025 6:12 AM DIRECTOR OF CATH LAB 08/16/2025 6:16 AM DIRECTOR OF CATH LAB us Bakari Hines MD LAB BLOOD ORDERAB LES Final Result [facility] [employer] [address] * (ABNORMAL) eGFR (08/15/2025 2:41 AM DIRECTOR OF CATH LAB) [facility] eGFR 9(L) >=60 mL/min/1. 73 m2 Comment: Interpretive Data [...] interpretive data was last reviewed 2021. Blood 08/15/2025 2:41 AM DIRECTOR OF CATH LAB 08/15/2025 3:34 AM DIRECTOR OF CATH LAB us Bakari Hines MD LAB BLOOD ORDERAB LES Final Result [place] [address] [facility] Department [place] [address] * (ABNORMAL) Differential, auto (08/15/2025 2:41 AM DIRECTOR OF CATH LAB) Neutrophil abs 8.65(H) 1.50 - 6.50 K/cumm Imm gran abs 0.11(H) 0.00 - 0.10 K/cumm [facility] Lymphocyte abs 0.54(L) 0.80 - 3.30 K/cumm [facility] Monocyte abs 0.83(H) 0.20 - 0.80 K/cumm [facility] Eosinophil abs 0.35 0.00 - 0.50 K/cumm [facility] Basophil abs 0.02 0.00 - 0.10 K/cumm [facility] Neutrophil pct 82.5 % [facility] Comment: Interpretive Data Percent cell count reference ranges are not reported, since discordance with absolute values may lead to misinterpretation of CBC data. Current Interpretive Data was last revised on 2017. Imm gran pct 1.0 % [facility] Comment: Interpretive Data Percent cell count reference ranges are not reported, since discordance with absolute values may lead to misinterpretation of CBC data. Current Interpretive Data was last revised on 2017. Lymphocyte pct 5.1 % [facility] Comment: Interpretive Data Percent cell count reference ranges are not reported, since discordance with absolute values may lead to misinterpretation of CBC data. Current Interpretive Data was last revised on 2017. Monocyte pct 7.9 % [facility] Comment: Interpretive Data Percent cell count reference ranges are not reported, since discordance with absolute values may lead to misinterpretation of CBC data. Current Interpretive Data was last revised on 2017. Eosinophil pct 3.3 % [facility] Comment: Interpretive Data Percent cell count reference ranges are not reported, since discordance with absolute values may lead to misinterpretation of CBC data. Current Interpretive Data was last revised on 2017. Basophil pct 0.2 % [facility] Comment: Interpretive Data Percent cell count reference ranges are not reported, since discordance with absolute values may lead to misinterpretation of CBC data. Current Interpretive Data was last revised on 2017. Blood 08/15/2025 2:41 AM DIRECTOR OF CATH LAB 08/15/2025 3:34 AM DIRECTOR OF CATH LAB us Bakari Hines MD LAB BLOOD ORDERAB LES Final Result [facility] [address] [facility] Department [place] [address] * (ABNORMAL) CBC with auto differential (08/15/2025 2:41 AM DIRECTOR OF CATH LAB) WBC 10.50(H) 3.80 - 9.90 K/cumm Hgb 7.8(L) 13.0 - 17.5 g/dL [facility] Hct 23.8(L) 38.9 - 50.3 % [facility] Plt 178 150 - 400 K/cumm [facility] MPV 12.6(H) 9.1 - 12.3 fL [facility] RBC 2.74(L) 4.30 - 5.80 M/cumm [facility] MCV 86.9 81.3 - 96.4 fL [facility] MCH 28.5 27.1 - 33.3 pg [facility] MCHC 32.8 32.3 - 35.7 g/dL [facility] RDW CV 15.5(H) 11.1 - 14.9 % [facility] RDW SD 47.6 35.7 - 48.1 fL [facility] NRBC abs 0.00 0.00 - 0.01 K/cumm [facility] Blood 08/15/2025 2:41 AM DIRECTOR OF CATH LAB 08/15/2025 3:34 AM DIRECTOR OF CATH LAB us Bakari Hines MD LAB BLOOD ORDERAB LES Final Result [facility] [address] [facility] Department [place] [address] * (ABNORMAL) Basic metabolic panel (08/15/2025 2:41 AM DIRECTOR OF CATH LAB) Sodium 136 135 - 145 mmol/L Potassium, pl 3.6 3.3 - 4.9 mmol/L [facility] Chloride 92(L) 97 - 110 mmol/L [facility] CO2 27 22 - 32 mmol/L [facility] Anion gap 17(H) 2 - 15 mmol/L [facility] BUN 126(H) 6 - 25 mg/dL [facility] Creatinine 5.94(H) 0.80 - 1.30 mg/dL [facility] Glucose 111 70 - 199 mg/dL [facility] Comment: Interpretive Data Fasting glucose >/= 126 [...] interpretive data was last revised 2022. Calcium 9.0 8.5 - 10.3 mg/dL [facility] Blood 08/15/2025 2:41 AM DIRECTOR OF CATH LAB 08/15/2025 3:34 AM DIRECTOR OF CATH LAB Bakari Hines MD LAB BLOOD ORDERAB LES Final Result [place] [address] [facility] Department [place] [address] * XR Chest PA Lateral 2 Views (08/14/2025 4:48 PM DIRECTOR OF CATH LAB) Anatomical Region Laterality Modality Body, Chest N/A Computed Radiogr aphy 08/14/2025 4:50 PM DIRECTOR OF CATH LAB Impressions 08/14/2025 4:50 PM DIRECTOR OF CATH LAB Interval vascularity are prominent and ill-defined with perihilar interstitial densities are improving from prior exam which may represent resolving vascular congestion and edema. Current changes not excluded. Slight blunting costophrenic angle suggesting small effusions greatest on the left also improving from previous. No pneumothorax. Electronically signed by: Tobias Grimaldo M.D. Narrative 08/14/2025 4:50 PM DIRECTOR OF CATH LAB EXAMINATION: 2 view chest radiograph Shortness of breath today Procedure Note Tobias Grimaldo MD - 08/14/2025 EXAMINATION: 2 view chest radiograph Shortness of breath today IMPRESSION: Interval vascularity are prominent and ill-defined with perihilar interstitial densities are improving from prior exam which may represent resolving vascular congestion and edema. Current changes not excluded. Slight blunting costophrenic angle suggesting small effusions greatest on the left also improving from previous. No pneumothorax. Electronically signed by: Tobias Grimaldo M.D. Bakari Hines MD IMG XR PROCEDURES Final Result * (ABNORMAL) eGFR (08/14/2025 6:48 AM DIRECTOR OF CATH LAB) eGFR 9(L) >=60 mL/min/1. 73 m2 Comment: Interpretive Data [...] of Race in Diagnosing Kidney Disease, JASN 202). The CKD-EPI equation should not be used for patients with unstable renal function and has not been validated in children and those over 70. Current interpretive data was last reviewed 2021. Blood 08/14/2025 6:48 AM DIRECTOR OF CATH LAB 08/14/2025 6:53 AM DIRECTOR OF CATH LAB us Bakari Hines MD LAB BLOOD ORDERAB LES Final Result [place] [address] [facility] Department [place] [address] * (ABNORMAL) Differential, auto (08/14/2025 6:48 AM DIRECTOR OF CATH LAB) Pathologist [facility] Neutrophil abs 9.65(H) 1.50 - 6.50 K/cumm Imm gran abs 0.16(H) 0.00 - 0.10 K/cumm [facility] Lymphocyte abs 0.55(L) 0.80 - 3.30 K/cumm [facility] Monocyte abs 0.79 0.20 - 0.80 K/cumm [facility] Eosinophil abs 0.34 0.00 - 0.50 K/cumm [facility] Basophil abs 0.03 0.00 - 0.10 K/cumm [facility] Neutrophil pct 83.6 % [facility] Comment: Interpretive Data Percent cell count reference ranges are not reported, since discordance with absolute values may lead to misinterpretation of CBC data. Current Interpretive Data was last revised on 2017. Imm gran pct 1.4 % [facility] Comment: Interpretive Data Percent cell count reference ranges are not reported, since discordance with absolute values may lead to misinterpretation of CBC data. Current Interpretive Data was last revised on 2017. Lymphocyte pct 4.8 % [facility] Comment: Interpretive Data Percent cell count reference ranges are not reported, since discordance with absolute values may lead to misinterpretation of CBC data. Current Interpretive Data was last revised on 2017. Monocyte pct 6.9 % [facility] Comment: Interpretive Data Percent cell count reference ranges are not reported, since discordance with absolute values may lead to misinterpretation of CBC data. Current Interpretive Data was last revised on 2017. Eosinophil pct 3.0 % [facility] Comment: Interpretive Data Percent cell count reference ranges are not reported, since discordance with absolute values may lead to misinterpretation of CBC data. Current Interpretive Data was last revised on 2017. Basophil pct 0.3 % [facility] Comment: Interpretive Data Percent cell count reference ranges are not reported, since discordance with absolute values may lead to misinterpretation of CBC data. Current Interpretive Data was last revised on 2017. Blood 08/14/2025 6:48 AM DIRECTOR OF CATH LAB 08/14/2025 6:53 AM DIRECTOR OF CATH LAB us Bakari Hines MD LAB BLOOD ORDERAB LES Final Result [facility] [address] [facility] Department of Laboratories [place], [place] [id number] * (ABNORMAL) CBC with auto differential (08/14/2025 6:48 AM DIRECTOR OF CATH LAB) WBC 11.52(H) 3.80 - 9.90 K/cumm Hgb 8.1(L) 13.0 - 17.5 g/dL [facility] Hct 24.3(L) 38.9 - 50.3 % [facility] Plt 184 150 - 400 K/cumm [facility] MPV 11.6 9.1 - 12.3 fL [facility] RBC 2.77(L) 4.30 - 5.80 M/cumm [facility] MCV 87.7 81.3 - 96.4 fL [facility] MCH 29.2 27.1 - 33.3 pg [facility] MCHC 33.3 32.3 - 35.7 g/dL [facility] RDW CV 15.2(H) 11.1 - 14.9 % [facility] RDW SD 46.9 35.7 - 48.1 fL [facility] NRBC abs 0.00 0.00 - 0.01 K/cumm [facility] Blood 08/14/2025 6:48 AM DIRECTOR OF CATH LAB 08/14/2025 6:53 AM DIRECTOR OF CATH LAB Bakari Hines MD LAB BLOOD ORDERAB LES Final Result Performing Organization Address [facility]/ZIP Co de Phone Number [place] [id number] [facility] Department [place] [address] * (ABNORMAL) Basic metabolic panel (08/14/2025 6:48 AM DIRECTOR OF CATH LAB) Pathologist [facility] Sodium 138 135 - 145 mmol/L Potassium, pl 3.6 3.3 - 4.9 mmol/L [facility] Chloride 94(L) 97 - 110 mmol/L [facility] CO2 25 22 - 32 mmol/L [facility] Anion gap 19(H) 2 - 15 mmol/L [facility] BUN 131(H) 6 - 25 mg/dL [facility] Creatinine 5.94(H) 0.80 - 1.30 mg/dL [facility] Glucose 108 70 - 199 mg/dL [facility] Comment: Interpretive Data Fasting glucose >/= 126 [...] interpretive data was last revised 2022. Calcium 9.1 8.5 - 10.3 mg/dL [facility] Blood 08/14/2025 6:48 AM DIRECTOR OF CATH LAB 08/14/2025 6:53 AM DIRECTOR OF CATH LAB Bakari Hines MD LAB BLOOD ORDERAB LES Final Result Performing Organization Address City/[facility]/ZIP Co de Phone Number [place] [phone] [facility] Department [place] [address] * (ABNORMAL) eGFR (08/13/2025 2:56 AM DIRECTOR OF CATH LAB) [facility] eGFR 9(L) >=60 mL/min/1. 73 m2 Comment: Interpretive Data [...] interpretive data was last reviewed 2021. Blood 08/13/2025 2:56 AM DIRECTOR OF CATH LAB 08/13/2025 3:36 AM DIRECTOR OF CATH LAB us Tank Panchal DO LAB BLOOD ORDERABLES Humera l Result [place] [facility] Department [place] [address] * (ABNORMAL) Differential, auto (08/13/2025 2:56 AM DIRECTOR OF CATH LAB) [facility] Neutrophil abs 9.65(H) 1.50 - 6.50 K/cumm Imm gran abs 0.17(H) 0.00 - 0.10 K/cumm [facility] Lymphocyte abs 0.72(L) 0.80 - 3.30 K/cumm [facility] Monocyte abs 0.81(H) 0.20 - 0.80 K/cumm [facility] Eosinophil abs 0.34 0.00 - 0.50 K/cumm [facility] Basophil abs 0.03 0.00 - 0.10 K/cumm [facility] Neutrophil pct 82.3 % [facility] Comment: Interpretive Data Percent cell count reference ranges are not reported, since discordance with absolute values may lead to misinterpretation of CBC data. Current Interpretive Data was last revised on 2017. Imm gran pct 1.5 % [facility] Comment: Interpretive Data Percent cell count reference ranges are not reported, since discordance with absolute values may lead to misinterpretation of CBC data. Current Interpretive Data was last revised on 2017. Lymphocyte pct 6.1 % [facility] Comment: Interpretive Data Percent cell count reference ranges are not reported, since discordance with absolute values may lead to misinterpretation of CBC data. Current Interpretive Data was last revised on 2017. Monocyte pct 6.9 % [facility] Comment: Interpretive Data Percent cell count reference ranges are not reported, since discordance with absolute values may lead to misinterpretation of CBC data. Current Interpretive Data was last revised on 2017. Eosinophil pct 2.9 % [facility] Comment: Interpretive Data Percent cell count reference ranges are not reported, since discordance with absolute values may lead to misinterpretation of CBC data. Current Interpretive Data was last revised on 2017. Basophil pct 0.3 % [facility] Comment: Interpretive Data Percent cell count reference ranges are not reported, since discordance with absolute values may lead to misinterpretation of CBC data. Current Interpretive Data was last revised on 2017. Blood 08/13/2025 2:56 AM DIRECTOR OF CATH LAB 08/13/2025 3:36 AM DIRECTOR OF CATH LAB us Tank Panchal DO LAB BLOOD ORDERABLES Humera l Result [facility] [address] [facility] Department [place] [address] * (ABNORMAL) CBC with auto differential (08/13/2025 2:56 AM DIRECTOR OF CATH LAB) Pathologist [facility] WBC 11.72(H) 3.80 - 9.90 K/cumm Hgb 7.8(L) 13.0 - 17.5 g/dL [facility] Hct 24.8(L) 38.9 - 50.3 % [facility] Plt 190 150 - 400 K/cumm [facility] MPV 12.3 9.1 - 12.3 fL [facility] RBC 2.78(L) 4.30 - 5.80 M/cumm [facility] MCV 89.2 81.3 - 96.4 fL [facility] MCH 28.1 27.1 - 33.3 pg [facility] MCHC 31.5(L) 32.3 - 35.7 g/dL [facility] RDW CV 14.8 11.1 - 14.9 % [facility] RDW SD 47.0 35.7 - 48.1 fL [facility] NRBC abs 0.00 0.00 - 0.01 K/cumm [facility] Blood 08/13/2025 2:56 AM DIRECTOR OF CATH LAB 08/13/2025 3:36 AM DIRECTOR OF CATH LAB Dely LAB BLOOD ORDERABLES Humera l Result Performing Organization Address [facility] de Phone Number [address] [place] [address] * Hemoglobin A1c (08/13/2025 2:56 AM DIRECTOR OF CATH LAB) [facility] Hgb A1C 5.1 4.0 - 5.6 % Estimated Average Glucose 100 mg/dL [facility] Comment: The ADA recommends reporting an estimated Average Glucose (eAG) with all Hemoglobin A1c results using the equation derived from a study of 507 normal and diabetic adults. Minority populations were underrepresented and children were not included. (Diabetes Care 31:8466-2313, 2008). The eAG is not equivalent to a fasting glucose. Blood 08/13/2025 2:56 AM DIRECTOR OF CATH LAB 08/13/2025 3:36 AM DIRECTOR OF CATH LAB Dely LAB BLOOD ORDERABLES Humera l Result Performing Organization Address [facility] Co de Phone Number [address] [place] [address] * (ABNORMAL) Basic metabolic panel (08/13/2025 2:56 AM DIRECTOR OF CATH LAB) [facility] Sodium 138 135 - 145 mmol/L Potassium, pl 4.0 3.3 - 4.9 mmol/L [facility] Chloride 97 97 - 110 mmol/L [facility] CO2 24 22 - 32 mmol/L [facility] Anion gap 17(H) 2 - 15 mmol/L [facility] BUN 122(H) 6 - 25 mg/dL [facility] Creatinine 5.83(H) 0.80 - 1.30 mg/dL [facility] Glucose 99 70 - 199 mg/dL [facility] Comment: Interpretive Data Fasting glucose >/= 126 [...] classification and Diagnosis of Diabetes Diabetes Care 2021; 46: S19-S40. Current interpretive data was last revised 2022. Calcium 9.0 8.5 - 10.3 mg/dL [facility] Blood 08/13/2025 2:56 AM DIRECTOR OF CATH LAB 08/13/2025 3:36 AM DIRECTOR OF CATH LAB us Tank Panchal DO LAB BLOOD ORDERABLES Humera l Result [facility] [address] [facility] Department [place] [address] * (ABNORMAL) eGFR (08/12/2025 3:12 AM DIRECTOR OF CATH LAB) [facility] eGFR 10(L) >=60 mL/min/1. 73 m2 Comment: Interpretive Data [...] interpretive data was last reviewed 2021. Blood 08/12/2025 3:12 AM DIRECTOR OF CATH LAB 08/12/2025 3:17 AM DIRECTOR OF CATH LAB us Tank Panchal DO LAB BLOOD ORDERABLES Humera l Result [facility] [address] [facility] Department [place] [address] * (ABNORMAL) Differential, auto (08/12/2025 3:12 AM DIRECTOR OF CATH LAB) Pathologist [facility] Neutrophil abs 9.55(H) 1.50 - 6.50 K/cumm Imm gran abs 0.20(H) 0.00 - 0.10 K/cumm [facility] Lymphocyte abs 1.06 0.80 - 3.30 K/cumm [facility] Monocyte abs 0.86(H) 0.20 - 0.80 K/cumm [facility] Eosinophil abs 0.29 0.00 - 0.50 K/cumm [facility] Basophil abs 0.04 0.00 - 0.10 K/cumm [facility] Neutrophil pct 79.6 % [facility] Comment: Interpretive Data Percent cell count reference ranges are not reported, since discordance with absolute values may lead to misinterpretation of CBC data. Current Interpretive Data was last revised on 2017. Imm gran pct 1.7 % [facility] Comment: Interpretive Data Percent cell count reference ranges are not reported, since discordance with absolute values may lead to misinterpretation of CBC data. Current Interpretive Data was last revised on 2017. Lymphocyte pct 8.8 % [facility] Comment: Interpretive Data Percent cell count reference ranges are not reported, since discordance with absolute values may lead to misinterpretation of CBC data. Current Interpretive Data was last revised on 2017. Monocyte pct 7.2 % [facility] Comment: Interpretive Data Percent cell count reference ranges are not reported, since discordance with absolute values may lead to misinterpretation of CBC data. Current Interpretive Data was last revised on 2017. Eosinophil pct 2.4 % [facility] Comment: Interpretive Data Percent cell count reference ranges are not reported, since discordance with absolute values may lead to misinterpretation of CBC data. Current Interpretive Data was last revised on 2017. Basophil pct 0.3 % [facility] Comment: Interpretive Data Percent cell count reference ranges are not reported, since discordance with absolute values may lead to misinterpretation of CBC data. Current Interpretive Data was last revised on 2017. Blood 08/12/2025 3:12 AM DIRECTOR OF CATH LAB 08/12/2025 3:17 AM DIRECTOR OF CATH LAB us Tank Panchal DO LAB BLOOD ORDERABLES Humera l Result [facility] [address] [facility] Department [place] [address] * (ABNORMAL) CBC with auto differential (08/12/2025 3:12 AM DIRECTOR OF CATH LAB) WBC 12.00(H) 3.80 - 9.90 K/cumm Hgb 8.1(L) 13.0 - 17.5 g/dL [facility] Hct 25.6(L) 38.9 - 50.3 % [facility] Plt 201 150 - 400 K/cumm [facility] MPV 11.3 9.1 - 12.3 fL [facility] RBC 2.90(L) 4.30 - 5.80 M/cumm [facility] MCV 88.3 81.3 - 96.4 fL [facility] MCH 27.9 27.1 - 33.3 pg [facility] MCHC 31.6(L) 32.3 - 35.7 g/dL [facility] RDW CV 14.9 11.1 - 14.9 % [facility] RDW SD 47.7 35.7 - 48.1 fL [facility] NRBC abs 0.00 0.00 - 0.01 K/cumm [facility] Blood 08/12/2025 3:12 AM DIRECTOR OF CATH LAB 08/12/2025 3:17 AM DIRECTOR OF CATH LAB [facility] LAB BLOOD ORDERABLES Humera l Result Performing Organization Address City/[facility]/ZIP Co de Phone Number [address] [place] [address] * (ABNORMAL) Basic metabolic panel (08/12/2025 3:12 AM DIRECTOR OF CATH LAB) Pathologist [facility] Sodium 137 135 - 145 mmol/L Potassium, pl 4.1 3.3 - 4.9 mmol/L [facility] Chloride 98 97 - 110 mmol/L [facility] CO2 21(L) 22 - 32 mmol/L [facility] Anion gap 18(H) 2 - 15 mmol/L [facility] BUN 120(H) 6 - 25 mg/dL [facility] Creatinine 5.69(H) 0.80 - 1.30 mg/dL [facility] Glucose 110 70 - 199 mg/dL [facility] Comment: Interpretive Data Fasting glucose >/= 126 [...] classification and Diagnosis of Diabetes Diabetes Care 2021; 46: S19-S40. Current interpretive data was last revised 2022. Calcium 8.9 8.5 - 10.3 mg/dL [facility] Blood 08/12/2025 3:12 AM DIRECTOR OF CATH LAB 08/12/2025 3:17 AM [facility]LOOD [facility]LES Humera l Result Performing Organization Address City/[facility]/ZIP Co de Phone Number [address] [place] [address] * (ABNORMAL) eGFR (08/11/2025 9:11 AM DIRECTOR OF CATH LAB) Pathologist [facility] eGFR 10(L) >=60 mL/min/1. 73 m2 Comment: Interpretive Data [...] interpretive data was last reviewed 2021. Blood 08/11/2025 9:11 AM DIRECTOR OF CATH LAB 08/11/2025 9:16 AM DIRECTOR OF CATH LAB us Tank Panchal DO LAB BLOOD ORDERABLES Humera l Result CYNTHIA [address] [facility] Department [place] [address] * (ABNORMAL) Differential, auto (08/11/2025 9:11 AM DIRECTOR OF CATH LAB) [facility] Neutrophil abs 9.60(H) 1.50 - 6.50 K/cumm Imm gran abs 0.19(H) 0.00 - 0.10 K/cumm [facility] Lymphocyte abs 0.80 0.80 - 3.30 K/cumm [facility] Monocyte abs 0.76 0.20 - 0.80 K/cumm [facility] Eosinophil abs 0.17 0.00 - 0.50 K/cumm [facility] Basophil abs 0.03 0.00 - 0.10 K/cumm [facility] Neutrophil pct 83.1 % [facility] Comment: Interpretive Data Percent cell count reference ranges are not reported, since discordance with absolute values may lead to misinterpretation of CBC data. Current Interpretive Data was last revised on 2017. Imm gran pct 1.6 % [facility] Comment: Interpretive Data Percent cell count reference ranges are not reported, since discordance with absolute values may lead to misinterpretation of CBC data. Current Interpretive Data was last revised on 2017. Lymphocyte pct 6.9 % [facility] Comment: Interpretive Data Percent cell count reference ranges are not reported, since discordance with absolute values may lead to misinterpretation of CBC data. Current Interpretive Data was last revised on 2017. Monocyte pct 6.6 % [facility] Comment: Interpretive Data Percent cell count reference ranges are not reported, since discordance with absolute values may lead to misinterpretation of CBC data. Current Interpretive Data was last revised on 2017. Eosinophil pct 1.5 % [facility] Comment: Interpretive Data Percent cell count reference ranges are not reported, since discordance with absolute values may lead to misinterpretation of CBC data. Current Interpretive Data was last revised on 2017. Basophil pct 0.3 % [facility] Comment: Interpretive Data Percent cell count reference ranges are not reported, since discordance with absolute values may lead to misinterpretation of CBC data. Current Interpretive Data was last revised on 2017. Blood 08/11/2025 9:11 AM DIRECTOR OF CATH LAB 08/11/2025 9:16 AM DIRECTOR OF CATH LAB us Tank Panchal DO LAB BLOOD ORDERABLES Humera l Result [facility] [address] [facility] Department [place] [address] * (ABNORMAL) CBC with auto differential (08/11/2025 9:11 AM DIRECTOR OF CATH LAB) WBC 11.55(H) 3.80 - 9.90 K/cumm Hgb 8.1(L) 13.0 - 17.5 g/dL [facility] Hct 26.1(L) 38.9 - 50.3 % [facility] Plt 193 150 - 400 K/cumm [facility] MPV 11.7 9.1 - 12.3 fL [facility] RBC 2.83(L) 4.30 - 5.80 M/cumm [facility] MCV 92.2 81.3 - 96.4 fL [facility] MCH 28.6 27.1 - 33.3 pg [facility] MCHC 31.0(L) 32.3 - 35.7 g/dL [facility] RDW CV 15.2(H) 11.1 - 14.9 % [facility] RDW SD 50.5(H) 35.7 - 48.1 fL [facility] NRBC abs 0.03(H) 0.00 - 0.01 K/cumm [facility] Blood 08/11/2025 9:11 AM DIRECTOR OF CATH LAB 08/11/2025 9:16 AM DIRECTOR OF CATH LAB us Tank Panchal DO LAB BLOOD ORDERABLES Humera ellison Result Performing Organization Address City/State/[facility] Co de Phone Number [place] [id number] [facility] Department [place] [address] * (ABNORMAL) Basic metabolic panel (08/11/2025 9:11 AM DIRECTOR OF CATH LAB) Sodium 136 135 - 145 mmol/L Potassium, pl 4.2 3.3 - 4.9 mmol/L [facility] Chloride 99 97 - 110 mmol/L [facility] CO2 19(L) 22 - 32 mmol/L [facility] Anion gap 18(H) 2 - 15 mmol/L [facility] BUN 111(H) 6 - 25 mg/dL [facility] Creatinine 5.40(H) 0.80 - 1.30 mg/dL [facility] Glucose 130 70 - 199 mg/dL [facility] Comment: Interpretive Data Fasting glucose >/= 126 [...] interpretive data was last revised 2022. Calcium 9.0 8.5 - 10.3 mg/dL [facility] Blood 08/11/2025 9:11 AM DIRECTOR OF CATH LAB 08/11/2025 9:16 AM DIRECTOR OF CATH LAB [employer] DO LAB BLOOD ORDERABLES Humera l Result Performing Organization Address City/[facility] Co de Phone Number CYNTHIA [address] [place] [address] * (ABNORMAL) POC Blood Gas and Chemistries, Arterial - (08/11/2025 6:14 AM DIRECTOR OF CATH LAB) pH, art POC 7.32(L) 7.35 - 7.45 pCO2, art POC 45 35 - 45 mmHg [facility] pO2, art POC 124(H) 83 - 108 mmHg [facility] HCO3, art (Calc) POC 23 20 - 30 mmol/L [facility] Base excess, art POC -3 mmol/L [facility] Comment: Interpretive Data No reference range established. Current interpretive data was last revised 2020. O2 Sat, art (Calc) POC 98 94 - 98 % [facility] Oxy Hgb, art POC 96.8(H) 90.0 - 95.0 % [facility] Met Hgb, art POC 0.5 0.0 - 1.9 % [facility] Carboxy Hgb, art POC 0.6 0.0 - 2.9 % [facility] Hemoglobin, art POC 8.3(L) 13.0 - 17.5 g/dL [facility] Blood 08/11/2025 6:14 AM DIRECTOR OF CATH LAB 08/11/2025 6:14 AM DIRECTOR OF CATH LAB [employer] DO LAB POCT ORDERABLES - DEV ICE Final Result Performing Organization Address [facility] Co de Phone Number CYNTHIA [address] [place] [address] * (ABNORMAL) POC Blood Gas and Chemistries, Arterial - (08/10/2025 1:05 PM DIRECTOR OF CATH LAB) pH, art POC 7.31(L) 7.35 - 7.45 pCO2, art POC 42 35 - 45 mmHg [facility] pO2, art POC 90 83 - 108 mmHg [facility] HCO3, art (Calc) POC 21 20 - 30 mmol/L [facility] Base excess, art POC -5 mmol/L [facility] Comment: Interpretive Data No reference range established. Current interpretive data was last revised 2020. O2 Sat, art (Calc) POC 98 94 - 98 % [facility] Oxy Hgb, art POC 96.7(H) 90.0 - 95.0 % [facility] Met Hgb, art POC 0.3 0.0 - 1.9 % [facility] Carboxy Hgb, art POC 1.0 0.0 - 2.9 % [facility] Hemoglobin, art POC 8.5(L) 13.0 - 17.5 g/dL [facility] Blood 08/10/2025 1:05 PM DIRECTOR OF CATH LAB 08/10/2025 1:05 PM DIRECTOR OF CATH LAB us Tank Panchal DO LAB POCT ORDERABLES - DEV ICE Final Result CYNTHIA PAREKH [address] [facility] Department [place] [address] * (ABNORMAL) POC Blood Gas and Chemistries, Arterial - (08/10/2025 8:53 AM DIRECTOR OF CATH LAB) pH, art POC 7.25(L) 7.35 - 7.45 pCO2, art POC 49(H) 35 - 45 mmHg [facility] pO2, art POC 77(L) 83 - 108 mmHg [facility] HCO3, art (Calc) POC 22 20 - 30 mmol/L [facility] Base excess, art POC -6 mmol/L [facility] Comment: Interpretive Data No reference range established. Current interpretive data was last revised 2020. O2 Sat, art (Calc) POC 98 94 - 98 % [facility] Oxy Hgb, art POC 95.6(H) 90.0 - 95.0 % [facility] Met Hgb, art POC 0.4 0.0 - 1.9 % [facility] Carboxy Hgb, art POC 1.6 0.0 - 2.9 % [facility] Hemoglobin, art POC 8.5(L) 13.0 - 17.5 g/dL [facility] Blood 08/10/2025 8:53 AM DIRECTOR OF CATH LAB 08/10/2025 8:53 AM DIRECTOR OF CATH LAB [employer]anch[employer] DO LAB POCT ORDERABLES - DEV ICE Final Result Performing Organization Address [facility] Co de Phone Number KELL[address] [place] [address] * (ABNORMAL) eGFR (08/10/2025 5:48 AM DIRECTOR OF CATH LAB) eGFR 11(L) >=60 mL/min/1. 73 m2 Comment: Interpretive Data [...] interpretive data was last reviewed 2021. Blood 08/10/2025 5:48 AM DIRECTOR OF CATH LAB 08/10/2025 6:01 AM DIRECTOR OF CATH LAB Billie Antunez TAMPER OPERATOR LAB BLOOD ORDERABLES Final R esult Performing Organization Address City/[facility]/ZIP Co de Phone Number [address] [employer] [place] [employer] [place] [address] * (ABNORMAL) Differential, auto (08/10/2025 5:48 AM DIRECTOR OF CATH LAB) Neutrophil abs 12.43(H) 1.50 - 6.50 K/cumm Imm gran abs 0.31(H) 0.00 - 0.10 K/cumm [facility] Lymphocyte abs 0.74(L) 0.80 - 3.30 K/cumm [facility] Monocyte abs 1.05(H) 0.20 - 0.80 K/cumm [facility] Eosinophil abs 0.07 0.00 - 0.50 K/cumm [facility] Basophil abs 0.02 0.00 - 0.10 K/cumm [facility] Neutrophil pct 85.0 % [facility] Comment: Interpretive Data Percent cell count reference ranges are not reported, since discordance with absolute values may lead to misinterpretation of CBC data. Current Interpretive Data was last revised on 2017. Imm gran pct 2.1 % [facility] Comment: Interpretive Data Percent cell count reference ranges are not reported, since discordance with absolute values may lead to misinterpretation of CBC data. Current Interpretive Data was last revised on 2017. Lymphocyte pct 5.1 % [facility] Comment: Interpretive Data Percent cell count reference ranges are not reported, since discordance with absolute values may lead to misinterpretation of CBC data. Current Interpretive Data was last revised on 2017. Monocyte pct 7.2 % [facility] Comment: Interpretive Data Percent cell count reference ranges are not reported, since discordance with absolute values may lead to misinterpretation of CBC data. Current Interpretive Data was last revised on 2017. Eosinophil pct 0.5 % [facility] Comment: Interpretive Data Percent cell count reference ranges are not reported, since discordance with absolute values may lead to misinterpretation of CBC data. Current Interpretive Data was last revised on 2017. Basophil pct 0.1 % [facility] Comment: Interpretive Data Percent cell count reference ranges are not reported, since discordance with absolute values may lead to misinterpretation of CBC data. Current Interpretive Data was last revised on 2017. Blood 08/10/2025 5:48 AM DIRECTOR OF CATH LAB 08/10/2025 6:01 AM DIRECTOR OF CATH LAB Billie Antunez TAMPER OPERATOR LAB BLOOD ORDERABLES Final R esult Performing Organization Address City/[facility] Co de Phone Number CYNTHIA [address] [employer] [address] * (ABNORMAL) CBC with auto differential (08/10/2025 5:48 AM DIRECTOR OF CATH LAB) Pathologist [facility] WBC 14.62(H) 3.80 - 9.90 K/cumm Hgb 8.3(L) 13.0 - 17.5 g/dL [facility] Hct 26.1(L) 38.9 - 50.3 % [facility] Plt 212 150 - 400 K/cumm [facility] MPV 11.5 9.1 - 12.3 fL [facility] RBC 2.88(L) 4.30 - 5.80 M/cumm [facility] MCV 90.6 81.3 - 96.4 fL [facility] MCH 28.8 27.1 - 33.3 pg [facility] MCHC 31.8(L) 32.3 - 35.7 g/dL [facility] RDW CV 15.3(H) 11.1 - 14.9 % [facility] RDW SD 50.2(H) 35.7 - 48.1 fL [facility] NRBC abs 0.00 0.00 - 0.01 K/cumm [facility] Blood 08/10/2025 5:48 AM DIRECTOR OF CATH LAB 08/10/2025 6:01 AM DIRECTOR OF CATH LAB Billie Antunez TAMPER OPERATOR LAB BLOOD ORDERABLES Final R esult Performing Organization Address City/[facility]/ZIP Co de Phone Number KELLIE[address] [employer] [address] * (ABNORMAL) Comprehensive metabolic panel (08/10/2025 5:48 AM DIRECTOR OF CATH LAB) [facility] Sodium 139 135 - 145 mmol/L Potassium, pl 4.6 3.3 - 4.9 mmol/L [facility] Chloride 104 97 - 110 mmol/L [facility] CO2 20(L) 22 - 32 mmol/L [facility] Anion gap 15 2 - 15 mmol/L [facility] BUN 106(H) 6 - 25 mg/dL [facility] Creatinine 5.20(H) 0.80 - 1.30 mg/dL [facility] Glucose 119 70 - 199 mg/dL [facility] Comment: Interpretive Data Fasting glucose >/= 126 [...] interpretive data was last revised 2022. Calcium 9.2 8.5 - 10.3 mg/dL [facility] Bilirubin, total 0.3 0.1 - 1.2 mg/dL [facility] Protein, pl 6.6 6.5 - 8.5 g/dL [facility] Albumin 3.8 3.5 - 5.0 g/dL [facility] Alk phos 63 40 - 130 Units/L [facility] ALT 17 7 - 55 Units/L [facility] AST 17 10 - 50 Units/L [facility] Blood 08/10/2025 5:48 AM DIRECTOR OF CATH LAB 08/10/2025 6:01 AM DIRECTOR OF CATH LAB us Billie Antunez NP LAB BLOOD ORDERABLES Final R esult [facility] [id number] [facility] Department [place] [address] * TRANSTHORACIC ECHO (TTE) COMPLETE W DOPPLER/CF WO CONTRAST (08/09/2025 2:43 PM DIRECTOR OF CATH LAB) EF Mod BP 62 % CONS SCIMAGE Anatomical Region Laterality Modality Ultrasound 08/09/2025 2:07 PM DIRECTOR OF CATH LAB Narrative 08/09/2025 3:04 PM DIRECTOR OF CATH LAB Transthoracic Echocardiographic Report Patient Name: NIKOLAY SILVER Z : 1950 (75y 7m) Sex: M Study Date: 08/09/2025 02:07:04 PM Ht(Inch): 65 Wt(Lb): 264 BSA: 2.34 Load Checker: Anahi Fraga [facility] Location: [place] [id number] Order Provider: TANK PANCHAL Heart Rate: 66 BMI: 43.93 BP: 169 / 56 Ref Provider: TANK PANCHAL PROCEDURES: Echocardiographic Report: ([id number]) Transthoracic complete echo, 2D, spectral and tissue Doppler, color flow Doppler, M-mode. Technically difficult study due to: Technically difficult study due to Body Habitus. INDICATIONS: Congestive heart failure. FINDINGS: Left Ventricle: Normal left ventricular cavity size. Mild concentric left ventricular hypertrophy. Normal left ventricular systolic function. The Ejection Fraction (Zazueta's) is measured at 62 %. Regional Wall Motion: no obvious regional wall motion abnormalities noted Right Ventricle: Normal right ventricular size. Normal right ventricular systolic function. Left Atrium: Mildly dilated left atrium. Right Atrium: The right atrium is normal in size. Mitral Valve: Normal mitral valve leaflet structure. There is mild mitral valve regurgitation. Aortic Valve: Aortic cusps appear mildly calcified. Moderate aortic valve stenosis. The mean transaortic gradient is 20 mmHg. Tricuspid Valve: The tricuspid valve demonstrates normal leaflet structure. There is mild tricuspid regurgitation. Pulmonic Valve: The pulmonic valve demonstrates normal leaflet structure. There is trace to mild pulmonic valve regurgitation. Pericardium: No pericardial effusion. Aorta: Normal aortic root. IVC: IVC is dilated. The estimated RA pressure is 8 mmHg. CONCLUSIONS: 1. Normal left ventricular cavity size. Mild concentric left ventricular hypertrophy. Normal left ventricular systolic function. The Ejection Fraction (Zazueta's) is measured at 62 %. 2. Normal right ventricular size. Normal right ventricular systolic function. 3. Mildly dilated left atrium. 4. The right atrium is normal in size. 5. Normal mitral valve leaflet structure. There is mild mitral valve regurgitation. 6. Aortic cusps appear mildly calcified. Moderate aortic valve stenosis. The mean transaortic gradient is 20 mmHg. 7. The pulmonic valve demonstrates normal leaflet structure. There is trace to mild pulmonic valve regurgitation. 8. The tricuspid valve demonstrates normal leaflet structure. There is mild tricuspid regurgitation. 9. No pericardial effusion. 10. Normal aortic root. 11. IVC is dilated. The estimated RA pressure is 8 mmHg. MEASUREMENTS: 2D/MM Value Range Doppler Value LVIDd 2D 5.32 cm [ 3.50 - 5.70 ] AV Peak Rodger 2.97 m/s LVIDs 2D 3.66 cm [ 3.10 - 4.60 ] AV Peak PG 35.28 mmHg IVSd 2D 1.69 cm [ 0.60 - 1.20 ] AV Mean PG 20.00 mmHg LVPWd 2D 1.68 cm [ 0.60 - 1.10 ] AV VTI 75.90 cm LV Thickness Ratio 1.01 LVOT Peak Rodger 1.01 m/s LV Mass 2D 426.13 g LVOT Peak PG 4.08 mmHg LV Mass Index 2D 181.84 g/m2 LVOT Mean PG 2.00 mmHg RWT 0.63 LVOT VTI 23.10 cm EDV Mod BP 107.00 ml [ 62.00 - 150.00 ] LVOT Diam 2.00 cm LV EDV Index 45.66 ml/m2 SV LVOT 73.00 cm3 ESV Mod BP 40.90 ml [ 21.00 - 61.00 ] ANUJ VTI 0.96 cm2 EF Mod BP 62 % [ 52 - 72 ] ANUJ Vmax 1.07 cm2 LA Dimension 2D 5.20 cm [ 1.90 - 4.00 ] LVOT/AV VTI 0.30 - Dimensionless index (DVI) LA Length 2C 6.56 cm MV E Peak Rodger 1.15 m/s LA Length 4C 7.43 cm MV Decel Time 203.00 msec LA Volume BP 115.00 ml RV S` 8.16 cm/sec LA Volume Index 49.07 ml/m2 [ 16.00 - 34.00 ] RA Pressure 8.00 mmHg RVDd 2D 4.08 cm [ 2.00 - 3.00 ] PV Peak Rodger 1.17 m/s TAPSE 1.80 cm [ 1.71 - 5.00 ] PV Peak PG 5.48 mmHg RA Volume 83.10 ml PI ED Rodger 108.00 RA Volume Index 35.46 ml/m2 IVC Diam 2.53 cm AoR Diam 2D 3.80 cm [ 2.00 - 3.70 ] Ao Root Index 1.62 cm/m2 [ 1.00 - 2.00 ] Asc Ao Diam 2D 3.40 cm Asc Ao Index 1.45 cm/m2 - ATTESTATION: I have reviewed and interpreted the pertinent images and measurements of this study. I attest to the conclusions in the final report that is provided above. DISCLAIMER: The study images and the final report will be retained in the patient chart by the Echo Laboratory for the legally required time period. This chart constitutes the legal record of any testing performed. Electronically Signed By: Ele Sousa MD 08/09/2025 3:03:39 PM DIRECTOR OF CATH LAB Procedure Note Ele Sousa MD - 08/09/2025 Transthoracic Echocardiographic Report Patient Name: NIKOLAY SILVER Z : 1950 (75y 7m) Sex: M Study Date: 08/09/2025 02:07:04 PM Ht(Inch): 65 Wt(Lb): 264 BSA: 2.34 Load Checker: Anahi Fraga [facility] Location: [id number] Order Provider:TANK PANCHAL Heart Rate: 66 BMI: 43.93 BP: 169 / 56 Ref Provider: TANK PANCHAL PROCEDURES: Echocardiographic Report: ([id number]) Transthoracic complete echo, 2D,spectral and tissue Doppler, color flow Doppler, M-mode. Technically difficult study due to: Technically difficult study due toBody Habitus. INDICATIONS: Congestive heart failure. FINDINGS: Left Ventricle: Normal left ventricular cavity size. Mild concentric leftventricular hypertrophy. Normal left ventricular systolic function. The EjectionFraction (Zazueta's) is measured at 62 %. Regional Wall Motion: no obvious regional wall motion abnormalitiesnoted Right Ventricle: Normal right ventricular size. Normal right ventricularsystolic function. Left Atrium: Mildly dilated left atrium. Right Atrium: The right atrium is normal in size. Mitral Valve: Normal mitral valve leaflet structure. There is mild mitralvalve regurgitation. Aortic Valve: Aortic cusps appear mildly calcified. Moderate aortic valvestenosis. The mean transaortic gradient is 20 mmHg. Tricuspid Valve: The tricuspid valve demonstrates normal leafletstructure. There is mild tricuspid regurgitation. Pulmonic Valve: The pulmonic valve demonstrates normal leaflet structure.There is trace to mild pulmonic valve regurgitation. Pericardium: No pericardial effusion. Aorta: Normal aortic root. IVC: IVC is dilated. The estimated RA pressure is 8 mmHg. CONCLUSIONS: 1. Normal left ventricular cavity size. Mild concentric left ventricularhypertrophy. Normal left ventricular systolic function. The Ejection Fraction(Zazueta's) is measured at 62 %. 2. Normal right ventricular size. Normal right ventricular systolicfunction. 3. Mildly dilated left atrium. 4. The right atrium is normal in size. 5. Normal mitral valve leaflet structure. There is mild mitral valveregurgitation. 6. Aortic cusps appear mildly calcified. Moderate aortic valve stenosis.The mean transaortic gradient is 20 mmHg. 7. The pulmonic valve demonstrates normal leaflet structure. There istrace to mild pulmonic valve regurgitation. 8. The tricuspid valve demonstrates normal leaflet structure. There ismild tricuspid regurgitation. 9. No pericardial effusion. 10. Normal aortic root. 11. IVC is dilated. The estimated RA pressure is 8 mmHg. MEASUREMENTS: 2D/MM Value Range DopplerValue LVIDd 2D 5.32 cm [ 3.50 - 5.70 ] AV Peak Vel2.97 m/s LVIDs 2D 3.66 cm [ 3.10 - 4.60 ] AV Peak PG35.28 mmHg IVSd 2D 1.69 cm [ 0.60 - 1.20 ] AV Mean PG20.00 mmHg LVPWd 2D 1.68 cm [ 0.60 - 1.10 ] AV VTI75.90 cm LV Thickness Ratio 1.01 LVOT Peak Vel1.01 m/s LV Mass 2D 426.13 g LVOT Peak PG4.08 mmHg LV Mass Index 2D 181.84 g/m2 LVOT Mean PG2.00 mmHg RWT 0.63 LVOT VTI23.10 cm EDV Mod BP 107.00 ml [ 62.00 - 150.00 ] LVOT Diam2.00 cm LV EDV Index 45.66 ml/m2 SV LVOT73.00 cm3 ESV Mod BP 40.90 ml [ 21.00 - 61.00 ] ANUJ VTI0.96 cm2 EF Mod BP 62 % [ 52 - 72 ] ANUJ Vmax1.07 cm2 LA Dimension 2D 5.20 cm [ 1.90 - 4.00 ] LVOT/AV VTI0.30 - Dimensionless index (DVI) LA Length 2C 6.56 cm MV E Peak Vel1.15 m/s LA Length 4C 7.43 cm MV Decel Wded242.00 msec LA Volume BP 115.00 ml RV S`8.16 cm/sec LA Volume Index 49.07 ml/m2 [ 16.00 - 34.00 ] RA Pressure8.00 mmHg RVDd 2D 4.08 cm [ 2.00 - 3.00 ] PV Peak Vel1.17 m/s TAPSE 1.80 cm [ 1.71 - 5.00 ] PV Peak PG5.48 mmHg RA Volume 83.10 ml PI ED Nro911.00 RA Volume Index35.46 ml/m2 IVC Diam2.53 cm AoR Diam 2D 3.80 cm [ 2.00 - 3.70 ] Ao Root Index 1.62 cm/m2 [ 1.00 - 2.00 ] Asc Ao Diam 2D3.40 cm Asc Ao Index1.45 cm/m2 - ATTESTATION: I have reviewed and interpreted the pertinent images and measurements ofthis study. I attest to the conclusions in the final report that is provided above. DISCLAIMER: The study images and the final report will be retained in the patientchart by the Echo Laboratory for the legally required time period. This chart constitutesthe legal record of any testing performed. Electronically Signed By: Ele Sousa MD 08/09/2025 3:03:39 PM DIRECTOR OF CATH LAB us Tank Panchal DO CV ECHO PROCEDURES Final Result * (ABNORMAL) eGFR (08/09/2025 7:14 AM DIRECTOR OF CATH LAB) eGFR 12(L) >=60 mL/min/1. 73 m2 Comment: Interpretive Data [...] interpretive data was last reviewed 2021. Blood 08/09/2025 7:14 AM DIRECTOR OF CATH LAB 08/09/2025 7:23 AM DIRECTOR OF CATH LAB us Billie Antunez NP LAB BLOOD ORDERABLES Final R esult [facility] [address] [facility] Department [place] [address] * (ABNORMAL) Differential, auto (08/09/2025 7:14 AM DIRECTOR OF CATH LAB) Neutrophil abs 15.02(H) 1.50 - 6.50 K/cumm Imm gran abs 0.26(H) 0.00 - 0.10 K/cumm [facility] Lymphocyte abs 0.61(L) 0.80 - 3.30 K/cumm [facility] Monocyte abs 1.37(H) 0.20 - 0.80 K/cumm [facility] Eosinophil abs 0.00 0.00 - 0.50 K/cumm [facility] Basophil abs 0.03 0.00 - 0.10 K/cumm [facility] Neutrophil pct 86.9 % [facility] Comment: Interpretive Data Percent cell count reference ranges are not reported, since discordance with absolute values may lead to misinterpretation of CBC data. Current Interpretive Data was last revised on 2017. Imm gran pct 1.5 % [facility] Comment: Interpretive Data Percent cell count reference ranges are not reported, since discordance with absolute values may lead to misinterpretation of CBC data. Current Interpretive Data was last revised on 2017. Lymphocyte pct 3.5 % [facility] Comment: Interpretive Data Percent cell count reference ranges are not reported, since discordance with absolute values may lead to misinterpretation of CBC data. Current Interpretive Data was last revised on 2017. Monocyte pct 7.9 % [facility] Comment: Interpretive Data Percent cell count reference ranges are not reported, since discordance with absolute values may lead to misinterpretation of CBC data. Current Interpretive Data was last revised on 2017. Eosinophil pct 0.0 % [facility] Comment: Interpretive Data Percent cell count reference ranges are not reported, since discordance with absolute values may lead to misinterpretation of CBC data. Current Interpretive Data was last revised on 2017. Basophil pct 0.2 % [facility] Comment: Interpretive Data Percent cell count reference ranges are not reported, since discordance with absolute values may lead to misinterpretation of CBC data. Current Interpretive Data was last revised on 2017. Blood 08/09/2025 7:14 AM DIRECTOR OF CATH LAB 08/09/2025 7:23 AM DIRECTOR OF CATH LAB us Billie Antunez NP LAB BLOOD ORDERABLES Final R esult [facility] [address] [facility] Department [place] [address] * (ABNORMAL) CBC with auto differential (08/09/2025 7:14 AM DIRECTOR OF CATH LAB) [facility] WBC 17.29(H) 3.80 - 9.90 K/cumm Hgb 8.5(L) 13.0 - 17.5 g/dL [facility] Hct 26.9(L) 38.9 - 50.3 % [facility] Plt 235 150 - 400 K/cumm [facility] MPV 10.8 9.1 - 12.3 fL [facility] RBC 2.97(L) 4.30 - 5.80 M/cumm [facility] MCV 90.6 81.3 - 96.4 fL [facility] MCH 28.6 27.1 - 33.3 pg [facility] MCHC 31.6(L) 32.3 - 35.7 g/dL [facility] RDW CV 15.3(H) 11.1 - 14.9 % [facility] RDW SD 50.4(H) 35.7 - 48.1 fL [facility] NRBC abs 0.00 0.00 - 0.01 K/cumm [facility] Blood 08/09/2025 7:14 AM DIRECTOR OF CATH LAB 08/09/2025 7:23 AM DIRECTOR OF CATH LAB us Billie Antunez NP LAB BLOOD ORDERABLES Final R esult [facility] [address] [facility] Department [place] [address] * (ABNORMAL) Comprehensive metabolic panel (08/09/2025 7:14 AM DIRECTOR OF CATH LAB) [facility] Sodium 139 135 - 145 mmol/L Potassium, pl 4.8 3.3 - 4.9 mmol/L [facility] Chloride 104 97 - 110 mmol/L [facility] CO2 19(L) 22 - 32 mmol/L [facility] Anion gap 16(H) 2 - 15 mmol/L [facility] BUN 93(H) 6 - 25 mg/dL [facility] Creatinine 4.87(H) 0.80 - 1.30 mg/dL [facility] Glucose 117 70 - 199 mg/dL [facility] Comment: Interpretive Data Fasting glucose >/= 126 [...] classification and Diagnosis of Diabetes Diabetes Care 2021; 46: S19-S40. Current interpretive data was last revised 2022. Calcium 9.4 8.5 - 10.3 mg/dL [facility] Bilirubin, total 0.3 0.1 - 1.2 mg/dL [facility] Protein, pl 6.8 6.5 - 8.5 g/dL [facility] Albumin 3.9 3.5 - 5.0 g/dL [facility] Alk phos 65 40 - 130 Units/L [facility] ALT 13 7 - 55 Units/L [facility] AST 16 10 - 50 Units/L [facility] Blood 08/09/2025 7:14 AM DIRECTOR OF CATH LAB 08/09/2025 7:23 AM DIRECTOR OF CATH LAB Billie Antunez NP LAB BLOOD ORDERABLES Final R esult [facility] [address] [facility] Department [place] [address] * (ABNORMAL) eGFR (08/08/2025 2:57 AM DIRECTOR OF CATH LAB) eGFR 14(L) >=60 mL/min/1. 73 m2 Comment: [...] of Race in Diagnosing Kidney Disease, JASN 202). The CKD-EPI equation should not be used for patients with unstable renal function and has not been validated in children and those over 70. Current interpretive data was last reviewed 2021. Blood 08/08/2025 2:57 AM DIRECTOR OF CATH LAB 08/08/2025 3:18 AM DIRECTOR OF CATH LAB us Billie Antunez NP LAB BLOOD ORDERABLES Final R esult [facility] Department [place] [address] * (ABNORMAL) Differential, auto (08/08/2025 2:57 AM DIRECTOR OF CATH LAB) Neutrophil abs 10.05(H) 1.50 - 6.50 K/cumm Imm gran abs 0.08 0.00 - 0.10 K/cumm [facility] Lymphocyte abs 0.34(L) 0.80 - 3.30 K/cumm [facility] Monocyte abs 0.09(L) 0.20 - 0.80 K/cumm [facility] Eosinophil abs 0.00 0.00 - 0.50 K/cumm [facility] Basophil abs 0.01 0.00 - 0.10 K/cumm [facility] Neutrophil pct 95.0 % [facility] Comment: Interpretive Data Percent cell count reference ranges are not reported, since discordance with absolute values may lead to misinterpretation of CBC data. Current Interpretive Data was last revised on 2017. Imm gran pct 0.8 % [facility] Comment: Interpretive Data Percent cell count reference ranges are not reported, since discordance with absolute values may lead to misinterpretation of CBC data. Current Interpretive Data was last revised on 2017. Lymphocyte pct 3.2 % [facility] Comment: Interpretive Data Percent cell count reference ranges are not reported, since discordance with absolute values may lead to misinterpretation of CBC data. Current Interpretive Data was last revised on 2017. Monocyte pct 0.9 % [facility] Comment: Interpretive Data Percent cell count reference ranges are not reported, since discordance with absolute values may lead to misinterpretation of CBC data. Current Interpretive Data was last revised on 2017. Eosinophil pct 0.0 % [facility] Comment: Interpretive Data Percent cell count reference ranges are not reported, since discordance with absolute values may lead to misinterpretation of CBC data. Current Interpretive Data was last revised on 2017. Basophil pct 0.1 % [facility] Comment: Interpretive Data Percent cell count reference ranges are not reported, since discordance with absolute values may lead to misinterpretation of CBC data. Current Interpretive Data was last revised on 2017. Blood 08/08/2025 2:57 AM DIRECTOR OF CATH LAB 08/08/2025 3:18 AM DIRECTOR OF CATH LAB us Billie Antunez NP LAB BLOOD ORDERABLES Final R esult [address] Department [place] [address] * (ABNORMAL) CBC with auto differential (08/08/2025 2:57 AM DIRECTOR OF CATH LAB) WBC 10.57(H) 3.80 - 9.90 K/cumm Hgb 8.5(L) 13.0 - 17.5 g/dL [facility] Hct 27.3(L) 38.9 - 50.3 % [facility] Plt 212 150 - 400 K/cumm [facility] MPV 11.4 9.1 - 12.3 fL [facility] RBC 2.99(L) 4.30 - 5.80 M/cumm [facility] MCV 91.3 81.3 - 96.4 fL [facility] MCH 28.4 27.1 - 33.3 pg [facility] MCHC 31.1(L) 32.3 - 35.7 g/dL [facility] RDW CV 15.0(H) 11.1 - 14.9 % [facility] RDW SD 50.4(H) 35.7 - 48.1 fL [facility] NRBC abs 0.00 0.00 - 0.01 K/cumm [facility] Blood 08/08/2025 2:57 AM DIRECTOR OF CATH LAB 08/08/2025 3:18 AM DIRECTOR OF CATH LAB Billie [place] TAMPER OPERATOR LAB BLOOD ORDERABLES Final R esult Performing Organization Address [facility] de Phone Number [address] [employer] [address] * (ABNORMAL) Phosphorus (08/08/2025 2:57 AM DIRECTOR OF CATH LAB) Phosphorus, pl 5.0(H) 2.3 - 4.5 mg/dL Blood 08/08/2025 2:57 AM DIRECTOR OF CATH LAB 08/08/2025 3:18 AM DIRECTOR OF CATH LAB Result [facility] Billie [place] TAMPER OPERATOR LAB BLOOD ORDERABLES Final R esult Performing Organization Address [facility] de Phone Number [address] [employer] [address] * (ABNORMAL) Magnesium (08/08/2025 2:57 AM DIRECTOR OF CATH LAB) Magnesium 2.9(H) 1.4 - 2.5 mg/dL Blood 08/08/2025 2:57 AM DIRECTOR OF CATH LAB 08/08/2025 3:18 AM DIRECTOR OF CATH LAB Result [facility] Billie [place] TAMPER OPERATOR LAB BLOOD ORDERABLES Final R esult Performing Organization Address [facility] de Phone Number [address] [employer] [address] * Folate (08/08/2025 2:57 AM DIRECTOR OF CATH LAB) Folic acid 7.8 >=5.0 ng/mL Blood 08/08/2025 2:57 AM DIRECTOR OF CATH LAB 08/08/2025 3:18 AM DIRECTOR OF CATH LAB Billie [place] TAMPER OPERATOR LAB BLOOD ORDERABLES Final R esult Performing Organization Address City/[facility]/ZIP Co de Phone Number CYNTHIA [address] [employer] [place] [address] * (ABNORMAL) Ferritin (08/08/2025 2:57 AM DIRECTOR OF CATH LAB) [facility] Ferritin 782(H) 30 - 400 ng/mL Blood 08/08/2025 2:57 AM DIRECTOR OF CATH LAB 08/08/2025 3:18 AM DIRECTOR OF CATH LAB Billie Antunez TAMPER OPERATOR LAB BLOOD ORDERABLES Final R esult Performing Organization Address [facility] Co de Phone Number KELLIE[address] [employer] [address] * Vitamin B12 (08/08/2025 2:57 AM DIRECTOR OF CATH LAB) [facility] Vitamin B12 466 230 - 1,250 pg/mL Blood 08/08/2025 2:57 AM DIRECTOR OF CATH LAB 08/08/2025 3:18 AM DIRECTOR OF CATH LAB Billie Antunez TAMPER OPERATOR LAB BLOOD ORDERABLES Final R esult Performing Organization Address [facility] Co de Phone Number [address] [employer] [address] * (ABNORMAL) Comprehensive metabolic panel (08/08/2025 2:57 AM DIRECTOR OF CATH LAB) [facility] Sodium 141 135 - 145 mmol/L Potassium, pl 4.5 3.3 - 4.9 mmol/L [facility] Chloride 106 97 - 110 mmol/L [facility] CO2 23 22 - 32 mmol/L [facility] Anion gap 12 2 - 15 mmol/L [facility] BUN 69(H) 6 - 25 mg/dL [facility] Creatinine 4.16(H) 0.80 - 1.30 mg/dL [facility] Glucose 149 70 - 199 mg/dL [facility] Comment: Interpretive Data Fasting glucose >/= 126 [...] classification and Diagnosis of Diabetes Diabetes Care 2021; 46: S19-S40. Current interpretive data was last revised 2022. Calcium 9.8 8.5 - 10.3 mg/dL [facility] Bilirubin, total 0.5 0.1 - 1.2 mg/dL [facility] Protein, pl 6.8 6.5 - 8.5 g/dL [facility] Albumin 3.9 3.5 - 5.0 g/dL [facility] Alk phos 72 40 - 130 Units/L [facility] ALT 8 7 - 55 Units/L [facility] AST 15 10 - 50 Units/L [facility] Blood 08/08/2025 2:57 AM DIRECTOR OF CATH LAB 08/08/2025 3:18 AM DIRECTOR OF CATH LAB Billie Antunez NP LAB BLOOD ORDERABLES Final R esult Performing Organization Address City/[facility]/ZIP Co de Phone Number [facility] [address] [facility] Department [place] [address] * (ABNORMAL) Troponin T high-sensitivity 4-hour (08/07/2025 3:05 PM DIRECTOR OF CATH LAB) [facility] Signature Trop T hs 72(H) <=22 ng/L Comment: Interpretive Data For further hscTnT resources including the diagnostic algorithm and an aid in interpretation, copy and paste this link: [email or web address].[email or web address]/show/[email or web address] Current Interpretive Data last revised 2020. Trop T hs delta -1 ng/L [facility] Trop T hs interp Insignificant [facility] Blood 08/07/2025 3:05 PM DIRECTOR OF CATH LAB 08/07/2025 4:16 PM DIRECTOR OF CATH LAB Moon Welch MD LAB BLOOD ORDERABLES Humera l Result [place] [id number] [facility] [place] [address] * (ABNORMAL) Troponin T high-sensitivity 2-hour (08/07/2025 12:19 PM DIRECTOR OF CATH LAB) Pathologist [facility] Trop T hs 76(H) <=22 ng/L Comment: Interpretive Data For further hscTnT resources including the diagnostic algorithm and an aid in interpretation, copy and paste this link: [email or web address].[email or web address]/show/hsTrop Current Interpretive Data last revised 2020. Trop T hs delta See Comment ng/L [facility] Comment:Inappropriate collec tion time to report a delta. Trop T hs pct delta See Comment % [facility] Comment:Inappropriate collec tion time to report a delta. Trop T hs interp See Comment [facility] Comment:Inappropriate collec tion time to report a delta. Blood 08/07/2025 12:1 9 PM DIRECTOR OF CATH LAB 08/07/2025 12:30 PM DIRECTOR OF CATH LAB Moon Welch MD LAB BLOOD ORDERABLES Humera l Result Performing Organization Address [facility]/State/ZIP Co de Phone Number [address] [address] * Influenza A/B, RSV, and COVID-19 PCR Nasopharyngeal (08/07/2025 12:14 PM DIRECTOR OF CATH LAB) [facility] COVID-19 RNA Negative Negative Influenza A RNA Negative Negative [facility] Influenza B RNA Negative Negative [facility] RSV RNA Negative Negative [facility] Comment: Interpretive data: Testing performed by [facility]. This test is performed using the Chirp Interactive Xpert Xpress CoV-2/Flu/RSV plus assay. This is a multiplex, real-time reverse transcriptase PCR assay intended for the qualitative detection of nucleic acid from SARS-CoV-2, influenza A, influenza B, and respiratory syncytial virus. This assay has been cleared by the [place] Food and Drug administration. The performance characteristics have been verified by the [facility]. Results must be considered in the clinical context, and a negative result does not rule out infection. Interpretive Data last revised 2023 Nasopharyngeal 08/07/2025 12 :14 PM DIRECTOR OF CATH LAB 08/07/2025 12:18 PM DIRECTOR OF CATH LAB Narrative CYNTHIA - 08/07/2025 1:06 PM DIRECTOR OF CATH LAB Is the Patient experiencing symptoms consistent with COVID?->Yes Moon Welch MD LAB MICROBIOLOGY - GENERA L ORDERABLES Final Result CYNTHIA [address] [facility] Department [place] [address] * Blood culture Blood Peripheral (08/07/2025 12:14 PM DIRECTOR OF CATH LAB) Report Final Report: No growth Comment:Testing performed by : [facility], [address] [facility], [place]., [address] Blood (Peripheral) 08/07/2025 12:14 PM DIRECTOR OF CATH LAB 08/07/2025 4:06 PM DIRECTOR OF CATH LAB Narrative CYNTHIA - 08/12/2025 7:00 AM DIRECTOR OF CATH LAB From a different site than #1. Draw Blood cultures before administration of Antibiotics Collection->Peripheral 1. Blood cultures are incubated for 4 days on a continuously monitored blood culture system. The first report of a negative culture is issued within 24 hours of receipt of the specimen in the laboratory. 2. Positive culture results are reported as soon as they are detected. 3. The most important factor for detection of microbes in the setting of bloodstream infection is the volume of blood submitted for culture. Failure to collect an optimal blood volume can result in false negative blood cultures. 4. For pediatric patients, the recommended blood volume to collect follows a weight based strategy. See the electronic test catalog for collection instructions. 5. For positive blood cultures, a rapid molecular test may be performed for organism identification using the elroy ePlex blood culture identification panel for gram positive (BCID-GP) and gram negative (BCID-GN) organisms. This nucleic acid amplification test detects microbial DNA in positive blood culture broth. This assay has been cleared by the [place] Food and Drug Administration and its performance characteristics have been verified by the [facility]. For questions about this culture, contact the Microbiology Laboratory at [phone]. Interpretive data was last revised on 24. us Moon Welch MD LAB MICROBIOLOGY - GENERA L ORDERABLES Final Result CYNTHIA [address] [address] * (ABNORMAL) Sepsis Lactate w/ Reflex (08/07/2025 12:06 PM DIRECTOR OF CATH LAB) Pathologist [facility] Sepsis Lactate 0.5(L) 0.7 - 2.0 mmol/L Blood 08/07/2025 12:0 6 PM DIRECTOR OF CATH LAB 08/07/2025 12:17 PM DIRECTOR OF CATH LAB us Moon Welch MD LAB BLOOD ORDERABLES Humera l Result Performing Organization Address [facility] Co de Phone Number [address] [address] * (ABNORMAL) Pro B-type natriuretic peptide (08/07/2025 12:06 PM DIRECTOR OF CATH LAB) [facility] NT-proBNP 22,990(H) <=450 pg/mL Comment: Interpretive Comments: A. Dyspnea in Acute Care Setting All Ages: < 300 pg/ml, acute heart failure unlikely. < 50 yrs: 300 - 450 pg/ml, further investigation warranted. > 450 pg/ml, acute heart failure likely. 50 - 74 yrs: 300 - 900 pg/ml, further investigation warranted. > 900 pg/ml, acute heart failure likely . > or = 75 yrs: 450 - 1800 pg/ml, further investigation warranted. > 1800 pg/ml, acute heart failure likely. B. Non-acute Setting < 75 yrs < 125 pg/ml, rules out heart failure. > or = 125 pg/ml, further investigation warranted. > or = 75 yrs < 450 pg/ml, rules out heart failure. > or = 450 pg/ml, further investigation warranted. - Knowledge of each individual patient's NT-proBNP range may be more useful than using similar cut-points for every patient. Please note that marked elevations in NT-proBNP levels may be observed in state other than Left Ventricular Congestive Failure, including: acute coronary syndromes, right heart strain/failure (including pulmonary embolism and cor pulmonale), critical illness, renal failure, as well as advanced age. - References: 1. Carmen LOZANO et.al. Eur Heart J. 2006:27:330-337. 2. Mansi STOKES, Ariel BILLY. J. AM Hoang Cardiol: Cardiovasc Imag. 2009;2: 216- 225. Interpretive Data Last Revised Date: 2018. Blood 08/07/2025 12:0 6 PM DIRECTOR OF CATH LAB 08/07/2025 12:18 PM DIRECTOR OF CATH LAB Moon Welch MD LAB BLOOD ORDERABLES Humera ellison Result CYNTHIA [address] [facility] Department [place] [address] * Blood culture Blood Peripheral (08/07/2025 12:06 PM DIRECTOR OF CATH LAB) Report Final Report: No growth Comment:Testing performed by : [facility], [address] [facility], [place]., [address] Blood (Peripheral) 08/07/2025 12:06 PM DIRECTOR OF CATH LAB 08/07/2025 4:06 PM DIRECTOR OF CATH LAB Narrative CYNTHIA - 08/12/2025 7:00 AM DIRECTOR OF CATH LAB Draw Blood cultures before administration of Antibiotics Collection->Peripheral 1. Blood cultures are incubated for 4 days on a continuously monitored blood culture system. The first report of a negative culture is issued within 24 hours of receipt of the specimen in the laboratory. 2. Positive culture results are reported as soon as they are detected. 3. The most important factor for detection of microbes in the setting of bloodstream infection is the volume of blood submitted for culture. Failure to collect an optimal blood volume can result in false negative blood cultures. 4. For pediatric patients, the recommended blood volume to collect follows a weight based strategy. See the electronic test catalog for collection instructions. 5. For positive blood cultures, a rapid molecular test may be performed for organism identification using the elroy ePlex blood culture identification panel for gram positive (BCID-GP) and gram negative (BCID-GN) organisms. This nucleic acid amplification test detects microbial DNA in positive blood culture broth. This assay has been cleared by the [place] Food and Drug Administration and its performance characteristics have been verified by the [facility]. For questions about this culture, contact the Microbiology Laboratory at [phone]. Interpretive data was last revised on 24. us Moon Welch MD LAB MICROBIOLOGY - GENERA L ORDERABLES Final Result CYNTHIA [address] [facility] Department [place] [address] * XR Chest 1 View (08/07/2025 11:23 AM DIRECTOR OF CATH LAB) Anatomical Region Laterality Modality Body, Chest N/A Computed Radiogr aphy 08/07/2025 11:2 8 AM DIRECTOR OF CATH LAB Impressions 08/07/2025 11:28 AM DIRECTOR OF CATH LAB Central vascularity are prominent and ill-defined. Perihilar interstitial densities extend to opacity the bases that may indicate developing moderate pleural effusions and may indicate developing vascular congestion and edema. Parabronchial inflammation developing pneumonia difficult to exclude. No pneumothorax. Sternotomy wires are noted. Electronically signed by: Tobias Grimaldo M.D. Narrative 08/07/2025 11:28 AM DIRECTOR OF CATH LAB EXAMINATION: 1 view chest radiograph Shortness of breath today Procedure Note Tobias Grimaldo MD - 08/07/2025 EXAMINATION: 1 view chest radiograph Shortness of breath today IMPRESSION: Central vascularity are prominent and ill-defined. Perihilar interstitial densities extend to opacity the bases that may indicate developing moderate pleural effusions and may indicate developing vascular congestion and edema. Parabronchial inflammation developing pneumonia difficult to exclude. No pneumothorax. Sternotomy wires are noted. Electronically signed by: Tobias Grimaldo M.D. us Moon Welch MD IMG XR PROCEDURES Final R esult * (ABNORMAL) Protime-INR (08/07/2025 10:51 AM DIRECTOR OF CATH LAB) PT 15.80(H) 12.00 - 14.60 sec INR 1.25(H) 0.90 - 1.20 CYNTHIA Comment: Interpretive data Oral anticoagulant therapeutic ranges: Venous thromboembolism prophylaxis or treatment: 2.0-3.0 CARDIOLOGY Standard range: 2.0-3.0 High-intensity range: 2.5-3.5 Refer to indication-specific guidelines for appropriate target ranges for prosthetic heart valve replacement. Current interpretive data was last revised on 2019. Blood 08/07/2025 10:5 1 AM DIRECTOR OF CATH LAB 08/07/2025 10:55 AM DIRECTOR OF CATH LAB Moon Welch MD LAB BLOOD ORDERABLES Humera l Result Performing Organization Address [facility] de Phone Number [address] [employer] [address] * (ABNORMAL) Troponin T high-sensitivity series (baseline, 2hr, 4hr, 6hr) (08/07/2025 10:49 AM DIRECTOR OF CATH LAB) [facility] Trop T hs 73(H) <=22 ng/L Comment: Interpretive Data For further hscTnT resources including the diagnostic algorithm and an aid in interpretation, copy and paste this link: https://nrl.testcatalog.org/show/hsTrop Current Interpretive Data last revised 2020. Blood 08/07/2025 10:4 9 AM DIRECTOR OF CATH LAB 08/07/2025 10:55 AM DIRECTOR OF CATH LAB Moon Welch MD LAB BLOOD ORDERABLES Humera l Result Performing Organization Address [facility] Co de Phone Number [address] [employer] [address] * (ABNORMAL) eGFR (08/07/2025 10:49 AM DIRECTOR OF CATH LAB) [facility] eGFR 16(L) >=60 mL/min/1. 73 m2 Comment: Interpretive Data [...] interpretive data was last reviewed 2021. Blood 08/07/2025 10:4 9 AM DIRECTOR OF CATH LAB 08/07/2025 10:55 AM DIRECTOR OF CATH LAB Moon Welch MD LAB BLOOD ORDERABLES Humera l Result [facility] [address] [facility] Department [place] [address] * (ABNORMAL) Differential, auto (08/07/2025 10:49 AM DIRECTOR OF CATH LAB) Neutrophil abs 11.92(H) 1.50 - 6.50 K/cumm Imm gran abs 0.10 0.00 - 0.10 K/cumm [facility] Lymphocyte abs 0.55(L) 0.80 - 3.30 K/cumm [facility] Monocyte abs 1.04(H) 0.20 - 0.80 K/cumm [facility] Eosinophil abs 0.10 0.00 - 0.50 K/cumm [facility] Basophil abs 0.03 0.00 - 0.10 K/cumm [facility] Neutrophil pct 86.8 % [facility] Comment: Interpretive Data Percent cell count reference ranges are not reported, since discordance with absolute values may lead to misinterpretation of CBC data. Current Interpretive Data was last revised on 2017. Imm gran pct 0.7 % [facility] Comment: Interpretive Data Percent cell count reference ranges are not reported, since discordance with absolute values may lead to misinterpretation of CBC data. Current Interpretive Data was last revised on 2017. Lymphocyte pct 4.0 % [facility] Comment: Interpretive Data Percent cell count reference ranges are not reported, since discordance with absolute values may lead to misinterpretation of CBC data. Current Interpretive Data was last revised on 2017. Monocyte pct 7.6 % [facility] Comment: Interpretive Data Percent cell count reference ranges are not reported, since discordance with absolute values may lead to misinterpretation of CBC data. Current Interpretive Data was last revised on 2017. Eosinophil pct 0.7 % [facility] Comment: Interpretive Data Percent cell count reference ranges are not reported, since discordance with absolute values may lead to misinterpretation of CBC data. Current Interpretive Data was last revised on 2017. Basophil pct 0.2 % [facility] Comment: Interpretive Data Percent cell count reference ranges are not reported, since discordance with absolute values may lead to misinterpretation of CBC data. Current Interpretive Data was last revised on 2017. Blood 08/07/2025 10:4 9 AM DIRECTOR OF CATH LAB 08/07/2025 10:55 AM DIRECTOR OF CATH LAB Moon Welch MD LAB BLOOD ORDERABLES Humera ellison Result [facility] [address] [facility] Department [place] [address] * (ABNORMAL) CBC with auto differential (08/07/2025 10:49 AM DIRECTOR OF CATH LAB) WBC 13.74(H) 3.80 - 9.90 K/cumm Hgb 8.7(L) 13.0 - 17.5 g/dL [facility] Hct 27.9(L) 38.9 - 50.3 % [facility] Plt 212 150 - 400 K/cumm [facility] MPV 11.0 9.1 - 12.3 fL [facility] RBC 3.14(L) 4.30 - 5.80 M/cumm [facility] MCV 88.9 81.3 - 96.4 fL [facility] MCH 27.7 27.1 - 33.3 pg [facility] MCHC 31.2(L) 32.3 - 35.7 g/dL [facility] RDW CV 15.4(H) 11.1 - 14.9 % [facility] RDW SD 49.9(H) 35.7 - 48.1 fL [facility] NRBC abs 0.00 0.00 - 0.01 K/cumm [facility] Blood 08/07/2025 10:4 9 AM DIRECTOR OF CATH LAB 08/07/2025 10:55 AM DIRECTOR OF CATH LAB us Moon Welch MD LAB BLOOD ORDERABLES Humera l Result [facility] [address] [facility] Department [place] [address] * (ABNORMAL) Comprehensive metabolic panel (08/07/2025 10:49 AM DIRECTOR OF CATH LAB) Sodium 141 135 - 145 mmol/L Potassium, pl 4.3 3.3 - 4.9 mmol/L [facility] Chloride 108 97 - 110 mmol/L [facility] CO2 21(L) 22 - 32 mmol/L [facility] Anion gap 12 2 - 15 mmol/L [facility] BUN 59(H) 6 - 25 mg/dL [facility] Creatinine 3.68(H) 0.80 - 1.30 mg/dL [facility] Glucose 145 70 - 199 mg/dL [facility] Comment: Interpretive Data Fasting glucose >/= 126 [...] interpretive data was last revised 2022. Calcium 9.6 8.5 - 10.3 mg/dL [facility] Bilirubin, total 0.5 0.1 - 1.2 mg/dL [facility] Protein, pl 6.9 6.5 - 8.5 g/dL [facility] Albumin 3.8 3.5 - 5.0 g/dL [facility] Alk phos 73 40 - 130 Units/L [facility] ALT 9 7 - 55 Units/L [facility] AST 12 10 - 50 Units/L [facility] Blood 08/07/2025 10:4 9 AM DIRECTOR OF CATH LAB 08/07/2025 10:55 AM DIRECTOR OF CATH LAB Moon Welch MD LAB BLOOD ORDERABLES Humera l Result [facility] [address] [facility] Department [place] [address] * ECG 12 lead (08/07/2025 10:34 AM DIRECTOR OF CATH LAB) Ventricular Rate EKG/Min 71 BPM [facility] Atrial Rate 71 BPM [facility] SD-Interval (MSEC) 228 ms [facility] QRS-Interval (MSEC) 130 ms [facility] QT-Interval (MSEC) 402 ms [facility] QTc 436 ms [facility] P Westfall 49 degrees [facility] R Westfall 49 degrees [facility] T Westfall 152 degrees [facility] Diagnosis Sinus rhythm with 1st degree A-V block Non-specific intra-ventricul ar conduction block Cannot rule out Anterior infarct , age undetermined Abnormal ECG When compared with ECG of 24-JUN-2025 08:24, No significant change was found Confirmed by ELSA COLLAZO M.D. ([id number]) on 08/07/2025 3:01:34 PM [facility] 08/07/2025 10:3 4 AM DIRECTOR OF CATH LAB 08/07/2025 3:01 PM DIRECTOR OF CATH LAB Moon Welch MD ECG ORDERABLES Final Res ult [facility] * Iron profile w/ IBC (07/08/2025 9:44 AM DIRECTOR OF CATH LAB) Blood Connor Wilkes MD LAB BLOOD ORDERABLES Final Re sult Performing Organization Address [facility] de Phone Number EXTERNAL LAB * (ABNORMAL) Hemoglobin and hematocrit (07/08/2025 9:44 AM DIRECTOR OF CATH LAB) Blood Connor Wilkes MD LAB BLOOD ORDERABLES Final Re sult Performing Organization Address [facility] de Phone Number EXTERNAL LAB * (ABNORMAL) PTH (07/08/2025 9:44 AM DIRECTOR OF CATH LAB) Blood Connor Wilkes MD LAB BLOOD ORDERABLES Final Re sult Performing Organization Address [facility] de Phone Number EXTERNAL LAB * (ABNORMAL) Basic metabolic panel (07/08/2025 9:44 AM DIRECTOR OF CATH LAB) Blood Connor Wilkes MD LAB BLOOD ORDERABLES Final Re sult Performing Organization Address [facility] de Phone Number EXTERNAL LAB * SD AN ELECTIVE SUPRAGLOTTIC AIRWAY, SD AN PROCEDURE PLACEHOLDER (06/24/2025 10:41 AM CDT) Al Mohan CRNA - 06/24/2025 10:41 AM CDT Al Carcamo CRNA 06/24/2025 10:41 AM Airway Patient location: OR Urgency: elective Date/time: 06/24/2025 10:32 AM Indications for airway management: anesthesia Difficult airway: no Staff: Placed by: CORDWAINER: Al Carcamo CRNA Emergent airway documentation: Risks [...] attempts: 1 Additional comments: Atraumatic LMA insertion. Eleanor Grimaldo MD ANESTHESIA ORDERABLES Final Re sult * (ABNORMAL) eGFR (06/24/2025 8:46 AM CDT) Pathologist [facility] eGFR 14(L) >=60 mL/min/1. 73 m2 Comment: [...] MD LAB BLOOD ORDERABLES Final Resul t [facility] [address] [facility] Department of Laboratories [place], [place] [id number] * (ABNORMAL) Differential, auto (06/24/2025 8:46 AM CDT) [facility] Neutrophil abs 9.29(H) 1.50 - 6.50 K/cumm Imm gran abs 0.07 0.00 - 0.10 K/cumm [facility] Lymphocyte abs 0.88 0.80 - 3.30 K/cumm [facility] Monocyte abs 0.75 0.20 - 0.80 K/cumm [facility] Eosinophil abs 0.43 0.00 - 0.50 K/cumm [facility] Basophil abs 0.05 0.00 - 0.10 K/cumm [facility] Neutrophil pct 81.1 % [facility] Comment: Interpretive Data Percent cell count reference ranges are not reported, since discordance with absolute values may lead to misinterpretation of CBC data. Current Interpretive Data was last revised on 2017. Imm gran pct 0.6 % [facility] Comment: Interpretive Data Percent cell count reference ranges are not reported, since discordance with absolute values may lead to misinterpretation of CBC data. Current Interpretive Data was last revised on 2017. Lymphocyte pct 7.7 % [facility] Comment: Interpretive Data Percent cell count reference ranges are not reported, since discordance with absolute values may lead to misinterpretation of CBC data. Current Interpretive Data was last revised on 2017. Monocyte pct 6.5 % [facility] Comment: Interpretive Data Percent cell count reference ranges are not reported, since discordance with absolute values may lead to misinterpretation of CBC data. Current Interpretive Data was last revised on 2017. Eosinophil pct 3.7 % [facility] Comment: Interpretive Data Percent cell count reference ranges are not reported, since discordance with absolute values may lead to misinterpretation of CBC data. Current Interpretive Data was last revised on 2017. Basophil pct 0.4 % [facility] Comment: Interpretive Data Percent cell count reference ranges are not reported, since discordance with absolute values may lead to misinterpretation of CBC data. Current Interpretive Data was last revised on 2017. Blood 06/24/2025 8:46 AM CDT 06/24/2025 8:50 AM CDT Noe Coronel MD LAB BLOOD ORDERABLES Final Resul t [facility] [address] [facility] Department [place] [address] * (ABNORMAL) CBC with auto differential (06/24/2025 8:46 AM CDT) WBC 11.47(H) 3.80 - 9.90 K/cumm Hgb 9.4(L) 13.0 - 17.5 g/dL [facility] Hct 28.9(L) 38.9 - 50.3 % [facility] Plt 247 150 - 400 K/cumm [facility] MPV 10.7 9.1 - 12.3 fL [facility] RBC 3.39(L) 4.30 - 5.80 M/cumm [facility] MCV 85.3 81.3 - 96.4 fL [facility] MCH 27.7 27.1 - 33.3 pg [facility] MCHC 32.5 32.3 - 35.7 g/dL [facility] RDW CV 14.9 11.1 - 14.9 % [facility] RDW SD 46.1 35.7 - 48.1 fL [facility] NRBC abs 0.00 0.00 - 0.01 K/cumm [facility] Blood 06/24/2025 8:46 AM CDT 06/24/2025 8:50 AM CDT us Noe Coronel MD LAB BLOOD ORDERABLES Final Resul t [facility] [address] [facility] Department [place] [address] * (ABNORMAL) Basic metabolic panel (06/24/2025 8:46 AM CDT) Sodium 140 135 - 145 mmol/L Potassium, pl 4.2 3.3 - 4.9 mmol/L [facility] Chloride 106 97 - 110 mmol/L [facility] CO2 21(L) 22 - 32 mmol/L [facility] Anion gap 13 2 - 15 mmol/L [facility] BUN 65(H) 6 - 25 mg/dL [facility] Creatinine 4.21(H) 0.80 - 1.30 mg/dL [facility] Glucose 113 70 - 199 mg/dL [facility] Comment: Interpretive Data Fasting glucose >/= 126 [...] 2022. Calcium 9.8 8.5 - 10.3 mg/dL [facility] Blood 06/24/2025 8:46 AM CDT 06/24/2025 8:51 AM CDT Noe Coronel MD LAB BLOOD ORDERABLES Final Resul t Performing Organization Address City/[facility]/ZIP Co de Phone Number CYNTHIA [address] [facility] Department [place] [address] * ECG 12 lead (06/24/2025 8:24 AM CDT) Ventricular Rate EKG/Min 55 BPM [facility] Atrial Rate 55 BPM [facility] SD-Interval (MSEC) 268 ms [facility] QRS-Interval (MSEC) 142 ms [facility] QT-Interval (MSEC) 474 ms [facility] QTc 453 ms [facility] P Westfall 17 degrees [facility] R Westfall 32 degrees [facility] T Westfall 147 degrees [facility] Diagnosis Sinus bradycardia with 1st degree A-V block Non-specific intra-ventricu lar conduction block Nonspecific T wave abnormality Abnormal ECG When compared with ECG of 27-MAY-2019 09:33, SD interval has increased T wave inversion no longer evident in Inferior leads Confirmed by SUBHASH MORENO M.D. ([id number]) on 06/24/2025 10:24:58 AM [facility] 06/24/2025 8:24 AM CDT 06/24/2025 10:24 AM CDT Larissa Ariza TAMPER OPERATOR ECG ORDERABLES Humera l Result [facility] * (ABNORMAL) Differential, auto (06/21/2025 2:19 PM CDT) Neutrophil abs 9.28(H) 1.50 - 6.50 K/cumm Imm gran abs 0.04 0.00 - 0.10 K/cumm [facility] Lymphocyte abs 0.93 0.80 - 3.30 K/cumm [facility] Monocyte abs 0.79 0.20 - 0.80 K/cumm [facility] Eosinophil abs 0.35 0.00 - 0.50 K/cumm [facility] Basophil abs 0.03 0.00 - 0.10 K/cumm [facility] Neutrophil pct 81.2 % [facility] Comment: Interpretive Data Percent cell count reference ranges are not reported, since discordance with absolute values may lead to misinterpretation of CBC data. Current Interpretive Data was last revised on 2017. Imm gran pct 0.4 % [facility] Comment: Interpretive Data Percent cell count reference ranges are not reported, since discordance with absolute values may lead to misinterpretation of CBC data. Current Interpretive Data was last revised on 2017. Lymphocyte pct 8.1 % [facility] Comment: Interpretive Data Percent cell count reference ranges are not reported, since discordance with absolute values may lead to misinterpretation of CBC data. Current Interpretive Data was last revised on 2017. Monocyte pct 6.9 % [facility] Comment: Interpretive Data Percent cell count reference ranges are not reported, since discordance with absolute values may lead to misinterpretation of CBC data. Current Interpretive Data was last revised on 2017. Eosinophil pct 3.1 % [facility] Comment: Interpretive Data Percent cell count reference ranges are not reported, since discordance with absolute values may lead to misinterpretation of CBC data. Current Interpretive Data was last revised on 2017. Basophil pct 0.3 % [facility] Comment: Interpretive Data Percent cell count reference ranges are not reported, since discordance with absolute values may lead to misinterpretation of CBC data. Current Interpretive Data was last revised on 2017. Blood 06/21/2025 2:19 PM CDT 06/21/2025 2:23 PM CDT us Connor Wilkes MD LAB BLOOD ORDERABLES Final Re sult CYNTHIA PAREKH [address] [facility] Department [place] [address] * (ABNORMAL) CBC with auto differential (06/21/2025 2:19 PM CDT) WBC 11.42(H) 3.80 - 9.90 K/cumm Hgb 9.4(L) 13.0 - 17.5 g/dL [facility] Hct 29.1(L) 38.9 - 50.3 % [facility] Plt 261 150 - 400 K/cumm [facility] MPV 10.8 9.1 - 12.3 fL [facility] RBC 3.37(L) 4.30 - 5.80 M/cumm [facility] MCV 86.4 81.3 - 96.4 fL [facility] MCH 27.9 27.1 - 33.3 pg [facility] MCHC 32.3 32.3 - 35.7 g/dL [facility] RDW CV 15.1(H) 11.1 - 14.9 % [facility] RDW SD 47.7 35.7 - 48.1 fL [facility] NRBC abs 0.00 0.00 - 0.01 K/cumm [facility] Blood 06/21/2025 2:19 PM CDT 06/21/2025 2:23 PM CDT Connor Wilkes MD LAB BLOOD ORDERABLES Final Re sult Performing Organization Address [facility] Co de Phone Number [facility] [address] [facility] Department [place] [address] * BMP - Basic Metabolic Panel (7) (06/18/2025 1:19 PM CDT) Historical Provider LAB BLOOD ORDERABLES Humera l Result Performing Organization Address City/[facility]/ZIP Co de Phone Number EXTERNAL LAB * (ABNORMAL) Hemoglobin and hematocrit (06/18/2025 9:16 AM CDT) Blood Connor Wilkes MD LAB BLOOD ORDERABLES Final Re sult Performing Organization Address [facility] Co de Phone Number EXTERNAL LAB * PTH (06/18/2025 8:42 AM CDT) Blood us Historical Provider LAB BLOOD ORDERABLES Humera ellison Result EXTERNAL LAB * US Vein Mapping Upper Extremity Right (06/17/2025 11:25 AM CDT) Anatomical Region Laterality Modality Vascular Right Ultrasound 06/17/2025 10:5 2 AM CDT Narrative 06/17/2025 4:14 PM CDT Upper Extremity Vein Mapping Report Patient Name: NIKOLAY SILVER Z : 1950 (75y 5m) Sex: M Study Date: 06/17/2025 10:52:38 AM Load Checker: YESSICA RAMIREZ Provider: NOE CORONEL Quality: Adequate [...] Sex: M Study Date: 06/17/2025 10:52:38 AM Load Checker: YESSICA RAMIREZ Provider: NOE CORONEL Quality: Adequate [...] Michel Coronel MD 06/17/2025 4:13:08 PM CDT us Noe Coronel MD IMG US PROCEDURES Final Result * CT Abdomen W WO Contrast (05/04/2019 12:00 AM CDT) Anatomical Region Laterality Modality Body N/A Computed Tomogra phy 05/04/2019 4:48 PM CDT Narrative 05/04/2019 5:25 PM CDT Patient Name: NIKOLAY SILVER Ordering Dr: Angel Luis Epstein MD D.O.B: 1950 Exam Date: 05/04/19 0000 Age: 69 Sex: Male MR#: [id number] Loc: RADIOLOGY REPORT Order #[id number] CT Scan CT Abd W WO IV [...] signed by Tobias JOSEPH T: Report ID: [id number] Reading Location: [id number] REPORT ELECTRONICALLY SIGNED IN OTHER VENDOR SYSTEM Resulting Agency Comment O Procedure Note Tobias Ramos MD - 05/04/2019 Patient Name: NIKOLAY SILVER Dr: Angel Luis Epstein MD D.O.B: 1950 Exam Date: 05/04/19 0000 Age: 69 Sex: Male MR#: [id number] Loc: RADIOLOGY REPORT Order #[id number] CT Scan CT Abd W WO IV [...] signed by Tobias JOSEPH T: Report ID: [id number] Reading Location: [place] [address] REPORT ELECTRONICALLY SIGNED IN OTHER VENDOR SYSTEM us Angel Luis Epstein MD IMG CT PROCEDURES Final Re sult * Occult Blood, Fecal (04/15/2019 6:00 AM CDT) Stool Occult Blood NEGATIVE NEGATIVE [facility] 04/15/2019 6:00 AM CDT 04/15/2019 6:27 AM CDT Narrative [facility] - 04/15/2019 6:44 AM CDT Collected By [facility] Agency Comment IN Tomi Michele MD LAB BODY FLUIDS AND STOOLS O RDERABLES Final Result [facility] [address] [place] [address], [facility] [phone] from Last 3 Months or Most Recently Relevant to Health Maintenance Insurance [id number] [place] [address] HEALTHCARE [facility] HEALTHCARE HEALTHCARE HEALTHCARE Advance Directives For more information, please contact: [phone] * Full Code (Latest Code Status on File) Date Activated Date Inactivated Comments 08/07/2025 4:33 PM 08/19/2025 6:50 PM * Full Code Date Activated Date Inactivated Comments 04/04/2019 8:10 AM 04/04/2019 2:59 PM Care Teams Research Geneticist Relationship Specialty Start Date End Date Jorge Alberto Perez MD [address] [place] [address] PCP - General Family Practice 08/16/24 Lea Gaspar, RN Registered Nurse Gastroenterology 03/28/19 Sen Ruiz MD [address] [facility] [address] [place] [address] Director Marketing Cardiology 04/25/19 Michel Coronel MD [address] [facility] [address] [facility] [address] [address] Surgeon Vascular Surgery 06/24/25 Alycia Gaytan [facility] Community Health Worker (CHW) 08/08/25
--- OUTSIDE RECORDS SUMMARY | 2025-08-27 11:12 | XMS_ITS | Encounter Summary ---
Author Organization [facility] Facility Care Team Providers Care Industrial Gas Fitter Helper Name Role Phone Robe Kinney MD Primary Care Provider [phone] Lea Gaspar RN Unavailable Unavailable Sen Ruiz MD Unavailable [phone] Connor Wilkes MD Primary Care Provider [phone] Robe Kinney MD Primary Care Provider + [phone] No, Physician Primary Care Provider [phone] Rory Martinez DO Primary Care Provider [phone] Jorge Alberto Perez MD Primary Care Provider + [phone] Jorge Alberto Perez MD Primary Care Provider [phone] Michel Coronel MD Unavailable [phone] Alycia Gaytan Unavailable Unavailable Encounter Details Date Type Department Care Team (Latest Contact Info) Description 12/03/2016 Orders Only [facility] CLINCONV ProviderObinna MD [address] [place] [address] Social History Tobacco Use Types Packs/Day Years Used Date Smoking Tobacco: Never Assessed Sex and Gender Information Value Date Recorded Sex Assigned at Not on file Legal Sex Male 6:22 PM BAT CARRIER Gender Identity Not on file Sexual Orientation [...] Diagnoses Not on filedocumented in this encounter Additional Health Concerns Infection Onset Date Last Indicated Resolved Time COVID: Suspected 08/07/2025 08/07/2025 08/07/2025 1:07 PM BAT CARRIER documented as of this encounter Care Teams Industrial Gas Fitter Helper Relationship Specialty Start Date End Date Robe Kinney MD [address] [place] [address] PCP - General Family Medicine 01/16/19 05/29/19 Connor Wilkes MD [address] [facility] [address] [address] PCP - General 05/30/19 07/30/19 Robe Kinney MD [address] [place] [address] PCP - General 07/31/19 08/31/20 No, Physician PCP - General 09/01/20 10/23/20 Rory Martinez DO PCP - General 10/24/20 10/05/22 Jorge Alberto Perez MD PCP - General Family Practice 07/01/23 08/15/24 Jorge Alberto Perez MD [address] [place] [address] PCP - General Family Practice 08/16/24 Lea Gaspar, RN Registered Nurse Gastroenterology 03/28/19 Sen Ruiz MD [address] [facility] [address] [place] [address] Copier And Printer Field Technician Cardiology 04/25/19 Michel Coronel MD [address] [facility] [address] [place] [address] [place] [address] Surgeon Vascular Surgery 06/24/25 Alycia Gaytan [facility] Community Health Worker (CHW) 08/08/25 documented as of this encounter
--- OUTSIDE RECORDS SUMMARY | 2025-08-27 11:12 | XMS_ITS | Encounter Summary ---
Author Organization [facility] Facility Care Team Providers Care Nuclear Technologist Name Role Phone Robe Kinney MD Primary Care Provider + [phone] Lea Gaspar RN Unavailable Unavailable Sen Ruiz MD Unavailable [phone] Connor Wilkes MD Primary Care Provider [phone] Robe Kinney MD Primary Care Provider [phone] No, Physician Primary Care Provider [phone] Rory Martinez DO Primary Care Provider [phone] Jorge Alberto Perez MD Primary Care Provider + [phone] Jorge Alberto Perez MD Primary Care Provider [phone] Michel Coronel MD Unavailable [phone] Alycia Gaytan Unavailable Unavailable Encounter Details Date Type Department Care Team (Latest Contact Info) Description 11/19/2015 Orders Only [facility] CLINCONV ProviderObinna MD [address] [place] [address] Social History Tobacco Use Types Packs/Day Years Used Date Smoking Tobacco: Never Assessed Sex and Gender Information Value Date Recorded Sex Assigned at Not on file Legal Sex Male 6:22 PM NUCLEAR SUPERVISING OPERATOR Gender Identity Not on file Sexual [...] COVID: Suspected 08/07/2025 08/07/2025 08/07/2025 1:07 PM NUCLEAR SUPERVISING OPERATOR documented as of this encounter Care Teams Nuclear Technologist Relationship Specialty Start Date End Date Robe Kinney MD [address] [place] [address] PCP - General Family Medicine 01/16/19 05/29/19 Connor Wilkes MD [address] [facility] [address] [address] PCP - General 05/30/19 07/30/19 Robe Kinney MD [address] [place] [address] PCP - General 07/31/19 08/31/20 No, Physician PCP - General 09/01/20 10/23/20 Rory Martinez DO PCP - General 10/24/20 10/05/22 Jorge Alberto Perez MD PCP - General Family Practice 07/01/23 08/15/24 Jorge Alberto Perez MD [address] [place] [address] PCP - General Family Practice 08/16/24 Lea Gaspar, RN Registered Nurse Gastroenterology 03/28/19 Sen Ruiz MD [address] [facility] [address] [place] [address] Hand Trimmer Cardiology 04/25/19 Michel Coronel MD [address] [facility] [address] [place] [address] [place] [address] Surgeon Vascular Surgery 06/24/25 Alycia Gaytan [facility] Community Health Worker (CHW) 08/08/25 documented as of this encounter
--- OUTSIDE RECORDS SUMMARY | 2025-08-27 11:12 | XMS_ITS | Encounter Summary ---
Author Organization [facility] Facility Care Team Providers Care Book Illustrator Name Role Phone Robe Kinney MD Primary Care Provider [phone] Lea Gaspar RN Unavailable Unavailable Sen Ruiz MD Unavailable [phone] Connor Wilkes MD Primary Care Provider [phone] Robe Kinney MD Primary Care Provider + [phone] No, Physician Primary Care Provider [phone] Rory Martinez DO Primary Care Provider [phone] Jorge Alberto Perez MD Primary Care Provider + [phone] Jorge Alberto Perez MD Primary Care Provider [phone] Michel Coronel MD Unavailable [phone] Alycia aGytan Unavailable Unavailable Encounter Details Date Type Department Care Team (Latest Contact Info) Description 01/30/2013 Orders Only [facility] CLINCONV ProviderObinna MD [address] [place] [address] Social History Tobacco Use Types Packs/Day Years Used Date Smoking Tobacco: Never Assessed Sex and Gender Information Value Date Recorded Sex Assigned at Not on file Legal Sex Male 6:22 PM PRODUCTION TECHNICIAN Gender Identity Not on file Sexual [...] COVID: Suspected 08/07/2025 08/07/2025 08/07/2025 1:07 PM PRODUCTION TECHNICIAN documented as of this encounter Care Teams Book Illustrator Relationship Specialty Start Date End Date Robe Kinney MD [address] [place] [address] PCP - General Family Medicine 01/16/19 05/29/19 Connor Wilkes MD [address] [facility] [address] [address] PCP - General 05/30/19 07/30/19 Robe Kinney MD [address] [place] [address] PCP - General 07/31/19 08/31/20 No, Physician PCP - General 09/01/20 10/23/20 Rory Martinez DO PCP - General 10/24/20 10/05/22 Jorge Alberto Perez MD PCP - General Family Practice 07/01/23 08/15/24 Jorge Alberto Perez MD [address] [place] [address] PCP - General Family Practice 08/16/24 Lea Gaspar, RN Registered Nurse Gastroenterology 03/28/19 Sen Ruiz MD [address] [facility] [address] [place] [address] Accounting Technician Cardiology 04/25/19 Michel Coronel MD [address] [facility] [address] [place] [address] [place] [address] Surgeon Vascular Surgery 06/24/25 Alycia Gaytan [facility] Community Health Worker (CHW) 08/08/25 documented as of this encounter
--- OUTSIDE RECORDS SUMMARY | 2025-08-27 11:13 | XMS_ITS | Encounter Summary ---
Author Organization [facility] Healthcare Address [address] [place] [address] Care Team Providers Care Cnc Machinist Name Role Phone Lea Gaspar RN Unavailable Unavailable Sen Ruiz MD Unavailable [phone] Jorge Alberto Perez MD Primary Care Provider + [phone] Michel Coronel MD Unavailable [phone] Alycia Gaytan Unavailable Unavailable Encounter Details Date Type Department Care Team (Late st Contact Info) Description 04/25/2025 Orders Only [facility] [address] [place] [address] Scanning, Provider Social History Tobacco Use Types [...] on file Legal Sex Male 6: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 BANKING SPECIALIST Gender Identity Not on file Sexual [...] COVID: Suspected 08/07/2025 08/07/2025 08/07/2025 1:07 PM BANKING SPECIALIST documented as of this encounter Care Teams Cnc Machinist Relationship Specialty Start Date End Date Jorge Alberto Perez MD [address] [place] [address] PCP - General Family Practice 08/16/24 Lea Gaspar, RN Registered Nurse Gastroenterology 03/28/19 Sen Ruiz MD [address] [facility] [address] [place] [address] Degreaser Cardiology 04/25/19 Michel Coronel MD [address] [facility] [address] [place] [address] Surgeon Vascular Surgery 06/24/25 Alycia Gaytan [facility] Community Health Worker (CHW) 08/08/25 documented as of this encounter
--- OUTSIDE RECORDS SUMMARY | 2025-08-27 11:13 | XMS_ITS | Encounter Summary ---
Author Organization [facility] Facility Care Team Providers Care Bellmaker Name Role Phone Robe Kinney MD Primary Care Provider [phone] Lea Gaspar RN Unavailable Unavailable Sen Ruiz MD Unavailable +[phone] Connor Wilkes MD Primary Care Provider [phone] Robe Kinney MD Primary Care Provider + [phone] No, Physician Primary Care Provider [phone] Rory Martinez DO Primary Care Provider [phone] Jorge Alberto Perez MD Primary Care Provider [phone] Jorge Alberto Perez MD Primary Care Provider [phone] Michel Coronel MD Unavailable [phone] Alycia Gaytan Unavailable Unavailable Encounter Details Date Type Department Care Team (Latest Contact Info) Description 01/05/2011 Orders Only [facility] CLINCONV ProviderObinna MD [address] [place] [address] Social History Tobacco Use Types Packs/Day Years Used Date Smoking Tobacco: Never Assessed Sex and Gender Information Value Date Recorded Sex Assigned at Not on file Legal Sex Male 6:22 PM FRONT DESK ADMINISTRATOR Gender Identity Not on file Sexual Orientation [...] COVID: Suspected 08/07/2025 08/07/2025 08/07/2025 1:07 PM FRONT DESK ADMINISTRATOR documented as of this encounter Care Teams Bellmaker Relationship Specialty Start Date End Date Robe Kinney MD [address] [place] [address] PCP - General Family Medicine 01/16/19 05/29/19 Connor Wilkes MD [address] [facility] [address] [address] PCP - General 05/30/19 07/30/19 Robe Kinney MD [address] [place] [address] PCP - General 07/31/19 08/31/20 No, Physician PCP - General 09/01/20 10/23/20 Rory Martinez DO PCP - General 10/24/20 10/05/22 Jorge Alberto Perez MD PCP - General Family Practice 07/01/23 08/15/24 Jorge Alberto Perez MD [address] [place] [address] PCP - General Family Practice 08/16/24 Lea Gaspar, RN Registered Nurse Gastroenterology 03/28/19 Sen Ruiz MD [address] [facility] [address] [place] [address] Leather Carver Cardiology 04/25/19 Michel Coronel MD [address] [facility] [address] [place] [address] [place] [address] Surgeon Vascular Surgery 06/24/25 Alycia Gaytan [facility] Community Health Worker (CHW) 08/08/25 documented as of this encounter
[2025-08-27 11:40] LABS: Alanine Aminotransferase 31 U/L (6-50); Albumin Level 4.7 g/dL (3.5-5.1); Alkaline Phosphatase 45 U/L (38-126); Anion Gap 19 mmol/L (4-12); Aspartate Amino Transferase 31 U/L (17-59); Bilirubin,Total 1.0 mg/dL (0.2-1.3); Calcium 9.4 mg/dL (8.4-10.2); Carbon Dioxide 27 mmol/L (22-30); Chloride 86 mmol/L (98-107); Estimated Glomerular Filt Rate 7; Glucose 112 mg/dL (65-110); Potassium 4.0 mmol/L (3.4-5.0); Sodium 132 mmol/L (137-145); Total Protein 8.3 g/dL (6.3-8.2)
[2025-08-27 13:04] LABS: Blood Urea Nitrogen 130 mg/dL (9-20)
== END 2025-08-27 10:34 | disposition home or self-care (01) ==
PROVIDERS: PCP Nurse Practitioner Family; Visit Provider Nurse Practitioner Family
DX: I50.9 Heart failure, unspecified (principal)
CPT/HCPCS: 36415; 80053